=== PATIENT | male | born 1935 | race Caucasian/White ===

== ENCOUNTER 2020-02-06 17:45 | Emergency (ER) | payer MEDICARE, SELFPAY ==
--- NOTE | ~2020-02-06 | XR_ITS ---
EXAMINATION: XR chest 1V portable DATE: 02/06/2020 18:34 INDICATION: 2 days of fever, chills, cough and shortness of breath TECHNIQUE: frontal view of the chest was obtained. COMPARISON: Chest radiograph dated 01/26/2019 FINDINGS: Groundglass opacities in the right mid and lower lung zones with additional streaky opacities in the bilateral lower lung zones. No pulmonary edema, pleural effusion or pneumothorax. The cardiomediastin al silhouette is normal. Multiple old right-sided rib fractures. 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 Changes of prior distal right clavicle resection. Partially visualized bilatera l vertical carlton and multilevel pedicle screw fixation at the thoracolumbar junction. IMPRESSION: 1. Opacities in the right mid and bilateral lower lung zones which could represent pneumonia, atelect asis or combination thereof. Reviewed, dictated and finalized at [facility]. NT CLERK IMPRESSION: 1. Opacities in the right mid and bilateral lower lung zones which could repres ent pneumonia, atelectasis or combination thereof.
[2020-02-06 18:19] VITALS: PULSE 89; RESP 22; TEMP 38; O2SAT 94
[2020-02-06 19:15] VITALS: O2SAT 94
[2020-02-06 19:24] LABS: Basophils Percent Auto 0.2 % (0.2-1.2); Eosinophils Absolute Auto 0.1 K/mm3 (0-0.3); Eosinophils Percent Auto 0.6 % (0-4.4); Hematocrit 39.4 % (42.0-52.0); Immature Granulocyte Absolute 0.04 K/mm3 (0.00-0.031); Immature Granulocyte Percent A 0.4 % (0-0.5); Lymphocytes Absolute Auto 0.83 K/mm3 (0.9-3.2); Lymphocytes Percent Auto 8.2 % (18.3-44.2); Mean Corpuscular Hemoglobin 29.8 pg (26-34); Mean Corpuscular Volume 90.4 fl (80-100); Mean Platelet Volume 9.3 fl (7.4-10.4); Monocytes Absolute Auto 0.9 K/mm3 (0.1-0.6); Monocytes Percent Auto 8.7 % (2.6-8.5); Neutrophils Absolute Auto 8.3 K/mm3 (1.3-6.7); Neutrophils Percent Auto 81.9 % (45.5-73.1); Platelet Count Result 180 k/mm3 (150-375); Red Blood Count 4.36 M/mm3 (4.6-6.20); Red Cell Distribution Width 13.4 % (11.5-14.5); White Blood Count 10.2 K/mm3 (4.5-10.0)
[2020-02-06 19:33] LABS: INR 0.9; Prothrombin Time 13.1 Seconds (11.1-14.7)
[2020-02-06 19:34] LABS: Partial Thromboplastin Time 32.4 SECONDS (22.3-36.8)
[2020-02-06 19:38] LABS: Lactic Acid Reflex 1.6 mmol/L (0.7-2.1)
[2020-02-06 19:45] LABS: Alanine Aminotransferase 34 U/L (4-50); Albumin Level 3.9 g/dL (3.5-5.1); Alkaline Phosphatase 85 U/L (38-126); Anion Gap 9 mmol/L (8-16); Aspartate Amino Transferase 50 U/L (17-59); Bilirubin,Total 1.4 mg/dL (0.2-1.3); Blood Urea Nitrogen 20 mg/dL (9-20); Calcium 8.7 mg/dL (8.4-10.2); Carbon Dioxide 27 mmol/L (22-30); Chloride 103 mmol/L (98-107); Estimated CRCL calculation 36 ml/min; Estimated Glomerular Filt Rate 53; Glucose 187 mg/dL (75-110); Potassium 4.4 mmol/L (3.4-5.0); Sodium 139 mmol/L (137-145)
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
[2020-02-06 20:49] VITALS: O2SAT 95
[2020-02-06 21:15] VITALS: BP 144/74; PULSE 72; RESP 16; O2SAT 98
[2020-02-06] MEDS: AZITHROMYCIN 250 MG TABLET 500 MG PO (21:15)
[2020-02-06] MEDS: CEFDINIR 300 MG CAPSULE PO (21:15)
[2020-02-07 14:03] LABS: SARS-CoV-2 RNA PCR Negative
== END 2020-02-06 21:15 | disposition home or self-care (01) ==
PROVIDERS: Emergency Medicine; Emergency Provider Emergency Medicine; PCP Family Medicine
DX: J18.9 Pneumonia, unspecified organism (principal); Z20.828 Contact with and (suspected) exposure to other viral communicable diseases; N40.0 Benign prostatic hyperplasia without lower urinary tract symptoms; G47.419 Narcolepsy without cataplexy; R06.02 Shortness of breath
CPT/HCPCS: 36415; 71045; 80053; 83605; 85025; 85610; 85730; 87040; 87077; 87186; 87635; 99283; A9270; C9803; U0003

== ENCOUNTER → 2020-05-21 10:29 | Outpatient (CLI) | payer MEDICARE, SELFPAY ==
--- NOTE | ~2020-05-21 | CT_ITS ---
EXAMINATION: CT diagnostic chest w con DATE: 05/21/2020 11:00 INDICATION: Nodule left lower lobe TECHNIQUE: Computed tomography (CT) of the chest was performed without intravenous contrast. Addition al 3D reconstructions utilizing coronal maximum intensity projection (MIP) were performed. Automated exposure control and iterative reconstruction technique were employed. The dose-length product was 40 6.57 mGy-cm. COMPARISON: 01/26/2019 FINDINGS: Small lung volumes. There is moderate respiratory motion at the lung bases which mildly limits evalua tion of fine pulmonary parenchymal detail. Chronic reticular pattern of atelectasis/scarring at the b ilateral lung bases and along the anterior right middle lobe where there is mild emphysema. Mild depe ndent atelectasis in the bilateral lower lobes. No pneumonia, pulmonary edema or pleural effusion. Th ere are few scattered small calcified pulmonary nodules along with calcified mediastinal lymph nodes consistent with old granulomatous disease. Cardiomegaly. No pericardial effusion. Atherosclerotic cor onary artery calcific lesions. Aortic valve calcification. Thoracic aorta is normal in caliber with n o dissection. No pathologically enlarged thoracic lymphadenopathy. Diffuse hepatic steatosis. Multipl e old healed and nonunited rib fractures. 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 Severe cervical thoracic spondyl osis. Partially visualized vertical carlton and pedicle screw fixation at T11 for posterior spinal fusion which appears to extend beyond the caudal margin of the [id number]. IMPRESSION: 1. Small lung volumes with chronic bibasilar atelectasis/scarring including at the anterior right mid dle lobe and mild dependent atelectasis. No evident concerning pulmonary nodules. 2. Cardiomegaly. 3. Diffuse hepatic steatosis. Reviewed, dictated and finalized at location [facility]. R ACCOUNT REPRESENTATIVE IMPRESSION: 1. Small lung volumes with chronic bibasilar atelectasis/scarring including at the anterior right middle lobe and mild dependent atelectasis. No evident aguilar rning pulmonary nodules. 2. Cardiomegaly. 3. Diffuse hepatic steatosis.
[2020-05-21 10:49] LABS: Estimated Glomerular Filt Rate > 60
== END ==
PROVIDERS: PCP Internal Medicine; Visit Provider Physician Assistant Medical
DX: R91.8 Other nonspecific abnormal finding of lung field (principal); I51.7 Cardiomegaly; K76.0 Fatty (change of) liver, not elsewhere classified
CPT/HCPCS: 71260; Q9967

== ENCOUNTER 2020-07-02 14:16 | Outpatient (CLI) | payer MEDICARE, SELFPAY ==
--- NOTE | 2020-07-02 14:30 | ECHO_ITS ---
Patient Info Name: Devin Gonzalez Age: 85 years : 1935 Gender: Male Ht: 65 in Wt: 182 lbs BSA: 1.97 m2 HR: 67 bpm BP: 162 / 87 mmHg Technical Quality: Fair Exam Date: 07/02/2020 2:40 PM Exam Location: [facility] Patient Status: Outpatient Admit Date: 07/02/2020 Staff Ordering Physician: Mitch Kumar DO Computer Aided Design Technician: Angi Romero RDCS Attending Provider: Mitch Kumar DO Referring Physician: José JAMES; Exam Type: CA echo dop color flow w con Study Info Complete two-dimensional, color flow and Doppler transthoracic echocardiogram is performed with contrast to opacify the left ventricle and to improve the deliniation of the left ventricle endocardial borders. Contrast/Agitated Saline Contrast/Ag. Saline: Definity Amount: 1.00 ml New IV Access: Left Summary 1. Left ventricular chamber dimension is normal. 2. Definity contrast administered improved wall motion interpretation. 3. Left ventricular systolic function is normal, estimated at 60-65%. 4. There is moderately increased left ventricular wall thickness. 5. The left ventricular diastolic function is grade I diastolic dysfunction. 6. E/e' 7 is not elevated. 7. Left atrial chamber dimension is mildly enlarged. 8. There is severe aortic valve sclerosis. 9. There is moderate aortic valve stenosis with a peak velocity of 241.98 cm/s, mean gradient of 11 mmHg, and aortic valve area of 1.44 cm2. 10. Mild pulmonary hypertension, estimated pulmonary arterial systolic pressure is 43 mmHg. Left Ventricle Definity contrast administered improved wall motion interpretation. E/e' 7 is not elevated. Left ventricular chamber dimension is normal. Left ventricular systolic function is normal, estimated at 60-65%. There is moderately increased left ventricular wall thickness. The left ventricular diastolic function is grade I diastolic dysfunction. Right Ventricle Right ventricular chamber dimension is normal. Right ventricular systolic function is normal. Left Atria Left atrial chamber dimension is mildly enlarged. Right Atria Right atrial chamber dimension is normal. Aortic Valve The aortic valve is trileaflet. There is severe aortic valve sclerosis. There is moderate aortic valve stenosis with a peak velocity of 241.98 cm/s, mean gradient of 11 mmHg, and aortic valve area of 1.44 cm2. There is no aortic valve regurgitation. Pulmonic Valve There is no pulmonic regurgitation. Mitral Valve There is no mitral valve stenosis. There is no mitral valve regurgitation. Tricuspid Valve There is no tricuspid valve regurgitation. Mild pulmonary hypertension, estimated pulmonary arterial systolic pressure is 43 mmHg. Pericardium/Pleural There is no pericardial effusion. Inferior Vena Cava Normal inferior vena cava with >50% collapse upon inspiration consistent with normal right atrial pressure, 5 mmHg. Aorta The aortic root size at the sinus of Valsalva is normal. Left Ventricular Outflow Tract Name Value Normal LVOT 2D LVOT Diameter 2.05 cm LVOT Doppler LVOT Peak Gradient 4
== END 2020-07-02 14:17 | disposition home or self-care (01) ==
PROVIDERS: PCP Family Medicine; Visit Provider Internal Medicine Cardiovascular Disease
DX: R06.00 Dyspnea, unspecified (principal); I08.3 Combined rheumatic disorders of mitral, aortic and tricuspid valves
CPT/HCPCS: C8929

== ENCOUNTER 2020-07-24 19:33 | Emergency (ER) | payer MEDICARE, SELFPAY ==
[2020-07-24 19:40] VITALS: BP 153/79; PULSE 85; RESP 16; TEMP 36.2; O2SAT 94
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
[2020-07-24 20:58] VITALS: BP 147/86; PULSE 84; RESP 16; O2SAT 97
== END 2020-07-24 21:01 | disposition home or self-care (01) ==
PROVIDERS: Emergency Provider Emergency Medicine; PCP Family Medicine
DX: T83.091A Other mechanical complication of indwelling urethral catheter, initial encounter (principal); N40.0 Benign prostatic hyperplasia without lower urinary tract symptoms; M10.9 Gout, unspecified; G62.9 Polyneuropathy, unspecified; Z98.49 Cataract extraction status, unspecified eye
CPT/HCPCS: 99282

== ENCOUNTER 2020-07-25 22:30 | Emergency (ER) | payer MEDICARE, SELFPAY ==
[2020-07-25 23:20] VITALS: BP 145/88; PULSE 70; RESP 18; TEMP 36.1; O2SAT 94
[2020-07-26 00:28] VITALS: BP 145/88; PULSE 67; RESP 18; TEMP 36.6; O2SAT 94
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
[2020-07-26 03:14] LABS: Basophils Absolute Auto 0.1 K/mm3 (0.0-0.1); Basophils Percent Auto 0.6 % (0.2-1.2); Eosinophils Absolute Auto 0.3 K/mm3 (0-0.3); Eosinophils Percent Auto 3.4 % (0-4.4); Hematocrit 41.9 % (42.0-52.0); Hemoglobin 13.5 g/dL (14.0-18.0); Immature Granulocyte Absolute 0.06 K/mm3 (0.00-0.031); Immature Granulocyte Percent A 0.7 % (0-0.5); Lymphocytes Absolute Auto 1.32 K/mm3 (0.9-3.2); Lymphocytes Percent Auto 15.9 % (18.3-44.2); Mean Corpuscular HGB Conc 32.2 g/dl (32-36); Mean Corpuscular Hemoglobin 30.3 pg (26-34); Mean Corpuscular Volume 93.9 fl (80-100); Mean Platelet Volume 9.1 fl (7.4-10.4); Monocytes Absolute Auto 0.9 K/mm3 (0.1-0.6); Monocytes Percent Auto 10.3 % (2.6-8.5); Neutrophils Absolute Auto 5.7 K/mm3 (1.3-6.7); Neutrophils Percent Auto 69.1 % (45.5-73.1); Platelet Count Result 243 k/mm3 (150-375); Red Blood Count 4.46 M/mm3 (4.6-6.20); Red Cell Distribution Width 13.6 % (11.5-14.5); White Blood Count 8.3 K/mm3 (4.5-10.0)
[2020-07-26 03:24] LABS: Add Urine Microscopic? YES; Appearance Urine Cloudy (Clear); Bacteria Urine Trace /hpf; Bilirubin Urine Negative (Negative); Blood Urine 3+ (Negative); Color Urine Yellow (Yellow); Glucose Urine UA Negative (Negative); Ketones Urine Negative (Negative); Leukocyte Esterase Ur 3+ LEU/UL (Negative); Nitrate Urine Negative (Negative); Protein Urine 2+ mg/dL (Negative); RBC Urine >75 /hpf (0-2); Specific Grav Ur 1.013 (1.001-1.035); Urobilinogen Urine Negative mg/dL (<2.0); WBC Urine >75 /hpf
[2020-07-26 03:27] LABS: Alanine Aminotransferase 32 U/L (4-50); Albumin Level 3.7 g/dL (3.5-5.1); Alkaline Phosphatase 93 U/L (38-126); Anion Gap 3 mmol/L (8-16); Aspartate Amino Transferase 46 U/L (17-59); Bilirubin,Total 1.1 mg/dL (0.2-1.3); Blood Urea Nitrogen 14 mg/dL (9-20); Carbon Dioxide 30 mmol/L (22-30); Chloride 101 mmol/L (98-107); Estimated CRCL calculation 49 ml/min; Estimated Glomerular Filt Rate > 60; Glucose 105 mg/dL (75-110); Sodium 134 mmol/L (137-145)
[2020-07-26] MEDS: cefTRIAXone 1 GM VIAL IM (04:03)
[2020-07-26] MEDS: LIDOCAINE HCL 1% LOCAL INJ 20 ML VIAL (04:09)
[2020-07-26 04:41] VITALS: BP 152/93; PULSE 69; RESP 18; O2SAT 95
== END 2020-07-26 04:41 | disposition home or self-care (01) ==
PROVIDERS: Emergency Provider General Practice; PCP Family Medicine
DX: T83.511A Infection and inflammatory reaction due to indwelling urethral catheter, initial encounter (principal); T83.098A Other mechanical complication of other urinary catheter, initial encounter; N40.0 Benign prostatic hyperplasia without lower urinary tract symptoms; M10.9 Gout, unspecified; G62.9 Polyneuropathy, unspecified; G47.9 Sleep disorder, unspecified; Z87.828 Personal history of other (healed) physical injury and trauma
CPT/HCPCS: 36415; 51700; 80053; 81001; 85025; 87086; 87088; 87147; 87181; 87186; 96372; 99283; J0696

== ENCOUNTER 2020-09-05 06:46 | Inpatient (IN) | payer MEDICARE, SELFPAY ==
[2020-09-05] VITALS (12 sets, daily range): BP systolic 115–172; BP diastolic 47–82; PULSE 69–95; RESP 18–36; TEMP 36.2–36.5; O2SAT 91–100; BMI 30.1
--- NOTE | ~2020-09-05 | XR_ITS ---
EXAMINATION: XR shoulder LT min 2V DATE: 09/09/2020 17:48 INDICATION: Left shoulder pain. TECHNIQUE: 5 views of left shoulder were obtained. COMPARISON: None. FINDINGS: Bone alignment is normal. No fracture. There is severe osteoarthritis of glenohumeral joint and mild osteoarthritis of acromioclavicular joint. IMPRESSION: 1. Polyarticular osteoarthritis. Reviewed, dictated and finalized at location A.
--- NOTE | ~2020-09-05 | MR_ITS ---
EXAMINATION: MR lumbar spine wo con DATE: 09/06/2020 11:11 INDICATION: Lower extremity weakness TECHNIQUE: Magnetic resonance imaging (MRI) of the lumbar spine was performed without intravenous con trast. Sequences included sagittal T2-weighted FSE, sagittal T2-weighted FS FSE, sagittal T1-weighted FSE, and axial T2-weighted FSE. COMPARISON: CT abdomen and pelvis dated 01/26/2019 FINDINGS: 2-3 mm anterolisthesis L3 on L4, 3 mm anterolisthesis L4 on L5 and 3 mm retrolisthesis L5 on S1. Post erior spinal fusion with bilateral vertical carlton and pedicle screw fixation at T11-L2. This spans a ch ronic L1 burst fracture with 60% anterior central vertebral body height loss both relative preservati on of the anterior wall. There is 6 mm retropulsion of the posterior wall. Normal marrow signal. Mod erate to severe disc height loss at T10-T11, L4-L5 and L5-S1. Moderate disc height loss at T9-T10 and L3-L4, mild disc height loss at T9-T10, T10-T11 and L2-L3. There is ballooning of the anterior T12-L 1 disc space and central aspect of the L1-L2 disc space resulting from L1 burst fracture. There is in creased signal at the distal aspect of the conus medullaris. The tip is not clearly identified but is likely near the level of T12-L1 or L1. Postoperative changes in the subcutaneous tissues posterior t o the mid lumbar spine. Mcgrann disease with degenerative remodeling of the abutting cephalad and cau francisco margins of the spinous processes from T12-L1 through L3-L4. Paravertebral soft tissues are otherw ise unremarkable. The following disc levels are specifically discussed: T12-L1: The disc does not extend beyond the endplate margin. There is 6 mm retropulsion of the parts designer ior wall of L1 with cephalad predominance which results in severe central canal stenosis. Metallic ma gnetic field artifact associated with bilateral vertical carlton and pedicle screw fixation which limits evaluation of the neural foramina. There is mild bilateral, right greater than left neural foraminal stenosis. L1-L2: The disc does not extend beyond the endplate margin. Metallic magnetic field artifact associat ed with bilateral vertical carlton and pedicle screw fixation which limits evaluation of the neural divya gustavo. There is mild left neural foraminal stenosis. There is no central canal stenosis. L2-L3: The disc does not extend beyond the endplate margin. There is mild hypertrophy of the ligament um flavum. Metallic magnetic field artifact associated with bilateral vertical carlton and pedicle screw fixation which limits evaluation of the neural foramina. There is mild bilateral neural foraminal st enosis. There is mild central canal stenosis. L3-L4: Annular fissure and broad-based disc extrusion extending from foraminal zone to foraminal zone with disc material extending up to 4 mm cephalad to the level of the inferior endplate of L3. There is prominent hypertrophy of the ligamentum flavum. There is severe bilateral facet osteoarthritis. There is moderate bilateral neural foraminal stenosis. There is severe central canal stenosis. L4-L5: Disc is mildly bulging with superimposed small central disc extrusion with disc material exten ding couple millimeters cephalad to the level of the inferior endplate of L4. There is severe bilater al facet joint osteoarthritis. There is moderate bilateral neural foraminal stenosis. There is mild t o moderate central canal stenosis. L5-S1: Disc is bulging with annular fissure. There is moderate bilateral facet joint osteoarthritis. There is moderate bilateral neural foraminal stenosis. There is minimal central canal stenosis. IMPRESSION: 1. Chronic L1 burst fracture with 6 mm retropulsion contributing to moderate to severe central canal stenosis at this level. 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 2. Instrumented T10-L3 posterio
--- NOTE | ~2020-09-05 | XR_ITS ---
XR chest 2V 09/09/2020 13:25 Indication: Shortness of breath Procedure: AP and lateral views of the chest Comparison: Comparison to multiple prior studies sequentially, with oldest reviewed study dated 10/2018. Findings: Shallow inspiration with crowding of the pulmonary vessels. Bibasilar infiltrates are persi stent without significant change dating back to 09/05/2020. No significant effusion or pneumothorax. N o acute osseous abnormality. There is osteoarthritis of the shoulders. There are healed right rib fra ctures. Impression: 1: Stable bibasilar infiltrates which may represent atelectasis or pneumonia. Reviewed, dictated and finalized at location B. Impression: 1: Stable bibasilar infiltrates which may represent atelectasis or pneumonia.
--- NOTE | ~2020-09-05 | XR_ITS ---
XR chest 1V portable DATE: 09/05/2020 19:02 INDICATION: Cough. Diminished lung sounds. TECHNIQUE: Portable upright AP chest on 09/05/2020 at 1858 hours COMPARISON: 02/06/2020 portable AP chest 06/07/2020 CT diagnostic chest FINDINGS: There is patchy infiltrate or atelectasis in the right mid and lower lung zones, right grea ter than left. Heart size appears normal. Aortic calcification. Diffuse osteopenia. Lower thoracic and lumbar pedicle screws and rods. Osteoarthritic changes at the glenohumeral joints, left greater than right. IMPRESSION: Patchy infiltrate or atelectasis in the right mid and both lower lung zones Reviewed, dictated and finalized at location A. IMPRESSION: Patchy infiltrate or atelectasis in the right mid and both lower nedra ng zones
--- NOTE | ~2020-09-05 | MR_ITS ---
EXAMINATION: MR brain/brain stem wo con DATE: 09/06/2020 11:11 INDICATION: Weakness. Skull T standing. TECHNIQUE: Magnetic resonance imaging (MRI) of the brain and brainstem was performed without intraven ous contrast. Sequences included sagittal and axial T1-weighted SE, axial diffusion-weighted FS SE, a xial T2*-weighted GRE, axial T2-weighted FLAIR Propeller, and axial T2-weighted Propeller. Apparent d iffusion coefficient (ADC) maps were created. COMPARISON: CT dated 09/05/2020. FINDINGS: No acute intracranial hemorrhage, infarction, mass or mass effect. Generalized atrophy. The re are scattered mild periventricular and subcortical white matter changes, most likely related to sm all vessel ischemic disease (microangiopathy). Midline sagittal images are unremarkable. No ventricul omegaly or midline shift. Structures of the posterior fossa including 7/8th cranial nerve complexes a re normal. No significant abnormality of the paranasal sinuses. Orbits are symmetric without disconju gate gaze. IMPRESSION: 1. No acute intracranial abnormality. 2: Chronic age-related findings. Reviewed, dictated and finalized at location B.
--- NOTE | ~2020-09-05 | XR_ITS ---
EXAMINATION: XR chest 2V DATE: 09/07/2020 12:25 INDICATION: Shortness of breath TECHNIQUE: Frontal and lateral views of the chest are obtained COMPARISON: 09/05/2020 FINDINGS: There are stable bibasilar airspace opacities. There is no pleural effusion or pneumothorax . The cardiomediastinal silhouette is normal. There is moderate thoracic spondylosis. Healed right-si ded rib fractures are noted. There are partially imaged changes of posterior thoracolumbar fusion. Ad vanced osteoarthritis is noted in left glenohumeral joint. IMPRESSION: 1. Stable bibasilar airspace opacities, consistent with atelectasis versus pneumonia. Reviewed, dictated and finalized at location A. IMPRESSION: 1. Stable bibasilar airspace opacities, consistent with atelectasis versus pneu monia.
--- NOTE | ~2020-09-05 | CT_ITS ---
EXAMINATION: CT brain wo [facility] EXAM DATE: 09/05/2020 10:06 INDICATION: Bilateral leg weakness, symptoms 3 days. TECHNIQUE: Spiral CT of the head was performed without contrast. Axial, coronal and sagittal images were reviewed. The dose-length product (DLP) for this examination was 605.33 mGy-cm. The exposure w as tailored according to patient size, and iterative reconstruction (ASIR) was used as additional dos e reduction technique. There is no prior study for comparison. FINDINGS: There is no acute intraparenchymal hemorrhage. No evidence of intraparenchymal brain mass lesion. No evidence of acute infarction. Please note that initial head CT has limited sensitivity f or small or acute infarctions. There is mild periventricular and subcortical hypodensity, nonspecific but probably related to small vessel ischemic disease. There is mild prominence of the sulci and v entricles related to cerebral atrophy. There is intracranial carotid arteriosclerosis. There are n o extra-axial collections. There is no mass effect or midline shift. The orbits are unremarkable. Soft tissue is unremarkable. The visualized sinuses and mastoid air cells are well aerated. IMPRESSION: 1. No acute intracranial findings. 2. Chronic age related findings. Reviewed, dictated and finalized at location B.
--- NOTE | 2020-09-05 07:03 | ECG_ITS ---
Measurements Intervals [place] Rate: 83 P: AL: 0 QRS: -41 QRSD: 101 T: 44 QT: 367 QTc: 432 Interpretive Statements SINUS RHYTHM WITH SINUS ARRHYTHMIA FREQUENT ATRIAL PREMATURE COMPLEXES LEFT AXIS DEVIATION CONSIDER INFERIOR INFARCT, AGE INDETERMINATE BASELINE ARTIFACT- I, II, III, AVR, AVL, AVF, V1-V6 ABNORMAL ECG Electronically Signed On 09-05-2020 8:03:30 CDT by Mitch Kumar D.O.
[2020-09-05 07:47] LABS: Basophils Percent Auto 0.2 % (0.2-1.2); Eosinophils Percent Auto 0.1 % (0-4.4); Hematocrit 39.4 % (42.0-52.0); Hemoglobin 12.6 g/dL (14.0-18.0); Immature Granulocyte Absolute 0.13 K/mm3 (0.00-0.031); Immature Granulocyte Percent A 0.8 % (0-0.5); Lymphocytes Absolute Auto 1.15 K/mm3 (0.9-3.2); Lymphocytes Percent Auto 7.5 % (18.3-44.2); Mean Corpuscular Hemoglobin 29.6 pg (26-34); Mean Corpuscular Volume 92.5 fl (80-100); Mean Platelet Volume 9.1 fl (7.4-10.4); Monocytes Absolute Auto 1.3 K/mm3 (0.1-0.6); Monocytes Percent Auto 8.2 % (2.6-8.5); Neutrophils Absolute Auto 12.8 K/mm3 (1.3-6.7); Neutrophils Percent Auto 83.2 % (45.5-73.1); Platelet Count Result 233 k/mm3 (150-375); Red Blood Count 4.26 M/mm3 (4.6-6.20); White Blood Count 15.4 K/mm3 (4.5-10.0)
[2020-09-05 07:53] LABS: Add Urine Microscopic? YES; Appearance Urine Turbid (Clear); Bacteria Urine 2+ /hpf; Bilirubin Urine Negative (Negative); Blood Urine 2+ (Negative); Color Urine Yellow (Yellow); Glucose Urine UA Negative (Negative); Ketones Urine Negative (Negative); Leukocyte Esterase Ur 3+ LEU/UL (Negative); Mucus Urine Rare /lpf; Nitrate Urine Negative (Negative); Protein Urine 2+ mg/dL (Negative); RBC Urine >75 /hpf (0-2); Specific Grav Ur 1.011 (1.001-1.035); Squamous Epithelial Cell Urine Occasional /hpf (Few); Urobilinogen Urine Negative mg/dL (<2.0); WBC Clumps Urine Present /HPF; WBC Urine >75 /hpf
[2020-09-05 07:56] LABS: Alanine Aminotransferase 25 U/L (4-50); Albumin Level 3.4 g/dL (3.5-5.1); Alkaline Phosphatase 94 U/L (38-126); Anion Gap 7 mmol/L (8-16); Aspartate Amino Transferase 38 U/L (17-59); Bilirubin,Total 2.8 mg/dL (0.2-1.3); Blood Urea Nitrogen 18 mg/dL (9-20); Calcium 8.8 mg/dL (8.4-10.2); Carbon Dioxide 27 mmol/L (22-30); Chloride 102 mmol/L (98-107); Estimated CRCL calculation 38 ml/min; Estimated Glomerular Filt Rate 53; Glucose 136 mg/dL (75-110); Potassium 3.9 mmol/L (3.4-5.0); Sodium 136 mmol/L (137-145)
[2020-09-05 08:09] LABS: NT Pro B Type Natriuretic Pept 585 pg/mL (5-100); Troponin I 0.034 ng/mL (0.000-0.034)
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
--- NOTE | 2020-09-05 13:09 | ADMGEN ---
This patient, Devin Gonzalez, was admitted to Medical Room 341-01. Patient/family oriented to hospital policies and general routines including ID bracelet, bed and alarms, visiting hours, pain management, procedures, bathroom and other care routines, personal items, smoking policy, room service/diet, and visiting hours. Information on how to activate the Rapid Response Team has been discussed. Patient/Family are encouraged to report perceived risks to care and to ask questions if they do not understand what they are told or what they should do.
[2020-09-05] MEDS: SODIUM CHLORIDE 0.9% IV 1,000 ML 75 ML IV CONT (14:47)
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
[2020-09-05] MEDS: GABAPENTIN 300 MG CAPSULE PO (17:29)
[2020-09-05] MEDS: BENZONATATE 100 MG CAPSULE PO (18:53)
[2020-09-05] MEDS: ALBUTEROL SULFATE NEB 2.5 MG/0.5 ML INH 5 MG INHALATION (22:34)
[2020-09-06] VITALS (14 sets, daily range): BP systolic 108–147; BP diastolic 43–79; PULSE 71–104; RESP 18–26; TEMP 36.1–36.7; O2SAT 92–98
[2020-09-06 06:20] LABS: Basophils Percent Auto 0.3 % (0.2-1.2); Eosinophils Percent Auto 0.4 % (0-4.4); Hematocrit 38.7 % (42.0-52.0); Hemoglobin 12.3 g/dL (14.0-18.0); Immature Granulocyte Absolute 0.07 K/mm3 (0.00-0.031); Immature Granulocyte Percent A 0.6 % (0-0.5); Lymphocytes Absolute Auto 1.15 K/mm3 (0.9-3.2); Lymphocytes Percent Auto 10.2 % (18.3-44.2); Mean Corpuscular HGB Conc 31.8 g/dl (32-36); Mean Corpuscular Hemoglobin 29.9 pg (26-34); Mean Corpuscular Volume 93.9 fl (80-100); Mean Platelet Volume 9.5 fl (7.4-10.4); Monocytes Absolute Auto 1.1 K/mm3 (0.1-0.6); Monocytes Percent Auto 9.8 % (2.6-8.5); Neutrophils Absolute Auto 8.8 K/mm3 (1.3-6.7); Neutrophils Percent Auto 78.7 % (45.5-73.1); Platelet Count Result 212 k/mm3 (150-375); Red Blood Count 4.12 M/mm3 (4.6-6.20); Red Cell Distribution Width 13.9 % (11.5-14.5); White Blood Count 11.2 K/mm3 (4.5-10.0)
[2020-09-06 06:45] LABS: Anion Gap 7 mmol/L (8-16); Blood Urea Nitrogen 18 mg/dL (9-20); Calcium 8.6 mg/dL (8.4-10.2); Carbon Dioxide 27 mmol/L (22-30); Chloride 102 mmol/L (98-107); Estimated CRCL calculation 45 ml/min; Estimated Glomerular Filt Rate > 60; Glucose 112 mg/dL (75-110); Potassium 3.9 mmol/L (3.4-5.0); Sodium 136 mmol/L (137-145)
[2020-09-06] MEDS: SODIUM CHLORIDE 0.9% IV 1,000 ML 75 ML IV CONT (08:16)
[2020-09-06] MEDS: methylPHENIDATE HCL (*CRX) 5 MG TABLET 10 MG PO (08:17)
[2020-09-06] MEDS: OMEGA 3 POLYUNSAT FATTY ACIDS 1 GM CAP PO (08:18)
[2020-09-06] MEDS: FINASTERIDE 5 MG TABLET PO (08:18)
[2020-09-06] MEDS: GABAPENTIN 300 MG CAPSULE PO ×2 (08:18→18:02)
[2020-09-06] MEDS: LORATADINE 10 MG TABLET PO (08:18)
[2020-09-06] MEDS: BENZONATATE 100 MG CAPSULE PO ×2 (08:19→15:46)
[2020-09-06] MEDS: allopurinoL 100 MG TABLET BY MOUTH (08:19)
[2020-09-06] MEDS: PANTOPRAZOLE 40 MG TABLET BY MOUTH (08:19)
[2020-09-06] MEDS: ENOXAPARIN 40 MG/0.4 ML SYRINGE SUB-Q (08:19)
[2020-09-06] MEDS: ALBUTEROL SULFATE NEB 2.5 MG/0.5 ML INH 5 MG INHALATION ×4 (08:22→20:04)
[2020-09-06] MEDS: IPRATROPIUM BR 0.02% INH SOLN 0.5 MG/2.5 ML VIAL INHALATION ×4 (08:22→20:04)
--- NOTE | 2020-09-06 14:03 | PM.IMPN ---
Progress Note: A&P Assessment and Plan (1) Lower extremity weakness: Qualifiers: Laterality: bilateral Qualified Code(s): R29.898 - Other symptoms and signs involving the musculoskeletal system Code(s): R29.898 - Other symptoms and signs involving the musculoskeletal system Status: Acute (2) UTI (urinary tract infection) due to urinary indwelling catheter: Qualifiers: Encounter type: subsequent encounter Indwelling urinary catheter type: indwelling urethral catheter Qualified Code(s): T83.511D - Infection and inflammatory reaction due to indwelling urethral catheter, subsequent encounter; N39.0 - Urinary tract infection, site not specified Code(s): T83.511A - Infection and inflammatory reaction due to indwelling urethral catheter, initial encounter; N39.0 - Urinary tract infection, site not specified Status: Acute (3) Obesity: Code(s): E66.9 - Obesity, unspecified Status: Acute (4) Central sleep apnea: Code(s): G47.31 - Primary central sleep apnea Status: Acute (5) Chronic indwelling Zimmer catheter: Code(s): Z96.0 - Presence of urogenital implants Status: Acute (6) HLD (hyperlipidemia): Code(s): E78.5 - Hyperlipidemia, unspecified Status: Acute (7) ABDULLAHI (obstructive sleep apnea): Code(s): G47.33 - Obstructive sleep apnea (adult) (pediatric) Status: Acute (8) Primary narcolepsy without cataplexy: Code(s): G47.419 - Narcolepsy without cataplexy Status: Acute (9) Type 2 diabetes mellitus with diabetic neuropathy: Code(s): E11.40 - Type 2 diabetes mellitus with diabetic neuropathy, unspecified Status: Acute (10) Pneumonia: Code(s): J18.9 - Pneumonia, unspecified organism Status: Acute Additional Plan # bialteral lower extremity weakness acute on chronic. ct head negative. For his confusing and bilateral lower extremity weakness.likely exacerbation with underlyilng uti or medical illness. will treat uti. iv hydration. # cough: Chest x-ray with bilateral infiltrate/atelectasis with his cough and wheezing will treat as pneumonia he has been started on Rocephin and azithromycin. We will also get COVID screened. # UTI relatd to chronic zimmer: Started on rocephin . urine culture pending. zimmer was excanged 08/19. # BPH with chornic zimmer placement # narcolepsy: on ritalin # peripheral neuropathy # sleep disorder with CPAP at home will assess the setting # hx of spinal cord injury with lower extremity weakness chronic. # DVT proph: lovenox 09/06: will stop fluids. WBC count better down to 11,000 from 15,000 renal function stable Subjective Date/time seen: 09/06/20 14:03 Interval history: Patient reports he did not have a good night last night. they place for him on a CPAP machine that had a high-flow which he did tolerate. He still has cough off and on to have constant cough off and on this morning. Eating complain of any cough yesterday when he presented. He does state that his lower legs are more stronger today. Review of Systems Review of Systems: All systems reviewed & are unremarkable except as noted in HPI and below Constitutional: Constitutional: Reports fatigue and Reports weakness Neurologic: Reports weakness Endocrine: Endocrine: Reports fatigue Exam Narrative: Exam Narrative: GENERAL: The patient is well developed, not in acute distress HEENT: Nonicteric sclerae, PERRLA, EOMI. Oropharynx clear. Moist mucous membranes. Conjunctivae appear well perfused. CHEST: Chest wall is nontender. HEART: Regular rate and rhythm without murmur, rubs, or gallops LUNGS: Occasional wheezes bilaterally. no respiratory distress ABDOMEN: Soft, positive bowel sounds, non-tender, no organomegaly. protuberent SKIN: No rash, no excessive bruising, petechiae, or purpura. NEUROLOGIC: Cranial nerves II-XII intact, alert and oriented x 3, lower extremity weakenss equal and symmetrial. knee relf
[2020-09-06 18:27] LABS: EDCOVIDSCREEN Negative (Negative)
[2020-09-07] VITALS (13 sets, daily range): BP systolic 108–125; BP diastolic 65–67; PULSE 62–90; RESP 18–30; TEMP 36.1–36.7; O2SAT 90–96
[2020-09-07] MEDS: BENZONATATE 100 MG CAPSULE PO ×3 (03:02→16:15)
[2020-09-07 05:52] LABS: Basophils Percent Auto 0.3 % (0.2-1.2); Eosinophils Absolute Auto 0.2 K/mm3 (0-0.3); Eosinophils Percent Auto 2.4 % (0-4.4); Hematocrit 37.5 % (42.0-52.0); Hemoglobin 11.9 g/dL (14.0-18.0); Immature Granulocyte Absolute 0.03 K/mm3 (0.00-0.031); Immature Granulocyte Percent A 0.4 % (0-0.5); Lymphocytes Absolute Auto 1.29 K/mm3 (0.9-3.2); Lymphocytes Percent Auto 16.5 % (18.3-44.2); Mean Corpuscular HGB Conc 31.7 g/dl (32-36); Mean Corpuscular Hemoglobin 29.8 pg (26-34); Mean Corpuscular Volume 93.8 fl (80-100); Mean Platelet Volume 9.3 fl (7.4-10.4); Monocytes Percent Auto 12.4 % (2.6-8.5); Neutrophils Absolute Auto 5.3 K/mm3 (1.3-6.7); Platelet Count Result 233 k/mm3 (150-375); Red Cell Distribution Width 13.8 % (11.5-14.5); White Blood Count 7.8 K/mm3 (4.5-10.0)
[2020-09-07 06:06] LABS: Anion Gap 7 mmol/L (8-16); Blood Urea Nitrogen 15 mg/dL (9-20); Calcium 8.8 mg/dL (8.4-10.2); Carbon Dioxide 28 mmol/L (22-30); Chloride 102 mmol/L (98-107); Estimated CRCL calculation 45 ml/min; Estimated Glomerular Filt Rate > 60; Glucose 100 mg/dL (75-110); Potassium 3.6 mmol/L (3.4-5.0); Sodium 137 mmol/L (137-145)
[2020-09-07] MEDS: IPRATROPIUM BR 0.02% INH SOLN 0.5 MG/2.5 ML VIAL INHALATION ×4 (07:07→19:19)
[2020-09-07] MEDS: ALBUTEROL SULFATE NEB 2.5 MG/0.5 ML INH 5 MG INHALATION ×4 (07:07→19:19)
[2020-09-07] MEDS: GABAPENTIN 300 MG CAPSULE PO ×2 (08:24→16:15)
[2020-09-07] MEDS: allopurinoL 100 MG TABLET BY MOUTH (08:24)
[2020-09-07] MEDS: PANTOPRAZOLE 40 MG TABLET BY MOUTH (08:24)
[2020-09-07] MEDS: ENOXAPARIN 40 MG/0.4 ML SYRINGE SUB-Q (08:24)
[2020-09-07] MEDS: LORATADINE 10 MG TABLET PO (08:24)
[2020-09-07] MEDS: OMEGA 3 POLYUNSAT FATTY ACIDS 1 GM CAP PO (08:25)
[2020-09-07] MEDS: FINASTERIDE 5 MG TABLET PO (08:25)
[2020-09-07] MEDS: methylPHENIDATE HCL (*CRX) 5 MG TABLET 10 MG PO (08:25)
--- NOTE | 2020-09-07 11:11 | PM.IMPN ---
Progress Note: A&P Assessment and Plan (1) Lower extremity weakness: Qualifiers: Laterality: bilateral Qualified Code(s): R29.898 - Other symptoms and signs involving the musculoskeletal system Code(s): R29.898 - Other symptoms and signs involving the musculoskeletal system Status: Acute Assessment and Plan: MRI pending will continue with physical therapy. (2) UTI (urinary tract infection) due to urinary indwelling catheter: Qualifiers: Encounter type: subsequent encounter Indwelling urinary catheter type: indwelling urethral catheter Qualified Code(s): T83.511D - Infection and inflammatory reaction due to indwelling urethral catheter, subsequent encounter; N39.0 - Urinary tract infection, site not specified Code(s): T83.511A - Infection and inflammatory reaction due to indwelling urethral catheter, initial encounter; N39.0 - Urinary tract infection, site not specified Status: Acute Assessment and Plan: Check culture and continue antibiotics. (3) Obesity: Code(s): E66.9 - Obesity, unspecified Status: Acute Assessment and Plan: Diet instruction. (4) Central sleep apnea: Code(s): G47.31 - Primary central sleep apnea Status: Acute Assessment and Plan: Continue with CPAP (5) Chronic indwelling Zimmer catheter: Code(s): Z96.0 - Presence of urogenital implants Status: Acute Assessment and Plan: Check culture and continue antibiotics. (6) HLD (hyperlipidemia): Code(s): E78.5 - Hyperlipidemia, unspecified Status: Acute Assessment and Plan: Stable on meds. (7) ABDULLAHI (obstructive sleep apnea): Code(s): G47.33 - Obstructive sleep apnea (adult) (pediatric) Status: Acute Assessment and Plan: Continue CPAP (8) Primary narcolepsy without cataplexy: Code(s): G47.419 - Narcolepsy without cataplexy Status: Acute Assessment and Plan: Continue physical therapy and CPAP (9) Type 2 diabetes mellitus with diabetic neuropathy: Code(s): E11.40 - Type 2 diabetes mellitus with diabetic neuropathy, unspecified Status: Acute Assessment and Plan: Stable on meds. (10) Pneumonia: Code(s): J18.9 - Pneumonia, unspecified organism Status: Acute Assessment and Plan: Clinically improving will continue with antibiotics. Repeat chest x-ray. Additional Plan # bialteral lower extremity weakness acute on chronic. ct head negative. For his confusing and bilateral lower extremity weakness.likely exacerbation with underlyilng uti or medical illness. will treat uti. iv hydration. # cough: Chest x-ray with bilateral infiltrate/atelectasis with his cough and wheezing will treat as pneumonia he has been started on Rocephin and azithromycin. We will also get COVID screened. # UTI relatd to chronic zimmer: Started on rocephin . urine culture pending. zimmer was excanged 08/19. # BPH with chornic zimmer placement # narcolepsy: on ritalin # peripheral neuropathy # sleep disorder with CPAP at home will assess the setting # hx of spinal cord injury with lower extremity weakness chronic. # DVT proph: lovenox 09/06: will stop fluids. WBC count better down to 11,000 from 15,000 renal function stable Will continue current plan of care and treatment. Will check MRI report. Physical therapy. If stays okay will discharge in the morning. Subjective Date/time seen: 09/07/20 11:11 Patient was seen during the morning rounds today. Patient is feeling slightly better. Decreased shortness of breath. No chest pain. No abdominal pain, nausea, no vomiting. Mood stable. Review of Systems Review of Systems: All systems reviewed & are unremarkable except as noted in HPI and below Constitutional: Constitutional: Reports fatigue and Reports weakness Neurologic: Reports weakness Endocrine: Endocrine: Reports fatigue Exam Narrative: Exam Narrative: GENERAL: T
[2020-09-08] VITALS (10 sets, daily range): BP systolic 136–140; BP diastolic 56–87; PULSE 61–98; RESP 18–26; TEMP 35.9–36.6; O2SAT 91–96
[2020-09-08] MEDS: BENZONATATE 100 MG CAPSULE PO ×2 (00:25→07:46)
[2020-09-08] MEDS: OMEGA 3 POLYUNSAT FATTY ACIDS 1 GM CAP PO (09:01)
[2020-09-08] MEDS: LORATADINE 10 MG TABLET PO (09:01)
[2020-09-08] MEDS: allopurinoL 100 MG TABLET BY MOUTH (09:01)
[2020-09-08] MEDS: FINASTERIDE 5 MG TABLET PO (09:01)
[2020-09-08] MEDS: GABAPENTIN 300 MG CAPSULE PO ×2 (09:01→17:14)
[2020-09-08] MEDS: ENOXAPARIN 40 MG/0.4 ML SYRINGE SUB-Q (09:01)
[2020-09-08] MEDS: PANTOPRAZOLE 40 MG TABLET BY MOUTH (09:01)
[2020-09-08] MEDS: methylPHENIDATE HCL (*CRX) 5 MG TABLET 10 MG PO (09:01)
[2020-09-08] MEDS: ALBUTEROL SULFATE NEB 2.5 MG/0.5 ML INH 5 MG INHALATION ×3 (09:10→19:46)
[2020-09-08] MEDS: IPRATROPIUM BR 0.02% INH SOLN 0.5 MG/2.5 ML VIAL INHALATION ×3 (09:10→19:46)
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
[2020-09-09] VITALS (12 sets, daily range): BP systolic 123–155; BP diastolic 65–89; PULSE 50–89; RESP 18–28; TEMP 35.8–36.9; O2SAT 91–93
[2020-09-09] MEDS: IPRATROPIUM BR 0.02% INH SOLN 0.5 MG/2.5 ML VIAL INHALATION ×4 (07:21→21:20)
[2020-09-09] MEDS: ALBUTEROL SULFATE NEB 2.5 MG/0.5 ML INH 5 MG INHALATION ×4 (07:21→21:20)
[2020-09-09] MEDS: ENOXAPARIN 40 MG/0.4 ML SYRINGE SUB-Q (08:28)
[2020-09-09] MEDS: FINASTERIDE 5 MG TABLET PO (08:28)
[2020-09-09] MEDS: LORATADINE 10 MG TABLET PO (08:28)
[2020-09-09] MEDS: OMEGA 3 POLYUNSAT FATTY ACIDS 1 GM CAP PO (08:28)
[2020-09-09] MEDS: PANTOPRAZOLE 40 MG TABLET BY MOUTH (08:28)
[2020-09-09] MEDS: methylPHENIDATE HCL (*CRX) 5 MG TABLET 10 MG PO (08:28)
[2020-09-09] MEDS: allopurinoL 100 MG TABLET BY MOUTH (08:28)
[2020-09-09] MEDS: GABAPENTIN 300 MG CAPSULE PO ×2 (08:28→16:54)
[2020-09-09] MEDS: ACETAMINOPHEN 325 MG TABLET 650 MG PO ×3 (08:31→22:31)
--- NOTE | 2020-09-09 11:43 | PM.IMPN ---
Progress Note: A&P Assessment and Plan (1) Pneumonia: Code(s): J18.9 - Pneumonia, unspecified organism Status: Acute Assessment and Plan: IV antibiotics Obtain chest x-ray Check CBC (2) Lower extremity weakness: Qualifiers: Laterality: bilateral Qualified Code(s): R29.898 - Other symptoms and signs involving the musculoskeletal system Code(s): R29.898 - Other symptoms and signs involving the musculoskeletal system Status: Acute Assessment and Plan: MRI unremarkable (3) UTI (urinary tract infection) due to urinary indwelling catheter: Qualifiers: Encounter type: subsequent encounter Indwelling urinary catheter type: indwelling urethral catheter Qualified Code(s): T83.511D - Infection and inflammatory reaction due to indwelling urethral catheter, subsequent encounter; N39.0 - Urinary tract infection, site not specified Code(s): T83.511A - Infection and inflammatory reaction due to indwelling urethral catheter, initial encounter; N39.0 - Urinary tract infection, site not specified Status: Acute Assessment and Plan: IV antibiotics Subjective Date/time seen: 09/09/20 11:43 Patient complains of left shoulder pain that is worse with palpation and movement. Exam Const: General: cooperative and no acute distress HENMT: Head: normal to inspection Eyes: General: appearance normal, both eyes and all related structures Neck: Neck: normal visual inspection Chest: Chest palpation & inspection: normal inspection of the chest Resp: Effort & Inspection: normal respiratory effort Cardio: Jugular venous distension: no JVD Rate: regular rate GI: Inspection: normal to inspection and non-distended Objective Data Vital Signs Vital Signs: Vital Signs - 24 hr 09/08/20 14:00 09/08/20 14:03 09/08/20 14:13 Temperature 96.6 F L Pulse Rate 98 76 61 Respiratory Rate 18 20 20 Blood Pressure 136/87 Pulse Oximetry 93 09/08/20 19:49 09/08/20 19:58 09/08/20 20:11 Temperature 97.8 F Pulse Rate 80 90 86 Respiratory Rate 20 20 22 H Blood Pressure 139/56 L Pulse Oximetry 96 96 92 09/09/20 05:28 09/09/20 07:21 Temperature 96.4 F L Pulse Rate 50 L 82 Respiratory Rate 20 22 H Blood Pressure 155/74 H Pulse Oximetry 92 92 Intake/Output Intake/Output: Intake & Output 09/06/20 09/07/20 09/08/20 09/09/20 23:59 23:59 23:59 23:59 Intake Total 2330 2020 2140 760 Output Total 1410 1325 1700 1200 Balance 920 695 440 -440 Meds/Results Medications: Active Medications Generic Name Dose Route Start Last Admin Trade Name Freq PRN Reason Stop Dose Admin Acetaminophen 650 mg 09/05/20 11:39 09/09/20 08:31 Acetaminophen 325 Mg Tablet PO 650 mg Q4H PRN Administration Mild Pain (1-3) or Fever Albuterol 5 mg 09/05/20 22:17 09/09/20 07:21 Albuterol Sulfate Neb 2.5 Mg/0.5 Ml Inh INHALATION 5 mg QIDRT YULIANA Administration Alfuzosin HCl 10 mg 09/06/20 09:00 09/09/20 08:28 Alfuzosin 10 Mg Er Tablet PO 10 mg DAILY YULIANA Administration Allopurinol 100 mg 09/06/20 09:00 09/09/20 08:28 Allopurinol 100 Mg Tablet BY MOUTH 100 mg DAILY YULINAA Administration Benzonatate 100 mg 09/05/20 18:43 09/08/20 07:46 Benzonatate 100 Mg Capsule PO 100 mg TID PRN Administration Cough Docusate Sodium 50 mg 09/05/20 16:05 Docusate Sodium Liq 100 Mg/10 Ml Udc PO PRN PRN CONSTIPATION Enoxaparin Sodium 40 mg 09/06/20 09:00 09/09/20 08:28 Enoxaparin 40 Mg/0.4 Ml Syringe SUB-Q 40 mg DAILY YULIANA Administration Finasteride 5 mg 09/06/20 09:00 09/09/20 08:28 Finasteride 5 Mg Tablet PO 5 mg DAILY YULIANA Administration Fish Oil 1 gm 09/06/20 09:00 09/09/20 08:28 [place] 3 Polyunsat Fatty Acids 1 Gm Cap PO 1 gm DAILY YULIANA Administration Gabapentin 300 mg 09/05/20 17:00 09/09/20 08:28 Gabapentin 300 Mg Capsule PO 300 mg BID YULIANA Administration Ceftriax
[2020-09-09] MEDS: BENZONATATE 100 MG CAPSULE PO (22:31)
[2020-09-10 04:25] VITALS: PULSE 89; RESP 23; O2SAT 93
[2020-09-10 05:28] VITALS: BP 132/75; PULSE 82; RESP 24; TEMP 36; O2SAT 92
[2020-09-10] MEDS: ACETAMINOPHEN 325 MG TABLET 650 MG PO (05:34)
[2020-09-10 05:51] LABS: Basophils Percent Auto 0.3 % (0.2-1.2); Eosinophils Absolute Auto 0.4 K/mm3 (0-0.3); Eosinophils Percent Auto 3.8 % (0-4.4); Hematocrit 39.2 % (42.0-52.0); Hemoglobin 12.4 g/dL (14.0-18.0); Immature Granulocyte Absolute 0.07 K/mm3 (0.00-0.031); Immature Granulocyte Percent A 0.7 % (0-0.5); Lymphocytes Absolute Auto 1.18 K/mm3 (0.9-3.2); Lymphocytes Percent Auto 12.1 % (18.3-44.2); Mean Corpuscular HGB Conc 31.6 g/dl (32-36); Mean Corpuscular Hemoglobin 29.5 pg (26-34); Mean Corpuscular Volume 93.1 fl (80-100); Mean Platelet Volume 9.1 fl (7.4-10.4); Monocytes Percent Auto 9.8 % (2.6-8.5); Neutrophils Absolute Auto 7.2 K/mm3 (1.3-6.7); Neutrophils Percent Auto 73.3 % (45.5-73.1); Platelet Count Result 284 k/mm3 (150-375); Red Blood Count 4.21 M/mm3 (4.6-6.20); Red Cell Distribution Width 13.6 % (11.5-14.5); White Blood Count 9.8 K/mm3 (4.5-10.0)
[2020-09-10 05:59] LABS: Anion Gap 7 mmol/L (8-16); Blood Urea Nitrogen 13 mg/dL (9-20); Calcium 9.3 mg/dL (8.4-10.2); Carbon Dioxide 33 mmol/L (22-30); Chloride 94 mmol/L (98-107); Creatine Kinase 184 U/L (55-170); Estimated CRCL calculation 49 ml/min; Estimated Glomerular Filt Rate > 60; Glucose 122 mg/dL (75-110); Magnesium 1.9 mg/dL (1.6-2.3); Phosphorus 3.7 mg/dL (2.5-4.5); Sodium 134 mmol/L (137-145)
[2020-09-10 07:10] VITALS: PULSE 86; RESP 18
[2020-09-10] MEDS: ALBUTEROL SULFATE NEB 2.5 MG/0.5 ML INH 5 MG INHALATION ×2 (07:10→11:22)
[2020-09-10] MEDS: IPRATROPIUM BR 0.02% INH SOLN 0.5 MG/2.5 ML VIAL INHALATION ×2 (07:10→11:23)
[2020-09-10 07:14] VITALS: O2SAT 93
[2020-09-10] MEDS: allopurinoL 100 MG TABLET BY MOUTH (09:35)
[2020-09-10] MEDS: OMEGA 3 POLYUNSAT FATTY ACIDS 1 GM CAP PO (09:36)
[2020-09-10] MEDS: PANTOPRAZOLE 40 MG TABLET BY MOUTH (09:36)
[2020-09-10] MEDS: BENZONATATE 100 MG CAPSULE PO (09:37)
[2020-09-10] MEDS: ENOXAPARIN 40 MG/0.4 ML SYRINGE SUB-Q (09:37)
[2020-09-10] MEDS: FINASTERIDE 5 MG TABLET PO (09:38)
[2020-09-10] MEDS: LORATADINE 10 MG TABLET PO (09:38)
[2020-09-10] MEDS: GABAPENTIN 300 MG CAPSULE PO (09:38)
[2020-09-10] MEDS: methylPHENIDATE HCL (*CRX) 5 MG TABLET 10 MG PO (09:40)
--- NOTE | 2020-09-10 10:55 | PM.DS ---
DS: Admitting Diagnosis Admitting Diagnosis Admitting Diagnosis: Weakness UTI DS: Discharge Diagnosis Discharge Diagnosis (1) Pneumonia: Code(s): J18.9 - Pneumonia, unspecified organism Status: Acute Assessment and Plan: IV antibiotics Obtain chest x-ray Check CBC (2) Lower extremity weakness: Qualifiers: Laterality: bilateral Qualified Code(s): R29.898 - Other symptoms and signs involving the musculoskeletal system Code(s): R29.898 - Other symptoms and signs involving the musculoskeletal system Status: Acute Assessment and Plan: MRI unremarkable (3) UTI (urinary tract infection) due to urinary indwelling catheter: Qualifiers: Encounter type: subsequent encounter Indwelling urinary catheter type: indwelling urethral catheter Qualified Code(s): T83.511D - Infection and inflammatory reaction due to indwelling urethral catheter, subsequent encounter; N39.0 - Urinary tract infection, site not specified Code(s): T83.511A - Infection and inflammatory reaction due to indwelling urethral catheter, initial encounter; N39.0 - Urinary tract infection, site not specified Status: Acute Assessment and Plan: IV antibiotics DS: Summary Hospital Course Hospital Course: Chief Complaint: lower extremity weakness Narrative: 85-year-old with a history of peripheral neuropathy, previous back injury with chronic lower extremity weakness present with worsening lower extremity weakness. Patient was found to have pneumonia and UTI Treated with IV antibiotics Patient condition improved during this hospitalization Renal function also improved Patient complaining of left shoulder pain with movement and x-ray revealed signs of arthritis. Patient returned to his usual state of health, denies any active complaints and patient is stable for discharge today. Time Spent with Patient Time attestation: Total time spent providing and/or coordinating discharge services: Time spent: Greater than 30 minutes Exam Const: General: cooperative and no acute distress HENMT: Head: normal to inspection Eyes: General: appearance normal, both eyes and all related structures Neck: Neck: normal visual inspection Chest: Chest palpation & inspection: normal inspection of the chest Resp: Effort & Inspection: normal respiratory effort Cardio: Jugular venous distension: no JVD Rate: regular rate GI: Inspection: normal to inspection and non-distended DS: Data Data Completed and Pending Labs on day of discharge: Labs from last 24 hours 09/10/20 09/10/20 05:32 05:32 WBC 9.8 RBC 4.21 L Hgb 12.4 L Hct 39.2 L MCV 93.1 MCH 29.5 MCHC 31.6 L RDW 13.6 Plt Count 284 MPV 9.1 Immature Gran % (Auto) 0.7 H Neut % (Auto) 73.3 H Lymph % (Auto) 12.1 L [place] % (Auto) 9.8 H Eos % (Auto) 3.8 Baso % (Auto) 0.3 Lymph # (Auto) 1.18 [place] # (Auto) 1.0 H Eos # (Auto) 0.4 H Baso # (Auto) 0.0 Abs Immat Gran (auto) 0.07 H Absolute Neuts (auto) 7.2 H Absolute Nucleated RBC 0.0 Nucleated RBC % 0.0 Sodium 134 L Potassium 4.0 Chloride 94 L Carbon Dioxide 33 H Anion Gap 7 L BUN 13 Creatinine 1.00 Estim Creat Clear Calc 49 Estimated GFR > 60 Glucose 122 H Calcium 9.3 Phosphorus 3.7 Magnesium 1.9 Total Creatine Kinase 184 H Discharge Plan Discharge Discharging Clinician: Fede Araujo Patient Disposition: Home, Self-Care Activity: as tolerated Diet: regular Patient Instructions: Antibiotic Form, Azithromycin (By injection), Urinary Tract Infection in Men (DC), Pain Management (DC), Gonzalez Catheter Placement and Care (DC), Weakness (DC), Fall Prevention (DC) Stand Alone Forms: General Discharge Information Follow-up/Referrals: Gagan Mckay MD [Primary Care Provider] - 1 Week Discharge Medications: New acetaminophen [Mapap (acetaminophen)] 325 mg Tablet 650 mg PO Q4H PRN
[2020-09-10 11:24] VITALS: PULSE 84; RESP 18
== END 2020-09-10 14:10 | disposition home or self-care (01) | DRG 698 ==
LOC: ANHED 12:18 → ANH3MED 13:14
PROVIDERS: Emergency Medicine; Admitting Provider Internal Medicine; Emergency Provider Family Medicine; PCP Family Medicine; Visit Provider Family Medicine
DX: T83.511A Infection and inflammatory reaction due to indwelling urethral catheter, initial encounter (principal); J18.9 Pneumonia, unspecified organism; N39.0 Urinary tract infection, site not specified; Z20.822 Contact with and (suspected) exposure to COVID-19; N40.0 Benign prostatic hyperplasia without lower urinary tract symptoms; E11.42 Type 2 diabetes mellitus with diabetic polyneuropathy; M19.012 Primary osteoarthritis, left shoulder; M10.9 Gout, unspecified; G47.419 Narcolepsy without cataplexy; M70.21 Olecranon bursitis, right elbow; E78.5 Hyperlipidemia, unspecified; G47.33 Obstructive sleep apnea (adult) (pediatric); Z98.42 Cataract extraction status, left eye; Z98.41 Cataract extraction status, right eye; E66.9 Obesity, unspecified; Z68.30 Body mass index [BMI] 30.0-30.9, adult
CPT/HCPCS: 36415; 70450; 70551; 71045; 71046; 72148; 73030; 80048; 80053; 81001; 82550; 83735; 83880; 84100; 84484; 85025; 87077; 87086; 87088; 87186; 87426; 93005; 94640; 96361; 96365; 96367; 96372; 97110; 97116; 97161; 97165; 97530; 97535; 99285; A9270; C9803; G0378; J0456; J0696; J1650; J7030

== ENCOUNTER 2020-10-18 03:55 | Emergency (ER) | payer MEDICARE, SELFPAY ==
[2020-10-18 03:59] VITALS: BP 151/79; PULSE 78; RESP 17; TEMP 36.2; O2SAT 94
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
--- NOTE | 2020-10-18 04:34 | PC.NURSE ---
Patient's catheter was not draining, cath was irrigated, and advanced. Gonzalez drained 800ml, patient tolerated well. Patient states he feels much better. Bladder scan after drained, was 70ml.
[2020-10-18 04:52] VITALS: BP 150/80; PULSE 79; RESP 18; TEMP 36.6; O2SAT 95
== END 2020-10-18 04:55 | disposition home or self-care (01) ==
LOC: ANHED 04:42
PROVIDERS: Emergency Provider Emergency Medicine; PCP Family Medicine
DX: T83.091A Other mechanical complication of indwelling urethral catheter, initial encounter (principal); N40.0 Benign prostatic hyperplasia without lower urinary tract symptoms; M10.9 Gout, unspecified; G47.9 Sleep disorder, unspecified; G62.9 Polyneuropathy, unspecified; Z98.49 Cataract extraction status, unspecified eye
CPT/HCPCS: 99282

== ENCOUNTER 2021-02-04 10:24 | Outpatient (CLI) | payer MEDICARE, SELFPAY ==
[2021-02-04 11:19] LABS: Alanine Aminotransferase 20 U/L (4-50); Albumin Level 3.8 g/dL (3.5-5.1); Alkaline Phosphatase 94 U/L (38-126); Anion Gap 8 mmol/L (8-16); Aspartate Amino Transferase 37 U/L (17-59); Blood Urea Nitrogen 16 mg/dL (9-20); Calcium 9.3 mg/dL (8.4-10.2); Carbon Dioxide 29 mmol/L (22-30); Chloride 100 mmol/L (98-107); Estimated Glomerular Filt Rate > 60; Glucose 113 mg/dL (65-110); Potassium 4.3 mmol/L (3.4-5.0); Sodium 137 mmol/L (137-145)
== END 2021-02-04 10:25 | disposition home or self-care (01) ==
LOC: ANHLAB 10:28
PROVIDERS: PCP Family Medicine; Visit Provider Nurse Practitioner Family
DX: E11.40 Type 2 diabetes mellitus with diabetic neuropathy, unspecified (principal)
CPT/HCPCS: 36415; 80053; 83036

== ENCOUNTER 2021-04-29 07:49 | Outpatient (CLI) | payer MEDICARE, SELFPAY ==
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
[2021-05-05 13:36] VITALS: BMI 29.9
== END 2021-04-30 08:12 | disposition home or self-care (01) ==
LOC: ANHCSM 07:50
PROVIDERS: PCP Family Medicine; Visit Provider Physician Assistant Medical
DX: G47.33 Obstructive sleep apnea (adult) (pediatric) (principal); I49.9 Cardiac arrhythmia, unspecified
CPT/HCPCS: 95810

== ENCOUNTER 2021-07-14 12:34 | Inpatient (IN) | payer MEDICARE, SELFPAY ==
[2021-07-14] VITALS (11 sets, daily range): BP systolic 128–162; BP diastolic 67–82; PULSE 54–64; RESP 11–20; TEMP 36.4–36.5; O2SAT 92–97; BMI 31.5
--- NOTE | ~2021-07-14 | CT_ITS ---
EXAMINATION: CT brain wo con DATE: 07/14/2021 13:23 INDICATION: Head injury TECHNIQUE: Computed tomography (CT) of the head was performed without intravenous contrast. The mA wa s adjusted according to patient size. Iterative reconstruction technique was employed. Exam dose: 90 8.00 mGy-cm total exam DLP. COMPARISON: 09/06/2020 MRI brain/brainstem 09/05/2020 CT brain FINDINGS: Examination is somewhat limited by motion artifact. There is moderate central and cortical cerebral atrophy. No intracranial mass lesion or hemorrhage or cerebrovascular accident is evident. Bilateral carotid siphon and vertebral artery calcifications. There is nonspecific diminished attenua tion of the cerebral white matter, likely due to chronic small vessel ischemic changes. No subdural or epidural hematoma is detected. No orbital mass lesion. Bilateral nasal antral windows. There is mild mucoperiosteal thickening of the right maxillary sinus. No fracture or bone destruction of the cranial vault. IMPRESSION: Cerebral atherosclerosis and chronic small vessel ischemic changes of the cerebral white matter No acute intracranial finding Reviewed, dictated and finalized at [facility]. Reviewed, dictated and finalized at [facility].
--- NOTE | ~2021-07-14 | XR_ITS ---
XR ribs LT 2V w CXR 2V DATE: 07/14/2021 13:16 INDICATION: Left rib pain following injury from fall TECHNIQUE: 2 views of the chest. 3 views of the left rib cage. COMPARISON: 09/09/2020 AP and lateral chest FINDINGS: Pedicle screws and rods are noted in the thoracolumbar area. Degenerative spurring of the t horacic spine. Diffuse osteopenia. No displaced left rib fracture is noted. No bone destruction is detected. There is limited expansion of lungs with bibasilar atelectasis. No pleural effusion or pneumothorax is evident. IMPRESSION: No apparent recent left rib fracture Osteopenia Status post posterior surgical fusion at the thoracolumbar area Reviewed, dictated and finalized at location [facility].
--- NOTE | ~2021-07-14 | XR_ITS ---
EXAMINATION: XR hip BI 2V w AP pelvis DATE: 07/15/2021 10:48 INDICATION: Hip pain. TECHNIQUE: An anteroposterior view of the pelvis and 2 views of each hip were obtained. COMPARISON: Abdomen radiographs 10/02/2018 FINDINGS: There is levocurvature of lower lumbar spine. There is severe lumbar spondylosis. There are changes of posterior fusion procedure in upper lumbar spine. No fracture. There is mild osteoarthrit is of the hips. IMPRESSION: 1. Mild osteoarthritis of the hips. Reviewed, dictated and finalized at location [facility].
--- NOTE | 2021-07-14 12:45 | ECG_ITS ---
Measurements Intervals [place] Rate: 58 P: 25 NE: 262 QRS: -30 QRSD: 101 T: 38 QT: 414 QTc: 409 Interpretive Statements SINUS BRADYCARDIA WITH FIRST DEGREE AV BLOCK WITH OCCASIONAL SUPRAVENTRICULAR PREMATURE COMPLEXES CANNOT RULE OUT OLD INFERIOR MYOCARDIAL INFARCTION SINUS BRADYCARDIA NOW PRESENT FIRST DEGREE AV BLOCK NOW PRESENT Electronically Signed On 07-15-2021 13:32:52 CDT by Heide Harding M.D.
[2021-07-14 13:05] LABS: Basophils Percent Auto 0.4 % (0.2-1.2); Eosinophils Absolute Auto 0.1 K/mm3 (0-0.3); Eosinophils Percent Auto 1.5 % (0-4.4); Hematocrit 40.6 % (42.0-52.0); Hemoglobin 13.3 g/dL (14.0-18.0); Immature Granulocyte Absolute 0.06 K/mm3 (0.00-0.031); Immature Granulocyte Percent A 0.7 % (0-0.5); Lymphocytes Absolute Auto 1.28 K/mm3 (0.9-3.2); Lymphocytes Percent Auto 14.4 % (18.3-44.2); Mean Corpuscular HGB Conc 32.8 g/dl (32-36); Mean Corpuscular Hemoglobin 30.1 pg (26-34); Mean Corpuscular Volume 91.9 fl (80-100); Mean Platelet Volume 8.5 fl (7.4-10.4); Monocytes Absolute Auto 0.9 K/mm3 (0.1-0.6); Monocytes Percent Auto 10.1 % (2.6-8.5); Neutrophils Absolute Auto 6.5 K/mm3 (1.3-6.7); Neutrophils Percent Auto 72.9 % (45.5-73.1); Platelet Count Result 262 k/mm3 (150-375); Red Blood Count 4.42 M/mm3 (4.6-6.20); Red Cell Distribution Width 13.3 % (11.5-14.5); White Blood Count 8.9 K/mm3 (4.5-10.0)
[2021-07-14 13:14] LABS: Alanine Aminotransferase 18 U/L (4-50); Alkaline Phosphatase 90 U/L (38-126); Anion Gap 7 mmol/L (8-16); Aspartate Amino Transferase 50 U/L (17-59); Bilirubin,Total 1.2 mg/dL (0.2-1.3); Blood Urea Nitrogen 11 mg/dL (9-20); Calcium 8.8 mg/dL (8.4-10.2); Carbon Dioxide 29 mmol/L (22-30); Chloride 88 mmol/L (98-107); Estimated CRCL calculation 54 ml/min; Estimated Glomerular Filt Rate > 60; Glucose 114 mg/dL (65-110); Potassium 4.6 mmol/L (3.4-5.0); Sodium 124 mmol/L (137-145)
--- NOTE | 2021-07-14 13:41 | ED.FALL ---
HPI - Fall General Chief Complaint: Fall Stated Complaint: fall Time Seen by Provider: 07/14/21 12:41 Source: patient Mode of arrival: EMS Limitations: no limitations History of Present Illness HPI Narrative: Patient is an 86-year-old male complaining of left rib pain after a fall while walking her driveway this morning. Patient states that he has bilateral lower extremity weakness and numbness which she has had ever since his back surgery years ago, was told will never walk again . Patient able to walk with help of a cane. Patient does not recall if he hit his head or not. Denies any loss of consciousness. Patient denies any neck, chest, abdomen, back or any extremity pain/injury. Patient also wheezing on arrival, daughter states that its been ongoing for a while and that his accounting manager cpa advised him that it is because of his weight and that he needs to lose some. Patient also states that he has been having increased shortness of breath especially exertion. Related Data Home Medications Medication Instructions Recorded Confirmed finasteride 5 mg PO DAILY 01/27/19 07/03/21 omega-3 fatty acids 1,000 mg 1,200 mg PO DAILY 06/16/20 07/03/21 capsule cetirizine 10 mg capsule 10 mg PO DAILY PRN 03/17/21 07/03/21 Allergies Allergy/AdvReac Type Severity Reaction Status Date / Time niacin Allergy Unknown Unknown Verified 07/14/21 12:42 Sulfa (Sulfonamide Allergy Unknown Unknown Verified 07/14/21 12:42 Antibiotics) sulfamethoxazole Allergy Unknown Unknown Verified 07/14/21 12:42 trimethoprim Allergy Unknown Unknown Verified 07/14/21 12:42 Review of Systems Review of Systems: All systems reviewed & are unremarkable except as noted in HPI and below Constitutional: Constitutional: Denies body ache(s), Denies chills, Denies excessive sweating, Denies fatigue, Denies fever(s), Denies headache(s), Denies lethargy, Denies malaise and Denies weight loss Eyes: Eyes: Denies blurry vision, Denies change in vision and Denies loss of vision ENT: Denies dizziness, Denies ear discharge, Denies headache(s), Denies lip swelling, Denies epistaxis, Denies nasal congestion, Denies neck pain, Denies throat swelling and Denies tongue swelling Cardiovascular: Cardiovascular: Denies chest pain, Denies chest pain at rest, Denies chest pain with activity, Denies diaphoresis, Denies rapid heart rate, Denies edema, Denies irregular heart rhythm, Denies lightheadedness and Denies palpitations Respiratory: Respiratory: Denies chest congestion, Denies cough and Denies hemoptysis Gastrointestinal: Gastrointestinal: Denies abdominal pain, Denies melena, Denies hematochezia, Denies diarrhea, Denies nausea, Denies vomiting and Denies hematemesis Musculoskeletal: Musculoskeletal: Denies abnormal gait, Denies deformity, Denies joint swelling, Denies limited range of motion, Denies neck pain and Denies numbness Neurologic: Denies Abnormal speech present, Denies abnormal gait, Denies confusion, Denies dizziness, Denies headache(s), Denies focal weakness, Denies loss of vision, Denies numbness, Denies Other visual disturbances, Denies Sensory deficit (Neuro) and Denies weakness Psychiatric: Psychiatric: Denies confusion, Denies depression, Denies auditory hallucinations, Denies homicidal ideation and Denies suicidal ideation Endocrine: Endocrine: Denies cold intolerance, Denies excessive sweating, Denies fatigue, Denies heat intolerance and Denies palpitations Hematologic/Lymphatic: Hematologic/Lymphatic: Denies easy bleeding and Denies easy bruising Allergic/Immunologic: Allergic/Immunologic: Denies lip swelling, Denies throat swelling and Denies tongue swelling PMFSH Past Medical History Medical History BPH (benign prostatic hyperplasia) Gout Hearing loss Narcolepsy Narcolepsy Neuropathy Olecranon bursitis, right elbow Pyelonephritis Sleep disorder SOB (shortness of breath) Spinal cord injury lumba
[2021-07-14 14:02] LABS: NT Pro B Type Natriuretic Pept 1020 pg/mL (5-100)
[2021-07-14 14:05] LABS: Carboxyhemoglobin 0.6 % THb (0-2.0); Fractional Inspired Oxygen 32 %; HCO3 ABG 28.3 mEq/l (22.0-26.0); Methemoglobin ABG 0.3 %THb (0-1.5); Oxygen Content ABG 17.9 %vol (16.0-22.0); Oxygen Saturation ABG 97.2 % (95.0-100.0); Oxyhemoglobin 96.7 % THb (90.0-100.0); PCO2 ABG 51.2 mmHg (35.0-45.0); PO2 ABG 99.3 mmHg (80.0-100.0); Reduced Hemoglobin 2.4 %THb (0-5.0); Total Hemoglobin 13.1 g/dL (12.0-18.0)
[2021-07-14 14:07] LABS: Device NASAL CANNULA; Modified Allen's Test Pass; Site Drawn RIGHT RADIAL
[2021-07-14] MEDS: IPRATROPIUM BR 0.02% INH SOLN 0.5 MG/2.5 ML VIAL INHALATION (14:12)
[2021-07-14] MEDS: ALBUTEROL SULFATE NEB 2.5 MG/0.5 ML INH 5 MG INHALATION (14:12)
[2021-07-14] MEDS: HYDROcodone/acetaminophen (*CRX) 5-325 MG TABLET 1 TAB PO (15:55)
[2021-07-14] MEDS: FUROSEMIDE INJ 40 MG/4 ML VIAL 20 MG IV PUSH (15:56)
--- NOTE | 2021-07-14 17:25 | ADMGEN ---
This patient, Devin Gonzalez, was admitted to [address] [place] [address] Room 324-01 at 1700. Patient/family oriented to hospital policies and general routines including ID bracelet, bed and alarms, visiting hours, pain management, procedures, bathroom and other care routines, personal items, smoking policy, room service/diet, and visiting hours. Information on how to activate the Rapid Response Team has been discussed. Patient/Family are encouraged to report perceived risks to care and to ask questions if they do not understand what they are told or what they should do.
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
[2021-07-14 18:44] LABS: Sodium Urine Random 112 meq/L
[2021-07-15] VITALS (13 sets, daily range): BP systolic 108–121; BP diastolic 49–90; PULSE 53–75; RESP 18–20; TEMP 36.5–36.6; O2SAT 92–99
--- NOTE | 2021-07-15 | ECHO_ITS ---
Patient Info Name: Devin Gonzalez Age: 86 years : 1935 Gender: Male Ht: 65 in Wt: 189 lbs BSA: 2.01 m2 HR: 69 bpm BP: 128 / 67 mmHg Heart Rhythm: Sinus Rhythm Technical Quality: Fair Exam Date: 07/15/2021 8:27 AM Exam Location: [facility] Patient Status: Outpatient Admit Date: 07/14/2021 Staff Ordering Physician: Ena Allen APRN [employer] Drier: Tri Oconnell RDCS Attending Provider: Coby Lutz PA-C Referring Physician: Tiffany AMARAL; Exam Type: CA echo doppler color flow Study Info Indications - SOB Complete two-dimensional, color flow and Doppler transthoracic echocardiogram is performed with contrast to opacify the left ventricle and to improve the deliniation of the left ventricle endocardial borders. Contrast/Agitated Saline Contrast/Ag. Saline: Definity Amount: 2.00 ml Administered By: Tri Oconnell RDCS Existing IV Access: Yes IV Access Condition: patent with no signs of infiltration Summary 1. Left ventricular chamber dimension is normal. 2. Definity contrast administered improved wall motion interpretation. 3. Left ventricular systolic function is normal, estimated at 60-65%. 4. The left ventricular diastolic function is grade I diastolic dysfunction. 5. E/e' 10 is mildly elevated. 6. Right ventricular systolic function is reduced based on abnormal TAPSE 1.5 cm. 7. There is severe aortic valve sclerosis. 8. There is moderate aortic valve stenosis based on a peak velocity of 314 cm/s, mean gradient of 17 mmHg, and aortic valve area of 1.1 cm2. 9. Mild pulmonary hypertension, estimated pulmonary arterial systolic pressure is 46 mmHg. Left Ventricle E/e' 10 is mildly elevated. Definity contrast administered improved wall motion interpretation. Left ventricular chamber dimension is normal. Left ventricular systolic function is normal, estimated at 60-65%. The left ventricular diastolic function is grade I diastolic dysfunction. Right Ventricle Right ventricular systolic function is reduced based on abnormal TAPSE 1.5 cm. Right ventricular chamber dimension is not well visualized. Left Atria Left atrial chamber dimension is normal. Right Atria Right atrial chamber dimension is normal. Aortic Valve There is moderate aortic valve stenosis based on a peak velocity of 314 cm/s, mean gradient of 17 mmHg, and aortic valve area of 1.1 cm2. The aortic valve is not well visualized. There is severe aortic valve sclerosis. There is no aortic valve regurgitation. Pulmonic Valve There is no pulmonic regurgitation. Mitral Valve There is no mitral valve stenosis. There is no mitral valve regurgitation. Tricuspid Valve There is no tricuspid valve regurgitation. Mild pulmonary hypertension, estimated pulmonary arterial systolic pressure is 46 mmHg. Pericardium/Pleural There is no pericardial effusion. Inferior Vena Cava Normal inferior vena cava with >50% collapse upon inspiration consistent with normal right atrial pressure, 5 mmHg. Aorta The aortic root size at the sinus of Valsalva is not well visualized. Left Ventricular Outflow Tract Name Value Normal LVOT 2D LVOT Diameter
[2021-07-15 06:07] LABS: Basophils Percent Auto 0.4 % (0.2-1.2); Eosinophils Absolute Auto 0.2 K/mm3 (0-0.3); Eosinophils Percent Auto 3.3 % (0-4.4); Hematocrit 36.8 % (42.0-52.0); Hemoglobin 12.4 g/dL (14.0-18.0); Immature Granulocyte Absolute 0.03 K/mm3 (0.00-0.031); Immature Granulocyte Percent A 0.4 % (0-0.5); Lymphocytes Absolute Auto 1.67 K/mm3 (0.9-3.2); Lymphocytes Percent Auto 24.8 % (18.3-44.2); Mean Corpuscular HGB Conc 33.7 g/dl (32-36); Mean Corpuscular Hemoglobin 30.4 pg (26-34); Mean Corpuscular Volume 90.2 fl (80-100); Mean Platelet Volume 8.4 fl (7.4-10.4); Monocytes Absolute Auto 0.7 K/mm3 (0.1-0.6); Monocytes Percent Auto 10.4 % (2.6-8.5); Neutrophils Absolute Auto 4.1 K/mm3 (1.3-6.7); Neutrophils Percent Auto 60.7 % (45.5-73.1); Platelet Count Result 246 k/mm3 (150-375); Red Blood Count 4.08 M/mm3 (4.6-6.20); Red Cell Distribution Width 13.2 % (11.5-14.5); White Blood Count 6.7 K/mm3 (4.5-10.0)
[2021-07-15 06:19] LABS: Anion Gap 4 mmol/L (8-16); Blood Urea Nitrogen 10 mg/dL (9-20); Calcium 8.7 mg/dL (8.4-10.2); Carbon Dioxide 30 mmol/L (22-30); Chloride 90 mmol/L (98-107); Estimated CRCL calculation 49 ml/min; Estimated Glomerular Filt Rate > 60; Glucose 97 mg/dL (65-110); Magnesium 1.9 mg/dL (1.6-2.3); Sodium 124 mmol/L (137-145)
[2021-07-15] MEDS: METOPROLOL TARTRATE 25 MG TABLET BY MOUTH ×2 (08:19→21:15)
[2021-07-15] MEDS: GABAPENTIN 300 MG CAPSULE PO ×2 (08:19→16:48)
[2021-07-15] MEDS: FINASTERIDE 5 MG TABLET PO (08:20)
[2021-07-15] MEDS: APIXABAN 5 MG TABLET PO ×2 (08:20→16:48)
[2021-07-15] MEDS: methylPHENIDATE HCL (*CRX) 10 MG TABLET PO (08:25)
--- NOTE | 2021-07-15 08:36 | PCPTNOTE ---
Attempted physical therapy evaluation, patient getting an echo at this time. Will Follow.
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
[2021-07-15] MEDS: PERFLUTREN LIPID MICROSPHERES 1.5 ML VIAL DILUTED TO 10 ML TOTAL VOLUME IV PUSH (09:15)
--- NOTE | 2021-07-15 09:16 | IVDEFINITY ---
Prior to administration of IV Definity the patient was educated on the risks and benefits of the imaging enhancing agent including potential adverse side effects. The patient verbalized understanding. Allergies were verified. No exclusion criteria were identified and at least one of the following inclusion criteria were met: 1) physician request, 2) patient technically difficult to image (per the [place] [employer] guidelines of two or more segments not discernable within the apical view), or 3) questionable left ventricular function. ?
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
[2021-07-15 19:13] LABS: Sodium 122 mmol/L (137-145)
[2021-07-15 19:59] LABS: Thyroid Stimulating Hormone Reflex 0.656 uIU/mL (0.465-4.68)
[2021-07-16] VITALS (12 sets, daily range): BP systolic 118–152; BP diastolic 54–89; PULSE 54–75; RESP 18–73; TEMP 36.4–36.8; O2SAT 90–99
[2021-07-16 06:05] LABS: Basophils Percent Auto 0.3 % (0.2-1.2); Eosinophils Absolute Auto 0.3 K/mm3 (0-0.3); Eosinophils Percent Auto 4.1 % (0-4.4); Hematocrit 36.7 % (42.0-52.0); Hemoglobin 11.8 g/dL (14.0-18.0); Immature Granulocyte Absolute 0.04 K/mm3 (0.00-0.031); Immature Granulocyte Percent A 0.5 % (0-0.5); Lymphocytes Absolute Auto 1.84 K/mm3 (0.9-3.2); Lymphocytes Percent Auto 24.6 % (18.3-44.2); Mean Corpuscular HGB Conc 32.2 g/dl (32-36); Mean Corpuscular Volume 93.4 fl (80-100); Mean Platelet Volume 8.6 fl (7.4-10.4); Monocytes Absolute Auto 0.9 K/mm3 (0.1-0.6); Monocytes Percent Auto 11.9 % (2.6-8.5); Neutrophils Absolute Auto 4.4 K/mm3 (1.3-6.7); Neutrophils Percent Auto 58.6 % (45.5-73.1); Platelet Count Result 227 k/mm3 (150-375); Red Blood Count 3.93 M/mm3 (4.6-6.20); Red Cell Distribution Width 13.2 % (11.5-14.5); White Blood Count 7.5 K/mm3 (4.5-10.0)
[2021-07-16 06:21] LABS: Alanine Aminotransferase 16 U/L (4-50); Albumin Level 3.3 g/dL (3.5-5.1); Alkaline Phosphatase 77 U/L (38-126); Anion Gap 3 mmol/L (8-16); Aspartate Amino Transferase 44 U/L (17-59); Bilirubin,Total 1.8 mg/dL (0.2-1.3); Blood Urea Nitrogen 10 mg/dL (9-20); Calcium 8.5 mg/dL (8.4-10.2); Carbon Dioxide 32 mmol/L (22-30); Chloride 89 mmol/L (98-107); Estimated CRCL calculation 45 ml/min; Estimated Glomerular Filt Rate > 60; Glucose 100 mg/dL (65-110); Potassium 3.9 mmol/L (3.4-5.0); Sodium 124 mmol/L (137-145)
[2021-07-16] MEDS: GABAPENTIN 300 MG CAPSULE PO ×2 (08:05→16:07)
[2021-07-16] MEDS: METOPROLOL TARTRATE 25 MG TABLET BY MOUTH ×2 (08:05→20:48)
[2021-07-16] MEDS: APIXABAN 5 MG TABLET PO ×2 (08:05→16:07)
[2021-07-16] MEDS: FINASTERIDE 5 MG TABLET PO (08:06)
[2021-07-16] MEDS: methylPHENIDATE HCL (*CRX) 10 MG TABLET PO (08:20)
[2021-07-16] MEDS: SODIUM CHLORIDE 1 GM TABLET PO (08:20)
--- NOTE | 2021-07-16 08:27 | PM.PNCARD ---
Progress Note: A&P Assessment and Plan (1) PAT (paroxysmal atrial tachycardia): Code(s): I47.1 - Supraventricular tachycardia Status: Acute Assessment and Plan: In Sinus rhythm. On Metoprolol. 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 (3) HLD (hyperlipidemia): Code(s): E78.5 - Hyperlipidemia, unspecified Status: Acute Assessment and Plan: On Fish Oil. (4) PAF (paroxysmal atrial fibrillation): Code(s): I48.0 - Paroxysmal atrial fibrillation Status: Acute Assessment and Plan: On Eliquis. (5) Aortic stenosis: Code(s): I35.0 - Nonrheumatic aortic (valve) stenosis Status: Acute Assessment and Plan: Moderate . Echo shows EF 60-65%, grade I diastolic dysfunction (E/e' 10), mod (DORA 1.1 cm2), RVSP 46 mmHg (6) Acute dyspnea: Code(s): R06.00 - Dyspnea, unspecified Status: Acute Assessment and Plan: Related to pulm etiology with scarring of bases/atelectasis? Not congested on exam or CXR. Has very mild diastolic dysfunction only. Agree with limiting free water intake for hyponatremia. Subjective Date/time seen: 07/16/21 08:27 Has sob at rest and worse with activity. No chest pains. Exam Const: General: cooperative, healthy appearing and comfortable Resp: Auscultation: clear to auscultation bilaterally, no crackles, no rales, no rhonchi and no wheezes Cardio: Jugular venous distension: no JVD Rate: regular rate Rhythm: regular rhythm Heart sounds: Murmur heart sound present (I/ systolic murmur RICS) Peripheral pulses: dorsalis pedis present GI: GI Palp: No abdominal tenderness and Yes Soft to palpation Neuro: General: oriented to person, oriented to place and oriented to time Extrem: Right lower extremity: no edema Left lower extremity: no edema Objective Data Vital Signs Vital Signs: Vital Signs - 24 hr 07/15/21 12:00 07/15/21 14:00 07/15/21 16:00 Temperature 97.7 F Pulse Rate 57 L 53 L 59 L Respiratory Rate 18 Blood Pressure 108/49 L Pulse Oximetry 99 07/15/21 20:00 07/15/21 20:37 07/15/21 21:15 Temperature Pulse Rate 67 75 67 Respiratory Rate Blood Pressure Pulse Oximetry 95 07/16/21 00:00 07/16/21 04:00 07/16/21 08:05 Temperature Pulse Rate 54 L 75 71 Respiratory Rate Blood Pressure Pulse Oximetry Intake/Output Intake/Output: Intake & Output 07/13/21 07/14/21 07/15/21 07/16/21 23:59 23:59 23:59 23:59 Intake Total 240 1390 Output Total 1500 400 Balance 240 -110 -400 Meds/Results Medications: Active Medications Generic Name Dose Route Start Last Admin Trade Name Freq PRN Reason Stop Dose Admin Hydrocodone Bitart/Acetaminophen 1 tab 07/14/21 15:57 Hydrocodone/Acetaminophen (*Crx) 5-325 Mg Tablet PO Q4H PRN Pain Rated 4-6 Apixaban 5 mg 07/15/21 09:00 07/16/21 08:05 Apixaban 5 Mg Tablet PO 5 mg BID YULIANA Administration Finasteride 5 mg 07/15/21 09:00 07/16/21 08:06 Finasteride 5 Mg Tablet PO 5 mg DAILY YULIANA Administration Gabapentin 300 mg 07/15/21 09:00 07/16/21 08:05 Gabapentin 300 Mg Capsule PO 300 mg BID YULIANA Administration Loratadine 10 mg 07/15/21 07:34 Loratadine 10 Mg Tablet PO DAILY PRN Allergic Symptoms Methylphenidate HCl 10 mg 07/15/21 09:00 07/16/21 08:20 Methylphenidate Hcl (*Crx) 10 Mg Tablet PO 10 mg DAILY YULIANA Administration Metoprolol Tartrate 25 mg 07/15/21 09:00 07/16/21 08:05 Metoprolol Tartrate 25 Mg Tablet BY MOUTH 25 mg Q12HR YULIANA Administration Sodium Chloride 1 gm 07/16/21 09:00 07/16/21 08:20 Sodium Chloride 1 Gm Tablet PO 1 gm QAM YULIANA Administration Radiology Results: ITS Impressions Ribs w/Chest X-Ray 07/14/21 13:17 IMPRESSION: No apparent recent left rib fracture Osteopenia Status
[2021-07-16 10:11] LABS: Add Urine Microscopic? YES; Appearance Urine Cloudy (Clear); Bacteria Urine Trace /hpf; Bilirubin Urine Negative (Negative); Blood Urine 2+ (Negative); Color Urine Yellow (Yellow); Glucose Urine UA Negative (Negative); Ketones Urine Negative (Negative); Leukocyte Esterase Ur 3+ LEU/UL (Negative); Mucus Urine Rare /lpf; Nitrate Urine Positive (Negative); Protein Urine 2+ mg/dL (Negative); Specific Grav Ur 1.012 (1.001-1.035); Squamous Epithelial Cell Urine Rare /hpf (Few); WBC Urine >75 /hpf
--- NOTE | 2021-07-16 10:12 | PC.NURSE ---
ua sent to lab for analysis.
--- NOTE | 2021-07-16 11:08 | PC.NURSE ---
ortho static sitting and standing only sitting bp 145/89 hr 63, and standing bp 133/81 hr 65
--- NOTE | 2021-07-16 11:10 | PC.NURSE ---
s/t / abrasion R buttock barrier cream applied.
--- NOTE | 2021-07-16 14:15 | PC.NURSE ---
ekg shows a flutter, tachycardia with aberrant conduction or ventricular premature complexs, low qrs voltage in extemity leads <0.5 ml in limb leads, lateral myocardical infarction probably old 40 + ms q wave and or st/t abnormality in I, aVL, v5, v6 abnormal ekg vent rate 67 prn internal absent, qrs 106 ms qt/qtc 444/459 prt axes 122 0 reported to GEETA Mckay.
--- NOTE | 2021-07-16 15:33 | PCOTNOTE ---
The OT treatment was not completed 07/16/21. Will continue per plan of care.
--- NOTE | 2021-07-16 19:01 | WPDPN ---
Progress Note: A&P Additional Plan Patient seen and examined independently. S:86yo male with spinal cord injury, narcolepsy and chronic indwelling Gonzalez here for a fall. He lives alone. No family in the room. Patient complains of rib pain when he sits up. He is working with therapy. O: AF/VSS. NARD. Mild basilar rhonchi with end-expiratory wheezes anteriorly. RRR, Tele showing run of ATach. Abd soft, NT. No pedal edema. Gonzalez secured with cloudy yellow urine in bag A/P: Hyponatremia. Recent fall/ left sided trauma. ABDULLAHI. Gout. BPH. Chronic Gonzalez. PAT. pAFib. Moderate . Possible UTI. Discussed with VIRGIL. Na level unchanged. Agree with adding the NaCl tabs. UCx and BCx pending. Not of abx but WBC normal and no fevers. Follow. Appreciate Cardiology input. Continue PT/OT Subjective Date/time seen: 07/16/21 19:01 Objective Data Vital Signs Vital Signs: Vital Signs - 24 hr 07/15/21 20:00 07/15/21 20:37 07/15/21 21:15 Temperature Pulse Rate 67 75 67 Respiratory Rate Blood Pressure Pulse Oximetry 95 07/16/21 00:00 07/16/21 04:00 07/16/21 08:00 Temperature 97.6 F Pulse Rate 54 L 75 69 Respiratory Rate 73 H Blood Pressure 152/77 H Pulse Oximetry 90 07/16/21 08:05 07/16/21 12:00 07/16/21 12:16 Temperature Pulse Rate 71 57 L 65 Respiratory Rate Blood Pressure 133/81 Pulse Oximetry 98 07/16/21 14:00 07/16/21 16:00 Temperature 98.3 F Pulse Rate 63 60 Respiratory Rate 18 Blood Pressure 118/54 L Pulse Oximetry 96 Intake/Output Intake/Output: Intake & Output 07/13/21 07/14/21 07/15/21 07/16/21 23:59 23:59 23:59 23:59 Intake Total 240 1390 1000 Output Total 1500 900 Balance 240 -110 100 Meds/Results Medications: Active Medications Generic Name Dose Route Start Last Admin Trade Name Freq PRN Reason Stop Dose Admin Hydrocodone Bitart/Acetaminophen 1 tab 07/14/21 15:57 Hydrocodone/Acetaminophen (*Crx) 5-325 Mg Tablet PO Q4H PRN Pain Rated 4-6 Apixaban 5 mg 07/15/21 09:00 07/16/21 16:07 Apixaban 5 Mg Tablet PO 5 mg BID YULIANA Administration Docusate Sodium 100 mg 07/16/21 21:00 Docusate Sodium 100 Mg Capsule PO Q12HR YULIANA Finasteride 5 mg 07/15/21 09:00 07/16/21 08:06 Finasteride 5 Mg Tablet PO 5 mg DAILY YULIANA Administration Gabapentin 300 mg 07/15/21 09:00 07/16/21 16:07 Gabapentin 300 Mg Capsule PO 300 mg BID YULIANA Administration Loratadine 10 mg 07/15/21 07:34 Loratadine 10 Mg Tablet PO DAILY PRN Allergic Symptoms Methylphenidate HCl 10 mg 07/15/21 09:00 07/16/21 08:20 Methylphenidate Hcl (*Crx) 10 Mg Tablet PO 10 mg DAILY YULIANA Administration Metoprolol Tartrate 25 mg 07/15/21 09:00 07/16/21 08:05 Metoprolol Tartrate 25 Mg Tablet BY MOUTH 25 mg Q12HR YULIANA Administration Polyethylene Glycol 17 gm 07/17/21 09:00 Polyethylene Glycol 3350 17 Gm Powd.Pack PO QAM YULIANA Sodium Chloride 1 gm 07/16/21 09:00 07/16/21 08:20 Sodium Chloride 1 Gm Tablet PO 1 gm QAM YULIANA Administration Radiology Results: ITS Impressions Ribs w/Chest X-Ray 07/14/21 13:17 IMPRESSION: No apparent recent left rib fracture Osteopenia Status post posterior surgical fusion at the thoracolumbar area Head CT 07/14/21 13:24 IMPRESSION: Cerebral atherosclerosis and chronic small vessel ischemic changes of the cerebral white matter No acute intracranial finding Hip/Pelvis X-Ray 07/15/21 10:59 IMPRESSION: 1. Mild osteoarthritis of the hips. Labs Labs: Laboratory Results - last 24 hr 07/15/21 07/15/21 07/16/21 18:31 18:31 05:48 WBC 7.5 RBC 3.93 L Hgb 11.8 L Hct 36.7 L MCV 93.4 MCH 30.0 MCHC 32.2 RDW 13.2 Plt Count 227 MPV 8.6 Immature Gran % (Auto) 0.5 Neut % (Auto) 58.6 Lymph % (Auto) 24.6 [place] % (Auto) 11.9 H Eos % (Auto) 4.1 Baso % (Auto) 0.3 Lymph # (Auto) 1.84 [place] # (Auto)
[2021-07-16] MEDS: DOCUSATE SODIUM 100 MG CAPSULE PO (20:48)
[2021-07-16] MEDS: HYDROcodone/acetaminophen (*CRX) 5-325 MG TABLET 1 TAB PO (20:50)
[2021-07-17] VITALS (14 sets, daily range): BP systolic 115–153; BP diastolic 70–72; PULSE 55–70; RESP 18–20; TEMP 36.5–37.1; O2SAT 87–97
[2021-07-17 06:07] LABS: Basophils Percent Auto 0.6 % (0.2-1.2); Eosinophils Absolute Auto 0.2 K/mm3 (0-0.3); Eosinophils Percent Auto 2.8 % (0-4.4); Hematocrit 36.3 % (42.0-52.0); Hemoglobin 12.2 g/dL (14.0-18.0); Immature Granulocyte Absolute 0.02 K/mm3 (0.00-0.031); Immature Granulocyte Percent A 0.3 % (0-0.5); Lymphocytes Absolute Auto 1.59 K/mm3 (0.9-3.2); Lymphocytes Percent Auto 22.1 % (18.3-44.2); Mean Corpuscular HGB Conc 33.6 g/dl (32-36); Mean Corpuscular Hemoglobin 30.9 pg (26-34); Mean Corpuscular Volume 91.9 fl (80-100); Mean Platelet Volume 8.5 fl (7.4-10.4); Monocytes Absolute Auto 1.1 K/mm3 (0.1-0.6); Monocytes Percent Auto 14.6 % (2.6-8.5); Neutrophils Absolute Auto 4.3 K/mm3 (1.3-6.7); Neutrophils Percent Auto 59.6 % (45.5-73.1); Platelet Count Result 225 k/mm3 (150-375); Red Blood Count 3.95 M/mm3 (4.6-6.20); Red Cell Distribution Width 13.2 % (11.5-14.5); White Blood Count 7.2 K/mm3 (4.5-10.0)
[2021-07-17 06:24] LABS: Alanine Aminotransferase 15 U/L (4-50); Albumin Level 3.3 g/dL (3.5-5.1); Alkaline Phosphatase 74 U/L (38-126); Anion Gap 5 mmol/L (8-16); Aspartate Amino Transferase 38 U/L (17-59); Blood Urea Nitrogen 13 mg/dL (9-20); Calcium 8.5 mg/dL (8.4-10.2); Carbon Dioxide 33 mmol/L (22-30); Chloride 90 mmol/L (98-107); Estimated CRCL calculation 49 ml/min; Estimated Glomerular Filt Rate > 60; Glucose 101 mg/dL (65-110); Potassium 4.1 mmol/L (3.4-5.0); Sodium 128 mmol/L (137-145)
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
--- NOTE | 2021-07-17 07:49 | PM.PNCARD ---
Progress Note: A&P Assessment and Plan (1) PAT (paroxysmal atrial tachycardia): Code(s): I47.1 - Supraventricular tachycardia Status: Acute Assessment and Plan: In Sinus rhythm. On Metoprolol. 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 (3) HLD (hyperlipidemia): Code(s): E78.5 - Hyperlipidemia, unspecified Status: Acute Assessment and Plan: On Fish Oil. (4) PAF (paroxysmal atrial fibrillation): Code(s): I48.0 - Paroxysmal atrial fibrillation Status: Acute Assessment and Plan: In Sinus rhythm. On Eliquis. (5) Aortic stenosis: Code(s): I35.0 - Nonrheumatic aortic (valve) stenosis Status: Acute Assessment and Plan: Moderate . Echo shows EF 60-65%, grade I diastolic dysfunction (E/e' 10), mod (DORA 1.1 cm2), RVSP 46 mmHg (6) Acute dyspnea: Code(s): R06.00 - Dyspnea, unspecified Status: Acute Assessment and Plan: Related to pulm etiology with scarring of bases/atelectasis? Not congested on exam or CXR. Has very mild diastolic dysfunction only. Agree with limiting free water intake and sodium tab for hyponatremia. No further cardiac workup. Please call with questions. Subjective Date/time seen: 07/17/21 07:49 Denies chest pain. Has chronic mild sob. Exam Const: General: cooperative, healthy appearing and comfortable Resp: Auscultation: clear to auscultation bilaterally, no crackles, no rales, no rhonchi and no wheezes Cardio: Jugular venous distension: no JVD Rate: regular rate Rhythm: regular rhythm Heart sounds: Murmur heart sound present (I/ systolic murmur RICS) Peripheral pulses: dorsalis pedis present GI: GI Palp: No abdominal tenderness and Yes Soft to palpation Neuro: General: oriented to person, oriented to place and oriented to time Extrem: Right lower extremity: no edema Left lower extremity: no edema Objective Data Vital Signs Vital Signs: Vital Signs - 24 hr 07/16/21 08:00 07/16/21 08:05 07/16/21 12:00 Temperature 97.6 F Pulse Rate 69 71 57 L Respiratory Rate 73 H Blood Pressure 152/77 H Pulse Oximetry 90 07/16/21 12:16 07/16/21 14:00 07/16/21 16:00 Temperature 98.3 F Pulse Rate 65 63 60 Respiratory Rate 18 Blood Pressure 133/81 118/54 L Pulse Oximetry 98 96 07/16/21 20:00 07/16/21 20:48 07/16/21 22:00 Temperature 98 F Pulse Rate 68 69 71 Respiratory Rate 20 Blood Pressure 144/77 H Pulse Oximetry 96 94 07/16/21 23:00 07/17/21 00:00 07/17/21 02:50 Temperature Pulse Rate 68 63 70 Respiratory Rate Blood Pressure Pulse Oximetry 94 94 07/17/21 04:00 07/17/21 06:00 Temperature 97.7 F Pulse Rate 58 L 62 Respiratory Rate 20 Blood Pressure 148/70 H Pulse Oximetry 95 Intake/Output Intake/Output: Intake & Output 07/14/21 07/15/21 07/16/21 07/17/21 23:59 23:59 23:59 23:59 Intake Total 240 1390 1000 100 Output Total 1500 900 700 Balance 240 -110 100 -600 Meds/Results Medications: Active Medications Generic Name Dose Route Start Last Admin Trade Name Freq PRN Reason Stop Dose Admin Hydrocodone Bitart/Acetaminophen 1 tab 07/14/21 15:57 07/16/21 20:50 Hydrocodone/Acetaminophen (*Crx) 5-325 Mg Tablet PO 1 tab Q4H PRN Administration Pain Rated 4-6 Apixaban 5 mg 07/15/21 09:00 07/16/21 16:07 Apixaban 5 Mg Tablet PO 5 mg BID YULIANA Administration Docusate Sodium 100 mg 07/16/21 21:00 07/16/21 20:48 Docusate Sodium 100 Mg Capsule PO 100 mg Q12HR YULIANA Administration Finasteride 5 mg 07/15/21 09:00 07/16/21 08:06 Finasteride 5 Mg Tablet PO 5 mg DAILY YULIANA Administration Gabapentin 300 mg 07/15/21 09:00 07/16/21 16:07 Gabapentin 300 Mg Capsule PO 300 mg BID YULIANA Administration Loratadine 10 mg 07/15/21 07:34 Loratadine 10 Mg Tablet PO DAILY
[2021-07-17] MEDS: METOPROLOL TARTRATE 25 MG TABLET BY MOUTH ×2 (08:11→20:49)
[2021-07-17] MEDS: GABAPENTIN 300 MG CAPSULE PO ×2 (08:11→16:57)
[2021-07-17] MEDS: DOCUSATE SODIUM 100 MG CAPSULE PO ×2 (08:11→20:49)
[2021-07-17] MEDS: FINASTERIDE 5 MG TABLET PO (08:11)
[2021-07-17] MEDS: APIXABAN 5 MG TABLET PO ×2 (08:11→16:57)
[2021-07-17] MEDS: polyethylene glycoL 3350 17 GM POWD.PACK PO (08:11)
[2021-07-17] MEDS: SODIUM CHLORIDE 1 GM TABLET PO (08:11)
[2021-07-17] MEDS: methylPHENIDATE HCL (*CRX) 10 MG TABLET PO (08:13)
[2021-07-17] MEDS: HYDROcodone/acetaminophen (*CRX) 5-325 MG TABLET 1 TAB PO ×2 (10:17→20:57)
[2021-07-17 19:56] LABS: Osmolality, Urine 309 mOsm/kg (50-1200)
[2021-07-18] VITALS (8 sets, daily range): BP systolic 124–152; BP diastolic 64–82; PULSE 56–68; RESP 16–20; TEMP 36.1–36.5; O2SAT 94–96
[2021-07-18 06:05] LABS: Basophils Percent Auto 0.4 % (0.2-1.2); Eosinophils Absolute Auto 0.4 K/mm3 (0-0.3); Eosinophils Percent Auto 5.2 % (0-4.4); Hematocrit 38.1 % (42.0-52.0); Immature Granulocyte Absolute 0.03 K/mm3 (0.00-0.031); Immature Granulocyte Percent A 0.4 % (0-0.5); Lymphocytes Absolute Auto 1.84 K/mm3 (0.9-3.2); Lymphocytes Percent Auto 26.8 % (18.3-44.2); Mean Corpuscular HGB Conc 31.5 g/dl (32-36); Mean Corpuscular Hemoglobin 29.9 pg (26-34); Mean Platelet Volume 8.7 fl (7.4-10.4); Monocytes Absolute Auto 0.9 K/mm3 (0.1-0.6); Monocytes Percent Auto 13.2 % (2.6-8.5); Neutrophils Absolute Auto 3.7 K/mm3 (1.3-6.7); Platelet Count Result 240 k/mm3 (150-375); Red Blood Count 4.01 M/mm3 (4.6-6.20); Red Cell Distribution Width 13.4 % (11.5-14.5); White Blood Count 6.9 K/mm3 (4.5-10.0)
[2021-07-18 06:22] LABS: Alanine Aminotransferase 15 U/L (4-50); Albumin Level 3.5 g/dL (3.5-5.1); Alkaline Phosphatase 73 U/L (38-126); Anion Gap 4 mmol/L (8-16); Aspartate Amino Transferase 36 U/L (17-59); Bilirubin,Total 1.3 mg/dL (0.2-1.3); Blood Urea Nitrogen 15 mg/dL (9-20); Calcium 8.6 mg/dL (8.4-10.2); Carbon Dioxide 31 mmol/L (22-30); Chloride 94 mmol/L (98-107); Estimated CRCL calculation 54 ml/min; Estimated Glomerular Filt Rate > 60; Glucose 102 mg/dL (65-110); Potassium 4.2 mmol/L (3.4-5.0); Sodium 129 mmol/L (137-145)
[2021-07-18] MEDS: METOPROLOL TARTRATE 25 MG TABLET BY MOUTH ×2 (08:02→20:12)
[2021-07-18] MEDS: DOCUSATE SODIUM 100 MG CAPSULE PO ×2 (08:02→20:12)
[2021-07-18] MEDS: SODIUM CHLORIDE 1 GM TABLET PO (08:02)
[2021-07-18] MEDS: FINASTERIDE 5 MG TABLET PO (08:02)
[2021-07-18] MEDS: GABAPENTIN 300 MG CAPSULE PO ×2 (08:02→16:45)
[2021-07-18] MEDS: methylPHENIDATE HCL (*CRX) 10 MG TABLET PO (08:02)
[2021-07-18] MEDS: polyethylene glycoL 3350 17 GM POWD.PACK PO (08:02)
[2021-07-18] MEDS: APIXABAN 5 MG TABLET PO ×2 (08:02→16:45)
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
[2021-07-18] MEDS: HYDROcodone/acetaminophen (*CRX) 5-325 MG TABLET 1 TAB PO (15:01)
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
[2021-07-19 03:35] VITALS: PULSE 60; O2SAT 96
[2021-07-19 05:23] VITALS: BP 139/92; PULSE 60; RESP 18; TEMP 36.6; O2SAT 94
[2021-07-19 07:48] LABS: Anion Gap 6 mmol/L (8-16); Blood Urea Nitrogen 19 mg/dL (9-20); Calcium 8.9 mg/dL (8.4-10.2); Carbon Dioxide 32 mmol/L (22-30); Chloride 95 mmol/L (98-107); Estimated CRCL calculation 54 ml/min; Estimated Glomerular Filt Rate > 60; Glucose 110 mg/dL (65-110); Potassium 4.6 mmol/L (3.4-5.0); Sodium 133 mmol/L (137-145)
[2021-07-19] MEDS: FINASTERIDE 5 MG TABLET PO (07:57)
[2021-07-19] MEDS: APIXABAN 5 MG TABLET PO (07:57)
[2021-07-19] MEDS: DOCUSATE SODIUM 100 MG CAPSULE PO (07:57)
[2021-07-19] MEDS: METOPROLOL TARTRATE 25 MG TABLET BY MOUTH (07:57)
[2021-07-19] MEDS: polyethylene glycoL 3350 17 GM POWD.PACK PO (07:57)
[2021-07-19] MEDS: methylPHENIDATE HCL (*CRX) 10 MG TABLET PO (07:57)
[2021-07-19] MEDS: SODIUM CHLORIDE 1 GM TABLET PO (07:57)
[2021-07-19] MEDS: GABAPENTIN 300 MG CAPSULE PO (07:57)
[2021-07-19 08:00] VITALS: O2SAT 94
[2021-07-19 08:20] LABS: EDCOVIDSCREEN Negative (Negative)
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
== END 2021-07-19 12:35 | DRG 641 ==
LOC: ANHED 15:56 → ANH3MEDSUR 16:24
PROVIDERS: Internal Medicine; Nurse Practitioner Adult Health; Student in an Organized Health Care Education/Training Program; Admitting Provider Internal Medicine; Emergency Provider Emergency Medicine; PCP Family Medicine; Visit Provider Family Medicine
DX: E87.1 Hypo-osmolality and hyponatremia (principal); I47.1 Supraventricular tachycardia; Z20.822 Contact with and (suspected) exposure to COVID-19; R07.81 Pleurodynia; R82.90 Unspecified abnormal findings in urine; G47.33 Obstructive sleep apnea (adult) (pediatric); W18.39XA Other fall on same level, initial encounter; R29.6 Repeated falls; N40.0 Benign prostatic hyperplasia without lower urinary tract symptoms; G47.419 Narcolepsy without cataplexy; E11.42 Type 2 diabetes mellitus with diabetic polyneuropathy; I35.0 Nonrheumatic aortic (valve) stenosis; I48.0 Paroxysmal atrial fibrillation; M70.21 Olecranon bursitis, right elbow; K59.00 Constipation, unspecified; E66.9 Obesity, unspecified; Z68.31 Body mass index [BMI] 31.0-31.9, adult; Z87.828 Personal history of other (healed) physical injury and trauma; Z98.49 Cataract extraction status, unspecified eye
CPT/HCPCS: 36415; 36600; 70450; 71046; 71100; 73521; 80048; 80053; 81001; 82375; 82805; 83050; 83735; 83880; 83930; 83935; 84295; 84300; 84443; 85025; 87040; 87086; 87088; 87426; 93005; 93306; 94640; 96374; 96375; 97110; 97161; 97165; 97530; 97535; 99285; A9270; C9803; G0378; J1940; Q9957

== ENCOUNTER 2021-11-18 10:25 | Outpatient (CLI) | payer MEDICARE, SELFPAY ==
[2021-11-18 11:44] LABS: Basophils Percent Auto 0.4 % (0.2-1.2); Eosinophils Absolute Auto 0.3 K/mm3 (0-0.3); Eosinophils Percent Auto 3.9 % (0-4.4); Hematocrit 42.8 % (42.0-52.0); Hemoglobin 13.5 g/dL (14.0-18.0); Immature Granulocyte Absolute 0.01 K/mm3 (0.00-0.031); Immature Granulocyte Percent A 0.1 % (0-0.5); Lymphocytes Absolute Auto 1.99 K/mm3 (0.9-3.2); Lymphocytes Percent Auto 28.4 % (18.3-44.2); Mean Corpuscular HGB Conc 31.5 g/dl (32-36); Mean Corpuscular Hemoglobin 29.5 pg (26-34); Mean Corpuscular Volume 93.4 fl (80-100); Monocytes Absolute Auto 0.6 K/mm3 (0.1-0.6); Monocytes Percent Auto 9.1 % (2.6-8.5); Neutrophils Absolute Auto 4.1 K/mm3 (1.3-6.7); Neutrophils Percent Auto 58.1 % (45.5-73.1); Platelet Count Result 246 k/mm3 (150-375); Red Blood Count 4.58 M/mm3 (4.6-6.20)
[2021-11-18 11:54] LABS: Alanine Aminotransferase 19 U/L (6-50); Albumin Level 3.9 g/dL (3.5-5.1); Alkaline Phosphatase 86 U/L (38-126); Anion Gap 0 mmol/L (8-16); Aspartate Amino Transferase 32 U/L (17-59); Bilirubin,Total 0.8 mg/dL (0.2-1.3); Blood Urea Nitrogen 19 mg/dL (9-20); Calcium 8.9 mg/dL (8.4-10.2); Carbon Dioxide 34 mmol/L (22-30); Chloride 97 mmol/L (98-107); Cholesterol 170 mg/dL (0-200); Estimated Glomerular Filt Rate > 60; Glucose 89 mg/dL (65-110); HDL Direct 35 mg/dL; Potassium 4.3 mmol/L (3.4-5.0); Sodium 131 mmol/L (137-145); Triglycerides 102 mg/dL (<150)
[2021-11-18 11:57] LABS: Hemoglobin A1C 5.8 % (<5.7)
[2021-11-18 12:05] LABS: LDL Cholesterol Direct 112 mg/dL
[2021-11-18 12:24] LABS: Thyroid Stimulating Hormone 0.881 uIU/mL (0.465-4.680)
== END 2021-11-18 10:26 | disposition home or self-care (01) ==
PROVIDERS: PCP Family Medicine; Visit Provider Nurse Practitioner Family
DX: E03.9 Hypothyroidism, unspecified (principal); N40.1 Benign prostatic hyperplasia with lower urinary tract symptoms; N13.8 Other obstructive and reflux uropathy; E78.5 Hyperlipidemia, unspecified; E11.40 Type 2 diabetes mellitus with diabetic neuropathy, unspecified
CPT/HCPCS: 36415; 80053; 80061; 83036; 84443; 85025

== ENCOUNTER 2022-02-27 11:28 | Emergency (ER) | payer MEDICARE, SELFPAY ==
[2022-02-27] VITALS (18 sets, daily range): BP systolic 123–144; BP diastolic 78–90; PULSE 80–104; RESP 12–26; TEMP 36.2; O2SAT 90–97
--- NOTE | ~2022-02-27 | CT_ITS ---
EXAMINATION: CT abdomen pelvis w con DATE: 02/27/2022 13:43 INDICATION: Abdominal pain and vomiting TECHNIQUE: Computed tomography (CT) of the abdomen and pelvis was performed without intravenous contr ast. with 100 mL Omnipaque-350 The dose-length product was 753.31 mGy-cm. COMPARISON: 10/01/2018 FINDINGS: Multiple chronic healed and nonunited right-sided rib fractures. Again seen are changes of likely jarrell or anterior right thoracotomy across the costochondral portions of inferior anterior ribs with approx imate 5 cm gap through which herniates a small amount of pericardial fat and small portion of the rig ht middle lobe. 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 No new lung disease, pulmonary edema or pleural effusion. Cardiomegaly. Aortic valve ca lcification. Atherosclerotic coronary artery calcification. No pericardial effusion. Calcified right hilar lymph node consistent with old granulomatous disease. Liver, gallbladder, spleen, pancreas and bilateral adrenal glands are normal. There are small region of cortical scarring as well as low-attenuation cysts at both kidneys. The largest cyst is a 2.0 cm e xophytic cyst at the lower pole of the right kidney. A few nonobstructing stones at the right kidney, the largest measuring 7 mm and 6 mm in lower and upper pole calyces respectively. No ureteral stones or hydronephrosis. There is moderate colonic diverticulosis with a sigmoid predominance. There is n o adjacent inflammatory change to suggest diverticulitis. Small bowel and appendix are normal. Tip o f a Gonzalez catheter is within the bladder with the bulb inflated within the prostatic portion of the u rethra. Moderate-sized bilateral fat-containing inguinal hernias. No free intraperitoneal gas or flui d. No pathologically enlarged abdominal or pelvic lymphadenopathy. Severe lumbar spondylosis with jose e nge of prior T11-L3 instrumented posterior spinal fusion with bilateral vertical carlton and pedicle scre w fixation. IMPRESSION: 1. Gonzalez catheter bulb inflated within the prostatic portion of the urethra with the distal tip of th e catheter within the bladder. 2. Nonobstructing right nephrolithiasis. 3. Diverticulosis. 4. Moderate-sized bilateral fat-containing inguinal hernias. Reviewed, dictated and finalized at location A. BASE MANAGEMENT SYSTEM SPECIALIST IMPRESSION: 1. Gonzalez catheter bulb inflated within the prostatic portion of the urethra wit h the distal tip of the catheter within the bladder. 2. Nonobstructing right nephrolithiasis. 3. Diverticulosis. 4. Moderate-sized bilateral fat-containing inguinal hernias.
--- NOTE | ~2022-02-27 | XR_ITS ---
EXAMINATION: XR chest 1V portable DATE: 02/27/2022 13:36 INDICATION: Shortness of breath, cough, chills and vomiting TECHNIQUE: frontal view of the chest was obtained. COMPARISON: Chest radiograph dated 07/13/[address] abdomen and pelvis dated 02/27/2022 FINDINGS: Patient is rotated towards the right. Chronic peripheral reticular opacities in the right mid to lowe r lung zones and along the left lung base. No new airspace opacities, pleural effusion or pneumothora x. Cardiomegaly. A few calcified mediastinal lymph nodes consistent with old granulomatous disease. S everal old right-sided rib fractures. IMPRESSION: 1. Stable appearance of mild peripheral reticular opacities in the right mid to lower lung zones and at the left lung base consistent with chronic interstitial fibrosis. Reviewed, dictated and finalized at location A. UNT DEVELOPMENT REPRESENTATIVE IMPRESSION: 1. Stable appearance of mild peripheral reticular opacities in the right mid to lower lung zones and at the left lung base consistent with chronic interstitia l fibrosis.
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
--- NOTE | 2022-02-27 12:44 | ECG_ITS ---
Measurements Intervals [place] Rate: 87 P: [place]: 0 QRS: -53 QRSD: 100 T: 43 QT: 361 QTc: 436 Interpretive Statements REDUCED ECG QUALITY BECAUSE OF BASELINE ARTIFACT SUSPECT SINUS RHYTHM LEFT AXIS DEVIATION, PREVIOUS INFERIOR WALL MA COMPARED TO ECG 07/14/2021 12:48:34 NO OBVIOUS CHANGE THIS ECG HAS POOR BASELINE QUALITY Electronically Signed On 02-28-2022 8:26:01 [employer]ACHINIST [employer] by Papo Muñiz M.D.
[2022-02-27 12:56] LABS: Basophils Percent Auto 0.3 % (0.2-1.2); Eosinophils Percent Auto 0.3 % (0-4.4); Hematocrit 47.6 % (42.0-52.0); Hemoglobin 15.3 g/dL (14.0-18.0); Immature Granulocyte Absolute 0.06 K/mm3 (0.00-0.031); Immature Granulocyte Percent A 0.5 % (0-0.5); Lymphocytes Absolute Auto 2.43 K/mm3 (0.9-3.2); Lymphocytes Percent Auto 21.6 % (18.3-44.2); Mean Corpuscular HGB Conc 32.1 g/dl (32-36); Mean Corpuscular Hemoglobin 30.5 pg (26-34); Mean Corpuscular Volume 94.8 fl (80-100); Mean Platelet Volume 8.7 fl (7.4-10.4); Monocytes Absolute Auto 0.9 K/mm3 (0.1-0.6); Neutrophils Absolute Auto 7.8 K/mm3 (1.3-6.7); Neutrophils Percent Auto 69.3 % (45.5-73.1); Platelet Count Result 291 k/mm3 (150-375); Red Blood Count 5.02 M/mm3 (4.6-6.20); Red Cell Distribution Width 14.2 % (11.5-14.5); White Blood Count 11.3 K/mm3 (4.5-10.0)
[2022-02-27] MEDS: ONDANSETRON INJ 4 MG/2 ML VIAL IV PUSH (13:02)
[2022-02-27] MEDS: SODIUM CHLORIDE 0.9% IV 1,000 ML 999 ML IV CONT (13:02)
[2022-02-27 13:07] LABS: Prothrombin Time 12.7 Seconds (11.1-14.7)
[2022-02-27 13:08] LABS: Partial Thromboplastin Time 32.9 SECONDS (22.3-36.8)
[2022-02-27 13:16] LABS: Alanine Aminotransferase 20 U/L (6-50); Albumin Level 4.2 g/dL (3.5-5.1); Alkaline Phosphatase 106 U/L (38-126); Anion Gap 5 mmol/L (8-16); Aspartate Amino Transferase 41 U/L (17-59); Bilirubin,Total 2.1 mg/dL (0.2-1.3); Blood Urea Nitrogen 16 mg/dL (9-20); Calcium 9.5 mg/dL (8.4-10.2); Carbon Dioxide 31 mmol/L (22-30); Chloride 98 mmol/L (98-107); Estimated CRCL calculation 42 ml/min; Estimated Glomerular Filt Rate > 60; Glucose 128 mg/dL (65-110); Lipase 63 U/L (23-300); Potassium 4.4 mmol/L (3.4-5.0); Sodium 134 mmol/L (137-145)
[2022-02-27 13:28] LABS: Troponin I 0.025 ng/mL (0.000-0.034)
[2022-02-27 13:29] LABS: Troponin I 0.026 ng/mL (0.000-0.034)
[2022-02-27 13:30] LABS: Influenza A QL RT-PCR Negative (Negative); Influenza B QL RT-PCR Negative (Negative); SARS-CoV-2 RNA PCR Negative
--- NOTE | 2022-02-27 15:00 | PC.NURSE ---
Patient's existing zimmer advanced approx 2 inches and patient urine bag started draining more urine. Approx 150ml drained once advanced.
[2022-02-27 15:37] LABS: Appearance Urine Cloudy (Clear); Bilirubin Urine Negative (Negative); Blood Urine 2+ (Negative); Color Urine Yellow (Yellow); Glucose Urine UA Negative (Negative); Ketones Urine Negative (Negative); Leukocyte Esterase Ur 3+ LEU/UL (Negative); Nitrate Urine Negative (Negative); Protein Urine 2+ mg/dL (Negative); Specific Grav Ur 1.015 (1.001-1.035); pH Urine 7.5 (5.0-9.0)
[2022-02-27 16:01] LABS: Bacteria Urine Trace /hpf; Mucus Urine Rare /lpf; RBC Urine 51-75 /hpf (0-2); WBC Clumps Urine Present /HPF; WBC Urine >75 /hpf
[2022-02-27 16:02] LABS: Add Urine Microscopic? YES
== END 2022-02-27 17:10 | disposition home or self-care (01) ==
PROVIDERS: Emergency Provider Emergency Medicine; PCP Family Medicine
DX: N39.0 Urinary tract infection, site not specified (principal); R11.2 Nausea with vomiting, unspecified; I10 Essential (primary) hypertension; I48.0 Paroxysmal atrial fibrillation; Z79.01 Long term (current) use of anticoagulants; Z46.6 Encounter for fitting and adjustment of urinary device
CPT/HCPCS: 36415; 71045; 74177; 80053; 81001; 83690; 84484; 85025; 85610; 85730; 87086; 87088; 87636; 93005; 96361; 96374; 96375; 99284; J0131; J2405; J7030; Q9967

== ENCOUNTER 2022-06-21 11:48 | Outpatient (CLI) | payer MEDICARE, SELFPAY ==
--- NOTE | 2022-06-21 12:01 | ECHO_ITS ---
Patient Info Name: Devin Gonzalez Age: 87 years : 1935 Gender: Male Ht: 66 in Wt: 175 lbs BSA: 1.94 m2 HR: 63 bpm BP: 99 / 58 mmHg Technical Quality: Fair Exam Date: 06/21/2022 12:18 PM Exam Location: [facility] Patient Status: Outpatient Admit Date: 06/21/2022 Staff Ordering Physician: Mitch Kumar DO Fundraiser: Jennifer Colon RDCS Attending Provider: Mitch Kumar DO Referring Physician: José JAMES; Exam Type: CA echo doppler color flow Study Info Indications I35.0 - Nonrheumatic aortic (valve) stenosis Complete two-dimensional, color flow and Doppler transthoracic echocardiogram is performed. Summary 1. Complete two-dimensional, color flow and Doppler transthoracic echocardiogram is performed. 2. Left ventricular chamber dimension is normal. 3. Left ventricular systolic function is normal, estimated at 60-65%. 4. There is moderately increased left ventricular wall thickness. 5. The left ventricular diastolic function is grade I diastolic dysfunction. 6. E/e' 9 is minimally elevated. 7. Global longitudinal strain is normal at -17.9%. 8. Left atrial chamber dimension is mildly enlarged. 9. There is moderate aortic valve sclerosis. 10. There is moderate aortic valve stenosis with a peak velocity of 281 cm/s, mean gradient of 17 mmHg, and aortic valve area of 1.2 cm2. 11. There is mild tricuspid valve regurgitation. 12. Mild pulmonary hypertension, estimated pulmonary arterial systolic pressure is 44 mmHg. Left Ventricle E/e' 9 is minimally elevated. Global longitudinal strain is normal at -17.9%. Left ventricular chamber dimension is normal. Left ventricular systolic function is normal, estimated at 60-65%. There is moderately increased left ventricular wall thickness. The left ventricular diastolic function is grade I diastolic dysfunction. Right Ventricle Right ventricular systolic function is normal and with normal TAPSE 2.0 cm. Right ventricular chamber dimension is normal. Left Atria Left atrial chamber dimension is mildly enlarged. Right Atria Right atrial chamber dimension is normal. Aortic Valve The aortic valve is trileaflet. There is moderate aortic valve sclerosis. There is moderate aortic valve stenosis with a peak velocity of 281 cm/s, mean gradient of 17 mmHg, and aortic valve area of 1.2 cm2. There is no aortic valve regurgitation. Pulmonic Valve There is no pulmonic regurgitation. Mitral Valve There is no mitral valve stenosis. There is no mitral valve regurgitation. Tricuspid Valve There is mild tricuspid valve regurgitation. Mild pulmonary hypertension, estimated pulmonary arterial systolic pressure is 44 mmHg. Pericardium/Pleural There is no pericardial effusion. Inferior Vena Cava Normal inferior vena cava with >50% collapse upon inspiration consistent with normal right atrial pressure, 5 mmHg. Aorta The aortic root size at the sinus of Valsalva is normal. Left Ventricular Outflow Tract Name Value Normal LVOT 2D LVOT Diameter 2.0 cm LVOT Doppler LVOT Peak Gradient 4 mmHg LVOT Mean Gradient 3
== END 2022-06-21 11:49 | disposition home or self-care (01) ==
LOC: ANHCARD 11:49
PROVIDERS: PCP Family Medicine; Visit Provider Internal Medicine Cardiovascular Disease
DX: I35.0 Nonrheumatic aortic (valve) stenosis (principal); I27.20 Pulmonary hypertension, unspecified; I36.1 Nonrheumatic tricuspid (valve) insufficiency; I35.1 Nonrheumatic aortic (valve) insufficiency
CPT/HCPCS: 93306

== ENCOUNTER 2022-11-17 13:30 | Outpatient (RCR) | payer MEDICARE, SELFPAY ==
--- NOTE | 2022-10-22 16:57 | PTOPEVAL1 ---
Assessment and note entered by Monae Rodriguez, PT Evaluation Information Assessment Status Evaluation Diagnosis Unsteadiness on feet Therapy Condition weakness, gait abnormality Onset 3 months ago Subjective Information Reports feel about 3 months ago, was in the hospital a week and in inpatient rehab 3 weeks. Had home health for a time. Has been using walker and can for mobility since prior to hospital Likes to drive in the mornings. Mowed his lawn with his zero turn mower the other day. Reported Pain Level Pain Score 0: Self Report Assessment PT Clinical Summary Pt presents with diagnosis of unsteadiness on feet . Pt demo's gait abnormalities, decreased strength Reinaldo LEs, decreased endurance, and increased time/ compensatory measures for sit to stand testing. Pt will benefit from physical therapy to educate pt improving gait, balance safety, and address deficits to improve safety with functional mobility Plan of Care Interventions Gait Training,Patient/Caregiver Educati, Therapeutic Activities,Therapeutic Exercise PT Services Indicated Yes Treatment Frequency and 1-2 weekly x 8 weeks Duration These treatments will address the objective and functional deficits as defined above. The patient will be advanced safely and appropriately in order for the patient to progress towards his/her prior level of function. Additional exercises will be introduced and as well as a comprehensive home exercise program upon discharge, if needed, ?to ensure carryover of functional gains achieved in the clinic. This treatment plan has been reviewed and agreement upon by the patient.
--- NOTE | 2022-10-22 16:58 | OPREHPOC ---
Outpatient Therapy Plan of Care This is a Multidisciplinary Plan of Care that may contain components documented by all disciplines (PT, OT, and ST.) PT Problem 1 PT Problem #1 Knowledge Deficit PT Goal 1 Goal Pt will be independent in HEP Target Visit 8 PT Goal 2 Goal Pt will verbalize understanding of diagnosis and prognosis Target Visit 16 PT Problem 2 PT Problem #2 Impaired Strength PT Goal 1 Goal Pt will demo strength of 4/5 in all tested planes Target Visit 16 PT Goal 2 Goal Pt will demo ability to amb at leisurely pace for 500 ft without rest break Target Visit 16 PT Problem 3 PT Problem #3 Impaired Balance PT Goal 1 Goal Pt will demo 5x sit>stand of 30 seconds or less Target Visit 8 PT Goal 2 Goal Pt will demo 5x sit>stand test of 20 seconds with appropriate and safe form PT Problem 4 PT Problem #4 Impaired Gait PT Goal 1 Goal Pt will demo consistent use of appropriately sized AD for 3 sessions Target Visit 8 PT Goal 2 Goal Pt will demo 2 min walk of 150 ft with LRAD Target Visit 16
--- NOTE | 2022-11-17 14:02 | PTOPPROG ---
Assessment and note entered by Monae Rodriguez, PT Assessment Status Progress Diagnosis Unsteadiness on feet Therapy conditions weakness, gait abnormality Onset 3 months ago Subjective Information Pt reports fell on Tuesday. Went to step up on porch and legs gave out . Did not have dizziness or pain, legs were trembling before he fell. Reports took his salt pill after fell and felt better after that. Reports he had forgotten to take it at the right time. States is a salt pill. Feels balance an walking has improved since starting therapy. States still uses walker in the house but a cane outside. Assessment PT Clinical Summary Pt has met multiple short term goals, improved sit to stand speed, and improved strength in BLEs. However pt did have a fall this weekend which appears related to timing of medication. Pt also cont to rely on LEs pushing on chair sit sit>stand and demo's fear of letting go with hands while standing as well as gait abnormalities wiht 2 min walk, especially with fatigue. Thus pt would benefit from continued therapy in order to continue improvement, and allow for most safe and functional mobility. Plan of Care Interventions Gait Training,Patient/Caregiver Educati, Therapeutic Activities,Therapeutic Exercise PT Services Indicated Yes Treatment Frequency and 1-2x weekly x 4 weeks Duration These treatments will address the objective and functional deficits as defined above. The patient will be advanced safely and appropriately in order for the patient to progress towards his/her prior level of function. Additional exercises will be introduced and as well as a comprehensive home exercise program upon discharge, if needed, ?to ensure carryover of functional gains achieved in the clinic. This treatment plan has been reviewed and agreement upon by the patient.
--- NOTE | 2022-11-24 16:30 | PCPTNOTE ---
Patient's daughter called & cancelled scheduled appointment this date due to patient waking up in increase pain in the hip. Has scheduled an appointment tomorrow to get an injection.
--- NOTE | 2022-12-01 12:55 | PTOPDC ---
Assessment and note entered by Monae Rodriguez, PT Assessment Status Discharge - Pt Not Present Diagnosis Unsteadiness on feet Onset 3 months ago Assessment PT Clinical Summary Pt was 20 min late for appointment. front desk admin called pt contact number who stated he is in the hospital with a UTI. Advised pt contact remainder of appointments would be cancelled and pt could return to therapy with a new prescription. Pt is thus being discharged due to status change. Plan of Care PT Services Indicated no
== END 2022-12-01 13:28 | disposition short-term general hospital (02) ==
LOC: ANHHIPT 13:30
PROVIDERS: PCP Physician Assistant Medical; Visit Provider Nurse Practitioner Family
DX: R26.81 Unsteadiness on feet (principal)
CPT/HCPCS: 97110; 97112; 97116; 97162; 97750

== ENCOUNTER 2023-04-24 13:37 | Emergency (ER) | payer MEDICARE, SELFPAY ==
--- NOTE | ~2023-04-24 | XR_ITS ---
EXAM: XR hip LT 2V w AP pelvis DATE: 04/24/2023 13:49 HISTORY: pain, NO TRAUMA . COMPARISON: 07/15/2021. FINDINGS: Decreased mineralization. No fracture or dislocation. No lytic or blastic lesion. Partiall y visualized lumbar fusion hardware. Lumbar degenerative disc disease. Bilateral hip osteoarthritis. Pubic symphysis degenerative change. No erosion or periosteal change. Vascular calcification. IMPRESSION: Severe lumbar degenerative disc disease. Mild bilateral hip osteoarthritis. Osseous pubis . Reviewed, dictated and finalized at location K. ARCH AND EVALUATION ANALYST IMPRESSION: Severe lumbar degenerative disc disease. Mild bilateral hip osteoar thritis. Osseous pubis.
--- NOTE | ~2023-04-24 | CT_ITS ---
EXAMINATION: CT abdomen pelvis wo con DATE: 04/24/2023 17:37 INDICATION: hematuria TECHNIQUE: Computed tomography (CT) of the abdomen and pelvis was performed without intravenous contr ast. Automated exposure control and iterative reconstruction technique were employed. The dose-length product was 783.82 mGy-cm. COMPARISON: 02/27/2022. FINDINGS: Lower thorax: Reticular/fibrotic change in the peripheral right middle lobe and bilateral lobes. Echols ges of right anterior thoracotomy. Coronary artery and aortic valve calcification. Calcified hilar no kiah. Liver: Normal. Biliary/Gallbladder: Gallbladder is normal. No bile duct dilation. Pancreas: Fatty infiltration Spleen: Normal. Adrenals:No mass. Kidneys: Bilateral perinephric stranding and atrophy. Multiple nonobstructing right renal stones. Mil d right hydronephrosis. Simple right renal cyst. Punctate nonobstructing left renal calcifications. GI tract: No small or large bowel dilation. Normal appendix. Diverticulosis without diverticulitis. Mesentery/Peritoneum: No ascites, mass, or free air. Retroperitoneum: No mass. Atherosclerotic abdominal aortic and/or arterial calcifications. Pelvis: The urinary bladder is mostly decompressed by Gonzalez catheter. 5 mm calcification in the lumen of the right side of the urinary bladder. 3 mm dependent intraluminal calcification at the midline i n the urinary bladder. Calcific densities at the tip of the Gonzalez catheter. Soft Tissues: Bilateral fat-containing inguinal hernias. Bones: No acute osseous finding. Uncomplicated appearing thoracolumbar fusion hardware. IMPRESSION: Nonobstructing right nephrolithiasis. Mild right hydronephrosis. Intraluminal bladder calcifications may represent recently passed stones. Calcific densities at the tip of the Gonzalez catheter, may represent chronic calcification, correlate w ith tube function and time of placement. Reviewed, dictated and finalized at location K. CAR DRIVER IMPRESSION: Nonobstructing right nephrolithiasis. Mild right hydronephrosis. Intraluminal b ladder calcifications may represent recently passed stones. Calcific densities at the tip of the Gonzalez catheter, may represent chronic calc ification, correlate with tube function and time of placement.
[2023-04-24 13:40] VITALS: BP 120/58; PULSE 63; RESP 18; TEMP 36.4; O2SAT 94
--- NOTE | 2023-04-24 14:24 | PC.NURSE ---
On arrival to room daughter reports that she noticed blood in pt's indwelling catheter. Daughter states that pt pulls on his catheter frequently.
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
[2023-04-24 15:41] LABS: Basophils Percent Auto 0.5 % (0.2-1.2); Eosinophils Absolute Auto 0.3 K/mm3 (0-0.3); Eosinophils Percent Auto 3.5 % (0-4.4); Hematocrit 37.7 % (42.0-52.0); Hemoglobin 11.8 g/dL (14.0-18.0); Immature Granulocyte Absolute 0.02 K/mm3 (0.00-0.031); Immature Granulocyte Percent A 0.3 % (0-0.5); Lymphocytes Absolute Auto 2.19 K/mm3 (0.9-3.2); Lymphocytes Percent Auto 28.7 % (18.3-44.2); Mean Corpuscular HGB Conc 31.3 g/dl (32-36); Mean Corpuscular Hemoglobin 30.6 pg (26-34); Mean Corpuscular Volume 97.7 fl (80-100); Monocytes Absolute Auto 0.6 K/mm3 (0.1-0.6); Monocytes Percent Auto 7.9 % (2.6-8.5); Neutrophils Absolute Auto 4.5 K/mm3 (1.3-6.7); Neutrophils Percent Auto 59.1 % (45.5-73.1); Platelet Count Result 187 k/mm3 (150-375); Red Blood Count 3.86 M/mm3 (4.6-6.20); Red Cell Distribution Width 15.3 % (11.5-14.5); White Blood Count 7.6 K/mm3 (4.5-10.0)
[2023-04-24 15:52] LABS: Alanine Aminotransferase 16 U/L (6-50); Albumin Level 3.4 g/dL (3.5-5.1); Alkaline Phosphatase 76 U/L (38-126); Anion Gap 2 mmol/L (8-16); Aspartate Amino Transferase 29 U/L (17-59); Bilirubin,Total 0.8 mg/dL (0.2-1.3); Blood Urea Nitrogen 22 mg/dL (9-20); Calcium 8.9 mg/dL (8.4-10.2); Carbon Dioxide 32 mmol/L (22-30); Chloride 105 mmol/L (98-107); Estimated CRCL calculation 49 ml/min; Estimated Glomerular Filt Rate > 60; Glucose 128 mg/dL (65-110); Potassium 4.4 mmol/L (3.4-5.0); Sodium 139 mmol/L (137-145)
[2023-04-24 16:24] LABS: Bacteria Urine 4+ /hpf; Non Pathogenic Casts >20; RBC Urine >100 /hpf (0-2); Squamous Epithelial Cell Urine Occasional /hpf (Few); Triple Phosphate Crystal Urine Present /hpf; WBC Urine 21-50 /hpf
[2023-04-24 16:29] LABS: Appearance Urine Turbid (Clear); Bilirubin Urine Negative (Negative); Blood Urine 3+ (Negative); Glucose Urine UA Negative (Negative); Ketones Urine Negative (Negative); Leukocyte Esterase Ur 3+ LEU/UL (Negative); Nitrate Urine Negative (Negative); Protein Urine 2+ mg/dL (Negative); Specific Grav Ur 1.019 (1.001-1.035); pH Urine >=9.0 (5.0-9.0)
[2023-04-24 16:30] LABS: Color Urine Dark Brown (Yellow)
[2023-04-24 16:34] LABS: Add Urine Microscopic? YES
[2023-04-24 18:05] VITALS: BP 136/72; PULSE 58; RESP 20; TEMP 37.2; O2SAT 95
[2023-04-24] MEDS: CEFEPIME 2 GM/NS 50 ML 2 GM/50 ML BAG IVPB (18:15)
== END 2023-04-24 18:44 | disposition home or self-care (01) ==
PROVIDERS: Emergency Provider Student in an Organized Health Care Education/Training Program; PCP Physician Assistant Medical
DX: R31.9 Hematuria, unspecified (principal); N31.9 Neuromuscular dysfunction of bladder, unspecified; N39.0 Urinary tract infection, site not specified; M25.552 Pain in left hip; I10 Essential (primary) hypertension
CPT/HCPCS: 36415; 73502; 74176; 80053; 81001; 85025; 87086; 96374; 99284; J0692

== ENCOUNTER 2023-05-13 10:34 | Emergency (ER) | payer MEDICARE, SELFPAY ==
[2023-05-13 11:06] VITALS: BP 106/64; PULSE 72; RESP 18; TEMP 36.6; O2SAT 94
--- NOTE | 2023-05-13 12:15 | PC.NURSE ---
PT WITH NO URINARY OUTPUT INTO LEG BAG. ATTEMPTED TO IRRIGATE CATHETER WITH STERILE WATER WITH NO SUCCESS. BHATT CATH REPLACED WITH BRISK OUTPUT. PT FEELING MUCH BETTER.
[2023-05-13 13:00] LABS: Appearance Urine Cloudy (Clear); Bacteria Urine 4+ /hpf; Bilirubin Urine Negative (Negative); Blood Urine 3+ (Negative); Color Urine Dark Yellow (Yellow); Glucose Urine UA Negative (Negative); Ketones Urine Negative (Negative); Leukocyte Esterase Ur 3+ LEU/UL (Negative); Need Manual Microscopic Reviewed; Nitrate Urine Negative (Negative); Protein Urine 1+ mg/dL (Negative); RBC Urine >100 /hpf (0-2); Specific Grav Ur 1.018 (1.001-1.035); Squamous Epithelial Cell Urine None seen /hpf (Few); Triple Phosphate Crystal Urine Present /hpf; WBC Urine >100 /hpf; pH Urine 8.5 (5.0-9.0)
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
[2023-05-13] MEDS: CEPHALEXIN 500 MG CAPSULE PO (13:55)
[2023-05-13 14:03] VITALS: BP 127/65; PULSE 60; RESP 18; TEMP 36.4; O2SAT 96
[2023-05-13 14:15] LABS: Add Urine Microscopic? YES
== END 2023-05-13 14:04 | disposition home or self-care (01) ==
PROVIDERS: Emergency Provider Emergency Medicine; PCP Physician Assistant Medical
DX: T83.098A Other mechanical complication of other urinary catheter, initial encounter (principal); N39.0 Urinary tract infection, site not specified; I10 Essential (primary) hypertension; N40.0 Benign prostatic hyperplasia without lower urinary tract symptoms; G62.9 Polyneuropathy, unspecified; G47.9 Sleep disorder, unspecified; M10.9 Gout, unspecified; Z98.49 Cataract extraction status, unspecified eye; Z79.01 Long term (current) use of anticoagulants; Y84.6 Urinary catheterization as the cause of abnormal reaction of the patient, or of later complication, without mention of misadventure at the time of the procedure
CPT/HCPCS: 51702; 81001; 87086; 99283; A9270

== ENCOUNTER 2023-05-26 08:10 | Emergency (ER) | payer MEDICARE, SELFPAY ==
[2023-05-26 08:30] VITALS: BP 161/68; PULSE 64; RESP 18; TEMP 36.6; O2SAT 96
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
[2023-05-26 09:02] LABS: Appearance Urine Turbid (Clear); Bacteria Urine 4+ /hpf; Bilirubin Urine Negative (Negative); Blood Urine 1+ (Negative); Calcium Oxalate Crystals Urine Present /hpf; Color Urine Yellow (Yellow); Glucose Urine UA Negative (Negative); Ketones Urine Negative (Negative); Leukocyte Esterase Ur 3+ LEU/UL (Negative); Need Manual Microscopic Reviewed; Nitrate Urine Negative (Negative); Protein Urine 2+ mg/dL (Negative); RBC Urine 0-2 /hpf (0-2); Specific Grav Ur 1.015 (1.001-1.035); Squamous Epithelial Cell Urine None seen /hpf (Few); WBC Urine >100 /hpf; pH Urine 8.5 (5.0-9.0)
[2023-05-26 09:05] LABS: Add Urine Microscopic? YES
--- NOTE | 2023-05-26 09:47 | ECG_ITS ---
Measurements Intervals [place] Rate: 64 P: 87 NH: 256 QRS: -20 QRSD: 86 T: 58 QT: 391 QTc: 404 Interpretive Statements SINUS RHYTHM WITH FIRST DEGREE AV BLOCK ATRIAL PREMATURE COMPLEX BASELINE ARTIFACT- I, II, AVR, V4-V6 BORDERLINE ECG COMPARED TO ECG 02/27/2022 14:08:56 FIRST DEGREE AV BLOCK NOW PRESENT Electronically Signed On 05-27-2023 9:31:47 GAS PIT WORKER by Mitch Kumar D.O.
[2023-05-26 09:55] LABS: Basophils Percent Auto 0.1 % (0.2-1.2); Hematocrit 30.6 % (42.0-52.0); Hemoglobin 10.1 g/dL (14.0-18.0); Immature Granulocyte Absolute 0.16 K/mm3 (0.00-0.031); Immature Granulocyte Percent A 1.3 % (0-0.5); Lymphocytes Absolute Auto 1.39 K/mm3 (0.9-3.2); Lymphocytes Percent Auto 11.3 % (18.3-44.2); Mean Corpuscular Hemoglobin 32.1 pg (26-34); Mean Corpuscular Volume 97.1 fl (80-100); Monocytes Absolute Auto 0.8 K/mm3 (0.1-0.6); Monocytes Percent Auto 6.3 % (2.6-8.5); Platelet Count Result 217 k/mm3 (150-375); Red Blood Count 3.15 M/mm3 (4.6-6.20); Red Cell Distribution Width 14.6 % (11.5-14.5); White Blood Count 12.3 K/mm3 (4.5-10.0)
[2023-05-26 10:06] LABS: Alanine Aminotransferase 30 U/L (6-50); Albumin Level 3.4 g/dL (3.5-5.1); Alkaline Phosphatase 84 U/L (38-126); Anion Gap 3 mmol/L (8-16); Aspartate Amino Transferase 31 U/L (17-59); Bilirubin,Total 1.3 mg/dL (0.2-1.3); Blood Urea Nitrogen 30 mg/dL (9-20); Calcium 9.2 mg/dL (8.4-10.2); Carbon Dioxide 31 mmol/L (22-30); Chloride 102 mmol/L (98-107); Estimated CRCL calculation 50 ml/min; Estimated Glomerular Filt Rate > 60; Glucose 123 mg/dL (65-110); Potassium 4.6 mmol/L (3.4-5.0); Sodium 136 mmol/L (137-145)
[2023-05-26 10:52] VITALS: BP 133/62; PULSE 66; RESP 22; O2SAT 96
== END 2023-05-26 11:06 | disposition home or self-care (01) ==
PROVIDERS: Student in an Organized Health Care Education/Training Program; Emergency Provider Nurse Practitioner Family; PCP Nurse Practitioner Family
DX: T83.098A Other mechanical complication of other urinary catheter, initial encounter (principal); N30.01 Acute cystitis with hematuria; I10 Essential (primary) hypertension
CPT/HCPCS: 36415; 51702; 80053; 81001; 85025; 87077; 87086; 87088; 87186; 93005; 99283

== ENCOUNTER 2023-06-24 13:46 | Emergency (ER) | payer MEDICARE, SELFPAY ==
[2023-06-24 13:49] VITALS: BP 158/139; PULSE 93; RESP 18; TEMP 36.2; O2SAT 93
--- NOTE | 2023-06-24 16:17 | PC.NURSE ---
new leg bag given to pt at this time.
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
--- NOTE | 2023-06-24 16:52 | PC.NURSE ---
changed pts from large standard urinary bag to leg bag per pts request.
[2023-06-24 16:53] VITALS: RESP 20
--- NOTE | 2023-06-30 12:22 | PC.NURSE ---
LATE ENTRY This note is being entered to document information to the patient's record. The following information was omitted on [06/24/23], by [Dr. Singletary]. AUDI to replace indwelling zimmer with new urinary catheter.
== END 2023-06-24 16:53 | disposition home or self-care (01) ==
PROVIDERS: Emergency Provider Emergency Medicine; PCP Nurse Practitioner Family
DX: T83.021A Displacement of indwelling urethral catheter, initial encounter (principal); I10 Essential (primary) hypertension
CPT/HCPCS: 51702; 99283

== ENCOUNTER 2023-07-08 05:01 | Emergency (ER) | payer MEDICARE, SELFPAY ==
[2023-07-08 05:13] VITALS: BP 152/64; PULSE 66; RESP 18; O2SAT 96
[2023-07-08 05:15] VITALS: BP 152/64; PULSE 68; RESP 15; O2SAT 98
--- NOTE | 2023-07-08 05:15 | ECG_ITS ---
SEE SCANNED COPY FOR CONFIRMED REPORT MTDD
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
[2023-07-08 05:48] LABS: Appearance Urine Cloudy (Clear); Bacteria Urine 4+ /hpf; Bilirubin Urine Negative (Negative); Blood Urine 3+ (Negative); Color Urine Yellow (Yellow); Glucose Urine UA Negative (Negative); Ketones Urine Negative (Negative); Leukocyte Esterase Ur 3+ LEU/UL (Negative); Nitrate Urine Positive (Negative); Non Pathogenic Casts 0-2; Protein Urine 1+ mg/dL (Negative); RBC Urine >100 /hpf (0-2); Specific Grav Ur 1.014 (1.001-1.035); Squamous Epithelial Cell Urine None Seen /hpf (Few); WBC Urine >100 /hpf (0-3)
[2023-07-08 06:13] LABS: Add Urine Microscopic? YES
[2023-07-08 06:46] VITALS: BP 122/111; PULSE 68; RESP 18; TEMP 36.7; O2SAT 98
[2023-07-08] MEDS: AMOXICILLIN/CLAVULANATE K 875-125 MG TAB 1 TABLET PO (07:19)
[2023-07-08 07:50] VITALS: BP 156/80; PULSE 76; RESP 16; TEMP 36.6; O2SAT 97
== END 2023-07-08 07:50 | disposition home or self-care (01) ==
PROVIDERS: Emergency Provider Emergency Medicine; PCP Nurse Practitioner Family
DX: T83.098A Other mechanical complication of other urinary catheter, initial encounter (principal); N39.0 Urinary tract infection, site not specified; N40.0 Benign prostatic hyperplasia without lower urinary tract symptoms; M10.9 Gout, unspecified; I10 Essential (primary) hypertension; G62.9 Polyneuropathy, unspecified; Z98.49 Cataract extraction status, unspecified eye; I49.1 Atrial premature depolarization; Z87.828 Personal history of other (healed) physical injury and trauma; Z79.01 Long term (current) use of anticoagulants; Y84.6 Urinary catheterization as the cause of abnormal reaction of the patient, or of later complication, without mention of misadventure at the time of the procedure
CPT/HCPCS: 51702; 81001; 87077; 87086; 87088; 87186; 93005; 99283; A9270

== ENCOUNTER 2023-09-01 11:00 | Outpatient (RCR) | payer MEDICARE, SELFPAY ==
--- NOTE | 2023-06-09 11:21 | PTOPEVAL1 ---
Assessment and note entered by Monae Rodriguez, PT Evaluation Information Assessment Status Evaluation Diagnosis Pain in left hip Therapy Conditions weakness oth abnormalities of gait and mobility Subjective Information Was told arthritis and sciatic nerve. Pt reports prior to steroid shots, was hurting so bad couldn' t stand it. Had 4 shots, reports bruising on LLE was worse than it is now. The day he came to the doctor was so bad he had to get his neighbor to help him with the steps, and had to use a wheel chair in the doctor's clinic. Has added grab bars in his house, and added hand rails to his outside porch steps to get into home. Pt reports is sleeping ok. Reports uses rollator in the home and single point cane for ambulation Pt reports is still driving when he feels good. Started prednisone pack Reported Pain Level Pain Score 4: Self Report Assessment PT Clinical Summary Pt presents with complaints of left hip pain without fracture. Images show mild arthritis bilat hips, patient has hx of spinal cord injury and lumbar fusion as well. He is unsteady on his feet with significant gait abnormalities, poor safety awareness, decreased strength, decreased balance overall. Pt also demos decreased hip extension in gait but ROM WFL L hip in sitting position. Pt will greatly benefit from physical therapy to address deficits and improve pain and safe independent function. Plan of Care Interventions Electrical Stimulation,Gait Training,Hot Pack/Cold Pack,Manual Therapy,Neuro Re-education,Patient/ Caregiver Educati,Therapeutic Activities, Therapeutic Exercise,Self-Care/Home Management PT Services Indicated Yes Treatment Frequency and 1-2x weekly x 10 visits Duration These treatments will address the objective and functional deficits as defined above. The patient will be advanced safely and appropriately in order for the patient to progress towards his/her prior level of function. Additional exercises will be introduced and as well as a comprehensive home exercise program upon discharge, if needed, ?to ensure carryover of functional gains achieved in the clinic. This treatment plan has been reviewed and agreement upon by the patient.
--- NOTE | 2023-06-09 11:22 | OPREHPOC ---
Outpatient Therapy Plan of Care This is a Multidisciplinary Plan of Care that may contain components documented by all disciplines (PT, OT, and ST.) PT Problem 1 PT Problem #1 Knowledge Deficit PT Goal 1 Goal Pt will be independent in HEP Pt will verbalize understanding of diagnosis and prognosis Target Visit 10 PT Problem 2 PT Problem #2 Pain PT Goal 1 Goal Pt will report greatest pain level at 3/10 or less to improve ADLs and activities Target Visit 6 PT Goal 2 Goal Pt will report resolution of pain to return to PLOF Target Visit 10 PT Problem 3 PT Problem #3 Impaired Gait PT Goal 1 Goal Pt will demo Trendelenburg gait of mild or less bilat in 2 min walk testing with assistive device Target Visit 10 PT Goal 2 Goal Pt will demo 5 degrees of hip extension in ambulation to improve premature knee flexion and control of gait Target Visit 10 PT Problem 4 PT Problem #4 Impaired Strength PT Goal 1 Goal Pt will demo strength of 4/5 or greater in all tested planes Target Visit 10
--- NOTE | 2023-08-25 16:01 | PTOPPROG ---
Assessment and note entered by Sergio Triana SPT Evaluation Information Assessment Status Progress Diagnosis Pain in left hip Subjective Information Pt states he feels 60-70% better but still has moderate pain and feels his balance could be better. Pt states he is able to do most ADLs independently and he has family members to help with groceries, laundry and cooking. Assessment PT Clinical Summary Pt presents to physical therapy for a re- evaluation. Pt states he feels about 60% better and notes gains in LE strength which helps him get around. Pt states he still feels like his balance could be better and he still has pain, the worst pain being a cramp feeling in his groin. Upon examination pt showed improvement in hip strength in flexion and abduction but still has limited extension ROM and strength. Pt showed improvements in quality of movement in the 5 x sit to stand but the time remains the same. Additionally, pt improved 2 min walk test distance but still needed contact guard assist and had increased Trendelenburg as he fatigue that greatly effected his balance. Pt will continue to benefit from skilled physical therapy to address deficits in strength, ROM, with emphasis on gait and balance to decrease fall risk and improve function at home . Plan of Care Interventions Electrical Stimulation,Gait Training,Hot Pack/Cold Pack,Manual Therapy,Neuro Re-education,Patient/ Caregiver Educati,Therapeutic Activities, Therapeutic Exercise,Self-Care/Home Management, Other PT Services Indicated Yes Treatment Frequency and continue physical therapy 1x per week for 6 weeks Duration These treatments will address the objective and functional deficits as defined above. The patient will be advanced safely and appropriately in order for the patient to progress towards his/her prior level of function. Additional exercises will be introduced and as well as a comprehensive home exercise program upon discharge, if needed, ?to ensure carryover of functional gains achieved in the clinic. This treatment plan has been reviewed and agreement upon by the patient.
--- NOTE | 2023-09-08 15:36 | OPREHPOC ---
Outpatient Therapy Plan of Care This is a Multidisciplinary Plan of Care that may contain components documented by all disciplines (PT, OT, and ST.) PT Problem 1 PT Problem #1 Knowledge Deficit PT Goal 1 Goal Pt will be independent in HEP Pt will verbalize understanding of diagnosis and prognosis Target Visit 10 Progress Met PT Problem 2 PT Problem #2 Pain PT Goal 1 Goal Pt will report greatest pain level at 3/10 or less to improve ADLs and activities Target Visit 6 Progress Partially Met PT Goal 2 Goal Pt will report resolution of pain to return to PLOF Target Visit 10 Progress Partially Met PT Problem 3 PT Problem #3 Impaired Gait PT Goal 1 Goal Pt will demo Trendelenburg gait of mild or less bilat in 2 min walk testing with assistive device Target Visit 10 Progress Partially Met PT Goal 2 Goal Pt will demo 5 degrees of hip extension in ambulation to improve premature knee flexion and control of gait Target Visit 10 Progress Partially Met PT Problem 4 PT Problem #4 Impaired Strength PT Goal 1 Goal Pt will demo strength of 4/5 or greater in all tested planes Target Visit 10 Progress Partially Met
== END 2023-09-07 23:59 | disposition home or self-care (01) ==
LOC: ANHHIPT 11:00
PROVIDERS: PCP Nurse Practitioner Family; Visit Provider Nurse Practitioner Family
DX: M25.552 Pain in left hip (principal)
CPT/HCPCS: 97110; 97112; 97116; 97162; 97164; 97530; 97750

== ENCOUNTER 2023-09-29 13:15 | Outpatient (RCR) | payer MEDICARE, SELFPAY ==
--- NOTE | 2023-09-29 16:58 | PTOPPROG ---
Assessment and note entered by Monae Rodriguez, PT Evaluation Information Assessment Status Progress Diagnosis Pain in left hip ICD-10 Condition Codes (PT) Weakness R53.1 Other ICD-10 Condition Codes ( oth. abnormalities of gait and mobility PT) Subjective Information 09/29/2023 Pt states back hurts a little with activities and twisting wrong. Still feels like is having difficulty with balance getting around. Reports has walker for outside and also a rollator for inside. Uses the cane most of the time for walking. pain mostly with getting up and down mostly his couch because is soft and low Most difficulty with getting up and down steps also Assessment PT Clinical Summary Pt has attended therapy consistently for low back and left hip pain, balance and mobility issues. Pt has only attended once weekly despite being advised 2x weekly would be more beneficial. Pt disha's improved isolated strength testing and reports lower pain scores however his balance and mobility appears to have declined in today's visit . Pt will continued to benefit from physical therapy for continued balance training, endurance training, and education related to more appropriate DME options and modifications of his activities for safety pending his follow-up results with his PCP. Plan of Care Interventions Therapeutic Exercise,Other,Patient/Caregiver Educati,Manual Therapy,Neuro Re-education, Therapeutic Activities,Hot Pack/Cold Pack, Electrical Stimulation,Gait Training,Self-Care/ Home Management PT Services Indicated Yes Treatment Frequency and 1-2x weekly x 8 visits Duration These treatments will address the objective and functional deficits as defined above. The patient will be advanced safely and appropriately in order for the patient to progress towards his/her prior level of function. Additional exercises will be introduced and as well as a comprehensive home exercise program upon discharge, if needed, ?to ensure carryover of functional gains achieved in the clinic. This treatment plan has been reviewed and agreement upon by the patient.
--- NOTE | 2023-11-08 14:59 | PTOPDC ---
Assessment and note entered by Monae Rodriguez, PT Evaluation Information Assessment Status Discharge - Pt Not Present Diagnosis Pain in left hip ICD-10 Condition Codes (PT) Weakness R53.1 Other ICD-10 Condition Codes ( oth. abnormalities of gait and mobility PT) Subjective Information 09/29/2023 Pt states back hurts a little with activities and twisting wrong. Still feels like is having difficulty with balance getting around. Reports has walker for outside and also a rollator for inside. Uses the cane most of the time for walking. pain mostly with getting up and down mostly his couch because is soft and low Most difficulty with getting up and down steps also Assessment PT Clinical Summary Pt attended therapy consistently for pain in left hip, weakness, and abnormalities of mobility. Pt has not returned in the last 30 days. On last revaluation his pain ranged from 0-3/10 and he reported difficulty in balance. Pt had only attended once weekly despite being advised 2x weekly would be more beneficial. Pt demo's improved isolated strength testing and reports lower pain scores however his balance and mobility appears to have declined in today's visit. He was advised to discuss co-morbidities with PCP and to return to therapy however we has not returned. Thus we are discharging him due to non-attendance. Plan of Care PT Services Indicated No
== END 2023-11-10 16:11 | disposition home or self-care (01) ==
LOC: ANHHIPT 13:15
PROVIDERS: PCP Nurse Practitioner Family; Visit Provider Nurse Practitioner Family
DX: M25.552 Pain in left hip (principal)
CPT/HCPCS: 97110; 97112; 97140; 97530; 97750

== ENCOUNTER 2023-10-19 09:18 | Inpatient (IN) | payer MEDICARE, SELFPAY ==
[2023-10-19] VITALS (29 sets, daily range): BP systolic 135–184; BP diastolic 58–105; PULSE 65–83; RESP 13–22; TEMP 36.4–36.6; O2SAT 63–100; BMI 29.1
--- NOTE | ~2023-10-19 | CT_ITS ---
EXAMINATION: CTA chest PE abdomen pel DATE: 10/19/2023 10:34 INDICATION: Lower abdominal pain. Nausea and constipation. Shortness of breath. TECHNIQUE: Computed tomography angiography (CTA) of the chest was performed with 100 mL Omnipaque-350 intravenous contrast timed to evaluate the pulmonary arteries. Coronal maximum intensity projection 3D-reconstructions were created by the technologist. Computed tomography (CT) of the abdomen and pelv is was performed with intravenous contrast. Automated exposure control and iterative reconstruction t echnique were employed. The dose-length product was 1701.52 mGy-cm. COMPARISON: CT abdomen and pelvis 04/24/2023 FINDINGS: CTA chest: There is widespread septal thickening in the lungs with a peripheral predominance. Motion artifact is noted. There are peripheral groundglass opacities in all lobes. There is honeycombing in right middle lobe. No pleural effusion. Cardiomegaly is noted. There are coronary artery calcificatio ns. No pericardial effusion. There is no pulmonary embolus. Calcified right hilar lymph nodes are con sistent with old granulomatous disease. There is a small sliding hiatal hernia. There are old right r ib fractures. There is severe thoracic spondylosis. There are changes of posterior fusion procedure f rom T11 to L3. CT abdomen and pelvis: The liver is normal. The gallbladder is distended. The spleen, pancreas, adren al glands, are normal. There is cortical thinning of the kidneys. There is a 2.1 cm cyst in right kid juani. There are 4 stones in right kidney measuring up to 12 mm. The bladder is decompressed by a Gonzalez catheter. The prostate is mildly enlarged. There are bilateral inguinal hernias containing fat. Ther e is diverticulosis of the colon without evidence of diverticulitis. There are no dilated loops of dennis wel. The appendix is normal. There are no pathologically enlarged lymph nodes. There is no free intra peritoneal fluid. There is a chronic burst fracture of L1. There is severe lumbar spondylosis. IMPRESSION: 1. No pulmonary embolus. Selective is moderately decreased by motion artifact. 2. Stable chronic interstitial lung disease in a pattern of usual interstitial pneumonia (UIP). 3. Gallbladder distention, likely secondary to fasting. Correlate with physical exam to exclude acute cholecystitis. 4. Bilateral inguinal hernias containing fat. Reviewed, dictated and finalized at location A.
[2023-10-19 09:47] LABS: Basophils Percent Auto 0.4 % (0.2-1.2); Eosinophils Absolute Auto 0.2 K/mm3 (0-0.3); Eosinophils Percent Auto 2.4 % (0-4.4); Hematocrit 42.6 % (42.0-52.0); Hemoglobin 13.7 g/dL (14.0-18.0); Immature Granulocyte Absolute 0.01 K/mm3 (0.00-0.031); Immature Granulocyte Percent A 0.1 % (0-0.5); Lymphocytes Absolute Auto 2.61 K/mm3 (0.9-3.2); Mean Corpuscular HGB Conc 32.2 g/dl (32-36); Mean Corpuscular Volume 96.4 fl (80-100); Monocytes Absolute Auto 0.6 K/mm3 (0.1-0.6); Monocytes Percent Auto 8.6 % (2.6-8.5); Neutrophils Percent Auto 53.5 % (45.5-73.1); Platelet Count Result 222 k/mm3 (150-375); Red Blood Count 4.42 M/mm3 (4.6-6.20); Red Cell Distribution Width 13.6 % (11.5-14.5); White Blood Count 7.5 K/mm3 (4.5-10.0)
[2023-10-19 09:57] LABS: Lactic Acid Reflex 1.3 mmol/L (0.7-2.0)
[2023-10-19] MEDS: ACETAMINOPHEN 500 MG TABLET 1000 MG PO (09:57)
[2023-10-19 09:58] LABS: Alanine Aminotransferase 19 U/L (6-50); Albumin Level 4.3 g/dL (3.5-5.1); Alkaline Phosphatase 118 U/L (38-126); Anion Gap 10 mmol/L (4-12); Aspartate Amino Transferase 39 U/L (17-59); Bilirubin,Total 1.8 mg/dL (0.2-1.3); Blood Urea Nitrogen 16 mg/dL (9-20); Calcium 9.5 mg/dL (8.4-10.2); Carbon Dioxide 29 mmol/L (22-30); Chloride 98 mmol/L (98-107); Estimated CRCL calculation 45 ml/min; Estimated Glomerular Filt Rate > 60; Glucose 124 mg/dL (65-110); Lipase 70 U/L (23-300); Potassium 3.8 mmol/L (3.4-5.0); Sodium 137 mmol/L (137-145)
[2023-10-19] MEDS: ONDANSETRON INJ 4 MG/2 ML VIAL IV PUSH (09:58)
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
--- NOTE | 2023-10-19 10:11 | ECG_ITS ---
Test Date: 2023-10-19 10:58:22 Measurements Intervals [place] Rate: 65 P: 0 MN: 0 QRS: -33 QRSD: 90 T: 52 QT: 411 QTc: 429 Interpretive Statements SINUS RHYTHM LEFT AXIS DEVIATION BASELINE ARTIFACT- I, II, III, AVR, AVL, AVF, V1-V6 BORDERLINE ECG No previous ECG available for comparison Electronically Signed On 10-19-2023 12:10:48 CDT by Mitch Kumar D.O.
--- NOTE | 2023-10-19 10:12 | PC.NURSE ---
RN entered pt room to find pt 64% on room air. Pt placed on non-rebreather mask at 15L and repositioned to sit up in bed, oxygen increased to 100%. Vaishali Mcgowan PA-C at bedside. Per EDP, pt placed on NC 3L and pt remained at 98%.
[2023-10-19 10:31] LABS: Influenza A QL RT-PCR Negative (Negative); Influenza B QL RT-PCR Negative (Negative); RSV RNA, RT-PCR Negative (Negative); SARS-CoV-2 RNA PCR Negative (Negative)
[2023-10-19 10:44] LABS: NT Pro B Type Natriuretic Pept 456 pg/mL (19.9-100); Troponin I 0.013 ng/mL (0.000-0.034)
[2023-10-19 10:48] LABS: Alveolar/Arterial O2 Gradient 123.3 mmHg; Base Excess ABG 1.3 mEq/l (+/-2.0); Carboxyhemoglobin 1.5 % THb (0-2.0); Fractional Inspired Oxygen 32 %; HCO3 ABG 27.9 mEq/l (22.0-26.0); Methemoglobin ABG 0.2 %THb (0-1.5); Oxygen Content ABG 14.8 %vol (16.0-22.0); PCO2 ABG 52.1 mmHg (35.0-45.0); PO2 FiO2 Ratio Arterial Blood 1.37 %; Reduced Hemoglobin 20.6 %THb (0-5.0); Total Hemoglobin 13.6 g/dL (12.0-18.0); pH ABG 7.346 (7.350-7.450)
[2023-10-19 10:54] LABS: PO2 ABG 43.9 mmHg (80.0-100.0)
[2023-10-19 10:55] LABS: Oxygen Saturation ABG 76.7 % (95.0-100.0); Oxyhemoglobin 77.7 % THb (90.0-100.0)
[2023-10-19 10:56] LABS: Device NASAL CANNULA; Site Drawn RIGHT RADIAL
[2023-10-19 11:16] LABS: Alveolar/Arterial O2 Gradient 70.7 mmHg; Base Excess ABG 3.2 mEq/l (+/-2.0); Carboxyhemoglobin 1.2 % THb (0-2.0); Fractional Inspired Oxygen 32 %; Methemoglobin ABG 0.1 %THb (0-1.5); Oxygen Content ABG 18.5 %vol (16.0-22.0); Oxygen Saturation ABG 96.8 % (95.0-100.0); Oxyhemoglobin 95.7 % THb (90.0-100.0); PCO2 ABG 54.5 mmHg (35.0-45.0); PO2 ABG 93.7 mmHg (80.0-100.0); PO2 FiO2 Ratio Arterial Blood 2.93 %; Total Hemoglobin 13.7 g/dL (12.0-18.0); pH ABG 7.358 (7.350-7.450)
[2023-10-19 11:19] LABS: Device NASAL CANNULA; Site Drawn RIGHT BRACHIAL
[2023-10-19 11:32] LABS: Add Urine Microscopic? YES; Appearance Urine Cloudy (Clear); Bacteria Urine 4+ /hpf; Bilirubin Urine Negative (Negative); Blood Urine 1+ (Negative); Color Urine Yellow (Yellow); Glucose Urine UA Negative (Negative); Ketones Urine Trace mg/dL (Negative); Leukocyte Esterase Ur 3+ LEU/UL (Negative); Need Manual Microscopic Reviewed; Nitrate Urine Positive (Negative); Protein Urine 1+ mg/dL (Negative); Specific Grav Ur 1.023 (1.001-1.035); Squamous Epithelial Cell Urine None Seen /hpf (Few); WBC Urine >100 /hpf (0-3); pH Urine 8.5 (5.0-9.0)
--- NOTE | 2023-10-19 15:20 | PM.IMHP ---
H&P: HPI History of Present Illness Date/Time: 10/19/23 16:00 Chief Complaint: Abdominal pain, cough, nausea, and shortness of breath. Narrative: This is a very pleasant 88-year-old male with indwelling Gonzalez catheter, urinary tract infections (including multidrug resistant Proteus mirabilis, MRSA, ESBL Klebsiella oxytoca), asymptomatic bacteriuria, kidney stones, benign prostatic hyperplasia, chronic respiratory failure with hypoxia on oxygen at night, obstructive sleep apnea on CPAP narcolepsy, hypertension, paroxysmal atrial fibrillation on chronic anticoagulation, aortic valve stenosis, diet-controlled diabetes, ulcers, and gastroesophageal reflux disease who presented to the emergency department via private vehicle from home for evaluation of abdominal pain, nausea, cough, and mild shortness of breath. The patient provides the following history. He has been doing pretty well however over the past couple of days he has been experiencing generalized abdominal discomfort which he has difficulties describing. He has not had a bowel movement for at least 2 days and wonders if he might be constipated. He has had similar symptoms when his Gonzalez catheter was not draining appropriately but he goes on to say he has not noticed any change or decrease in output. He also reports a nonproductive cough and exertional dyspnea which has been mild over the last couple of days. He decided to come in today for evaluation and when he was walking to triage she started to feel dizzy and nauseated and he had dry heaves for period of time. He denies syncope, near-syncope, fever, chills, sweats, sinus congestion, sore throat, chest pain, pleuritic pain, vomiting, diarrhea, suprapubic pain, low back pain, hematuria, lower extremity edema, and calf pain. In the ED: He was afebrile on arrival with stable vital signs. Labs were significant for WBC count of 7.5, hemoglobin 13.7, platelet 222, sodium 137, potassium 3.8, lactic acid 1.3, BUN 16, creatinine 0.90, troponin 0.013, proBNP 456. Urine obtained from Gonzalez catheter was positive for 1+ protein, trace ketones, 1+ blood, positive nitrates, 3+ leukocyte esterase, 6 to 10 RBC, greater than 100 WBC, and 4+ bacteria. He tested negative for influenza, COVID, and RSV. CT of the chest, abdomen, and pelvis showed no evidence of pulmonary embolism but sensitivity was moderately decreased by motion artifact, stable chronic interstitial lung disease in a pattern of usual interstitial pneumonia, bilateral inguinal hernias containing fat, gallbladder distention likely secondary to fasting. While still in the ED the patients telemetry alarm went off and he was found to have an SpO2 of 64% on room air with reports of a good waveform. Staff evaluated him immediately and he was placed on non-rebreather with quick recovery and he has been weaned to 2 L. He was reportedly awake at that time and did not seem to be in distress although his lips were cyanotic. He is being admitted in this setting for closer monitoring and evaluation. Review of Systems Review of Systems: 12 systems were reviewed and are negative except for as per HPI. [facility] Past Medical History Medical History (Updated 10/19/23 @ 22:14 by Kasey White PA-C) Aortic valve stenosis Asymptomatic bacteriuria Benign prostatic hyperplasia Chronic anticoagulation Chronic interstitial lung disease Stable chronic interstitial lung disease in a pattern of usual interstitial pneumonia seen on CT scan on 10/19/2023. Chronic respiratory failure with hypoxia On oxygen at nighttime only. 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 Kidney stones Narcolepsy Neurogenic bladder Chronic indwelling Gonzalez catheter. Neuropathy Obst
--- NOTE | 2023-10-19 15:24 | ADMGEN ---
This patient, Devin Gonzalez, was admitted to Medical Room 347-. Patient/family oriented to hospital policies and general routines including ID bracelet, bed and alarms, visiting hours, pain management, procedures, bathroom and other care routines, personal items, smoking policy, room service/diet, and visiting hours. Information on how to activate the Rapid Response Team has been discussed. Patient/Family are encouraged to report perceived risks to care and to ask questions if they do not understand what they are told or what they should do.
[2023-10-19] MEDS: METOPROLOL TARTRATE 25 MG TABLET PO (16:56)
[2023-10-19] MEDS: GABAPENTIN 300 MG CAPSULE 600 MG PO (20:08)
[2023-10-19] MEDS: amLODIPine BESYLATE 5 MG TABLET BY MOUTH (20:08)
[2023-10-19] MEDS: CEPHALEXIN 250 MG CAPSULE PO (20:08)
[2023-10-19] MEDS: APIXABAN 5 MG TABLET BY MOUTH (20:08)
[2023-10-20] VITALS (15 sets, daily range): BP systolic 117–141; BP diastolic 52–62; PULSE 51–95; RESP 16–18; TEMP 36.2–36.7; O2SAT 93–97
--- NOTE | 2023-10-20 | ECHO_ITS ---
Patient Info Name: Devin Gonzalez Age: 88 years : 1935 Gender: Male Ht: 65 in Wt: 175 lbs BSA: 1.93 m2 HR: 59 bpm BP: 170 / 77 mmHg Heart Rhythm: Bradycardia Technical Quality: Fair Exam Date: 10/20/2023 10:49 AM Exam Location: Echo Lab Patient Status: Inpatient Admit Date: 10/19/2023 Staff Ordering Physician: Kasey White PA-C Campus Safety Officer: Alexus Gleason RDCS Attending Provider: Lakeshia Correa APRN Referring Physician: Cindy MAHER; Exam Type: CA echo dop color flow w con Study Info Indications - aortic valve stenosis, a fib , htn Complete two-dimensional, color flow and Doppler transthoracic echocardiogram is performed with contrast to opacify the left ventricle and to improve the deliniation of the left ventricle endocardial borders. Summary 1. Definity contrast administered improved wall motion interpretation. 2. Left ventricular chamber dimension is normal. 3. Left ventricular systolic function is normal, estimated at 60-65%. 4. The left ventricular diastolic function is grade I diastolic dysfunction. 5. E/e' 8 is minimally elevated. 6. Right ventricular systolic function is moderately reduced. 7. Right ventricular chamber dimension is moderately enlarged. 8. There is severe aortic valve sclerosis. 9. There is moderate aortic valve stenosis with a peak velocity of 256.79 cm/s, mean gradient of 15 mmHg, and aortic valve area of 1.05 cm2. 10. No pulmonary hypertension, estimated pulmonary arterial systolic pressure is 33 mmHg. Left Ventricle E/e' 8 is minimally elevated. Definity contrast administered improved wall motion interpretation. Left ventricular chamber dimension is normal. Left ventricular systolic function is normal, estimated at 60-65%. The left ventricular diastolic function is grade I diastolic dysfunction. Right Ventricle Right ventricular systolic function is moderately reduced. Right ventricular chamber dimension is moderately enlarged. Left Atria Left atrial chamber dimension is normal. Right Atria Right atrial chamber dimension is normal. Aortic Valve The aortic valve is trileaflet. There is severe aortic valve sclerosis. There is moderate aortic valve stenosis with a peak velocity of 256.79 cm/s, mean gradient of 15 mmHg, and aortic valve area of 1.05 cm2. There is no aortic valve regurgitation. Pulmonic Valve There is no pulmonic regurgitation. Mitral Valve There is no mitral valve stenosis. There is no mitral valve regurgitation. Tricuspid Valve There is no tricuspid valve regurgitation. No pulmonary hypertension, estimated pulmonary arterial systolic pressure is 33 mmHg. Pericardium/Pleural There is no pericardial effusion. Inferior Vena Cava Normal inferior vena cava with >50% collapse upon inspiration consistent with normal right atrial pressure, 5 mmHg. Aorta The aortic root size at the sinus of Valsalva is normal. Left Ventricular Outflow Tract Name Value Normal LVOT 2D LVOT Diameter 2.12 cm LVOT Doppler LVOT Peak Gradient 2 mmHg LVOT Mean Gradient 1 mmHg LVOT VTI 18.07 cm LVOT VTI/AV VTI Ratio 0.30 LVOT S
[2023-10-20 05:36] LABS: Hematocrit 42.3 % (42.0-52.0); Hemoglobin 13.1 g/dL (14.0-18.0); Mean Corpuscular Hemoglobin 30.2 pg (26-34); Mean Corpuscular Volume 97.5 fl (80-100); Mean Platelet Volume 8.9 fl (7.4-10.4); Platelet Count Result 252 k/mm3 (150-375); Red Blood Count 4.34 M/mm3 (4.6-6.20); Red Cell Distribution Width 13.6 % (11.5-14.5); White Blood Count 7.3 K/mm3 (4.5-10.0)
[2023-10-20 05:51] LABS: Alanine Aminotransferase 18 U/L (6-50); Albumin Level 3.9 g/dL (3.5-5.1); Alkaline Phosphatase 94 U/L (38-126); Anion Gap 7 mmol/L (4-12); Aspartate Amino Transferase 40 U/L (17-59); Bilirubin,Total 1.1 mg/dL (0.2-1.3); Blood Urea Nitrogen 15 mg/dL (9-20); Carbon Dioxide 33 mmol/L (22-30); Chloride 98 mmol/L (98-107); Estimated CRCL calculation 37 ml/min; Estimated Glomerular Filt Rate > 60; Glucose 107 mg/dL (65-110); Magnesium 2.1 mg/dL (1.6-2.3); Potassium 4.2 mmol/L (3.4-5.0); Sodium 138 mmol/L (137-145)
[2023-10-20 07:42] LABS: Alveolar/Arterial O2 Gradient 140.3 mmHg; Base Excess ABG 3.1 mEq/l (+/-2.0); Fractional Inspired Oxygen 36 %; HCO3 ABG 30.2 mEq/l (22.0-26.0); Oxygen Content ABG 16.4 %vol (16.0-22.0); PCO2 ABG 56.4 mmHg (35.0-45.0); PO2 FiO2 Ratio Arterial Blood 1.42 %; pH ABG 7.346 (7.350-7.450)
[2023-10-20 07:44] LABS: Device CPAP; Site Drawn RIGHT BRACHIAL
[2023-10-20] MEDS: allopurinoL 100 MG TABLET PO (08:20)
[2023-10-20] MEDS: DULoxetine HCL 30 MG CAPSULE.DR BY MOUTH (08:20)
[2023-10-20] MEDS: FINASTERIDE 5 MG TABLET PO (08:20)
[2023-10-20] MEDS: METOPROLOL TARTRATE 25 MG TABLET PO ×2 (08:20→16:24)
[2023-10-20] MEDS: OMEGA 3 POLYUNSAT FATTY ACIDS 1 GM CAP PO (08:20)
[2023-10-20] MEDS: LORATADINE 10 MG TABLET PO (08:20)
[2023-10-20] MEDS: APIXABAN 5 MG TABLET BY MOUTH ×2 (08:21→20:49)
[2023-10-20] MEDS: GABAPENTIN 300 MG CAPSULE PO (08:21)
[2023-10-20] MEDS: methylPHENIDATE HCL (*CRX) 10 MG TABLET PO (08:21)
[2023-10-20] MEDS: CHOLECALCIFEROL 1,000 UNITS TABLET 1000 UNITS PO (08:21)
[2023-10-20] MEDS: PANTOPRAZOLE 40 MG TABLET BY MOUTH (08:21)
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
[2023-10-20 09:59] LABS: Oxygen Saturation ABG 83.5 % (95.0-100.0)
[2023-10-20 10:00] LABS: Oxyhemoglobin 83.6 % THb (90.0-100.0)
[2023-10-20] MEDS: PERFLUTREN LIPID MICROSPHERES 1.5 ML VIAL DILUTED TO 10 ML TOTAL VOLUME IV PUSH (11:10)
--- NOTE | 2023-10-20 19:01 | PM.IMPN ---
Progress Note: A&P Assessment and Plan (1) Abnormal urinalysis: Code(s): R82.90 - Unspecified abnormal findings in urine Status: Acute Assessment and Plan: UA grossly abnormal on presentation, though may not be a clean urine. Urine culture is pending at this time. Given lack of acute symptoms, patient remaining afebrile, normal white blood cell count, would defer any treatment for possible UTI at this time. Will await results of culture, though suspect patient has asymptomatic bacteriuria which requires no further treatment. --Urology consulted, appreciate recommendations --Monitor off antibiotics (2) Neurogenic bladder: Code(s): N31.9 - Neuromuscular dysfunction of bladder, unspecified Status: Acute Assessment and Plan: Managed with chronic indwelling Gonzalez catheter. Last catheter exchange with 10/11/2023. (3) Hypoxia: Code(s): R09.02 - Hypoxemia Status: Acute Assessment and Plan: Hypoxic and bradycardic overnight, HR 40's, sat's 60's but didn't have a good seal on mask. Also needing oxygen at rest --Walking O2 eval --Continue to monitor on tele --Discharge tomorrow if stable, he may need oxygen at home, discussed with case coordination (4) Acute respiratory failure: Code(s): J96.00 - Acute respiratory failure, unspecified whether with hypoxia or hypercapnia Status: Acute Assessment and Plan: He reports gradually worsening shortness of breath in the last few days. No wheezing but has crackles on exam. Gallbladder distention likely incidental finding. Has no abdominal pain or nausea CT IMPRESSION: 1. No pulmonary embolus. Selective is moderately decreased by motion artifact. 2. Stable chronic interstitial lung disease in a pattern of usual interstitial pneumonia (UIP). 3. Gallbladder distention, likely secondary to fasting. Correlate with physical exam to exclude acute cholecystitis. 4. Bilateral inguinal hernias containing fat. Treatment of hypoxia as noted Time Spent With Patient Time: 58 minutes Subjective Date/time seen: 10/20/23 19:01 Interval history: Presented for urinary complaints but admitted for hypoxia. Bradycardic and hypoxic overnight but didn't have a good seal with his cpap. Also needing oxygen at rest and doesn't wear it at home, walking O2 eval. Feeling better Review of Systems Review of Systems: 12 systems were reviewed and are negative except for as per HPI. All systems reviewed & are unremarkable except as noted in HPI and below Exam Narrative: General: Awake, alert, comfortable, no acute distress HEENT: Normocephalic, atraumatic, sclerae anicteric Respiratory: Normal respiratory effort, no accessory muscle use, crackles, no wheezing Abdomen: Nondistended, obese, soft, nontender : Gonzalez catheter draining clear yellow urine Skin: Normal coloration, warm and dry Neurologic: No focal neuro deficits noted Psychiatric: Appropriate mood and affect, judgment and insight intact Objective Data Vital Signs Vital Signs: Vital Signs - 24 hr 10/19/23 20:00 10/19/23 20:00 10/19/23 21:26 Temperature 97.5 F L Pulse Rate 65 65 Respiratory Rate 18 Blood Pressure 170/77 H Pulse Oximetry 98 97 Oxygen Delivery Nasal Cannula Oxygen Flow Rate 2 10/20/23 00:00 10/20/23 04:00 10/19/23 22:00 Temperature Pulse Rate 84 59 L Respiratory Rate Blood Pressure Pulse Oximetry 96 Oxygen Delivery Room Air Oxygen Flow Rate 10/19/23 22:05 10/20/23 04:25 10/20/23 06:00 Temperature 98.0 F Pulse Rate 68 64 52 L Respiratory Rate 16 Blood Pressure 141/62 H Pulse Oximetry 96 93 94 Oxygen Delivery Oxygen Flow Rate 10/20/23 08:20 10/20/23 08:21 10/20/23 08:05 Temperature Pulse Rate 60 51 L Respiratory Rate Blood Pressure Pulse Oximetry 95 Oxygen Delivery Nasal Cannula Oxygen Flow Rate 1 10/20/23 12:05 10/20/23 14:00 10/20/23 16:24 Stacie
[2023-10-20 20:27] LABS: Anion Gap 7 mmol/L (4-12); Blood Urea Nitrogen 27 mg/dL (9-20); Carbon Dioxide 35 mmol/L (22-30); Chloride 94 mmol/L (98-107); Estimated CRCL calculation 26 ml/min; Estimated Glomerular Filt Rate 41; Glucose 127 mg/dL (65-110); Magnesium 2.1 mg/dL (1.6-2.3); Potassium 4.6 mmol/L (3.4-5.0); Sodium 136 mmol/L (137-145)
[2023-10-20] MEDS: GABAPENTIN 300 MG CAPSULE 600 MG PO (20:48)
[2023-10-20] MEDS: amLODIPine BESYLATE 5 MG TABLET BY MOUTH (20:49)
[2023-10-20] MEDS: CEPHALEXIN 250 MG CAPSULE PO (20:49)
[2023-10-21] VITALS (15 sets, daily range): BP systolic 128–164; BP diastolic 59–85; PULSE 51–62; RESP 12–19; TEMP 36.2–36.4; O2SAT 83–97
[2023-10-21 08:26] LABS: Alveolar/Arterial O2 Gradient 136.6 mmHg; Base Excess ABG 3.6 mEq/l (+/-2.0); Fractional Inspired Oxygen 36 %; HCO3 ABG 31.9 mEq/l (22.0-26.0); Oxygen Content ABG 14.7 %vol (16.0-22.0); PO2 FiO2 Ratio Arterial Blood 1.21 %; Total Hemoglobin 13.9 g/dL (12.0-18.0); pH ABG 7.302 (7.350-7.450)
--- NOTE | 2023-10-21 08:26 | IVDEFINITY ---
Prior to administration of IV Definity the patient was educated on the risks and benefits of the imaging enhancing agent including potential adverse side effects. The patient verbalized understanding. Allergies were verified. No exclusion criteria were identified and at least one of the following inclusion criteria were met: 1) physician request, 2) patient technically difficult to image (per the [place] [employer] guidelines of two or more segments not discernable within the apical view), or 3) questionable left ventricular function. ?
[2023-10-21 08:29] LABS: PCO2 ABG 66.1 mmHg (35.0-45.0)
[2023-10-21 08:30] LABS: PO2 ABG 43.4 mmHg (80.0-100.0)
[2023-10-21 08:31] LABS: Device CPAP; Modified Allen's Test Pass; Oxyhemoglobin 75.3 % THb (90.0-100.0); Site Drawn LEFT RADIAL
--- NOTE | 2023-10-21 09:03 | PM.IMPN ---
Progress Note: A&P Assessment and Plan (1) Abnormal urinalysis: Code(s): R82.90 - Unspecified abnormal findings in urine Status: Acute Assessment and Plan: UA grossly abnormal on presentation, though may not be a clean urine. Urine culture is pending at this time. Given lack of acute symptoms, patient remaining afebrile, normal white blood cell count, would defer any treatment for possible UTI at this time. --Urology signed off - Will await results of culture, though suspect patient has asymptomatic bacteriuria which requires no further treatment. (2) Neurogenic bladder: Code(s): N31.9 - Neuromuscular dysfunction of bladder, unspecified Status: Chronic Assessment and Plan: Managed with chronic indwelling Gonzalez catheter. Last catheter exchange with 10/11/2023. -changed monthly in office (3) Hypoxia: Code(s): R09.02 - Hypoxemia Status: Acute Assessment and Plan: --Walking O2 eval needed prior to d/c --Continue to monitor on tele --ABG on 10/20 showed ph 7.302, CO2 66.1. pO2 43.4, O2 SAT 73.0 oxyhemoglobin 75.3 on CPAP --start on bipap this am, will reassess ABG in 4 hours (4) Acute respiratory failure: Code(s): J96.00 - Acute respiratory failure, unspecified whether with hypoxia or hypercapnia Status: Acute Assessment and Plan: He reports gradually worsening shortness of breath in the last few days. No wheezing but has crackles on exam. Gallbladder distention likely incidental finding. Has no abdominal pain or nausea CT IMPRESSION: 1. No pulmonary embolus. Selective is moderately decreased by motion artifact. 2. Stable chronic interstitial lung disease in a pattern of usual interstitial pneumonia (UIP). 3. Gallbladder distention, likely secondary to fasting. Correlate with physical exam to exclude acute cholecystitis. 4. Bilateral inguinal hernias containing fat. Treatment of hypoxia as noted Subjective Date/time seen: 10/21/23 09:03 Interval history: Patient lying in bed slpeeing at time of exam, bipap in place since ABG this morning. Plan to recheck in 4 hours from start. He will need an O2 eval prior to d/c for adjustments needed. Urology signed off on him at this point. Plan for d/c when stable oxygenation. Review of Systems Review of Systems: All systems reviewed & are unremarkable except as noted in HPI and below Exam Narrative: General: Sleeping comfortably, no acute distress, bipap machine in place HEENT: Normocephalic, atraumatic, sclerae anicteric Respiratory: Normal respiratory effort, no accessory muscle use, crackles, no wheezing Abdomen: Nondistended, obese, soft, nontender; BS present : Gonzalez catheter draining clear, yellow urine Skin: Normal coloration, warm and dry Neurologic: unable to assess Psychiatric: unable to assess Objective Data Vital Signs Vital Signs: Vital Signs - 24 hr 10/20/23 12:05 10/20/23 14:00 10/20/23 16:24 Temperature 97.1 F L Pulse Rate 61 95 61 Respiratory Rate 16 Blood Pressure 120/60 Pulse Oximetry 95 Oxygen Delivery Oxygen Flow Rate 10/20/23 16:04 10/20/23 20:13 10/20/23 21:47 Temperature 97.8 F Pulse Rate 53 L 54 L 53 L Respiratory Rate 18 Blood Pressure 117/52 L Pulse Oximetry 97 Oxygen Delivery Oxygen Flow Rate 10/20/23 22:26 10/20/23 20:00 10/21/23 00:00 Temperature Pulse Rate 57 L 54 L Respiratory Rate Blood Pressure Pulse Oximetry 94 97 Oxygen Delivery CPAP Nasal Cannula Oxygen Flow Rate 1 10/21/23 04:00 10/21/23 02:30 10/21/23 06:00 Temperature 97.4 F L Pulse Rate 51 L 51 L 54 L Respiratory Rate 16 Blood Pressure 137/59 L Pulse Oximetry 93 93 Oxygen Delivery CPAP Oxygen Flow Rate 10/21/23 08:43 Temperature Pulse Rate 58 L Respiratory Rate 13 Blood Pressure Pulse Oximetry 97 Oxygen Delivery BiPAP Oxygen Flow Rate Intake/Output Intake/Output: Intake & Outpu
--- NOTE | 2023-10-21 09:24 | WPDUROPN2 ---
Progress Note: A&P Assessment and Plan (1) Abnormal urinalysis: Code(s): R82.90 - Unspecified abnormal findings in urine Status: Acute Assessment and Plan: UA abnormal on presentation, though unclear how this was obtained. He had no acute UTI symptoms, normal white blood cell count, and has remained afebrile. Urine culture is negative, therefore no need for further treatment (2) Neurogenic bladder: Code(s): N31.9 - Neuromuscular dysfunction of bladder, unspecified Status: Acute Assessment and Plan: Managed with chronic indwelling Gonzalez catheter. Last catheter exchange was 10/11/2023. Catheter draining freely at this time. Continue with outpatient follow-up for monthly catheter changes Plan Urology will sign off at this time. Please call with any questions or concerns Subjective Subjective Date/Time Seen: 10/21/23 09:24 Interval history: Devin is asleep during my encounter today with CPAP in place. Gonzalez catheter draining clear yellow urine Review of Systems Review of Systems: ROS unobtainable: Yes other (Patient asleep) Exam Narrative: General: Asleep, comfortable, no acute distress HEENT: Normocephalic, atraumatic Respiratory: Normal respiratory effort, no accessory muscle use, on CPAP Abdomen: Nondistended, soft : Gonzalez catheter draining clear yellow urine Skin: Normal coloration, warm and dry Objective Data Vital Signs Vital Signs: Vital Signs - 24 hr 10/20/23 12:05 10/20/23 14:00 10/20/23 16:24 Temperature 97.1 F L Pulse Rate 61 95 61 Respiratory Rate 16 Blood Pressure 120/60 Pulse Oximetry 95 Oxygen Delivery Oxygen Flow Rate 10/20/23 16:04 10/20/23 20:13 10/20/23 21:47 Temperature 97.8 F Pulse Rate 53 L 54 L 53 L Respiratory Rate 18 Blood Pressure 117/52 L Pulse Oximetry 97 Oxygen Delivery Oxygen Flow Rate 10/20/23 22:26 10/20/23 20:00 10/21/23 00:00 Temperature Pulse Rate 57 L 54 L Respiratory Rate Blood Pressure Pulse Oximetry 94 97 Oxygen Delivery CPAP Nasal Cannula Oxygen Flow Rate 1 10/21/23 04:00 10/21/23 02:30 10/21/23 06:00 Temperature 97.4 F L Pulse Rate 51 L 51 L 54 L Respiratory Rate 16 Blood Pressure 137/59 L Pulse Oximetry 93 93 Oxygen Delivery CPAP Oxygen Flow Rate 10/21/23 08:43 Temperature Pulse Rate 58 L Respiratory Rate 13 Blood Pressure Pulse Oximetry 97 Oxygen Delivery BiPAP Oxygen Flow Rate Intake/Output Intake/Output: Intake & Output 10/18/23 10/19/23 10/20/23 10/21/23 23:59 23:59 23:59 23:59 Intake Total 740 1420 300 Output Total 400 1075 600 Balance 340 345 -300 Meds/Results Medications: Active Medications Generic Name Dose Route Start Last Admin Trade Name Freq PRN Reason Stop Dose Admin Acetaminophen 650 mg 10/19/23 13:10 Acetaminophen 325 Mg Tablet PO Q4H PRN Mild Pain (1-3) or Fever Alfuzosin HCl 10 mg 10/20/23 09:00 10/20/23 08:20 Alfuzosin 10 Mg Er Tablet BY MOUTH 10 mg DAILY YULIANA Administration Allopurinol 100 mg 10/20/23 09:00 10/20/23 08:20 Allopurinol 100 Mg Tablet PO 100 mg DAILY YULIANA Administration Amlodipine Besylate 5 mg 10/19/23 21:00 10/20/23 20:49 Amlodipine Besylate 5 Mg Tablet BY MOUTH 5 mg HS YULIANA Administration Apixaban 5 mg 10/19/23 21:00 10/20/23 20:49 Apixaban 5 Mg Tablet BY MOUTH 5 mg Q12HR YULIANA Administration Cephalexin HCl 250 mg 10/19/23 21:00 10/20/23 20:49 Cephalexin 250 Mg Capsule PO 250 mg HS YULIANA Administration Duloxetine HCl 30 mg 10/20/23 09:00 10/20/23 08:20 Duloxetine Hcl 30 Mg Capsule.Dr BY MOUTH 30 mg DAILY YULIANA Administration Finasteride 5 mg 10/20/23 09:00 10/20/23 08:20 Finasteride 5 Mg Tablet PO 5 mg QAM YULIANA Administration Fish Oil 1 gm 10/20/23 09:00 10/20/23 08:20 [place] 3 Polyunsat Fatty Acids 1 Gm Cap PO 1 gm DAILY YULIANA Administration Gabapentin 3
[2023-10-21 10:52] LABS: CPAP 10 cmH2O
[2023-10-21 13:11] LABS: Alveolar/Arterial O2 Gradient 83.6 mmHg; Base Excess ABG 3.5 mEq/l (+/-2.0); Carboxyhemoglobin 0.8 % THb (0-2.0); Fractional Inspired Oxygen 30 %; HCO3 ABG 30.6 mEq/l (22.0-26.0); Methemoglobin ABG 0.2 %THb (0-1.5); Oxygen Content ABG 18.3 %vol (16.0-22.0); PCO2 ABG 56.5 mmHg (35.0-45.0); PO2 ABG 63.9 mmHg (80.0-100.0); PO2 FiO2 Ratio Arterial Blood 2.13 %; Total Hemoglobin 14.3 g/dL (12.0-18.0); pH ABG 7.351 (7.350-7.450)
[2023-10-21 13:12] LABS: Device NON-INVASIVE VENT; Site Drawn LEFT BRACHIAL
[2023-10-21 13:13] LABS: Non-Invasive Expiratory Pressure 6 CMH2O; Non-Invasive Inspiratory Pressure 12 CMH2O; Non-Invasive Vent Rate 12 /MIN
[2023-10-21] MEDS: LORATADINE 10 MG TABLET PO (13:36)
[2023-10-21] MEDS: FINASTERIDE 5 MG TABLET PO (13:36)
[2023-10-21] MEDS: APIXABAN 5 MG TABLET BY MOUTH ×2 (13:36→21:07)
[2023-10-21] MEDS: DULoxetine HCL 30 MG CAPSULE.DR BY MOUTH (13:36)
[2023-10-21] MEDS: CHOLECALCIFEROL 1,000 UNITS TABLET 1000 UNITS PO (13:36)
[2023-10-21] MEDS: GABAPENTIN 300 MG CAPSULE PO (13:36)
[2023-10-21] MEDS: methylPHENIDATE HCL (*CRX) 10 MG TABLET PO (13:36)
[2023-10-21] MEDS: PANTOPRAZOLE 40 MG TABLET BY MOUTH (13:36)
[2023-10-21] MEDS: OMEGA 3 POLYUNSAT FATTY ACIDS 1 GM CAP PO (13:37)
[2023-10-21] MEDS: METOPROLOL TARTRATE 25 MG TABLET PO ×2 (13:37→18:24)
[2023-10-21] MEDS: allopurinoL 100 MG TABLET PO (13:37)
[2023-10-21] MEDS: CEPHALEXIN 250 MG CAPSULE PO (21:07)
[2023-10-21] MEDS: amLODIPine BESYLATE 5 MG TABLET BY MOUTH (21:07)
[2023-10-21] MEDS: GABAPENTIN 300 MG CAPSULE 600 MG PO (21:07)
[2023-10-22] VITALS (12 sets, daily range): BP systolic 108–116; BP diastolic 49–70; PULSE 46–68; RESP 16–19; TEMP 36.2–36.6; O2SAT 93–96
[2023-10-22 05:13] LABS: Alveolar/Arterial O2 Gradient 100.3 mmHg; Carboxyhemoglobin 0.6 % THb (0-2.0); Fractional Inspired Oxygen 32 %; HCO3 ABG 32.5 mEq/l (22.0-26.0); Methemoglobin ABG 0.2 %THb (0-1.5); Oxygen Content ABG 16.4 %vol (16.0-22.0); PO2 FiO2 Ratio Arterial Blood 1.75 %; Reduced Hemoglobin 11.4 %THb (0-5.0); Total Hemoglobin 13.3 g/dL (12.0-18.0); pH ABG 7.342 (7.350-7.450)
[2023-10-22 05:18] LABS: Oxygen Saturation ABG 86.7 % (95.0-100.0); PCO2 ABG 61.4 mmHg (35.0-45.0)
[2023-10-22 05:19] LABS: Device CPAP; Modified Allen's Test Pass; Oxyhemoglobin 87.8 % THb (90.0-100.0); Site Drawn RIGHT RADIAL
[2023-10-22 05:20] LABS: CPAP 5 cmH2O
[2023-10-22] MEDS: CHOLECALCIFEROL 1,000 UNITS TABLET 1000 UNITS PO (09:20)
[2023-10-22] MEDS: METOPROLOL TARTRATE 25 MG TABLET PO ×2 (09:20→17:38)
[2023-10-22] MEDS: FINASTERIDE 5 MG TABLET PO (09:20)
[2023-10-22] MEDS: allopurinoL 100 MG TABLET PO (09:20)
[2023-10-22] MEDS: OMEGA 3 POLYUNSAT FATTY ACIDS 1 GM CAP PO (09:20)
[2023-10-22] MEDS: PANTOPRAZOLE 40 MG TABLET BY MOUTH (09:20)
[2023-10-22] MEDS: methylPHENIDATE HCL (*CRX) 10 MG TABLET PO (09:20)
[2023-10-22] MEDS: LORATADINE 10 MG TABLET PO (09:20)
[2023-10-22] MEDS: GABAPENTIN 300 MG CAPSULE PO (09:21)
[2023-10-22] MEDS: DULoxetine HCL 30 MG CAPSULE.DR BY MOUTH (09:21)
[2023-10-22] MEDS: APIXABAN 5 MG TABLET BY MOUTH ×2 (09:21→20:57)
--- NOTE | 2023-10-22 17:51 | WPDPN ---
Progress Note: A&P Assessment and Plan (1) Abnormal urinalysis: Code(s): R82.90 - Unspecified abnormal findings in urine Status: Acute (2) Neurogenic bladder: Code(s): N31.9 - Neuromuscular dysfunction of bladder, unspecified Status: Chronic (3) Hypoxia: Code(s): R09.02 - Hypoxemia Status: Acute Plan 10/22/2023 Interval history: Patient with abnormal UA without any urinary symptoms, urine culture without any growth and clinically stable seen by his urologist and plan was to discharge patient today however patient was saturating in 80s on RA placed on 2 L NC most likely patient is hypoventilating as patient is obese, will do home O2 evaluation before discharge, will monitor and PT/OT evaluate the patient. Subjective Date/time seen: 10/22/23 17:51 Interval history: 10/22/2023 Interval history: Patient with abnormal UA without any urinary symptoms, urine culture without any growth and clinically stable seen by his urologist and plan was to discharge patient today however patient was saturating in 80s on RA placed on 2 L NC most likely patient is hypoventilating as patient is obese, will do home O2 evaluation before discharge, will monitor and PT/OT evaluate the patient. Review of Systems Review of Systems: ROS unobtainable: Yes other (Patient asleep) Exam Narrative: Obese Patient is comfortable, NAD HEENT: eyes are clear and none icteric LUNGS:CTA HEART: RR S1S2 ABD: Obese BS+, Soft and nontender Lower extremities: no edema SKIN: nonjaundiced Neuro: grossly intact. Objective Data Vital Signs Vital Signs: Vital Signs - 24 hr 10/21/23 18:24 10/21/23 20:00 10/21/23 20:00 Temperature Pulse Rate 61 61 Respiratory Rate Blood Pressure Pulse Oximetry 92 Oxygen Delivery BiPAP Oxygen Flow Rate 3 10/21/23 20:35 10/21/23 20:35 10/21/23 22:09 Temperature 36.2 C L Pulse Rate 62 56 L Respiratory Rate 16 Blood Pressure 128/67 Pulse Oximetry 93 93 95 Oxygen Delivery CPAP BiPAP Oxygen Flow Rate 3 10/22/23 00:00 10/22/23 04:00 10/22/23 06:00 Temperature 36.2 C L Pulse Rate 47 L 46 L 64 Respiratory Rate 16 Blood Pressure 116/70 Pulse Oximetry 96 Oxygen Delivery Oxygen Flow Rate 08/03/24 09:20 10/22/23 08:00 10/22/23 12:43 Temperature Pulse Rate 64 54 L Respiratory Rate Blood Pressure Pulse Oximetry Oxygen Delivery Nasal Cannula Oxygen Flow Rate 2 10/22/23 12:00 10/22/23 13:33 10/22/23 14:00 Temperature 36.4 C Pulse Rate 63 59 L Respiratory Rate 19 Blood Pressure 108/49 L Pulse Oximetry 94 Oxygen Delivery Nasal Cannula Oxygen Flow Rate 2 10/22/23 16:00 10/22/23 17:38 Temperature Pulse Rate 59 L 68 Respiratory Rate Blood Pressure Pulse Oximetry Oxygen Delivery Oxygen Flow Rate Intake/Output Intake/Output: Intake & Output 10/19/23 10/20/23 10/21/23 10/22/23 23:59 23:59 23:59 23:59 Intake Total 740 8199 229 3781 Output Total 400 1075 950 950 Balance 340 345 -90 610 Meds/Results Medications: Active Medications Generic Name Dose Route Start Last Admin Trade Name Gianlucaq PRN Reason Stop Dose Admin Acetaminophen 650 mg 10/19/23 13:10 Acetaminophen 325 Mg Tablet PO Q4H PRN Mild Pain (1-3) or Fever Alfuzosin HCl 10 mg 10/20/23 09:00 10/22/23 09:21 Alfuzosin 10 Mg Er Tablet BY MOUTH 10 mg DAILY YULIANA Administration Allopurinol 100 mg 10/20/23 09:00 10/22/23 09:20 Allopurinol 100 Mg Tablet PO 100 mg DAILY YULIANA Administration Amlodipine Besylate 5 mg 10/19/23 21:00 10/21/23 21:07 Amlodipine Besylate 5 Mg Tablet BY MOUTH 5 mg HS YULIANA Administration Apixaban 5 mg 10/19/23 21:00 10/22/23 09:21 Apixaban 5 Mg Tablet BY MOUTH 5 mg Q12HR YULIANA Administration Cephalexin HCl 250 mg 10/19/23 21:00 10/21/23 21:07 Cephalexin 250 Mg Capsule PO 250 mg HS YULIANA Administration Duloxetine
[2023-10-22] MEDS: amLODIPine BESYLATE 5 MG TABLET BY MOUTH (20:57)
[2023-10-22] MEDS: GABAPENTIN 300 MG CAPSULE 600 MG PO (20:57)
[2023-10-22] MEDS: CEPHALEXIN 250 MG CAPSULE PO (20:57)
[2023-10-23] VITALS (15 sets, daily range): BP systolic 97–162; BP diastolic 66–83; PULSE 50–68; RESP 18; TEMP 35.7–36.6; O2SAT 94–99
[2023-10-23] MEDS: METOPROLOL TARTRATE 25 MG TABLET PO ×2 (08:56→17:17)
[2023-10-23] MEDS: OMEGA 3 POLYUNSAT FATTY ACIDS 1 GM CAP PO (08:57)
[2023-10-23] MEDS: LORATADINE 10 MG TABLET PO (08:57)
[2023-10-23] MEDS: DULoxetine HCL 30 MG CAPSULE.DR BY MOUTH (08:57)
[2023-10-23] MEDS: APIXABAN 5 MG TABLET BY MOUTH ×2 (08:57→20:41)
[2023-10-23] MEDS: FINASTERIDE 5 MG TABLET PO (08:57)
[2023-10-23] MEDS: PANTOPRAZOLE 40 MG TABLET BY MOUTH (08:57)
[2023-10-23] MEDS: methylPHENIDATE HCL (*CRX) 10 MG TABLET PO (08:57)
[2023-10-23] MEDS: allopurinoL 100 MG TABLET PO (08:57)
[2023-10-23] MEDS: GABAPENTIN 300 MG CAPSULE PO (08:57)
[2023-10-23] MEDS: CHOLECALCIFEROL 1,000 UNITS TABLET 1000 UNITS PO (08:57)
--- NOTE | 2023-10-23 14:48 | WPDPN ---
Progress Note: A&P Assessment and Plan (1) Abnormal urinalysis: Code(s): R82.90 - Unspecified abnormal findings in urine Status: Acute (2) Neurogenic bladder: Code(s): N31.9 - Neuromuscular dysfunction of bladder, unspecified Status: Chronic (3) Hypoxia: Code(s): R09.02 - Hypoxemia Status: Acute Plan 10/23/2023 Interval history: Patient with abnormal UA without any urinary symptoms, urine culture without any growth and clinically stable on 10/22/23 was seen by his urologist and plan was to discharge patient however patient was saturating in 80s on RA placed on 2 L NC most likely patient is hypoventilating as patient is obese, will do home O2 evaluation before discharge, after home O2, patient can be discharge possible on home Oxygen during day, will monitor and PT/OT evaluate the patient. Subjective Date/time seen: 10/23/23 14:48 Interval history: 10/23/2023 Interval history: Patient with abnormal UA without any urinary symptoms, urine culture without any growth and clinically stable on 10/22/23 was seen by his urologist and plan was to discharge patient however patient was saturating in 80s on RA placed on 2 L NC most likely patient is hypoventilating as patient is obese, will do home O2 evaluation before discharge, after home O2, patient can be discharge possible on home Oxygen during day, will monitor and PT/OT evaluate the patient. Review of Systems Review of Systems: All systems reviewed & are unremarkable except as noted in HPI and below Exam Narrative: Obese Patient is comfortable, NAD HEENT: eyes are clear and none icteric LUNGS:CTA HEART: RR S1S2 ABD: Obese BS+, Soft and nontender Lower extremities: no edema SKIN: nonjaundiced Neuro: grossly intact. Objective Data Vital Signs Vital Signs: Vital Signs - 24 hr 10/22/23 16:00 10/22/23 17:38 10/22/23 20:56 Temperature 36.6 C Pulse Rate 59 L 68 68 Respiratory Rate 18 Blood Pressure 110/68 Pulse Oximetry 94 Oxygen Delivery Oxygen Flow Rate 10/22/23 23:04 10/22/23 20:00 10/23/23 04:13 Temperature 36.6 C Pulse Rate 63 55 L Respiratory Rate 18 Blood Pressure 148/80 H Pulse Oximetry 93 94 94 Oxygen Delivery CPAP Nasal Cannula Oxygen Flow Rate 2 10/22/23 20:00 10/23/23 00:00 10/23/23 04:00 Temperature Pulse Rate 54 L 50 L 59 L Respiratory Rate Blood Pressure Pulse Oximetry Oxygen Delivery Oxygen Flow Rate 10/23/23 08:09 10/23/23 08:56 10/23/23 08:00 Temperature Pulse Rate 64 53 L Respiratory Rate Blood Pressure Pulse Oximetry 96 Oxygen Delivery CPAP Oxygen Flow Rate 10/23/23 12:00 Temperature Pulse Rate 53 L Respiratory Rate Blood Pressure Pulse Oximetry Oxygen Delivery Oxygen Flow Rate Intake/Output Intake/Output: Intake & Output 10/20/23 10/21/23 10/22/23 10/23/23 23:59 23:59 23:59 23:59 Intake Total 4594 414 2099 380 Output Total 1075 950 950 850 Balance 345 -02 594 -531 Meds/Results Medications: Active Medications Generic Name Dose Route Start Last Admin Trade Name Freq PRN Reason Stop Dose Admin Acetaminophen 650 mg 10/19/23 13:10 Acetaminophen 325 Mg Tablet PO Q4H PRN Mild Pain (1-3) or Fever Alfuzosin HCl 10 mg 10/20/23 09:00 10/23/23 08:57 Alfuzosin 10 Mg Er Tablet BY MOUTH 10 mg DAILY YULIANA Administration Allopurinol 100 mg 10/20/23 09:00 10/23/23 08:57 Allopurinol 100 Mg Tablet PO 100 mg DAILY YULIANA Administration Amlodipine Besylate 5 mg 10/19/23 21:00 10/22/23 20:57 Amlodipine Besylate 5 Mg Tablet BY MOUTH 5 mg HS YULIANA Administration Apixaban 5 mg 10/19/23 21:00 10/23/23 08:57 Apixaban 5 Mg Tablet BY MOUTH 5 mg Q12HR YULIANA Administration Cephalexin HCl 250 mg 10/19/23 21:00 10/22/23 20:57 Cephalexin 250 Mg Capsule PO 250 mg HS YULIANA Administration Duloxetine HCl 30 mg 10/20/23 09:00 10/23/23 08:57 Duloxe
--- NOTE | 2023-10-23 15:25 | WPDPN ---
Progress Note: A&P Assessment and Plan (1) Abnormal urinalysis: Code(s): R82.90 - Unspecified abnormal findings in urine Status: Acute (2) Neurogenic bladder: Code(s): N31.9 - Neuromuscular dysfunction of bladder, unspecified Status: Chronic (3) Hypoxia: Code(s): R09.02 - Hypoxemia Status: Acute Plan 10/23/2023 Interval history: Patient with abnormal UA without any urinary symptoms, urine culture without any growth and clinically stable on 10/22/23 was seen by his urologist and plan was to discharge patient however patient was saturating in 80s on RA placed on 2 L NC most likely patient is hypoventilating as patient is obese, will do home O2 evaluation before discharge, after home O2, patient can be discharge possible on home Oxygen during day, will monitor and PT/OT evaluate the patient. Subjective Date/time seen: 10/23/23 15:25 Interval history: opened in an error Review of Systems Review of Systems: All systems reviewed & are unremarkable except as noted in HPI and below Exam Narrative: Obese Patient is comfortable, NAD HEENT: eyes are clear and none icteric LUNGS:CTA HEART: RR S1S2 ABD: Obese BS+, Soft and nontender Lower extremities: no edema SKIN: nonjaundiced Neuro: grossly intact. Objective Data Vital Signs Vital Signs: Vital Signs - 24 hr 10/22/23 16:00 10/22/23 17:38 10/22/23 20:56 Temperature 36.6 C Pulse Rate 59 L 68 68 Respiratory Rate 18 Blood Pressure 110/68 Pulse Oximetry 94 Oxygen Delivery Oxygen Flow Rate 10/22/23 23:04 10/22/23 20:00 10/23/23 04:13 Temperature 36.6 C Pulse Rate 63 55 L Respiratory Rate 18 Blood Pressure 148/80 H Pulse Oximetry 93 94 94 Oxygen Delivery CPAP Nasal Cannula Oxygen Flow Rate 2 10/22/23 20:00 10/23/23 00:00 10/23/23 04:00 Temperature Pulse Rate 54 L 50 L 59 L Respiratory Rate Blood Pressure Pulse Oximetry Oxygen Delivery Oxygen Flow Rate 10/23/23 08:09 10/23/23 08:56 10/23/23 08:00 Temperature Pulse Rate 64 53 L Respiratory Rate Blood Pressure Pulse Oximetry 96 Oxygen Delivery CPAP Oxygen Flow Rate 10/23/23 12:00 Temperature Pulse Rate 53 L Respiratory Rate Blood Pressure Pulse Oximetry Oxygen Delivery Oxygen Flow Rate Intake/Output Intake/Output: Intake & Output 10/20/23 10/21/23 10/22/23 10/23/23 23:59 23:59 23:59 23:59 Intake Total 1837 580 0906 380 Output Total 1075 950 950 850 Balance 345 90 610 -507 Meds/Results Medications: Active Medications Generic Name Dose Route Start Last Admin Trade Name Freq PRN Reason Stop Dose Admin Acetaminophen 650 mg 10/19/23 13:10 Acetaminophen 325 Mg Tablet PO Q4H PRN Mild Pain (1-3) or Fever Alfuzosin HCl 10 mg 10/20/23 09:00 10/23/23 08:57 Alfuzosin 10 Mg Er Tablet BY MOUTH 10 mg DAILY YULIANA Administration Allopurinol 100 mg 10/20/23 09:00 10/23/23 08:57 Allopurinol 100 Mg Tablet PO 100 mg DAILY YULIANA Administration Amlodipine Besylate 5 mg 10/19/23 21:00 10/22/23 20:57 Amlodipine Besylate 5 Mg Tablet BY MOUTH 5 mg HS YULIANA Administration Apixaban 5 mg 10/19/23 21:00 10/23/23 08:57 Apixaban 5 Mg Tablet BY MOUTH 5 mg Q12HR YULIANA Administration Cephalexin HCl 250 mg 10/19/23 21:00 10/22/23 20:57 Cephalexin 250 Mg Capsule PO 250 mg HS YULIANA Administration Duloxetine HCl 30 mg 10/20/23 09:00 10/23/23 08:57 Duloxetine Hcl 30 Mg Capsule.Dr BY MOUTH 30 mg DAILY YULIANA Administration Finasteride 5 mg 10/20/23 09:00 10/23/23 08:57 Finasteride 5 Mg Tablet PO 5 mg QAM YULIANA Administration Fish Oil 1 gm 10/20/23 09:00 10/23/23 08:57 [place] 3 Polyunsat Fatty Acids 1 Gm Cap PO 1 gm DAILY YULIANA Administration Gabapentin 300 mg 10/20/23 09:00 10/23/23 08:57 Gabapentin 300 Mg Capsule PO 300 mg DAILY YLUIANA Administration Gabapentin 600 mg 10/19/23 21:00
[2023-10-23] MEDS: GABAPENTIN 300 MG CAPSULE 600 MG PO (20:40)
[2023-10-23] MEDS: amLODIPine BESYLATE 5 MG TABLET BY MOUTH (20:40)
[2023-10-23] MEDS: CEPHALEXIN 250 MG CAPSULE PO (20:41)
[2023-10-24] VITALS (16 sets, daily range): BP systolic 122–154; BP diastolic 62–67; PULSE 49–70; RESP 18–25; TEMP 36.3–36.5; O2SAT 87–96
[2023-10-24] MEDS: OMEGA 3 POLYUNSAT FATTY ACIDS 1 GM CAP PO (08:32)
[2023-10-24] MEDS: GABAPENTIN 300 MG CAPSULE PO (08:32)
[2023-10-24] MEDS: DULoxetine HCL 30 MG CAPSULE.DR BY MOUTH (08:32)
[2023-10-24] MEDS: LORATADINE 10 MG TABLET PO (08:33)
[2023-10-24] MEDS: methylPHENIDATE HCL (*CRX) 10 MG TABLET PO (08:33)
[2023-10-24] MEDS: CHOLECALCIFEROL 1,000 UNITS TABLET 1000 UNITS PO (08:33)
[2023-10-24] MEDS: METOPROLOL TARTRATE 25 MG TABLET PO ×2 (08:33→17:17)
[2023-10-24] MEDS: FINASTERIDE 5 MG TABLET PO (08:33)
[2023-10-24] MEDS: APIXABAN 5 MG TABLET BY MOUTH ×2 (08:33→20:20)
[2023-10-24] MEDS: PANTOPRAZOLE 40 MG TABLET BY MOUTH (08:33)
[2023-10-24] MEDS: allopurinoL 100 MG TABLET PO (08:33)
--- NOTE | 2023-10-24 12:17 | HOMEO2EVAL ---
Evaluation was performed at [facility] Home Oxygen Evaluation RC: Home Oxygen (O2) Evaluation Start: 10/20/23 19:25 Freq: ONCE Status: Active Protocol: RPE Activity Type Activity Date Activity User E-sign Co-sign Detail Recorded Client Recorded Date Recorded By Document 10/24/23 12:00 [email or web address] 10/24/23 12:17 ROCK Document 10/24/23 12:03 [email or web address] [email or web address] 10/24/23 12:17 ROCK Document 10/24/23 12:04 [email or web address] [email or web address] 10/24/23 12:17 ROCK Document 10/24/23 12:05 [email or web address] [email or web address] 10/24/23 12:17 ROCK Document 10/24/23 12:15 ROCK [email or web address] 10/24/23 12:17 ROCK 10/24/23 10/24/23 10/24/23 12:00 12:03 12:04 Home O2 Evaluation [Oxygen] -Test Phase Resting Exercise Exercise -Oxygen Delivery Room Air Room Air Nasal Cannula -Oxygen Flow Rate (L/min) 1 [Pulse Oximetry] -Pulse Oximetry (90-100 %) 93 86 L 87 L [Pulse Rate] -Pulse Rate (60-100 beats/min) 55 L 69 [Comments] -Home Oxygen Evaluation Comments [Charges] -Evaluation Charges O2 Evaluation by Pulmonary 10/24/23 10/24/23 12:05 12:15 Home O2 Evaluation [Oxygen] -Test Phase Exercise Resting -Oxygen Delivery Nasal Cannula Room Air -Oxygen Flow Rate (L/min) 2 [Pulse Oximetry] -Pulse Oximetry (90-100 %) 92 93 [Pulse Rate] -Pulse Rate (60-100 beats/min) 63 [Comments] -Home Oxygen Evaluation Comments PT REQUIRES 2 L WITH ACTIVITY [Charges] -Evaluation Charges
--- NOTE | 2023-10-24 12:17 | PCRCNOTE ---
pT REQUIRES 2 L WITH ACTIVITY, ROOM AIR AT REST. PT HAS PROVIDER PLUS/IV RESP CARE FOR CPAP AND O2 AT NIGHT. WILL SET UP FOR O2 WITH ACTIVITY, TRANSPORT TANK WILL BE GIVEN PRIOR TO D/C FOR TRANSPORT HOME.
--- NOTE | 2023-10-24 15:20 | HOMEO2EVAL ---
Evaluation was performed at [facility] Home Oxygen Evaluation RC: Home Oxygen (O2) Evaluation Start: 10/20/23 19:25 Freq: ONCE Status: Active Protocol: RPE Activity Type Activity Date Activity User E-sign Co-sign Detail Recorded Client Recorded Date Recorded By Document 10/24/23 12:00 [email or web address] [email or web address] 10/24/23 12:17 ROCK Document 10/24/23 12:03 [email or web address] [email or web address] 10/24/23 12:17 ROCK Document 10/24/23 12:04 [email or web address] [email or web address] 10/24/23 12:17 ROCK Document 10/24/23 12:05 [email or web address] [email or web address] 10/24/23 12:17 ROCK Document 10/24/23 12:15 ROCK [email or web address] 10/24/23 12:17 ROCK 10/24/23 10/24/23 10/24/23 12:00 12:03 12:04 Home O2 Evaluation [Oxygen] -Test Phase Resting Resting Resting -Oxygen Delivery Room Air Nasal Cannula Nasal Cannula -Oxygen Flow Rate (L/min) 1 2 [Pulse Oximetry] -Pulse Oximetry (90-100 %) 87 L 87 L 93 [Pulse Rate] -Pulse Rate (60-100 beats/min) 55 L [Comments] -Home Oxygen Evaluation Comments [Charges] -Evaluation Charges O2 Evaluation by Pulmonary 10/24/23 10/24/23 12:05 12:15 Home O2 Evaluation [Oxygen] -Test Phase Exercise Resting -Oxygen Delivery Nasal Cannula Nasal Cannula -Oxygen Flow Rate (L/min) 2 2 [Pulse Oximetry] -Pulse Oximetry (90-100 %) 92 95 [Pulse Rate] -Pulse Rate (60-100 beats/min) 63 [Comments] -Home Oxygen Evaluation Comments PT REQUIRES 2 L RESTING AND WITH ACTIVITY [Charges] -Evaluation Charges
--- NOTE | 2023-10-24 15:20 | PCRCNOTE ---
HOME O2 EVAL UPDATED, PT REQUIRES 2 L RESTING AND WITH ACTIVITY.
--- NOTE | 2023-10-24 20:12 | PM.IMPN ---
Progress Note: A&P Assessment and Plan (1) Abnormal urinalysis: Code(s): R82.90 - Unspecified abnormal findings in urine Status: Acute (2) Neurogenic bladder: Code(s): N31.9 - Neuromuscular dysfunction of bladder, unspecified Status: Chronic (3) Hypoxia: Code(s): R09.02 - Hypoxemia Status: Acute Plan UTI : UC negative.Denies any urinary symptoms. Urology agress with the discharge. Patient however patient was saturating in 80s on RA placed on 2 L NC most likely patient is hypoventilating as patient is obese, will do home O2 evaluation before discharge, we will continue to monitor the patient and we will also has the oxygen necessity tomorrow during the day. Subjective Date/time seen: 10/24/23 20:12 Interval history: Patient is resting well in the bed . reports he is doing well. Patient denies any fever or cough. Patient still requires nasal oxygen. Review of Systems Review of Systems: 12 systems were reviewed and are negative except for as per HPI. All systems reviewed & are unremarkable except as noted in HPI and below ROS unobtainable: Yes other (Patient asleep) Exam Narrative: Obese Patient is comfortable, NAD HEENT: eyes are clear and none icteric LUNGS:CTA HEART: RR S1S2 ABD: Obese BS+, Soft and nontender Lower extremities: no edema SKIN: nonjaundiced Neuro: grossly intact. Objective Data Vital Signs Vital Signs: Vital Signs - 24 hr 10/23/23 21:27 10/23/23 21:28 10/24/23 00:00 Temperature Pulse Rate 60 49 L Respiratory Rate Blood Pressure Pulse Oximetry 96 96 Oxygen Delivery CPAP CPAP Oxygen Flow Rate 3 10/24/23 04:00 10/24/23 04:57 10/24/23 08:33 Temperature 97.7 F Pulse Rate 50 L 52 L 70 Respiratory Rate 20 Blood Pressure 154/67 H Pulse Oximetry 95 Oxygen Delivery Oxygen Flow Rate 10/24/23 08:00 10/24/23 12:00 10/24/23 12:03 Temperature Pulse Rate 70 55 L Respiratory Rate 20 Blood Pressure Pulse Oximetry 95 87 L 87 L Oxygen Delivery CPAP Room Air Nasal Cannula Oxygen Flow Rate 1 10/24/23 12:04 10/24/23 12:05 10/24/23 12:15 Temperature Pulse Rate 63 Respiratory Rate Blood Pressure Pulse Oximetry 93 92 95 Oxygen Delivery Nasal Cannula Nasal Cannula Nasal Cannula Oxygen Flow Rate 2 2 2 10/24/23 14:00 10/24/23 08:00 10/24/23 12:00 Temperature 97.6 F Pulse Rate 63 56 L 56 L Respiratory Rate 18 Blood Pressure 122/63 Pulse Oximetry 91 Oxygen Delivery Oxygen Flow Rate 10/24/23 16:00 10/24/23 17:17 10/24/23 19:37 Temperature 97.3 F L Pulse Rate 53 L 60 55 L Respiratory Rate 20 Blood Pressure 150/62 H Pulse Oximetry 95 Oxygen Delivery Oxygen Flow Rate Intake/Output Intake/Output: Intake & Output 10/21/23 10/22/23 10/23/23 10/24/23 23:59 23:59 23:59 23:59 Intake Total 860 0258 280 1557 Output Total 950 303 992 0294 Balance -90 610 133 -360 Meds/Results Medications: Active Medications Generic Name Dose Route Start Last Admin Trade Name Freq PRN Reason Stop Dose Admin Acetaminophen 650 mg 10/19/23 13:10 Acetaminophen 325 Mg Tablet PO Q4H PRN Mild Pain (1-3) or Fever Alfuzosin HCl 10 mg 10/20/23 09:00 10/24/23 08:32 Alfuzosin 10 Mg Er Tablet BY MOUTH 10 mg DAILY YULIANA Administration Allopurinol 100 mg 10/20/23 09:00 10/24/23 08:33 Allopurinol 100 Mg Tablet PO 100 mg DAILY YULIANA Administration Amlodipine Besylate 5 mg 10/19/23 21:00 10/23/23 20:40 Amlodipine Besylate 5 Mg Tablet BY MOUTH 5 mg HS YULIANA Administration Apixaban 5 mg 10/19/23 21:00 10/24/23 08:33 Apixaban 5 Mg Tablet BY MOUTH 5 mg Q12HR YULIANA Administration Cephalexin HCl 250 mg 10/19/23 21:00 10/23/23 20:41 Cephalexin 250 Mg Capsule PO 250 mg HS YULIANA Administration Duloxetine HCl 30 mg 10/20/23 09:00 10/24/23 08:32 Duloxetine Hcl 30 Mg Capsule.Dr BY MOUTH 30 mg DAILY
[2023-10-24] MEDS: amLODIPine BESYLATE 5 MG TABLET BY MOUTH (20:20)
[2023-10-24] MEDS: GABAPENTIN 300 MG CAPSULE 600 MG PO (20:20)
[2023-10-24] MEDS: CEPHALEXIN 250 MG CAPSULE PO (20:20)
[2023-10-25] VITALS (8 sets, daily range): BP systolic 108–151; BP diastolic 62–82; PULSE 49–73; RESP 18–20; TEMP 36.2–37; O2SAT 96–98
--- NOTE | 2023-10-25 09:04 | PCPTNOTE ---
Attempted to see patient for PT, however patient was eating breakfast.
[2023-10-25] MEDS: GABAPENTIN 300 MG CAPSULE PO (09:45)
[2023-10-25] MEDS: CHOLECALCIFEROL 1,000 UNITS TABLET 1000 UNITS PO (09:45)
[2023-10-25] MEDS: APIXABAN 5 MG TABLET BY MOUTH (09:45)
[2023-10-25] MEDS: LORATADINE 10 MG TABLET PO (09:45)
[2023-10-25] MEDS: methylPHENIDATE HCL (*CRX) 10 MG TABLET PO (09:45)
[2023-10-25] MEDS: PANTOPRAZOLE 40 MG TABLET BY MOUTH (09:45)
[2023-10-25] MEDS: DULoxetine HCL 30 MG CAPSULE.DR BY MOUTH (09:45)
[2023-10-25] MEDS: allopurinoL 100 MG TABLET PO (09:45)
[2023-10-25] MEDS: OMEGA 3 POLYUNSAT FATTY ACIDS 1 GM CAP PO (09:45)
[2023-10-25] MEDS: FINASTERIDE 5 MG TABLET PO (09:45)
[2023-10-25] MEDS: METOPROLOL TARTRATE 25 MG TABLET PO (09:46)
[2023-10-25 10:17] LABS: Hemoglobin 12.2 g/dL (14.0-18.0); Mean Corpuscular HGB Conc 30.5 g/dl (32-36); Mean Corpuscular Hemoglobin 30.2 pg (26-34); Mean Platelet Volume 9.5 fl (7.4-10.4); Platelet Count Result 231 k/mm3 (150-375); Red Blood Count 4.04 M/mm3 (4.6-6.20); Red Cell Distribution Width 13.4 % (11.5-14.5); White Blood Count 7.2 K/mm3 (4.5-10.0)
[2023-10-25 10:29] LABS: Alanine Aminotransferase 19 U/L (6-50); Albumin Level 3.6 g/dL (3.5-5.1); Alkaline Phosphatase 85 U/L (38-126); Anion Gap 6 mmol/L (4-12); Aspartate Amino Transferase 32 U/L (17-59); Bilirubin,Total 0.8 mg/dL (0.2-1.3); Blood Urea Nitrogen 24 mg/dL (9-20); Calcium 8.9 mg/dL (8.4-10.2); Carbon Dioxide 36 mmol/L (22-30); Chloride 94 mmol/L (98-107); Estimated CRCL calculation 37 ml/min; Estimated Glomerular Filt Rate > 60; Glucose 187 mg/dL (65-110); Potassium 4.1 mmol/L (3.4-5.0); Sodium 136 mmol/L (137-145)
--- NOTE | 2023-10-25 10:51 | PM.IMPN ---
Subjective Date/time seen: 10/25/23 10:51 Objective Data Vital Signs Vital Signs: Vital Signs - 24 hr 10/24/23 12:00 10/24/23 12:03 10/24/23 12:04 Temperature Pulse Rate 55 L Respiratory Rate Blood Pressure Pulse Oximetry 87 L 87 L 93 Oxygen Delivery Room Air Nasal Cannula Nasal Cannula Oxygen Flow Rate 1 2 10/24/23 12:05 10/24/23 12:15 10/24/23 14:00 Temperature 97.6 F Pulse Rate 63 63 Respiratory Rate 18 Blood Pressure 122/63 Pulse Oximetry 92 95 91 Oxygen Delivery Nasal Cannula Nasal Cannula Oxygen Flow Rate 2 2 10/24/23 12:00 10/24/23 16:00 10/24/23 17:17 Temperature Pulse Rate 56 L 53 L 60 Respiratory Rate Blood Pressure Pulse Oximetry Oxygen Delivery Oxygen Flow Rate 10/24/23 19:37 10/24/23 20:00 10/24/23 20:00 Temperature 97.3 F L Pulse Rate 55 L 53 L Respiratory Rate 20 Blood Pressure 150/62 H Pulse Oximetry 95 95 Oxygen Delivery Nasal Cannula Oxygen Flow Rate 2 10/24/23 21:45 10/25/23 00:00 10/25/23 04:00 Temperature Pulse Rate 59 L 53 L 55 L Respiratory Rate 25 H Blood Pressure Pulse Oximetry 96 Oxygen Delivery BiPAP Oxygen Flow Rate 10/25/23 04:34 10/25/23 09:46 Temperature 97.1 F L Pulse Rate 55 L 62 Respiratory Rate 20 Blood Pressure 151/82 H Pulse Oximetry 98 Oxygen Delivery Oxygen Flow Rate Intake/Output Intake/Output: Intake & Output 10/22/23 10/23/23 10/24/23 10/25/23 23:59 23:59 23:59 23:59 Intake Total 4205 236 7274 540 Output Total 805 587 8888 650 Balance 610 133 360 -110 Meds/Results Medications: Active Medications Generic Name Dose Route Start Last Admin Trade Name Freq PRN Reason Stop Dose Admin Acetaminophen 650 mg 10/19/23 13:10 Acetaminophen 325 Mg Tablet PO Q4H PRN Mild Pain (1-3) or Fever Alfuzosin HCl 10 mg 10/20/23 09:00 10/25/23 09:45 Alfuzosin 10 Mg Er Tablet BY MOUTH 10 mg DAILY YULIANA Administration Allopurinol 100 mg 10/20/23 09:00 10/25/23 09:45 Allopurinol 100 Mg Tablet PO 100 mg DAILY YULIANA Administration Amlodipine Besylate 5 mg 10/19/23 21:00 10/24/23 20:20 Amlodipine Besylate 5 Mg Tablet BY MOUTH 5 mg HS YULIANA Administration Apixaban 5 mg 10/19/23 21:00 10/25/23 09:45 Apixaban 5 Mg Tablet BY MOUTH 5 mg Q12HR YULIANA Administration Cephalexin HCl 250 mg 10/19/23 21:00 10/24/23 20:20 Cephalexin 250 Mg Capsule PO 250 mg HS YULIANA Administration Duloxetine HCl 30 mg 10/20/23 09:00 10/25/23 09:45 Duloxetine Hcl 30 Mg Capsule.Dr BY MOUTH 30 mg DAILY YULIANA Administration Finasteride 5 mg 10/20/23 09:00 10/25/23 09:45 Finasteride 5 Mg Tablet PO 5 mg QAM YULIANA Administration Fish Oil 1 gm 10/20/23 09:00 10/25/23 09:45 [place] 3 Polyunsat Fatty Acids 1 Gm Cap PO 1 gm DAILY YULIANA Administration Gabapentin 300 mg 10/20/23 09:00 10/25/23 09:45 Gabapentin 300 Mg Capsule PO 300 mg DAILY YULIANA Administration Gabapentin 600 mg 10/19/23 21:00 10/24/23 20:20 Gabapentin 300 Mg Capsule PO 600 mg HS YULIANA Administration Loratadine 10 mg 10/20/23 09:00 10/25/23 09:45 Loratadine 10 Mg Tablet PO 10 mg DAILY YULIANA Administration Methylphenidate HCl 10 mg 10/20/23 09:00 10/25/23 09:45 Methylphenidate Hcl (*Crx) 10 Mg Tablet PO 10 mg QAM YULIANA Administration Metoprolol Tartrate 25 mg 10/19/23 17:00 10/25/23 09:46 Metoprolol Tartrate 25 Mg Tablet PO 25 mg BID YULIANA Administration Ondansetron HCl 4 mg 10/19/23 13:10 Ondansetron Inj 4 Mg/2 Ml Vial IV PUSH Q4H PRN Nausea Pantoprazole Sodium 40 mg 10/20/23 09:00 10/25/23 09:45 Pantoprazole 40 Mg Tablet BY MOUTH 40 mg DAILY YULIANA Administration Vitamin D 1,000 units 10/20/23 09:00 10/25/23 09:45 Cholecalciferol 1,000 Units Tablet PO 1,000 units DAILY YULIANA Administration Radiology Results: ITS Impressions Chest/Abdomen/Pelvis CTA
--- NOTE | 2023-10-25 16:54 | PM.DS ---
DS: Admitting Diagnosis Discharge Date 10/25/23 Admitting Diagnosis UTI DS: Discharge Diagnosis Discharge Diagnosis (1) Abnormal urinalysis: Code(s): R82.90 - Unspecified abnormal findings in urine Status: Acute (2) Neurogenic bladder: Code(s): N31.9 - Neuromuscular dysfunction of bladder, unspecified Status: Chronic (3) Hypoxia: Code(s): R09.02 - Hypoxemia Status: Acute Plan (1) Abnormal urinalysis: Code(s): R82.90 - Unspecified abnormal findings in urine Status: Acute Assessment and Plan: UC negative. Currently no acute UTI symptoms, normal white blood cell count, and has remained afebrile. Urine culture is negative, therefore no need for further treatment (2) Neurogenic bladder: Code(s): N31.9 - Neuromuscular dysfunction of bladder, unspecified Status: Acute Assessment and Plan: Managed with chronic indwelling Gonzalez catheter. Last catheter exchange was 10/11/2023. Catheter draining freely at this time. Continue with outpatient follow-up for monthly catheter changes DS: Summary Hospital Course Hospital Course: UTI : UC negative.Denies any urinary symptoms. Urology agress with the discharge. Home O2 evaluation was done before discharge, patient requires nasal oxygen at home. The patient was advised to get home health care because of the necessity of oxygen evaluation after the discharge and as well as patient has a chronic indwelling catheter which limits his ambulation. Patient was accompanied by his family and we strongly recommend by checking on him every day. Patient previously denied home healthcare. We insisted that home healthcare is going to help him a lot. Considering his age and oxygen necessity under chronic indwelling catheter the risk of fall increase. Patient does not want to go to intermediate or assisted living facility. Time Spent with Patient Time attestation: Total time spent providing and/or coordinating discharge services: Exam Narrative: Obese Patient is comfortable, NAD HEENT: eyes are clear and none icteric LUNGS:CTA HEART: RR S1S2 ABD: Obese BS+, Soft and nontender Lower extremities: no edema SKIN: nonjaundiced Neuro: grossly intact. DS: Data Data Completed and Pending Labs on day of discharge: Labs from last 24 hours 10/25/23 10:05 WBC 7.2 RBC 4.04 L Hgb 12.2 L Hct 40.0 L MCV 99.0 MCH 30.2 MCHC 30.5 L RDW 13.4 Plt Count 231 MPV 9.5 Sodium 136 L Potassium 4.1 Chloride 94 L Carbon Dioxide 36 H Anion Gap 6 BUN 24 H Creatinine 1.10 Estim Creat Clear Calc 37 Estimated GFR > 60 Glucose 187 H Calcium 8.9 Total Bilirubin 0.8 AST 32 ALT 19 Alkaline Phosphatase 85 Total Protein 7.0 Albumin 3.6 Discharge Plan Discharge Attending physician on discharge: Yo Lamas Consulting providers: Daniel Estrella Discharging Clinician: Yo Lamas Anticipated Discharge Date/Time: 10/25/23 16:51 Patient Disposition: Home Health Service Activity: no driving and as tolerated Diet: heart healthy Discharge Instructions: Per Care Coordination: [facility] will contact you prior to their first visit. [facility] will follow for RN and PT/OT eval and treat. [facility] can be contacted at [phone]. Patient Instructions: Antibiotic Form, Apixaban (By mouth) Stand Alone Forms: General Discharge Information Follow-up/Referrals: Annamarie Betancourt [facility] [Primary Care Provider] - 1 Week Daniel Estrella MD [Physician] - 2 Weeks Discharge Medications: No Action loratadine [Claritin] 10 mg tablet 10 mg PO DAILY cephalexin 250 mg capsule 250 mg PO HS gabapentin 300 mg capsule 600 mg PO HS Rx Instructions: and 2 tabs (600mg every PM). metoprolol tartrate 25 mg tablet 25 mg PO BID Qty: 180 2RF amlodipine 5 mg tablet See Rx Instructions .ROUTE [email or web address]
== END 2023-10-25 18:08 | disposition home health service (06) | DRG 189 ==
LOC: ANHED 09:34 → ANH3MED 14:17
PROVIDERS: General Practice; Nurse Practitioner; Nurse Practitioner Acute Care; Physician Assistant; Admitting Provider Internal Medicine; Emergency Provider Physician Assistant; PCP Nurse Practitioner Family; Visit Provider General Practice
DX: J96.21 Acute and chronic respiratory failure with hypoxia (principal); J84.9 Interstitial pulmonary disease, unspecified; I10 Essential (primary) hypertension; I35.0 Nonrheumatic aortic (valve) stenosis; I48.0 Paroxysmal atrial fibrillation; E11.9 Type 2 diabetes mellitus without complications; K21.9 Gastro-esophageal reflux disease without esophagitis; K25.9 Gastric ulcer, unspecified as acute or chronic, without hemorrhage or perforation; N40.0 Benign prostatic hyperplasia without lower urinary tract symptoms; N31.9 Neuromuscular dysfunction of bladder, unspecified; R82.71 Bacteriuria; R41.89 Other symptoms and signs involving cognitive functions and awareness; G62.9 Polyneuropathy, unspecified; G47.419 Narcolepsy without cataplexy; G47.33 Obstructive sleep apnea (adult) (pediatric); Z20.822 Contact with and (suspected) exposure to COVID-19; T14.8XXS Other injury of unspecified body region, sequela; V89.2XXS Person injured in unspecified motor-vehicle accident, traffic, sequela; Z80.0 Family history of malignant neoplasm of digestive organs; Z87.442 Personal history of urinary calculi; Z79.01 Long term (current) use of anticoagulants
CPT/HCPCS: 36415; 36600; 71275; 74177; 80048; 80053; 81001; 82375; 82805; 83050; 83605; 83690; 83735; 83880; 84484; 85025; 85027; 87086; 87088; 87637; 93005; 94002; 94003; 94618; 94762; 96374; 97110; 97161; 97165; 97530; 97535; 99285; A9270; C8929; G0378; J2405; Q9957; Q9967

== ENCOUNTER 2023-12-19 01:11 | Emergency (ER) | payer MEDICARE, SELFPAY ==
[2023-12-19 01:28] VITALS: BP 164/101; PULSE 62; RESP 16; O2SAT 94
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
[2023-12-19 03:43] LABS: Add Urine Microscopic? YES; Appearance Urine Turbid (Clear); Bacteria Urine 4+ /hpf; Bilirubin Urine Negative (Negative); Blood Urine 3+ (Negative); Color Urine Yellow (Yellow); Glucose Urine UA Negative (Negative); Ketones Urine Negative (Negative); Leukocyte Esterase Ur 3+ LEU/UL (Negative); Need Manual Microscopic Reviewed; Nitrate Urine Negative (Negative); Protein Urine 1+ mg/dL (Negative); RBC Urine 51-100 /hpf (0-2); Specific Grav Ur 1.011 (1.001-1.035); Squamous Epithelial Cell Urine None Seen /hpf (Few); WBC Urine >100 /hpf (0-3); pH Urine 7.5 (5.0-9.0)
[2023-12-19] MEDS: SULFAMETHOXAZOLE/TRIMETHOPRIM 800/160 MG DS TABLET 1 TAB PO (04:36)
== END 2023-12-19 05:02 | disposition home or self-care (01) ==
PROVIDERS: Emergency Provider Student in an Organized Health Care Education/Training Program; PCP Nurse Practitioner Family
DX: T83.098A Other mechanical complication of other urinary catheter, initial encounter (principal); N39.0 Urinary tract infection, site not specified; I35.0 Nonrheumatic aortic (valve) stenosis; I10 Essential (primary) hypertension; I48.0 Paroxysmal atrial fibrillation; J84.9 Interstitial pulmonary disease, unspecified; J96.11 Chronic respiratory failure with hypoxia; Z99.81 Dependence on supplemental oxygen; E11.40 Type 2 diabetes mellitus with diabetic neuropathy, unspecified; N40.0 Benign prostatic hyperplasia without lower urinary tract symptoms; N31.9 Neuromuscular dysfunction of bladder, unspecified; K21.9 Gastro-esophageal reflux disease without esophagitis; G47.33 Obstructive sleep apnea (adult) (pediatric); M10.9 Gout, unspecified; Z87.442 Personal history of urinary calculi; Z98.49 Cataract extraction status, unspecified eye; Z79.01 Long term (current) use of anticoagulants; Z79.899 Other long term (current) drug therapy; Y84.6 Urinary catheterization as the cause of abnormal reaction of the patient, or of later complication, without mention of misadventure at the time of the procedure
CPT/HCPCS: 51702; 81001; 87086; 87186; 99283; A9270

== ENCOUNTER 2024-02-12 17:37 | Inpatient (IN) | payer MEDICARE, SELFPAY ==
--- NOTE | ~2024-02-12 | XR_ITS ---
EXAMINATION: XR chest 1V portable DATE: 02/12/2024 22:34 INDICATION: Shortness of breath. TECHNIQUE: A single frontal view of the chest was obtained. COMPARISON: Chest single view 02/27/2022, chest CT 10/19/2023 FINDINGS: There are airspace opacities in the lower lung zones. No pleural effusion or pneumothorax. The heart size is normal. There are changes of posterior fusion procedure in lumbar spine. There are old healed bilateral rib fractures. IMPRESSION: 1. Stable airspace opacities in the lower lung zones, consistent with chronic interstitial lung disea se. Reviewed, dictated and finalized at location A. [employer] UNDERWRITER IMPRESSION: 1. Stable airspace opacities in the lower lung zones, consistent with chronic i nterstitial lung disease.
[2024-02-12 17:39] VITALS: BP 150/63; PULSE 77; RESP 14; TEMP 36.6; O2SAT 95
[2024-02-12 21:07] VITALS: BP 143/80; PULSE 67; PULSE 70; RESP 18; TEMP 36.9; O2SAT 96; O2SAT 97
--- NOTE | 2024-02-12 21:56 | ECG_ITS ---
Test Date: 2024-02-12 17:50:11 Measurements Intervals [place] Rate: 73 P: 0 MI: 0 QRS: -62 QRSD: 110 T: 67 QT: 405 QTc: 449 Interpretive Statements SINUS RHYTHM WITH OCCASIONAL ATRIAL PREMATURE COMPLEXES LEFT ANTERIOR FASCICULAR BLOCK BASELINE ARTIFACT- I, II, III, AVR, AVL, AVF, V1-V6 ABNORMAL ECG Compared to ECG 10/19/2023 10:58:22 Left anterior fascicular block now present Electronically Signed On 02-13-2024 06:12:06 QUALITY ANALYST by Mitch Kumar D.O.
--- NOTE | 2024-02-12 22:24 | ECG_ITS ---
Test Date: 2024-02-12 22:24:39 Measurements Intervals [place] Rate: 68 P: 0 GA: 0 QRS: -54 QRSD: 100 T: 62 QT: 414 QTc: 443 Interpretive Statements SINUS RHYTHM WITH FIRST DEGREE AV BLOCK WITH FREQUENT ATRIAL PREMATURE COMPLEXES LEFT AXIS DEVIATION BORDERLINE T WAVE ABNORMALITY- ANTEROLATERAL LEADS BASELINE ARTIFACT- I, II, III, AVR, AVL, AVF, V1-V6 ABNORMAL ECG Compared to ECG 02/12/2024 17:50:11 FIRST DEGREE AV BLOCK NOW PRESENT Electronically Signed On 02-13-2024 10:45:31 PLATE MAKER by Mitch Kumar D.O.
[2024-02-12 22:35] LABS: Basophils Percent Auto 0.5 % (0.2-1.2); Eosinophils Absolute Auto 0.1 K/mm3 (0-0.3); Eosinophils Percent Auto 1.6 % (0-4.4); Hemoglobin 13.2 g/dL (14.0-18.0); Immature Granulocyte Absolute 0.02 K/mm3 (0.00-0.031); Immature Granulocyte Percent A 0.3 % (0-0.5); Lymphocytes Absolute Auto 2.37 K/mm3 (0.9-3.2); Lymphocytes Percent Auto 30.1 % (18.3-44.2); Mean Corpuscular HGB Conc 32.2 g/dl (32-36); Mean Corpuscular Hemoglobin 30.1 pg (26-34); Mean Corpuscular Volume 93.4 fl (80-100); Mean Platelet Volume 9.1 fl (7.4-10.4); Monocytes Absolute Auto 0.7 K/mm3 (0.1-0.6); Monocytes Percent Auto 9.3 % (2.6-8.5); Neutrophils Absolute Auto 4.6 K/mm3 (1.3-6.7); Neutrophils Percent Auto 58.2 % (45.5-73.1); Platelet Count Result 250 k/mm3 (150-375); Red Blood Count 4.39 M/mm3 (4.6-6.20); Red Cell Distribution Width 14.6 % (11.5-14.5); White Blood Count 7.9 K/mm3 (4.5-10.0)
[2024-02-12 22:46] LABS: Alanine Aminotransferase 16 U/L (6-50); Albumin Level 4.1 g/dL (3.5-5.1); Alkaline Phosphatase 97 U/L (38-126); Anion Gap 5 mmol/L (4-12); Aspartate Amino Transferase 37 U/L (17-59); Bilirubin,Total 1.7 mg/dL (0.2-1.3); Blood Urea Nitrogen 18 mg/dL (9-20); Calcium 9.9 mg/dL (8.4-10.2); Carbon Dioxide 35 mmol/L (22-30); Chloride 99 mmol/L (98-107); Estimated CRCL calculation 40 ml/min; Estimated Glomerular Filt Rate > 60; Glucose 102 mg/dL (65-110); Potassium 4.4 mmol/L (3.4-5.0); Sodium 139 mmol/L (137-145)
[2024-02-12 22:52] LABS: Prothrombin Time 14.1 Seconds (11.1-14.7)
[2024-02-12 22:53] LABS: Partial Thromboplastin Time 33.4 Seconds (22.3-36.8)
[2024-02-12 22:58] LABS: NT Pro B Type Natriuretic Pept 948 pg/mL (19.9-100); Troponin I < 0.012 ng/mL (0.000-0.034)
[2024-02-12 23:01] LABS: Add Urine Microscopic? YES; Appearance Urine Turbid (Clear); Bacteria Urine 4+ /hpf; Bilirubin Urine Negative (Negative); Blood Urine 1+ (Negative); Color Urine Yellow (Yellow); Glucose Urine UA Negative (Negative); Ketones Urine Trace mg/dL (Negative); Leukocyte Esterase Ur 3+ LEU/UL (Negative); Need Manual Microscopic Reviewed; Nitrate Urine Positive (Negative); Non Pathogenic Casts >20; Protein Urine 2+ mg/dL (Negative); Specific Grav Ur 1.016 (1.001-1.035); Squamous Epithelial Cell Urine None Seen /hpf (Few); Triple Phosphate Crystal Urine Present /hpf; WBC Urine >100 /hpf (0-3); pH Urine 8.5 (5.0-9.0)
--- NOTE | 2024-02-12 23:21 | ECG_ITS ---
Test Date: 2024-02-12 23:32:43 Measurements Intervals [place] Rate: 69 P: -68 DE: 211 QRS: -55 QRSD: 95 T: 60 QT: 408 QTc: 437 Interpretive Statements SINUS RHYTHM WITH FIRST DEGREE AV BLOCK LEFT AXIS DEVIATION DELAYED PRECORDIAL R/S TRANSITION BASELINE ARTIFACT- I, II, III, AVR, AVL, AVF, V1-V6 Compared to ECG 02/12/2024 17:50:11 NO SIGNIFICANT CHANGE Electronically Signed On 02-13-2024 06:22:08 STORE MERCHANDISER by Mitch Kumar D.O.
[2024-02-13] VITALS (9 sets, daily range): BP systolic 130–154; BP diastolic 68–87; PULSE 64–77; RESP 16–20; TEMP 36.5–37; O2SAT 94–97; BMI 26.4
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
[2024-02-13] MEDS: MEROPENEM 1 GM/NS 100 ML 1 GM/100 ML BAG IVPB ×2 (01:46→21:56)
--- NOTE | 2024-02-13 01:59 | PC.NURSE ---
RN checked Micromedex to see if Lactated RINGERS and Meropenum is compatible and it states they are not. This RN started the antibiotic and is holding lactated ringers until antibiotic finishes.
[2024-02-13] MEDS: LACTATED RINGERS 1,000 ML 100 ML IV CONT (02:20)
--- NOTE | 2024-02-13 03:12 | ADMGEN ---
This patient, Devin Gonzalez, was admitted to [facility] Surg Room 316-02. Patient/family oriented to hospital policies and general routines including ID bracelet, bed and alarms, visiting hours, pain management, procedures, bathroom and other care routines, personal items, smoking policy, room service/diet, and visiting hours. Information on how to activate the Rapid Response Team has been discussed. Patient/Family are encouraged to report perceived risks to care and to ask questions if they do not understand what they are told or what they should do.
[2024-02-13] MEDS: ENOXAPARIN 40 MG/0.4 ML SYRINGE SUB-Q (09:15)
--- NOTE | 2024-02-13 10:26 | PM.IMPN ---
Progress Note: A&P Assessment and Plan (1) Acute UTI: Code(s): N39.0 - Urinary tract infection, site not specified Status: Acute Assessment and Plan: admit to regular medical floor patient is started on Merrem await urine culture identification sensitivity (2) Chronic indwelling Gonzalez catheter: Code(s): Z97.8 - Presence of other specified devices Status: Acute Assessment and Plan: status post exchange (3) Chronic interstitial lung disease: Code(s): J84.9 - Interstitial pulmonary disease, unspecified Status: Acute Assessment and Plan: on supplemental oxygen at home (4) Gastroesophageal reflux disease: Code(s): K21.9 - Gastro-esophageal reflux disease without esophagitis Status: Acute Assessment and Plan: PPI (5) Neurogenic bladder: Code(s): N31.9 - Neuromuscular dysfunction of bladder, unspecified Status: Chronic Assessment and Plan: chronic indwelling Gonzalez catheter (6) Paroxysmal atrial fibrillation: Code(s): I48.0 - Paroxysmal atrial fibrillation Status: Acute Assessment and Plan: rate controlled and anticoagulated (7) Obstructive sleep apnea on CPAP: Code(s): G47.33 - Obstructive sleep apnea (adult) (pediatric) Status: Acute Assessment and Plan: continue CPAP (8) Type 2 diabetes mellitus with diabetic neuropathy: Qualifiers: Diabetes mellitus ferry terminal agent insulin use: without ferry terminal agent use Qualified Code(s): E11.40 - Type 2 diabetes mellitus with diabetic neuropathy, unspecified Code(s): E11.40 - Type 2 diabetes mellitus with diabetic neuropathy, unspecified Status: Acute Assessment and Plan: continue to monitor insulin sliding scale as needed Subjective Date/time seen: 02/13/24 10:26 Interval history: Patient was evaluated at the bedside. Patient denies any complaints. Patient is currently receiving meropenem. As per the ED notes we believe patient was the started on meropenem according to the urine culture report that was done on 12/19/2023. Review of Systems Review of Systems: Generalized malaise, poor appetite, fevers, chills, poor per orally intake Exam Narrative: patient is laying in a stretcher Const: General: comfortable, no acute distress, well developed, alert, awake and average body habitus Nutritional Appearance: average body habitus Orientation/consciousness: patient oriented x3 HENMT: Head: normal to inspection, normocephalic and atraumatic Ears: hearing grossly normal bilaterally Face/Nose/Sinus: normal facial exam Face and sinus: normal facial exam Eyes: General: appearance normal, both eyes and all related structures Pupils: Equal, round and reactive pupils present EOM: EOMs intact bilaterally Neck: Neck: full ROM, no lymphadenopathy and no JVD Thyroid: thyroid normal Lymphatic: no lymphadenopathy noted Resp: Effort & Inspection: normal respiratory effort and able to speak in complete sentences Auscultation: clear to auscultation bilaterally Cardio: Jugular venous distension: no JVD Rate: regular rate Rhythm: regular rhythm Heart sounds: S1 normal heart sound present and S2 normal heart sound present : General: Yes deferred Skin: Rashes: no rashes Wounds: no wounds Neuro: General: patient oriented x3, CN's II-XI intact bilaterally and Unable to assess gait Cranial nerves: Yes CN's II-XII intact bilaterally and Yes Equal, round and reactive pupils present Cognition (Neuro): normal cognition Speech: normal speech Gait exam (Neuro): Unable to assess gait Motor exam (neuro): 5/5 motor strength present throughout Extrem: General: normal to inspection, full ROM, no joint enlargement and no pedal edema Objective Data Vital Signs Vital Signs: Vital Signs - 24 hr 02/12/24 17:39 02/12/24 21:07 02/12/24 21:07 Temperature 97.8 F 98.5 F Pulse Rate 77 70 67 Respiratory Rate 14 18 Blood Pressure 150/63 H 143/80 H Pulse Oximetry 95 96 Oxygen Delivery Nasal Cannula Nasal Cannula Oxygen Flow Rate 3.0 2 Fraction of Inspired Oxygen 02/12/24 21:07 02/13/24 01:38 02/13/24 03:13 Temperature Pulse Rate 73 Respiratory Rate 20 Blood Pressure 149/79 H Pulse Oximetry 97 96 96 Oxygen Delivery Nasal Cannula Nasal Cannula Oxygen Flow Rate 2 1 Fraction of Inspired Oxygen 02/13/24 04:00 02/13/24 08:53 Temperature 98.6 F Pulse Rate 77 Respiratory Rate 20 Blood Pressure 130/87 Pulse Oximetry 97 94 Oxygen Delivery Nasal Cannula Oxygen Flow Rate 1 Fraction of Inspired Oxygen 24 Intake/Output Intake/Output: Intake & Output 02/10/24 02/11/24 02/12/24 02/13/24 23:59 23:59 23:59 23:59 Intake Total 336 Output Total 125 Balance 211 Meds/Results Medications: Active Medications Generic Name Dose Route Start Last Admin Trade Name Freq PRN Reason Stop Dose Admin Enoxaparin Sodium 40 mg 02/13/24 09:00 02/13/24 09:15 Enoxaparin 40 Mg/0.4 Ml Syringe SUB-Q 40 mg DAILY YULIANA Administration Meropenem 1 gm in 100 mls @ 200 mls/hr 02/13/24 14:00 IVPB Q12H YULIANA Lactated Ringer's 1,000 mls @ 100 mls/hr 02/13/24 01:00 02/13/24 02:20 Lr - Lactated Ringers Iv IV CONT 100 mls/hr .Q10H YULIANA Administration Radiology Results: ITS Impressions Chest X-Ray 02/13/24 06:06 IMPRESSION: 1. Stable airspace opacities in the lower lung zones, consistent with chronic interstitial lung disease. Labs Labs: Laboratory Results - last 24 hr 02/12/24 02/12/24 22:25 22:25 WBC 7.9 RBC 4.39 L Hgb 13.2 L Hct 41.0 L MCV 93.4 MCH 30.1 MCHC 32.2 RDW 14.6 H Plt Count 250 MPV 9.1 Immature Gran % (Auto) 0.3 Neut % (Auto) 58.2 Lymph % (Auto) 30.1 Coffey % (Auto) 9.3 H Eos % (Auto) 1.6 Baso % (Auto) 0.5 Lymph # (Auto) 2.37 [place]offey # (Auto) 0.7 H Eos # (Auto) 0.1 Baso # (Auto) 0.0 Abs Immat Gran (auto) 0.02 Absolute Neuts (auto) 4.6 Absolute Nucleated RBC 0.000 Nucleated RBC % 0.0 PT 14.1 INR 1.0 APTT 33.4 Sodium 139 Potassium 4.4 Chloride 99 Carbon Dioxide 35 H Anion Gap 5 BUN 18 Creatinine 1.00 Estim Creat Clear Calc 40 Estimated GFR > 60 Glucose 102 Calcium 9.9 Total Bilirubin 1.7 H AST 37 ALT 16 Alkaline Phosphatase 97 Troponin I < 0.012 NT-Pro-B Natriuret Pep 948 H Cancelled Total Protein 8.0 Albumin 4.1 Urine Color Yellow Urine Appearance Turbid H Urine pH 8.5 Ur Specific [place] 1.016 Urine Protein 2+ H Urine Glucose (UA) Negative Urine Ketones Trace H Ur Blood (Man) 1+ H Urine Nitrate Positive H Urine Bilirubin Negative Urine Urobilinogen 1.0 Add Ur Microanalysis Reviewed Leukocyte Esterase Rfl 3+ H Urine RBC 6-10 H Urine WBC >100 H Ur Squamous Epith Cells None seen Triple Phos Crystals Present H Urine Bacteria 4+ H Urine Casts >20 Hospitalist MIPS Advance Care Plan I have confirmed that the patient's Advanced Care Plan is present, code status is documented, or surrogate decision maker is listed in patient medical record.: Yes Medication Reconciliation I have utilized all available resources to obtain, update and review the patients current medications (includes all prescriptions, OTC, herbals, cannabis, and nutritional supplements).: Yes
[2024-02-13] MEDS: GABAPENTIN 300 MG CAPSULE 600 MG PO (21:50)
[2024-02-13] MEDS: APIXABAN 5 MG TABLET PO (21:51)
[2024-02-13] MEDS: amLODIPine BESYLATE 5 MG TABLET PO (21:51)
[2024-02-13] MEDS: METOPROLOL TARTRATE 25 MG TABLET PO (21:51)
[2024-02-14] VITALS (7 sets, daily range): BP systolic 96–174; BP diastolic 59–114; PULSE 60–68; RESP 20–22; TEMP 36.1–36.3; O2SAT 92–98
[2024-02-14] MEDS: LACTATED RINGERS 1,000 ML 100 ML IV CONT (01:45)
[2024-02-14 07:08] LABS: Hematocrit 45.4 % (42.0-52.0); Hemoglobin 14.6 g/dL (14.0-18.0); Mean Corpuscular HGB Conc 32.2 g/dl (32-36); Mean Corpuscular Hemoglobin 30.4 pg (26-34); Mean Corpuscular Volume 94.6 fl (80-100); Mean Platelet Volume 9.3 fl (7.4-10.4); Platelet Count Result 264 k/mm3 (150-375); Red Cell Distribution Width 14.4 % (11.5-14.5)
[2024-02-14 07:17] LABS: Alanine Aminotransferase 17 U/L (6-50); Albumin Level 4.2 g/dL (3.5-5.1); Alkaline Phosphatase 90 U/L (38-126); Anion Gap 4 mmol/L (4-12); Aspartate Amino Transferase 44 U/L (17-59); Bilirubin,Total 1.6 mg/dL (0.2-1.3); Blood Urea Nitrogen 16 mg/dL (9-20); Calcium 9.9 mg/dL (8.4-10.2); Carbon Dioxide 33 mmol/L (22-30); Chloride 100 mmol/L (98-107); Estimated CRCL calculation 44 ml/min; Estimated Glomerular Filt Rate > 60; Glucose 106 mg/dL (65-110); Potassium 4.3 mmol/L (3.4-5.0); Sodium 137 mmol/L (137-145)
[2024-02-14] MEDS: METOPROLOL TARTRATE 25 MG TABLET PO ×2 (09:44→20:37)
[2024-02-14] MEDS: methylPHENIDATE HCL (*CRX) 10 MG TABLET PO (09:44)
[2024-02-14] MEDS: DULoxetine HCL 30 MG CAPSULE.DR PO (09:44)
[2024-02-14] MEDS: FINASTERIDE 5 MG TABLET PO (09:44)
[2024-02-14] MEDS: GABAPENTIN 300 MG CAPSULE PO (09:44)
[2024-02-14] MEDS: allopurinoL 100 MG TABLET PO (09:44)
[2024-02-14] MEDS: APIXABAN 5 MG TABLET PO ×2 (09:44→20:36)
[2024-02-14] MEDS: MEROPENEM 1 GM/NS 100 ML 1 GM/100 ML BAG IVPB ×2 (09:45→20:39)
--- NOTE | 2024-02-14 16:17 | PM.IMPN ---
Progress Note: A&P Assessment and Plan (1) Acute UTI: Code(s): N39.0 - Urinary tract infection, site not specified Status: Acute Assessment and Plan: admit to regular medical floor patient is started on Merrem Follow up urine culture. (2) Chronic indwelling Gonzalez catheter: Code(s): Z97.8 - Presence of other specified devices Status: Acute Assessment and Plan: status post exchange (3) Chronic interstitial lung disease: Code(s): J84.9 - Interstitial pulmonary disease, unspecified Status: Acute Assessment and Plan: on supplemental oxygen at home (4) Gastroesophageal reflux disease: Code(s): K21.9 - Gastro-esophageal reflux disease without esophagitis Status: Acute Assessment and Plan: PPI (5) Neurogenic bladder: Code(s): N31.9 - Neuromuscular dysfunction of bladder, unspecified Status: Chronic Assessment and Plan: chronic indwelling Gonzalez catheter (6) Paroxysmal atrial fibrillation: Code(s): I48.0 - Paroxysmal atrial fibrillation Status: Acute Assessment and Plan: rate controlled and anticoagulated (7) Obstructive sleep apnea on CPAP: Code(s): G47.33 - Obstructive sleep apnea (adult) (pediatric) Status: Acute Assessment and Plan: continue CPAP (8) Type 2 diabetes mellitus with diabetic neuropathy: Qualifiers: Diabetes mellitus detention insulin use: without detention use Qualified Code(s): E11.40 - Type 2 diabetes mellitus with diabetic neuropathy, unspecified Code(s): E11.40 - Type 2 diabetes mellitus with diabetic neuropathy, unspecified Status: Acute Assessment and Plan: continue to monitor insulin sliding scale as needed Plan DVT prophylaxis Eliquis. Subjective Date/time seen: 02/14/24 16:17 Interval history: Comfortable bedside, awaiting urine culture. Review of Systems Review of Systems: Generalized malaise, poor appetite, fevers, chills, poor per orally intake Exam Narrative: patient is laying in a stretcher Const: General: comfortable, no acute distress, well developed, alert, awake and average body habitus Nutritional Appearance: average body habitus Orientation/consciousness: patient oriented x3 HENMT: Head: normal to inspection, normocephalic and atraumatic Ears: hearing grossly normal bilaterally Face/Nose/Sinus: normal facial exam Face and sinus: normal facial exam Eyes: General: appearance normal, both eyes and all related structures Pupils: Equal, round and reactive pupils present EOM: EOMs intact bilaterally Neck: Neck: full ROM, no lymphadenopathy and no JVD Thyroid: thyroid normal Lymphatic: no lymphadenopathy noted Resp: Effort & Inspection: normal respiratory effort and able to speak in complete sentences Auscultation: clear to auscultation bilaterally Cardio: Jugular venous distension: no JVD Rate: regular rate Rhythm: regular rhythm Heart sounds: S1 normal heart sound present and S2 normal heart sound present : General: Yes deferred Skin: Rashes: no rashes Wounds: no wounds Neuro: General: patient oriented x3, CN's II-XI intact bilaterally and Unable to assess gait Cranial nerves: Yes CN's II-XII intact bilaterally and Yes Equal, round and reactive pupils present Cognition (Neuro): normal cognition Speech: normal speech Gait exam (Neuro): Unable to assess gait Motor exam (neuro): 5/5 motor strength present throughout Extrem: General: normal to inspection, full ROM, no joint enlargement and no pedal edema Objective Data Vital Signs Vital Signs: Vital Signs - 24 hr 02/13/24 21:08 02/13/24 21:51 02/13/24 20:00 Temperature 97.7 F Pulse Rate 64 64 Respiratory Rate 16 Blood Pressure 154/84 H Pulse Oximetry 94 97 Oxygen Delivery Autopap 02/14/24 05:10 02/14/24 06:00 02/14/24 09:44 Temperature 97.4 F L Pulse Rate 60 68 Respiratory Rate 20 Blood Pressure 174/114 H Pulse Oximetry 94 94 Oxygen Delivery Autopap 02/14/24 11:00 02/14/24 13:55 Temperature 97.0 F L Pulse Rate 61 Respiratory Rate 22 H Blood Pressure 118/59 L 96/60 L Pulse Oximetry 98 Oxygen Delivery Intake/Output Intake/Output: Intake & Output 02/11/24 02/12/24 02/13/24 02/14/24 23:59 23:59 23:59 23:59 Intake Total 2148 440 Output Total 2206 800 Balance 1123 -360 Meds/Results Medications: Active Medications Generic Name Dose Route Start Last Admin Trade Name Freq PRN Reason Stop Dose Admin Alfuzosin HCl 10 mg 02/14/24 09:00 02/14/24 09:44 Alfuzosin 10 Mg Er Tablet PO 10 mg DAILY YULIANA Administration Allopurinol 100 mg 02/14/24 09:00 02/14/24 09:44 Allopurinol 100 Mg Tablet PO 100 mg DAILY YULIANA Administration Amlodipine Besylate 5 mg 02/13/24 21:00 02/13/24 21:51 Amlodipine Besylate 5 Mg Tablet PO 5 mg QHS YULIANA Administration Apixaban 5 mg 02/13/24 21:00 02/14/24 09:44 Apixaban 5 Mg Tablet PO 5 mg Q12H YULIANA Administration Duloxetine HCl 30 mg 02/14/24 09:00 02/14/24 09:44 Duloxetine Hcl 30 Mg Capsule.Dr PO 30 mg DAILY YULIANA Administration Finasteride 5 mg 02/14/24 09:00 02/14/24 09:44 Finasteride 5 Mg Tablet PO 5 mg QAM YULIANA Administration Gabapentin 300 mg 02/14/24 09:00 Gabapentin 300 Mg Capsule PO DAILY YULIANA Gabapentin 600 mg 02/13/24 21:00 02/13/24 21:50 Gabapentin 300 Mg Capsule PO 600 mg HS YULIANA Administration Lactated Ringer's 1,000 mls @ 100 mls/hr 02/13/24 01:00 02/14/24 01:45 Lr - Lactated Ringers Iv IV CONT 100 mls/hr .Q10H YULIANA Administration Meropenem 1 gm in 100 mls @ 200 mls/hr 02/13/24 21:00 02/14/24 09:45 IVPB 02/19/24 21:29 200 mls/hr Q12HR YULIANA Administration Methylphenidate HCl 10 mg 02/14/24 09:00 02/14/24 09:44 Methylphenidate Hcl (*Crx) 10 Mg Tablet PO 10 mg QAM YULIANA Administration Metoprolol Tartrate 25 mg 02/13/24 21:00 02/14/24 09:44 Metoprolol Tartrate 25 Mg Tablet PO 25 mg Q12HR YULIANA Administration Radiology Results: ITS Impressions Chest X-Ray 02/13/24 06:06 IMPRESSION: 1. Stable airspace opacities in the lower lung zones, consistent with chronic interstitial lung disease. Labs Labs: Laboratory Results - last 24 hr 02/14/24 06:59 WBC 9.0 RBC 4.80 Hgb 14.6 Hct 45.4 MCV 94.6 MCH 30.4 MCHC 32.2 RDW 14.4 Plt Count 264 MPV 9.3 Sodium 137 Potassium 4.3 Chloride 100 Carbon Dioxide 33 H Anion Gap 4 BUN 16 Creatinine 0.90 Estim Creat Clear Calc 44 Estimated GFR > 60 Glucose 106 Calcium 9.9 Total Bilirubin 1.6 H AST 44 ALT 17 Alkaline Phosphatase 90 Total Protein 8.0 Albumin 4.2
[2024-02-14] MEDS: GABAPENTIN 300 MG CAPSULE 600 MG PO (20:37)
[2024-02-14] MEDS: amLODIPine BESYLATE 5 MG TABLET PO (20:38)
[2024-02-15] MEDS: LACTATED RINGERS 1,000 ML 100 ML IV CONT (01:37)
[2024-02-15 05:15] VITALS: BP 135/62; PULSE 58; RESP 22; TEMP 36.9; O2SAT 94
[2024-02-15 06:55] LABS: Basophils Percent Auto 0.5 % (0.2-1.2); Eosinophils Absolute Auto 0.6 K/mm3 (0-0.3); Eosinophils Percent Auto 6.8 % (0-4.4); Hematocrit 36.9 % (42.0-52.0); Hemoglobin 11.8 g/dL (14.0-18.0); Immature Granulocyte Absolute 0.02 K/mm3 (0.00-0.031); Immature Granulocyte Percent A 0.2 % (0-0.5); Lymphocytes Absolute Auto 2.98 K/mm3 (0.9-3.2); Lymphocytes Percent Auto 37.1 % (18.3-44.2); Mean Corpuscular Volume 93.9 fl (80-100); Mean Platelet Volume 9.4 fl (7.4-10.4); Monocytes Absolute Auto 0.9 K/mm3 (0.1-0.6); Monocytes Percent Auto 10.7 % (2.6-8.5); Neutrophils Absolute Auto 3.6 K/mm3 (1.3-6.7); Neutrophils Percent Auto 44.7 % (45.5-73.1); Platelet Count Result 224 k/mm3 (150-375); Red Blood Count 3.93 M/mm3 (4.6-6.20); Red Cell Distribution Width 14.5 % (11.5-14.5)
[2024-02-15 07:05] LABS: Alanine Aminotransferase 14 U/L (6-50); Albumin Level 3.4 g/dL (3.5-5.1); Alkaline Phosphatase 76 U/L (38-126); Anion Gap 5 mmol/L (4-12); Aspartate Amino Transferase 35 U/L (17-59); Bilirubin,Total 1.2 mg/dL (0.2-1.3); Blood Urea Nitrogen 23 mg/dL (9-20); Carbon Dioxide 31 mmol/L (22-30); Chloride 101 mmol/L (98-107); Estimated CRCL calculation 40 ml/min; Estimated Glomerular Filt Rate > 60; Glucose 96 mg/dL (65-110); Magnesium 1.9 mg/dL (1.6-2.3); Sodium 137 mmol/L (137-145)
[2024-02-15] MEDS: allopurinoL 100 MG TABLET PO (08:44)
[2024-02-15] MEDS: GABAPENTIN 300 MG CAPSULE PO (08:44)
[2024-02-15] MEDS: DULoxetine HCL 30 MG CAPSULE.DR PO (08:44)
[2024-02-15] MEDS: methylPHENIDATE HCL (*CRX) 10 MG TABLET PO (08:45)
[2024-02-15] MEDS: APIXABAN 5 MG TABLET PO (08:45)
[2024-02-15] MEDS: FINASTERIDE 5 MG TABLET PO (08:45)
[2024-02-15] MEDS: MEROPENEM 1 GM/NS 100 ML 1 GM/100 ML BAG IVPB (08:45)
[2024-02-15 08:47] VITALS: PULSE 68
[2024-02-15] MEDS: METOPROLOL TARTRATE 25 MG TABLET PO (08:47)
--- NOTE | 2024-02-15 12:24 | P.DS_ITS ---
DS: Admitting Diagnosis Discharge Date 02/15/2024 Admitting Diagnosis Generalized weakness DS: Discharge Diagnosis Discharge Diagnosis (1) General weakness: Code(s): R53.1 - Weakness Status: Acute DS: Summary Hospital Course Hospital Course: This is an 89-year-old male with past medical history significant for ESBL UTI, hypertension, dyslipidemia, peripheral neuropathy, gout, atrial fibrillation rate controlled and anticoagulated. Patient presented to the emergency room due to generalized weakness, poor appetite, body aches and pains, generalized malaise, chills, poor per orally intake. Preliminary workup was significant for urinalysis with numerous WBCs present. Patient has been admitted for further evaluation management and treatment. Patient was started on Meropenem for history of ESBL, however urine culture was negative. Patient was placed on IVF and he has improved markedly from admission. Since urine culture is negative, antibiotics was discontinued. Yissel intake is adequate and patient was evaluated by PT/OT who [facility]. Patient has chronic zimmer Patient discharged home to follow up with PCP in 3-5 days continue other home medications. Time Spent with Patient Time attestation: Total time spent providing and/or coordinating discharge services: DS: Data Data Completed and Pending Labs on day of discharge: Labs from last 24 hours 02/15/24 06:27 WBC 8.0 RBC 3.93 L Hgb 11.8 L Hct 36.9 L MCV 93.9 MCH 30.0 MCHC 32.0 RDW 14.5 Plt Count 224 MPV 9.4 Immature Gran % (Auto) 0.2 Neut % (Auto) 44.7 L Lymph % (Auto) 37.1 [place] % (Auto) 10.7 H Eos % (Auto) 6.8 H Baso % (Auto) 0.5 Lymph # (Auto) 2.98 [place] # (Auto) 0.9 H Eos # (Auto) 0.6 H Baso # (Auto) 0.0 Abs Immat Gran (auto) 0.02 Absolute Neuts (auto) 3.6 Absolute Nucleated RBC 0.000 Nucleated RBC % 0.0 Sodium 137 Potassium 4.0 Chloride 101 Carbon Dioxide 31 H Anion Gap 5 BUN 23 H Creatinine 1.00 Estim Creat Clear Calc 40 Estimated GFR > 60 Glucose 96 Calcium 9.0 Magnesium 1.9 Total Bilirubin 1.2 AST 35 ALT 14 Alkaline Phosphatase 76 Total Protein 7.0 Albumin 3.4 L Discharge Plan Discharge Attending physician on discharge: Carolyn Romo Discharging Clinician: Carolyn Romo Anticipated Discharge Date/Time: 02/15/24 12:22 Patient Disposition: Home, Self-Care Activity: as tolerated Diet: as tolerated Patient Instructions: Antibiotic Form, Apixaban (By mouth), Pain Management (DC) Stand Alone Forms: General Discharge Information Follow-up/Referrals: Annamarie Betancourt, FOOD INSPECTOR-C [Primary Care Provider] - (Follow PCP in 3-5 days.) Discharge Medications: Continued loratadine [Claritin] 10 mg tablet 10 mg PO HS alfuzosin 10 mg tablet extended release 24 hr 10 mg PO DAILY cephalexin 250 mg capsule 250 mg PO HS gabapentin 300 mg capsule 600 mg PO HS Rx Instructions: and 2 tabs (600mg every PM). gabapentin 300 mg capsule 300 mg PO DAILY Rx Instructions: TAKE 1 CAPSULE BY MOUTH EVERY MORNING AND 2 TABS (600MG EVERY PM). metoprolol tartrate 25 mg tablet 25 mg PO BID Qty: 180 2RF methylphenidate HCl 10 mg tablet 10 mg PO QAM Qty: 30 0RF pantoprazole 40 mg tablet,delayed release (DR/EC) 40 mg PO DAILY Qty: 90 0RF Eliquis 5 mg tablet 5 mg PO Q12H Qty: 180 0RF allopurinol 100 mg tablet 100 mg PO DAILY Qty: 90 0RF amlodipine 5 mg tablet 5 mg PO QHS Qty: 90 1RF duloxetine 30 mg capsule,delayed release(DR/EC) 30 mg PO DAILY Qty: 90 1RF finasteride [Proscar] 5 mg Tablet 5 mg PO QAM Qty: 30 0RF cholecalciferol (vitamin D3) [Vitamin D3] 25 mcg (1,000 unit) Tablet 25 mcg PO DAILY Qty: 30 0RF omega [id number]-fish oil 300-1,000 mg Capsule 1 cap PO DAILY Qty: 30 0RF Date of admission: 02/13/24 00:57 Primary Care Provider: Annamarie Betancourt Admitting Provider: Noreen Hanson V. Attending physician on admission: Noreen Hanson V. Condition: Stable
[2024-02-15 13:39] VITALS: BP 108/47; PULSE 58; RESP 21; TEMP 36.6; O2SAT 96
== END 2024-02-15 15:30 | disposition home health service (06) | DRG 699 ==
LOC: ANHED 02-13 01:02 → ANH3MEDSUR 02-13 02:24
PROVIDERS: General Practice; Admitting Provider Internal Medicine; Emergency Provider Student in an Organized Health Care Education/Training Program; PCP Nurse Practitioner Family; Visit Provider Internal Medicine
DX: T83.511A Infection and inflammatory reaction due to indwelling urethral catheter, initial encounter (principal); J84.9 Interstitial pulmonary disease, unspecified; J96.11 Chronic respiratory failure with hypoxia; I10 Essential (primary) hypertension; I48.0 Paroxysmal atrial fibrillation; I35.0 Nonrheumatic aortic (valve) stenosis; E11.40 Type 2 diabetes mellitus with diabetic neuropathy, unspecified; K21.9 Gastro-esophageal reflux disease without esophagitis; N40.0 Benign prostatic hyperplasia without lower urinary tract symptoms; N31.9 Neuromuscular dysfunction of bladder, unspecified; G47.419 Narcolepsy without cataplexy; G47.33 Obstructive sleep apnea (adult) (pediatric); G62.9 Polyneuropathy, unspecified; T14.90XS Injury, unspecified, sequela; V89.2XXS Person injured in unspecified motor-vehicle accident, traffic, sequela; Z99.81 Dependence on supplemental oxygen; Z79.01 Long term (current) use of anticoagulants; Z87.11 Personal history of peptic ulcer disease; Z87.442 Personal history of urinary calculi
CPT/HCPCS: 36415; 71045; 80053; 81001; 83735; 83880; 84484; 85025; 85027; 85610; 85730; 87086; 87088; 93005; 97161; 99285; A9270; J1650; J2185; J7120

== ENCOUNTER 2024-03-02 10:58 | Inpatient (IN) | payer MEDICARE, SELFPAY ==
[2024-03-02] VITALS (40 sets, daily range): BP systolic 102–138; BP diastolic 49–85; PULSE 65–89; RESP 14–33; TEMP 36.6; O2SAT 86–100; BMI 28.0
--- NOTE | ~2024-03-02 | CT_ITS ---
EXAMINATION: CT cervical spine wo con DATE: 03/02/2024 11:45 INDICATION: Neck pain after fall TECHNIQUE: Computed tomography (CT) of the cervical spine was performed without intravenous contrast. The dose-length product was 528 mGy-cm. COMPARISON: None FINDINGS: There is straightening of cervical lordosis. There is degenerative anterolisthesis at C7-T1 secondary to facet hypertrophy. There is retrolisthesis at C5-6. Odontoid process is normal. Craniov ertebral junction is normal. There is multilevel uncinate and facet hypertrophy. There is apical pleu ral thickening/scarring. No significant paraspinal soft tissue abnormality. There is intracranial ath erosclerosis. No acute fracture or traumatic malalignment. IMPRESSION: 1. No acute abnormality of the cervical spine. 2: Severe cervical spondylosis. Reviewed, dictated and finalized at location B. DESK AGENT
--- NOTE | ~2024-03-02 | CT_ITS ---
CT Scan of the Chest without Contrast: Clinical Indication: Cough, weakness Technique: Contiguous sections were acquired throughout the chest without intravenous contrast. Dose reduction technique was used on this scan by utilizing automated exposure control and iterative recon struction technique. The dose-length product (DLP) was 664.39 mGy-cm. COMPARISON: 10/19/2023 Findings: There is no evidence of any significant mediastinal, hilar or axillary lymphadenopathy. Coronary ayana ry calcifications are present. There is no evidence of pleural or pericardial effusion. There is stable or chronic interstitial change at the anterior right middle lobe with additional area of mild anterior herniation of right middle lobe to the chest wall (axial image 61), similar to prio r exam. Additional mild bibasilar chronic interstitial change or scarring/atelectasis is also present . No suspicious pulmonary nodule or consolidation. Images through the upper abdomen reveal multiple nonobstructing right renal stones. Multiple chronic right rib fracture deformities are present. Probable healed fracture deformity of the sternal body. T here is thoracolumbar spinal fusion hardware, with underlying compression fracture deformity of L1. Impression: No acute abnormality evident. Stable areas of chronic interstitial change and scarring/atelectasis at the lung bases and right midd le lobe. Stable focal area of anterior lung herniation at the right middle lobe. Right nephrolithiasis. Chronic osseous findings, as above. Reviewed, dictated and finalized at location . RN AGENT Impression: No acute abnormality evident. Stable areas of chronic interstitial change and scarring/atelectasis at the george g bases and right middle lobe. Stable focal area of anterior lung herniation at the right middle lobe. Right nephrolithiasis. Chronic osseous findings, as above.
--- NOTE | ~2024-03-02 | CT_ITS ---
EXAMINATION: CT brain wo con DATE: 03/02/2024 11:45 INDICATION: Status post fall. TECHNIQUE: Computed tomography (CT) of the head was performed without intravenous contrast. The dose- length product was 605.33 mGy-cm. Automated exposure control and iterative reconstruction technique w ere employed. COMPARISON: CT dated 07/14/2021 FINDINGS: There is mucosal thickening of the paranasal sinuses with mucoperiosteal reaction in the ma xillary sinuses. Mastoids are pneumatized. No depressed skull fractures. Brain parenchymal volume is normal for age. There are scattered mild periventricular and subcortical white matter changes, most l ikely related to small vessel ischemic disease (microangiopathy). No ventriculomegaly or midline shif t. Basilar cisterns are patent. There is carotid atherosclerosis. IMPRESSION: 1. No acute intracranial abnormality. Reviewed, dictated and finalized at location B. RIAL DAMAGE ADJUSTER
--- NOTE | 2024-03-02 10:59 | ECG_ITS ---
Test Date: 2024-03-02 11:09:23 Measurements Intervals [place] Rate: 69 P: -90 [place]: 194 QRS: -53 QRSD: 99 T: 28 QT: 390 QTc: 419 Interpretive Statements SINUS RHYTHM with first degree block PATTERN CONSISTENT WITH PULMONARY DISEASE LEFT ANTERIOR FASCICULAR BLOCK [QRS AXIS <= -45, QR IN I, RS IN II] Compared to ECG 02/12/2024 23:32:43 no changes Electronically Signed On 03-02-2024 18:44:[address] by Hebert Huddleston M.D.
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
[2024-03-02 12:26] LABS: Basophils Percent Auto 0.3 % (0.2-1.2); Eosinophils Absolute Auto 0.2 K/mm3 (0-0.3); Eosinophils Percent Auto 2.1 % (0-4.4); Hematocrit 37.1 % (42.0-52.0); Immature Granulocyte Absolute 0.04 K/mm3 (0.00-0.031); Immature Granulocyte Percent A 0.4 % (0-0.5); Lymphocytes Absolute Auto 2.13 K/mm3 (0.9-3.2); Lymphocytes Percent Auto 20.3 % (18.3-44.2); Mean Corpuscular HGB Conc 32.3 g/dl (32-36); Mean Corpuscular Hemoglobin 30.5 pg (26-34); Mean Corpuscular Volume 94.4 fl (80-100); Mean Platelet Volume 9.4 fl (7.4-10.4); Monocytes Absolute Auto 1.1 K/mm3 (0.1-0.6); Monocytes Percent Auto 10.1 % (2.6-8.5); Neutrophils Percent Auto 66.8 % (45.5-73.1); Platelet Count Result 209 k/mm3 (150-375); Red Blood Count 3.93 M/mm3 (4.6-6.20); White Blood Count 10.5 K/mm3 (4.5-10.0)
[2024-03-02 12:37] LABS: Alanine Aminotransferase 16 U/L (6-50); Albumin Level 3.7 g/dL (3.5-5.1); Alkaline Phosphatase 92 U/L (38-126); Anion Gap 1 mmol/L (4-12); Aspartate Amino Transferase 32 U/L (17-59); Blood Urea Nitrogen 18 mg/dL (9-20); Calcium 9.3 mg/dL (8.4-10.2); Carbon Dioxide 37 mmol/L (22-30); Chloride 98 mmol/L (98-107); Estimated CRCL calculation 34 ml/min; Estimated Glomerular Filt Rate 57; Glucose 121 mg/dL (65-110); Potassium 4.3 mmol/L (3.4-5.0); Sodium 136 mmol/L (137-145)
[2024-03-02 13:02] LABS: Influenza A QL RT-PCR Negative (Negative); Influenza B QL RT-PCR Negative (Negative); RSV RNA, RT-PCR Negative (Negative); SARS-CoV-2 RNA PCR Negative (Negative)
[2024-03-02 13:08] LABS: NT Pro B Type Natriuretic Pept 1190 pg/mL (19.9-100)
[2024-03-02 13:56] LABS: Creatine Kinase 89 U/L (55-170)
[2024-03-02 14:04] LABS: Add Urine Microscopic? YES; Appearance Urine Turbid (Clear); Bacteria Urine 4+ /hpf; Bilirubin Urine Negative (Negative); Blood Urine 3+ (Negative); Color Urine Yellow (Yellow); Glucose Urine UA Negative (Negative); Ketones Urine Negative (Negative); Leukocyte Esterase Ur 3+ LEU/UL (Negative); Need Manual Microscopic Reviewed; Nitrate Urine Positive (Negative); Protein Urine 1+ mg/dL (Negative); RBC Urine >100 /hpf (0-2); Squamous Epithelial Cell Urine None Seen /hpf (Few); WBC Urine >100 /hpf (0-3); pH Urine 6.5 (5.0-9.0)
[2024-03-02] MEDS: SODIUM CHLORIDE 0.9% IV 1,000 ML 125 ML IV CONT (16:52)
--- NOTE | 2024-03-02 18:52 | ADMGEN ---
This patient, Devin Gonzalez, was admitted to Medical Room 346-01. Patient/family oriented to hospital policies and general routines including ID bracelet, bed and alarms, visiting hours, pain management, procedures, bathroom and other care routines, personal items, smoking policy, room service/diet, and visiting hours. Information on how to activate the Rapid Response Team has been discussed. Patient/Family are encouraged to report perceived risks to care and to ask questions if they do not understand what they are told or what they should do.
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
[2024-03-02 20:38] LABS: Glucose Point of Care 148 mg/dl (65-105)
[2024-03-03] VITALS (8 sets, daily range): BP systolic 92–147; BP diastolic 54–66; PULSE 58–67; RESP 16–18; TEMP 36.1–36.6; O2SAT 95–98
[2024-03-03] MEDS: SODIUM CHLORIDE 0.9% IV 1,000 ML 125 ML IV CONT ×2 (01:35→17:55)
--- NOTE | 2024-03-03 07:30 | PM.IMPN ---
Progress Note: A&P Assessment and Plan (1) Acute UTI: Code(s): N39.0 - Urinary tract infection, site not specified Status: Acute Assessment and Plan: UA showing turbid urine appearance, 1+ urine protein, 3+ urine blood, positive nitrate, 3+ leukocytes, greater than 100 urine RBC, greater than 100 urine wbc's, 4+ urine bacteria urine culture obtained and pending on review of previous urine cultures he grew Proteus mirabilis and Klebs aerogenes, ESBL patient was given a dose of Rocephin in the ED I switched antibiotic to meropenem due to the ESBL history patient has a chronic Gonzalez was changed out this admission (2) Chronic indwelling Gonzalez catheter: Code(s): Z97.8 - Presence of other specified devices Status: Acute Assessment and Plan: Gonzalez changed in the ED (3) General weakness: Code(s): R53.1 - Weakness Status: Acute Assessment and Plan: PT and OT ordered continue fall precautions up with assistance (4) Gait instability: Code(s): R26.81 - Unsteadiness on feet Status: Acute Assessment and Plan: continue fall precautions PT and OT ordered (5) Lower extremity weakness: Qualifiers: Laterality: bilateral Qualified Code(s): R29.898 - Other symptoms and signs involving the musculoskeletal system Code(s): R29.898 - Other symptoms and signs involving the musculoskeletal system Status: Acute Assessment and Plan: see above (6) Gastroesophageal reflux disease: Code(s): K21.9 - Gastro-esophageal reflux disease without esophagitis Status: Acute Assessment and Plan: continue Protonix (7) Paroxysmal atrial fibrillation: Code(s): I48.0 - Paroxysmal atrial fibrillation Status: Acute Assessment and Plan: continue metoprolol and Eliquis (8) Hypertension: Code(s): I10 - Essential (primary) hypertension Status: Acute Assessment and Plan: blood pressure ranging 108/49 to 147/63 continue Norvasc (9) Chronic interstitial lung disease: Code(s): J84.9 - Interstitial pulmonary disease, unspecified Status: Acute Assessment and Plan: currently on 2 L nasal cannula which is his baseline oxygen requirement Time Spent With Patient Time with patient: Greater than 35 minutes Subjective Date/time seen: 03/03/24 07:30 Interval history: Interval history: This is an 89-year-old male who presented to the hospital on 03/02/2024 with generalized weakness. He was found at home by his daughter as he was unable to get up from the toilet. Workup in the hospital included a head CT which was negative. Cervical spine CT which did not show any acute abnormality of the cervical spine, severe cervical spondylosis. Chest CT was negative for any acute abnormality, stable areas of chronic interstitial changes and scarring/ atelectasis at the lung bases and right middle lobe, right nephrolithiasis. Initial labs showed a white blood cell count of 10.5, hemoglobin 12.0, sodium 136, blood sugars ranging 121-148, total bilirubin 2.0, proBNP 1190. A UA was obtained which showed turbid urine appearance, 1+ urine protein, 3+ urine blood, positive nitrate, 3+ leukocyte, greater than 100 urine RBC, greater than 100 urine WBC, 4+ urine bacteria. Respiratory panel was negative for influenza a and B, RSV, COVID. Urine culture pending. 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 Was started on Rocephin in the ED. We switched him to meropenem due to the ESBL history. Subjective: Patient denies any fever, chills, nausea, vomiting, diarrhea, abdominal pain, chest pain, shortness a breath. Labs and imaging reviewed. Review of Systems Review of Systems: All systems reviewed & are unremarkable except as noted in HPI and below Constitutional: Constitutional: Reports as per HPI and Reports no additional constitutional complaints Eyes: Eyes: Reports as per HPI and Reports no additional eye complaints ENT: Reports system reviewed and no additional complaints, except as documented and Reports as per HPI Cardiovascular: Cardiovascular: Reports as per HPI and Reports no additional cardiovascular complaints Respiratory: Respiratory: Reports as per HPI and Reports no additional respiratory complaints Gastrointestinal: Gastrointestinal: Reports as per HPI and Reports no additional gastrointestinal complaints Genitourinary: Genitourinary: Reports no additional male genitourinary complaints and Reports as per HPI Musculoskeletal: Musculoskeletal: Reports no additional musculoskeletal complaints and Reports as per HPI Integumentary/Breasts: Skin/Breast: Reports system reviewed and no additional complaints, except as docu and Reports as per HPI Neurologic: Reports system reviewed and no additional complaints, except as documented and Reports as per HPI Psychiatric: Psychiatric: Reports no additional psychiatric complaints and Reports as per HPI Exam Narrative: General: In no acute distress, well nourished Head: atraumatic, no encephalopathy Eyes:PERRLA, sclera clear ENT: moist mucous membranes, nasal passages clear Neck: supple, no JVD, no adenopathy, trachea midline Cardiac: Normal S1 and S2. No murmur, gallops or friction rubs, peripheral pulses intact. Respiratory: Lungs clear to auscultation, no adventitious lung sounds, currently on 2 L which is his baseline O2 requirement Gastrointestinal: soft, non-distended, non-tender, normoactive bowel sounds. : voiding without difficulty. Extremities: moves all extremities well, no edema Skin: clean, dry, intact. No wounds or lesions. Neuro: Alert and oriented x4, cranial nerves intact, no neuro deficits. Psych: normal mood, normal affect, interactive Objective Data Vital Signs Vital Signs: Vital Signs - 24 hr 03/02/24 11:04 03/02/24 11:10 03/02/24 11:15 Temperature 97.8 F Pulse Rate 72 71 70 Respiratory Rate 16 17 23 H Blood Pressure 129/61 Pulse Oximetry 99 99 95 Oxygen Delivery Oxygen Flow Rate 03/02/24 11:16 03/02/24 11:30 03/02/24 11:31 Temperature Pulse Rate 70 65 65 Respiratory Rate 15 22 H 21 H Blood Pressure 138/67 135/57 L Pulse Oximetry 98 100 98 Oxygen Delivery Oxygen Flow Rate 03/02/24 11:51 03/02/24 11:52 03/02/24 12:05 Temperature Pulse Rate 70 68 65 Respiratory Rate 22 H 28 H 23 H Blood Pressure 119/85 Pulse Oximetry 96 98 Oxygen Delivery Oxygen Flow Rate 03/02/24 12:15 03/02/24 12:16 03/02/24 12:30 Temperature Pulse Rate 69 67 66 Respiratory Rate 14 17 17 Blood Pressure 135/79 Pulse Oximetry 96 97 Oxygen Delivery Oxygen Flow Rate 03/02/24 12:31 03/02/24 13:25 03/02/24 13:30 Temperature Pulse Rate 65 69 86 Respiratory Rate 20 16 21 H Blood Pressure 107/51 L Pulse Oximetry 96 Oxygen Delivery Oxygen Flow Rate 03/02/24 13:48 03/02/24 14:00 03/02/24 14:01 Temperature Pulse Rate 70 77 73 Respiratory Rate 18 19 20 Blood Pressure 102/69 Pulse Oximetry Oxygen Delivery Oxygen Flow Rate 03/02/24 14:24 03/02/24 15:00 03/02/24 15:01 Temperature Pulse Rate 70 72 70 Respiratory Rate 19 19 16 Blood Pressure 122/69 Pulse Oximetry 100 100 Oxygen Delivery Oxygen Flow Rate 03/02/24 15:15 03/02/24 15:16 03/02/24 15:34 Temperature Pulse Rate 73 89 69 Respiratory Rate 20 25 H 19 Blood Pressure 134/63 Pulse Oximetry 91 86 L 98 Oxygen Delivery Oxygen Flow Rate 03/02/24 15:45 03/02/24 15:46 03/02/24 16:01 Temperature Pulse Rate 78 81 73 Respiratory Rate 22 H 25 H 18 Blood Pressure 115/61 116/67 Pulse Oximetry 96 87 L 98 Oxygen Delivery Oxygen Flow Rate 03/02/24 16:02 03/02/24 16:35 03/02/24 16:45 Temperature Pulse Rate 75 72 68 Respiratory Rate 18 27 H 20 Blood Pressure Pulse Oximetry 97 94 Oxygen Delivery Oxygen Flow Rate 03/02/24 16:46 03/02/24 17:00 03/02/24 17:01 Temperature Pulse Rate 68 69 70 Respiratory Rate 17 27 H 31 H Blood Pressure 113/64 126/61 Pulse Oximetry 98 96 95 Oxygen Delivery Oxygen Flow Rate 03/02/24 17:24 03/02/24 17:30 03/02/24 17:31 Temperature Pulse Rate 79 71 72 Respiratory Rate 33 H 23 H 29 H Blood Pressure 116/52 L Pulse Oximetry 86 L 93 91 Oxygen Delivery Oxygen Flow Rate 03/02/24 17:45 03/02/24 17:46 03/02/24 20:00 Temperature Pulse Rate 69 66 Respiratory Rate 18 17 Blood Pressure 132/55 L Pulse Oximetry 99 93 96 Oxygen Delivery Nasal Cannula Oxygen Flow Rate 2 03/02/24 22:00 03/03/24 06:00 Temperature 98 F 97.5 F L Pulse Rate 68 67 Respiratory Rate 16 16 Blood Pressure 108/49 L 147/63 H Pulse Oximetry 95 96 Oxygen Delivery Oxygen Flow Rate Intake/Output Intake/Output: Intake & Output 02/29/24 03/01/24 03/02/24 03/03/24 23:59 23:59 23:59 23:59 Intake Total 50 1100 Output Total 750 Balance 50 350 Meds/Results Medications: Active Medications Generic Name Dose Route Start Last Admin Trade Name Freq PRN Reason Stop Dose Admin Alfuzosin HCl 10 mg 03/03/24 09:00 Alfuzosin 10 Mg Er Tablet PO DAILY [facility] Allopurinol 100 mg 03/03/24 09:00 Allopurinol 100 Mg Tablet PO DAILY [facility] Amlodipine Besylate 5 mg 03/03/24 21:00 Amlodipine Besylate 5 Mg Tablet PO QHS [facility] Apixaban 5 mg 03/03/24 09:00 Apixaban 5 Mg Tablet PO Q12HR [facility] Duloxetine HCl 30 mg 03/03/24 09:00 Duloxetine Hcl 30 Mg Capsule.Dr PO DAILY [facility] Finasteride 5 mg 03/03/24 09:00 Finasteride 5 Mg Tablet PO QAM [facility] Gabapentin 600 mg 03/03/24 21:00 Gabapentin 300 Mg Capsule PO HS [facility] Gabapentin 300 mg 03/03/24 09:00 Gabapentin 300 Mg Capsule PO DAILY [facility] Sodium Chloride 1,000 mls @ 125 mls/hr 03/02/24 14:25 03/03/24 01:35 Normal Saline Iv IV CONT 125 mls/hr .Q8H [facility] Administration Meropenem 1 gm in 100 mls @ 200 mls/hr 03/03/24 08:00 IVPB Q12HR [facility] Loratadine 10 mg 03/03/24 21:00 Loratadine 10 Mg Tablet PO HS [facility] Methylphenidate HCl 10 mg 03/03/24 09:00 Methylphenidate Hcl (*Crx) 10 Mg Tablet PO QAM [facility] Metoprolol Tartrate 25 mg 03/03/24 09:00 Metoprolol Tartrate 25 Mg Tablet PO Q12HR [facility] Ondansetron HCl 4 mg 03/02/24 14:22 Ondansetron Inj 4 Mg/2 Ml Vial IV PUSH Q4H PRN Nausea Pantoprazole Sodium 40 mg 03/03/24 09:00 Pantoprazole 40 Mg Tablet PO DAILY [facility] Radiology Results: ITS Impressions Head CT 03/02/24 11:58 IMPRESSION: 1. No acute intracranial abnormality. Cervical Spine CT 03/02/24 13:04 IMPRESSION: 1. No acute abnormality of the cervical spine. 2: Severe cervical spondylosis. Chest CT 03/02/24 13:18 Impression: No acute abnormality evident. Stable areas of chronic interstitial change and scarring/atelectasis at the lung bases and right middle lobe. Stable focal area of anterior lung herniation at the right middle lobe. Right nephrolithiasis. Chronic osseous findings, as above. Labs Labs: Laboratory Results - last 24 hr 03/02/24 03/02/24 03/02/24 12:17 13:32 20:34 WBC 10.5 H RBC 3.93 L Hgb 12.0 L Hct 37.1 L MCV 94.4 MCH 30.5 MCHC 32.3 RDW 14.0 Plt Count 209 MPV 9.4 Immature Gran % (Auto) 0.4 Neut % (Auto) 66.8 Lymph % (Auto) 20.3 [place] % (Auto) 10.1 H Eos % (Auto) 2.1 Baso % (Auto) 0.3 Lymph # (Auto) 2.13 [place] # (Auto) 1.1 H Eos # (Auto) 0.2 Baso # (Auto) 0.0 Abs Immat Gran (auto) 0.04 H Absolute Neuts (auto) 7.0 H Absolute Nucleated RBC 0.000 Nucleated RBC % 0.0 Sodium 136 L Potassium 4.3 Chloride 98 Carbon Dioxide 37 H Anion Gap 1 L BUN 18 Creatinine 1.20 Estim Creat Clear Calc 34 Estimated GFR 57 L Glucose 121 H POC Capillary Glucose 148 H Calcium 9.3 Total Bilirubin 2.0 H AST 32 ALT 16 Alkaline Phosphatase 92 Total Creatine Kinase 89 NT-Pro-B Natriuret Pep 1190 H Total Protein 7.0 Albumin 3.7 Urine Color Yellow Urine Appearance Turbid H Urine pH 6.5 Ur Specific [place] 1.010 Urine Protein 1+ H Urine Glucose (UA) Negative Urine Ketones Negative Ur Blood (Man) 3+ H Urine Nitrate Positive H Urine Bilirubin Negative Urine Urobilinogen 1.0 Add Ur Microanalysis Reviewed Leukocyte Esterase Rfl 3+ H Urine RBC >100 H Urine WBC >100 H Ur Squamous Epith Cells None seen Urine Bacteria 4+ H Urine Casts 6-10 Influenza A (RT-PCR) Negative Influenza B (RT-PCR) Negative RSV (RT-PCR) Negative SARS-CoV-2 RNA (RT-PCR) Negative Quality VTE Prophylaxis VTE prophylaxis: pharmacologic ordered
[2024-03-03 08:25] LABS: Basophils Percent Auto 0.4 % (0.2-1.2); Eosinophils Absolute Auto 0.7 K/mm3 (0-0.3); Eosinophils Percent Auto 7.8 % (0-4.4); Immature Granulocyte Absolute 0.03 K/mm3 (0.00-0.031); Immature Granulocyte Percent A 0.3 % (0-0.5); Lymphocytes Absolute Auto 2.91 K/mm3 (0.9-3.2); Lymphocytes Percent Auto 32.6 % (18.3-44.2); Mean Corpuscular HGB Conc 31.4 g/dl (32-36); Mean Corpuscular Hemoglobin 30.1 pg (26-34); Mean Corpuscular Volume 95.6 fl (80-100); Mean Platelet Volume 9.6 fl (7.4-10.4); Monocytes Absolute Auto 0.9 K/mm3 (0.1-0.6); Monocytes Percent Auto 10.4 % (2.6-8.5); Neutrophils Absolute Auto 4.3 K/mm3 (1.3-6.7); Neutrophils Percent Auto 48.5 % (45.5-73.1); Platelet Count Result 215 k/mm3 (150-375); Red Blood Count 3.66 M/mm3 (4.6-6.20); Red Cell Distribution Width 13.9 % (11.5-14.5); White Blood Count 8.9 K/mm3 (4.5-10.0)
[2024-03-03 08:38] LABS: Alanine Aminotransferase 15 U/L (6-50); Albumin Level 3.5 g/dL (3.5-5.1); Alkaline Phosphatase 84 U/L (38-126); Anion Gap 2 mmol/L (4-12); Aspartate Amino Transferase 30 U/L (17-59); Bilirubin,Total 1.4 mg/dL (0.2-1.3); Blood Urea Nitrogen 17 mg/dL (9-20); Carbon Dioxide 33 mmol/L (22-30); Chloride 104 mmol/L (98-107); Estimated CRCL calculation 40 ml/min; Estimated Glomerular Filt Rate > 60; Glucose 98 mg/dL (65-110); Potassium 3.9 mmol/L (3.4-5.0); Sodium 139 mmol/L (137-145)
[2024-03-03] MEDS: MEROPENEM 1 GM/NS 100 ML 1 GM/100 ML BAG IVPB ×2 (09:14→20:30)
[2024-03-03] MEDS: PANTOPRAZOLE 40 MG TABLET PO (09:15)
[2024-03-03] MEDS: APIXABAN 5 MG TABLET PO ×2 (09:15→20:26)
[2024-03-03] MEDS: DULoxetine HCL 30 MG CAPSULE.DR PO (09:15)
[2024-03-03] MEDS: allopurinoL 100 MG TABLET PO (09:15)
[2024-03-03] MEDS: methylPHENIDATE HCL (*CRX) 10 MG TABLET PO (09:15)
[2024-03-03] MEDS: FINASTERIDE 5 MG TABLET PO (09:15)
[2024-03-03] MEDS: CHOLECALCIFEROL 1,000 UNITS TABLET 1000 UNITS PO (09:15)
[2024-03-03] MEDS: OMEGA 3 POLYUNSAT FATTY ACIDS 1 GM CAP PO (09:15)
[2024-03-03] MEDS: METOPROLOL TARTRATE 25 MG TABLET PO ×2 (09:18→20:27)
[2024-03-03] MEDS: GABAPENTIN 300 MG CAPSULE PO (09:20)
[2024-03-03] MEDS: LORATADINE 10 MG TABLET PO (20:26)
[2024-03-03] MEDS: GABAPENTIN 300 MG CAPSULE 600 MG PO (20:27)
[2024-03-03] MEDS: amLODIPine BESYLATE 5 MG TABLET PO (20:27)
[2024-03-04] VITALS (8 sets, daily range): BP systolic 107–138; BP diastolic 49–58; PULSE 62–70; RESP 18; TEMP 36.2–36.6; O2SAT 97–100
[2024-03-04 05:43] LABS: Basophils Percent Auto 0.4 % (0.2-1.2); Eosinophils Absolute Auto 0.6 K/mm3 (0-0.3); Eosinophils Percent Auto 8.5 % (0-4.4); Hematocrit 35.2 % (42.0-52.0); Immature Granulocyte Absolute 0.02 K/mm3 (0.00-0.031); Immature Granulocyte Percent A 0.3 % (0-0.5); Lymphocytes Absolute Auto 2.19 K/mm3 (0.9-3.2); Lymphocytes Percent Auto 29.2 % (18.3-44.2); Mean Corpuscular HGB Conc 31.3 g/dl (32-36); Mean Corpuscular Volume 95.9 fl (80-100); Mean Platelet Volume 9.5 fl (7.4-10.4); Monocytes Absolute Auto 0.8 K/mm3 (0.1-0.6); Monocytes Percent Auto 10.9 % (2.6-8.5); Neutrophils Absolute Auto 3.8 K/mm3 (1.3-6.7); Neutrophils Percent Auto 50.7 % (45.5-73.1); Platelet Count Result 214 k/mm3 (150-375); Red Blood Count 3.67 M/mm3 (4.6-6.20); White Blood Count 7.5 K/mm3 (4.5-10.0)
[2024-03-04 05:56] LABS: Alanine Aminotransferase 15 U/L (6-50); Albumin Level 3.4 g/dL (3.5-5.1); Alkaline Phosphatase 85 U/L (38-126); Anion Gap -1 mmol/L (4-12); Aspartate Amino Transferase 31 U/L (17-59); Bilirubin,Total 0.8 mg/dL (0.2-1.3); Blood Urea Nitrogen 16 mg/dL (9-20); Calcium 8.8 mg/dL (8.4-10.2); Carbon Dioxide 32 mmol/L (22-30); Chloride 106 mmol/L (98-107); Estimated CRCL calculation 40 ml/min; Estimated Glomerular Filt Rate > 60; Glucose 104 mg/dL (65-110); Potassium 4.1 mmol/L (3.4-5.0); Sodium 137 mmol/L (137-145)
[2024-03-04] MEDS: SODIUM CHLORIDE 0.9% IV 1,000 ML 125 ML IV CONT (09:55)
[2024-03-04] MEDS: CHOLECALCIFEROL 1,000 UNITS TABLET 1000 UNITS PO (09:56)
[2024-03-04] MEDS: DULoxetine HCL 30 MG CAPSULE.DR PO (09:56)
[2024-03-04] MEDS: APIXABAN 5 MG TABLET PO ×2 (09:56→20:07)
[2024-03-04] MEDS: OMEGA 3 POLYUNSAT FATTY ACIDS 1 GM CAP PO (09:56)
[2024-03-04] MEDS: GABAPENTIN 300 MG CAPSULE PO (09:56)
[2024-03-04] MEDS: methylPHENIDATE HCL (*CRX) 10 MG TABLET PO (09:56)
[2024-03-04] MEDS: PANTOPRAZOLE 40 MG TABLET PO (09:57)
[2024-03-04] MEDS: allopurinoL 100 MG TABLET PO (09:57)
[2024-03-04] MEDS: METOPROLOL TARTRATE 25 MG TABLET PO ×2 (09:57→20:07)
[2024-03-04] MEDS: FINASTERIDE 5 MG TABLET PO (10:00)
[2024-03-04] MEDS: MEROPENEM 1 GM/NS 100 ML 1 GM/100 ML BAG IVPB (10:05)
--- NOTE | 2024-03-04 13:28 | P.PNIM_ITS ---
Progress Note: A&P Assessment and Plan (1) Acute UTI: Code(s): N39.0 - Urinary tract infection, site not specified Status: Acute Assessment and Plan: * UA showing turbid urine appearance, 1+ urine protein, 3+ urine blood, positive nitrate, 3+ leukocytes, greater than 100 urine RBC, greater than 100 urine wbc's, 4+ urine bacteria * urine culture negative on final read * on review of previous urine cultures he grew Proteus mirabilis and Klebs aerogenes, ESBL * patient was given a dose of Rocephin in the ED * Meropenem stopped * patient has a chronic Gonzalez was changed out this admission (2) Chronic indwelling Gonzalez catheter: Code(s): Z97.8 - Presence of other specified devices Status: Acute Assessment and Plan: * Gonzalez changed in the ED (3) General weakness: Code(s): R53.1 - Weakness Status: Acute Assessment and Plan: * PT and OT recommending SNF placement * continue fall precautions * up with assistance * Case management following (4) Gait instability: Code(s): R26.81 - Unsteadiness on feet Status: Acute Assessment and Plan: * continue fall precautions * PT and OT recommending SNF placement * Case management following (5) Lower extremity weakness: Qualifiers: Laterality: bilateral Qualified Code(s): R29.898 - Other symptoms and signs involving the musculoskeletal system Code(s): R29.898 - Other symptoms and signs involving the musculoskeletal system Status: Acute Assessment and Plan: see above (6) Gastroesophageal reflux disease: Code(s): K21.9 - Gastro-esophageal reflux disease without esophagitis Status: Acute Assessment and Plan: * continue Protonix (7) Paroxysmal atrial fibrillation: Code(s): I48.0 - Paroxysmal atrial fibrillation Status: Acute Assessment and Plan: * continue metoprolol and Eliquis (8) Hypertension: Code(s): I10 - Essential (primary) hypertension Status: Acute Assessment and Plan: * blood pressure ranging 108/49 to 147/63 * continue Norvasc (9) Chronic interstitial lung disease: Code(s): J84.9 - Interstitial pulmonary disease, unspecified Status: Acute Assessment and Plan: * currently on 2 L nasal cannula which is his baseline oxygen requirement Time Spent With Patient Time with patient: 15 - 25 minutes Subjective Date/time seen: 03/04/24 13:28 Interval history: Interval history: This is an 89-year-old male who presented to the hospital on 03/02/2024 with generalized weakness. He was found at home by his daughter as he was unable to get up from the toilet. Workup in the hospital included a head CT which was negative. Cervical spine CT which did not show any acute abnormality of the cervical spine, severe cervical spondylosis. Chest CT was negative for any acute abnormality, stable areas of chronic interstitial changes and scarring/ atelectasis at the lung bases and right middle lobe, right nephrolithiasis. Initial labs showed a white blood cell count of 10.5, hemoglobin 12.0, sodium 136, blood sugars ranging 121-148, total bilirubin 2.0, proBNP 1190. A UA was obtained which showed turbid urine appearance, 1+ urine protein, 3+ urine blood, positive nitrate, 3+ leukocyte, greater than 100 urine RBC, greater than 100 urine WBC, 4+ urine bacteria. Respiratory panel was negative for influenza a and B, RSV, COVID. Urine culture pending. 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 Was started on Rocephin in the ED. We switched him to meropenem due to the ESBL history. Subjective: Patient denies any new complaints. Labs reviewed. Review of Systems Review of Systems: generalized weakness, poor appetite. All systems reviewed & are unremarkable except as noted in HPI and below Constitutional: Constitutional: Reports as per HPI and Reports no additional constitutional complaints Eyes: Eyes: Reports as per HPI and Reports no additional eye complaints ENT: Reports system reviewed and no additional complaints, except as documented and Reports as per HPI Cardiovascular: Cardiovascular: Reports as per HPI and Reports no additional cardiovascular complaints Respiratory: Respiratory: Reports as per HPI and Reports no additional respiratory complaints Gastrointestinal: Gastrointestinal: Reports as per HPI and Reports no additional gastrointestinal complaints Genitourinary: Genitourinary: Reports no additional male genitourinary complaints and Reports as per HPI Musculoskeletal: Musculoskeletal: Reports no additional musculoskeletal complaints and Reports as per HPI Integumentary/Breasts: Skin/Breast: Reports system reviewed and no additional complaints, except as docu and Reports as per HPI Neurologic: Reports system reviewed and no additional complaints, except as documented and Reports as per HPI Psychiatric: Psychiatric: Reports no additional psychiatric complaints and Reports as per HPI Exam Narrative: General: In no acute distress, well nourished ENT: [place] Neck: supple, no JVD, no adenopathy, trachea midline Cardiac: Normal S1 and S2. No murmur, gallops or friction rubs, peripheral pulses intact. Respiratory: Lungs clear to auscultation, no adventitious lung sounds, currently on 2 L which is his baseline O2 requirement Gastrointestinal: soft, non-distended, non-tender, normoactive bowel sounds. : voiding without difficulty. Neuro: Alert and oriented x4, forgetful Objective Data Vital Signs Vital Signs: Vital Signs - 24 hr 03/03/24 14:00 03/03/24 20:00 03/03/24 20:20 Temperature 97.8 F 97.0 F L Pulse Rate 59 L 58 L Respiratory Rate 16 18 Blood Pressure 92/66 L 147/54 H Pulse Oximetry 98 97 97 Oxygen Delivery Nasal Cannula Oxygen Flow Rate 2 Fraction of Inspired Oxygen 03/03/24 20:27 03/04/24 06:00 03/04/24 07:41 Temperature 97.5 F L Pulse Rate 58 L 70 Respiratory Rate 18 Blood Pressure 124/58 L Pulse Oximetry 99 97 Oxygen Delivery CPAP Oxygen Flow Rate 2 Fraction of Inspired Oxygen 28 03/04/24 09:56 03/04/24 09:57 03/04/24 11:06 Temperature Pulse Rate 67 Respiratory Rate Blood Pressure Pulse Oximetry 100 Oxygen Delivery Nasal Cannula Nasal Cannula Oxygen Flow Rate 2 2 Fraction of Inspired Oxygen Intake/Output Intake/Output: Intake & Output 03/01/24 03/02/24 03/03/24 03/04/24 23:59 23:59 23:59 23:59 Intake Total 50 3570 1615 Output Total 1325 700 Balance 50 2855 915 Meds/Results Medications: Active Medications Generic Name Dose Route Start Last Admin Trade Name Freq PRN Reason Stop Dose Admin Alfuzosin HCl 10 mg 03/03/24 09:00 03/04/24 09:56 Alfuzosin 10 Mg Er Tablet PO 10 mg DAILY [facility] Administration Allopurinol 100 mg 03/03/24 09:00 03/04/24 09:57 Allopurinol 100 Mg Tablet PO 100 mg DAILY [facility] Administration Amlodipine Besylate 5 mg 03/03/24 21:00 03/03/24 20:27 Amlodipine Besylate 5 Mg Tablet PO 5 mg QHS [facility] Administration Apixaban 5 mg 03/03/24 09:00 03/04/24 09:56 Apixaban 5 Mg Tablet PO 5 mg Q12HR [facility] Administration Duloxetine HCl 30 mg 03/03/24 09:00 03/04/24 09:56 Duloxetine Hcl 30 Mg Capsule.Dr PO 30 mg DAILY [facility] Administration Finasteride 5 mg 03/03/24 09:00 03/04/24 10:00 Finasteride 5 Mg Tablet PO 5 mg QAM [facility] Administration Fish Oil 1 gm 03/03/24 09:00 03/04/24 09:56 [place] 3 Polyunsat Fatty Acids 1 Gm Cap PO 1 gm DAILY [facility] Administration Gabapentin 600 mg 03/03/24 21:00 03/03/24 20:27 Gabapentin 300 Mg Capsule PO 600 mg HS [facility] Administration Gabapentin 300 mg 03/03/24 09:00 03/04/24 09:56 Gabapentin 300 Mg Capsule PO 300 mg DAILY [facility] Administration Loratadine 10 mg 03/03/24 21:00 03/03/24 20:26 Loratadine 10 Mg Tablet PO 10 mg HS [facility] Administration Methylphenidate HCl 10 mg 03/03/24 09:00 03/04/24 09:56 Methylphenidate Hcl (*Crx) 10 Mg Tablet PO 10 mg QAM [facility] Administration Metoprolol Tartrate 25 mg 03/03/24 09:00 03/04/24 09:57 Metoprolol Tartrate 25 Mg Tablet PO 25 mg Q12HR [facility] Administration Ondansetron HCl 4 mg 03/02/24 14:22 Ondansetron Inj 4 Mg/2 Ml Vial IV PUSH Q4H PRN Nausea Pantoprazole Sodium 40 mg 03/03/24 09:00 03/04/24 09:57 Pantoprazole 40 Mg Tablet PO 40 mg DAILY [facility] Administration Vitamin D 1,000 units 03/03/24 09:00 03/04/24 09:56 Cholecalciferol 1,000 Units Tablet PO 1,000 units DAILY [facility] Administration Radiology Results: ITS Impressions Head CT 03/02/24 11:58 IMPRESSION: 1. No acute intracranial abnormality. Cervical Spine CT 03/02/24 13:04 IMPRESSION: 1. No acute abnormality of the cervical spine. 2: Severe cervical spondylosis. Chest CT 03/02/24 13:18 Impression: No acute abnormality evident. Stable areas of chronic interstitial change and scarring/atelectasis at the lung bases and right middle lobe. Stable focal area of anterior lung herniation at the right middle lobe. Right nephrolithiasis. Chronic osseous findings, as above. Labs Labs: Laboratory Results - last 24 hr 03/04/24 05:28 WBC 7.5 RBC 3.67 L Hgb 11.0 L Hct 35.2 L MCV 95.9 MCH 30.0 MCHC 31.3 L RDW 14.0 Plt Count 214 MPV 9.5 Immature Gran % (Auto) 0.3 Neut % (Auto) 50.7 Lymph % (Auto) 29.2 [place] % (Auto) 10.9 H Eos % (Auto) 8.5 H Baso % (Auto) 0.4 Lymph # (Auto) 2.19 [place] # (Auto) 0.8 H Eos # (Auto) 0.6 H Baso # (Auto) 0.0 Abs Immat Gran (auto) 0.02 Absolute Neuts (auto) 3.8 Absolute Nucleated RBC 0.000 Nucleated RBC % 0.0 Sodium 137 Potassium 4.1 Chloride 106 Carbon Dioxide 32 H Anion Gap -1 L BUN 16 Creatinine 1.00 Estim Creat Clear Calc 40 Estimated GFR > 60 Glucose 104 Calcium 8.8 Total Bilirubin 0.8 AST 31 ALT 15 Alkaline Phosphatase 85 Total Protein 7.0 Albumin 3.4 L Quality VTE Prophylaxis VTE prophylaxis: pharmacologic ordered
[2024-03-04] MEDS: GABAPENTIN 300 MG CAPSULE 600 MG PO (20:07)
[2024-03-04] MEDS: LORATADINE 10 MG TABLET PO (20:07)
[2024-03-04] MEDS: amLODIPine BESYLATE 5 MG TABLET PO (20:07)
[2024-03-05] VITALS (8 sets, daily range): BP systolic 138–145; BP diastolic 52–73; PULSE 54–62; RESP 16–20; TEMP 36.3–36.6; O2SAT 92–99
[2024-03-05 05:58] LABS: Basophils Percent Auto 0.3 % (0.2-1.2); Eosinophils Absolute Auto 0.6 K/mm3 (0-0.3); Eosinophils Percent Auto 8.7 % (0-4.4); Hematocrit 33.6 % (42.0-52.0); Hemoglobin 10.3 g/dL (14.0-18.0); Immature Granulocyte Absolute 0.02 K/mm3 (0.00-0.031); Immature Granulocyte Percent A 0.3 % (0-0.5); Lymphocytes Absolute Auto 2.16 K/mm3 (0.9-3.2); Lymphocytes Percent Auto 32.9 % (18.3-44.2); Mean Corpuscular HGB Conc 30.7 g/dl (32-36); Mean Corpuscular Hemoglobin 29.4 pg (26-34); Mean Platelet Volume 9.5 fl (7.4-10.4); Monocytes Absolute Auto 0.7 K/mm3 (0.1-0.6); Monocytes Percent Auto 10.5 % (2.6-8.5); Neutrophils Absolute Auto 3.1 K/mm3 (1.3-6.7); Neutrophils Percent Auto 47.3 % (45.5-73.1); Platelet Count Result 224 k/mm3 (150-375); White Blood Count 6.6 K/mm3 (4.5-10.0)
[2024-03-05 06:11] LABS: Alanine Aminotransferase 18 U/L (6-50); Albumin Level 3.2 g/dL (3.5-5.1); Alkaline Phosphatase 81 U/L (38-126); Anion Gap 3 mmol/L (4-12); Aspartate Amino Transferase 36 U/L (17-59); Bilirubin,Total 0.8 mg/dL (0.2-1.3); Blood Urea Nitrogen 19 mg/dL (9-20); Calcium 8.8 mg/dL (8.4-10.2); Carbon Dioxide 33 mmol/L (22-30); Chloride 103 mmol/L (98-107); Estimated CRCL calculation 34 ml/min; Estimated Glomerular Filt Rate 57; Glucose 99 mg/dL (65-110); Potassium 4.1 mmol/L (3.4-5.0); Sodium 139 mmol/L (137-145)
[2024-03-05] MEDS: APIXABAN 5 MG TABLET PO ×2 (08:43→21:02)
[2024-03-05] MEDS: OMEGA 3 POLYUNSAT FATTY ACIDS 1 GM CAP PO (08:43)
[2024-03-05] MEDS: GABAPENTIN 300 MG CAPSULE PO (08:43)
[2024-03-05] MEDS: CHOLECALCIFEROL 1,000 UNITS TABLET 1000 UNITS PO (08:44)
[2024-03-05] MEDS: METOPROLOL TARTRATE 25 MG TABLET PO ×2 (08:44→21:02)
[2024-03-05] MEDS: methylPHENIDATE HCL (*CRX) 10 MG TABLET PO (08:44)
[2024-03-05] MEDS: DULoxetine HCL 30 MG CAPSULE.DR PO (08:44)
[2024-03-05] MEDS: allopurinoL 100 MG TABLET PO (08:44)
[2024-03-05] MEDS: FINASTERIDE 5 MG TABLET PO (08:44)
[2024-03-05] MEDS: PANTOPRAZOLE 40 MG TABLET PO (08:44)
--- NOTE | 2024-03-05 14:14 | P.PNIM_ITS ---
Progress Note: A&P Assessment and Plan (1) Acute UTI: Code(s): N39.0 - Urinary tract infection, site not specified Status: Acute Assessment and Plan: * UA showing turbid urine appearance, 1+ urine protein, 3+ urine blood, positive nitrate, 3+ leukocytes, greater than 100 urine RBC, greater than 100 urine wbc's, 4+ urine bacteria * urine culture negative on final read * patient was given a dose of Rocephin in the ED * Meropenem stopped * patient has a chronic Gonzalez was changed out this admission (2) Chronic indwelling Gonzalez catheter: Code(s): Z97.8 - Presence of other specified devices Status: Acute Assessment and Plan: * Gonzalez changed in the ED (3) General weakness: Code(s): R53.1 - Weakness Status: Acute Assessment and Plan: * PT and OT recommending SNF placement * continue fall precautions * up with assistance * Case management following and we are currently awaiting authorization and referrals have been sent (4) Gait instability: Code(s): R26.81 - Unsteadiness on feet Status: Acute Assessment and Plan: * continue fall precautions * PT and OT recommending SNF placement * Case management following and we are currently awaiting authorization and referrals have been sent (5) Lower extremity weakness: Qualifiers: Laterality: bilateral Qualified Code(s): R29.898 - Other symptoms and signs involving the musculoskeletal system Code(s): R29.898 - Other symptoms and signs involving the musculoskeletal system Status: Acute Assessment and Plan: see above (6) Gastroesophageal reflux disease: Code(s): K21.9 - Gastro-esophageal reflux disease without esophagitis Status: Acute Assessment and Plan: * continue Protonix (7) Paroxysmal atrial fibrillation: Code(s): I48.0 - Paroxysmal atrial fibrillation Status: Acute Assessment and Plan: * continue metoprolol and Eliquis (8) Hypertension: Code(s): I10 - Essential (primary) hypertension Status: Acute Assessment and Plan: * blood pressure ranging 108/49 to 147/63 * continue Norvasc (9) Chronic interstitial lung disease: Code(s): J84.9 - Interstitial pulmonary disease, unspecified Status: Acute Assessment and Plan: * currently on 2 L nasal cannula which is his baseline oxygen requirement Time Spent With Patient Time with patient: Greater than 35 minutes Subjective Date/time seen: 03/05/24 14:14 Interval history: Interval history: This is an 89-year-old male who presented to the hospital on 03/02/2024 with generalized weakness. He was found at home by his daughter as he was unable to get up from the toilet. Workup in the hospital included a head CT which was negative. Cervical spine CT which did not show any acute abnormality of the cervical spine, severe cervical spondylosis. Chest CT was negative for any acute abnormality, stable areas of chronic interstitial changes and scarring/ atelectasis at the lung bases and right middle lobe, right nephrolithiasis. Initial labs showed a white blood cell count of 10.5, hemoglobin 12.0, sodium 136, blood sugars ranging 121-148, total bilirubin 2.0, proBNP 1190. A UA was obtained which showed turbid urine appearance, 1+ urine protein, 3+ urine blood, positive nitrate, 3+ leukocyte, greater than 100 urine RBC, greater than 100 urine WBC, 4+ urine bacteria. Respiratory panel was negative for influenza a and B, RSV, COVID. Urine culture pending. 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 Was started on Rocephin in the ED. We switched him to meropenem due to the ESBL history. Subjective: Patient denies any new complaints. Awaiting placement. Labs reviewed. Review of Systems Review of Systems: generalized weakness, poor appetite. All systems reviewed & are unremarkable except as noted in HPI and below Constitutional: Constitutional: Reports as per HPI and Reports no additional constitutional complaints Eyes: Eyes: Reports as per HPI and Reports no additional eye complaints ENT: Reports system reviewed and no additional complaints, except as documented and Reports as per HPI Cardiovascular: Cardiovascular: Reports as per HPI and Reports no additional cardiovascular complaints Respiratory: Respiratory: Reports as per HPI and Reports no additional respiratory complaints Gastrointestinal: Gastrointestinal: Reports as per HPI and Reports no additional gastrointestinal complaints Genitourinary: Genitourinary: Reports no additional male genitourinary co mplaints and Reports as per HPI Musculoskeletal: Musculoskeletal: Reports no additional musculoskeletal complaints and Reports as per HPI Integumentary/Breasts: Skin/Breast: Reports system reviewed and no additional complaints, except as docu and Reports as per HPI Neurologic: Reports system reviewed and no additional complaints, except as documented and Reports as per HPI Psychiatric: Psychiatric: Reports no additional psychiatric complaints and Reports as per HPI Exam Narrative: General: In no acute distress, well nourished ENT: [place] Neck: supple, no JVD, no adenopathy, trachea midline Cardiac: Normal S1 and S2. No murmur, gallops or friction rubs, peripheral pulses intact. Respiratory: Lungs clear to auscultation, no adventitious lung sounds, currently on 2 L which is his baseline O2 requirement Gastrointestinal: soft, non-distended, non-tender, normoactive bowel sounds. : voiding without difficulty. Neuro: Alert and oriented x4, forgetful Objective Data Vital Signs Vital Signs: Vital Signs - 24 hr 03/04/24 20:00 03/04/24 20:04 03/04/24 20:07 Temperature 98 F Pulse Rate 62 67 Respiratory Rate 18 Blood Pressure 138/49 L Pulse Oximetry 97 97 Oxygen Delivery Nasal Cannula Oxygen Flow Rate 2 03/05/24 05:08 03/05/24 08:35 03/05/24 08:43 Temperature 97.4 F L Pulse Rate 54 L Respiratory Rate 20 Blood Pressure 145/73 H Pulse Oximetry 92 94 Oxygen Delivery Nasal Cannula Nasal Cannula Oxygen Flow Rate 2 2 03/05/24 08:44 03/05/24 14:00 Temperature 97.5 F L Pulse Rate 59 L 61 Respiratory Rate 16 Blood Pressure 145/61 H Pulse Oximetry 99 Oxygen Delivery Oxygen Flow Rate Intake/Output Intake/Output: Intake & Output 03/02/24 03/03/24 03/04/24 03/05/24 23:59 23:59 23:59 23:59 Intake Total 50 3570 3005 630 Output Total 1325 1500 1325 Balance 50 9945 1505 -695 Meds/Results Medications: Active Medications Generic Name Dose Route Start Last Admin Trade Name Freq PRN Reason Stop Dose Admin Alfuzosin HCl 10 mg 03/03/24 09:00 03/05/24 08:44 Alfuzosin 10 Mg Er Tablet PO 10 mg DAILY YULIANA Administration Allopurinol 100 mg 03/03/24 09:00 03/05/24 08:44 Allopurinol 100 Mg Tablet PO 100 mg DAILY YULIANA Administration Amlodipine Besylate 5 mg 03/03/24 21:00 03/04/24 20:07 Amlodipine Besylate 5 Mg Tablet PO 5 mg QHS YULIANA Administration Apixaban 5 mg 03/03/24 09:00 03/05/24 08:43 Apixaban 5 Mg Tablet PO 5 mg Q12HR YULIANA Administration Duloxetine HCl 30 mg 03/03/24 09:00 03/05/24 08:44 Duloxetine Hcl 30 Mg Capsule.Dr PO 30 mg DAILY YULIANA Administration Finasteride 5 mg 03/03/24 09:00 03/05/24 08:44 Finasteride 5 Mg Tablet PO 5 mg QAM YULIANA Administration Fish Oil 1 gm 03/03/24 09:00 03/05/24 08:43 [place] 3 Polyunsat Fatty Acids 1 Gm Cap PO 1 gm DAILY YULIANA Administration Gabapentin 600 mg 03/03/24 21:00 03/04/24 20:07 Gabapentin 300 Mg Capsule PO 600 mg HS YULIANA Administration Gabapentin 300 mg 03/03/24 09:00 03/05/24 08:43 Gabapentin 300 Mg Capsule PO 300 mg DAILY YULIANA Administration Loratadine 10 mg 03/03/24 21:00 03/04/24 20:07 Loratadine 10 Mg Tablet PO 10 mg HS YULIANA Administration Methylphenidate HCl 10 mg 03/03/24 09:00 03/05/24 08:44 Methylphenidate Hcl (*Crx) 10 Mg Tablet PO 10 mg QAM YULIANA Administration Metoprolol Tartrate 25 mg 03/03/24 09:00 03/05/24 08:44 Metoprolol Tartrate 25 Mg Tablet PO 25 mg Q12HR YULIANA Administration Ondansetron HCl 4 mg 03/02/24 14:22 Ondansetron Inj 4 Mg/2 Ml Vial IV PUSH Q4H PRN Nausea Pantoprazole Sodium 40 mg 03/03/24 09:00 03/05/24 08:44 Pantoprazole 40 Mg Tablet PO 40 mg DAILY YULIANA Administration Vitamin D 1,000 units 03/03/24 09:00 03/05/24 08:44 Cholecalciferol 1,000 Units Tablet PO 1,000 units DAILY YULIANA Administration Radiology Results: ITS Impressions Head CT 03/02/24 11:58 IMPRESSION: 1. No acute intracranial abnormality. Cervical Spine CT 03/02/24 13:04 IMPRESSION: 1. No acute abnormality of the cervical spine. 2: Severe cervical spondylosis. Chest CT 03/02/24 13:18 Impression: No acute abnormality evident. Stable areas of chronic interstitial change and scarring/atelectasis at the lung bases and right middle lobe. Stable focal area of anterior lung herniation at the right middle lobe. Right nephrolithiasis. Chronic osseous findings, as above. Labs Labs: Laboratory Results - last 24 hr 03/05/24 05:39 WBC 6.6 RBC 3.50 L Hgb 10.3 L Hct 33.6 L MCV 96.0 MCH 29.4 MCHC 30.7 L RDW 14.0 Plt Count 224 MPV 9.5 Immature Gran % (Auto) 0.3 Neut % (Auto) 47.3 Lymph % (Auto) 32.9 [place] % (Auto) 10.5 H Eos % (Auto) 8.7 H Baso % (Auto) 0.3 Lymph # (Auto) 2.16 [place] # (Auto) 0.7 H Eos # (Auto) 0.6 H Baso # (Auto) 0.0 Abs Immat Gran (auto) 0.02 Absolute Neuts (auto) 3.1 Absolute Nucleated RBC 0.000 Nucleated RBC % 0.0 Sodium 139 Potassium 4.1 Chloride 103 Carbon Dioxide 33 H Anion Gap 3 L BUN 19 Creatinine 1.20 Estim Creat Clear Calc 34 Estimated GFR 57 L Glucose 99 Calcium 8.8 Total Bilirubin 0.8 AST 36 ALT 18 Alkaline Phosphatase 81 Total Protein 6.0 L Albumin 3.2 L Quality VTE Prophylaxis VTE prophylaxis: pharmacologic ordered
[2024-03-05] MEDS: GABAPENTIN 300 MG CAPSULE 600 MG PO (21:02)
[2024-03-05] MEDS: LORATADINE 10 MG TABLET PO (21:02)
[2024-03-05] MEDS: amLODIPine BESYLATE 5 MG TABLET PO (21:02)
[2024-03-06 04:51] VITALS: BP 151/71; PULSE 54; RESP 18; TEMP 36.2; O2SAT 91
[2024-03-06 05:42] LABS: Basophils Percent Auto 0.5 % (0.2-1.2); Eosinophils Absolute Auto 0.6 K/mm3 (0-0.3); Eosinophils Percent Auto 9.4 % (0-4.4); Hematocrit 34.8 % (42.0-52.0); Hemoglobin 10.9 g/dL (14.0-18.0); Immature Granulocyte Absolute 0.02 K/mm3 (0.00-0.031); Immature Granulocyte Percent A 0.3 % (0-0.5); Lymphocytes Absolute Auto 2.43 K/mm3 (0.9-3.2); Mean Corpuscular HGB Conc 31.3 g/dl (32-36); Mean Corpuscular Hemoglobin 30.1 pg (26-34); Mean Corpuscular Volume 96.1 fl (80-100); Mean Platelet Volume 9.2 fl (7.4-10.4); Monocytes Absolute Auto 0.7 K/mm3 (0.1-0.6); Monocytes Percent Auto 10.8 % (2.6-8.5); Neutrophils Absolute Auto 2.8 K/mm3 (1.3-6.7); Platelet Count Result 243 k/mm3 (150-375); Red Blood Count 3.62 M/mm3 (4.6-6.20); Red Cell Distribution Width 13.7 % (11.5-14.5); White Blood Count 6.6 K/mm3 (4.5-10.0)
[2024-03-06 05:50] LABS: Alanine Aminotransferase 18 U/L (6-50); Albumin Level 3.4 g/dL (3.5-5.1); Alkaline Phosphatase 82 U/L (38-126); Anion Gap 2 mmol/L (4-12); Aspartate Amino Transferase 33 U/L (17-59); Bilirubin,Total 0.7 mg/dL (0.2-1.3); Blood Urea Nitrogen 21 mg/dL (9-20); Calcium 9.3 mg/dL (8.4-10.2); Carbon Dioxide 36 mmol/L (22-30); Chloride 101 mmol/L (98-107); Estimated CRCL calculation 40 ml/min; Estimated Glomerular Filt Rate > 60; Glucose 93 mg/dL (65-110); Potassium 4.3 mmol/L (3.4-5.0); Sodium 139 mmol/L (137-145)
[2024-03-06 09:14] VITALS: PULSE 64; O2SAT 100
[2024-03-06] MEDS: GABAPENTIN 300 MG CAPSULE PO (09:14)
[2024-03-06] MEDS: allopurinoL 100 MG TABLET PO (09:14)
[2024-03-06] MEDS: APIXABAN 5 MG TABLET PO (09:14)
[2024-03-06] MEDS: methylPHENIDATE HCL (*CRX) 10 MG TABLET PO (09:14)
[2024-03-06] MEDS: OMEGA 3 POLYUNSAT FATTY ACIDS 1 GM CAP PO (09:14)
[2024-03-06] MEDS: METOPROLOL TARTRATE 25 MG TABLET PO (09:14)
[2024-03-06] MEDS: CHOLECALCIFEROL 1,000 UNITS TABLET 1000 UNITS PO (09:14)
[2024-03-06] MEDS: DULoxetine HCL 30 MG CAPSULE.DR PO (09:14)
[2024-03-06] MEDS: FINASTERIDE 5 MG TABLET PO (09:14)
[2024-03-06] MEDS: PANTOPRAZOLE 40 MG TABLET PO (09:14)
[2024-03-06 14:00] VITALS: BP 111/84; PULSE 50; RESP 18; TEMP 36.4; O2SAT 97
--- NOTE | 2024-03-06 14:03 | P.DS_ITS ---
DS: Admitting Diagnosis Discharge Date 03/06/24 Admitting Diagnosis Acute UTI Falls frequently Generalized weakness Chronic indwelling Gonzalez catheter Chronic respiratory failure with hypoxia Chronic interstitial lung disease GERD Paroxysmal atrial fibrillation Obstructive sleep apnea Gait instability Lower extremity weakness DS: Discharge Diagnosis Discharge Diagnosis (1) Acute UTI: Code(s): N39.0 - Urinary tract infection, site not specified Status: Acute Assessment and Plan: * UA showing turbid urine appearance, 1+ urine protein, 3+ urine blood, positive nitrate, 3+ leukocytes, greater than 100 urine RBC, greater than 100 urine wbc's, 4+ urine bacteria * urine culture negative on final read * patient was given a dose of Rocephin in the ED * Meropenem stopped * patient has a chronic Gonzalez was changed out this admission (2) Chronic indwelling Gonzalez catheter: Code(s): Z97.8 - Presence of other specified devices Status: Acute Assessment and Plan: * Gonzalez changed in the ED (3) General weakness: Code(s): R53.1 - Weakness Status: Acute Assessment and Plan: * PT and OT recommending SNF placement * continue fall precautions * up with assistance * Case management following and we are currently awaiting authorization and referrals have been sent (4) Gait instability: Code(s): R26.81 - Unsteadiness on feet Status: Acute Assessment and Plan: * continue fall precautions * PT and OT recommending SNF placement * Case management following and we are currently awaiting authorization and referrals have been sent (5) Lower extremity weakness: Qualifiers: Laterality: bilateral Qualified Code(s): R29.898 - Other symptoms and signs involving the musculoskeletal system Code(s): R29.898 - Other symptoms and signs involving the musculoskeletal system Status: Acute Assessment and Plan: see above (6) Gastroesophageal reflux disease: Code(s): K21.9 - Gastro-esophageal reflux disease without esophagitis Status: Acute Assessment and Plan: * continue Protonix (7) Paroxysmal atrial fibrillation: Code(s): I48.0 - Paroxysmal atrial fibrillation Status: Acute Assessment and Plan: * continue metoprolol and Eliquis (8) Hypertension: Code(s): I10 - Essential (primary) hypertension Status: Acute Assessment and Plan: * blood pressure ranging 108/49 to 147/63 * continue Norvasc (9) Chronic interstitial lung disease: Code(s): J84.9 - Interstitial pulmonary disease, unspecified Status: Acute Assessment and Plan: * currently on 2 L nasal cannula which is his baseline oxygen requirement DS: Summary Hospital Course Reason for hospitalization: Acute UTI Falls frequently Generalized weakness Chronic indwelling Gonzalez catheter Chronic respiratory failure with hypoxia Chronic interstitial lung disease GERD Paroxysmal atrial fibrillation Obstructive sleep apnea Gait instability Lower extremity weakness Hospital Course: This is an 89-year-old male who presented to the hospital on 03/02/2024 with generalized weakness. He was found at home by his daughter as he was unable to get up from the toilet. Workup in the hospital included a head CT which was negative. Cervical spine CT which did not show any acute abnormality of the cervical spine, severe cervical spondylosis. Chest CT was negative for any ac brian abnormality, stable areas of chronic interstitial changes and scarring/ atelectasis at the lung bases and right middle lobe, right nephrolithiasis. Initial labs showed a white blood cell count of 10.5, hemoglobin 12.0, sodium 136, blood sugars ranging 121-148, total bilirubin 2.0, proBNP 1190. A UA was obtained which showed turbid urine appearance, 1+ urine protein, 3+ urine blood, positive nitrate, 3+ leukocyte, greater than 100 urine RBC, greater than 100 urine WBC, 4+ urine bacteria. Respiratory panel was negative for influenza a and B, RSV, COVID. Urine culture pending. 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 Was started on Rocephin in the ED. We switched him to meropenem due to the ESBL history. 03/04 Urine culture negative and meropenem was discontinued. PT and OT work with patient and is recommending SNF placement. Patient is stable for discharge at this time to SNF. He will need to follow up with his primary care doctor in 2 weeks. UTI ruled out this admission with negative urine culture Final diagnosis: Generalized deconditioning Status at Discharge Cognitive/behavioral status at discharge: Alert oriented x3 Functional status at discharge: uses cane/walker Overall status at discharge: patient is progressing back to baseline Time Spent with Patient Time attestation: Total time spent providing and/or coordinating discharge services: Time spent: Greater than 30 minutes Exam Narrative: General: In no acute distress, well nourished ENT: [place] Neck: supple, no JVD, no adenopathy, trachea midline Cardiac: Normal S1 and S2. No murmur, gallops or friction rubs, peripheral pulses intact. Respiratory: Lungs clear to auscultation, no adventitious lung sounds, currently on 2 L which is his baseline O2 requirement Gastrointestinal: soft, non-distended, non-tender, normoactive bowel sounds. : voiding without difficulty. Neuro: Alert and oriented x4, forgetful DS: Data Data Completed and Pending Completed studies during hospitalization: Head CT Cervical spine CT Chest CT Pending studies at discharge: None Labs on day of discharge: Labs from last 24 hours 03/06/24 05:22 WBC 6.6 RBC 3.62 L Hgb 10.9 L Hct 34.8 L MCV 96.1 MCH 30.1 MCHC 31.3 L RDW 13.7 Plt Count 243 MPV 9.2 Immature Gran % (Auto) 0.3 Neut % (Auto) 42.0 L Lymph % (Auto) 37.0 [place] % (Auto) 10.8 H Eos % (Auto) 9.4 H Baso % (Auto) 0.5 Lymph # (Auto) 2.43 [place] # (Auto) 0.7 H Eos # (Auto) 0.6 H Baso # (Auto) 0.0 Abs Immat Gran (auto) 0.02 Absolute Neuts (auto) 2.8 Absolute Nucleated RBC 0.000 Nucleated RBC % 0.0 Sodium 139 Potassium 4.3 Chloride 101 Carbon Dioxide 36 H Anion Gap 2 L BUN 21 H Creatinine 1.00 Estim Creat Clear Calc 40 Estimated GFR > 60 Glucose 93 Calcium 9.3 Total Bilirubin 0.7 AST 33 ALT 18 Alkaline Phosphatase 82 Total Protein 7.0 Albumin 3.4 L Procedures/Treatments: None Discharge Plan Discharge Attending physician on discharge: Robi Phipps Discharging Clinician: Carrie Garcia Anticipated Discharge Date/Time: 03/06/24 14:01 Patient Disposition: SNF Activity: as tolerated Diet: as tolerated Discharge Instructions: * Urinary tract infection was ruled out this admission with urine culture. You do not need any antibiotics at this time. * Follow-up with your primary care doctor in 2 weeks. Patient Instructions: Antibiotic Form Patient Language: Japanese Stand Alone Forms: General Discharge Information Follow-up/Referrals: Loepker,Annamarie R., BU[employer]ING WHEEL [employer]AKER-C [Primary Care Provider] - 2 Weeks Discharge Medications: Continued loratadine [Claritin] 10 mg tablet 10 mg PO HS alfuzosin 10 mg tablet extended release 24 hr 10 mg PO DAILY gabapentin 300 mg capsule 600 mg PO HS Rx Instructions: and 2 tabs (600mg every PM). gabapentin 300 mg capsule 300 mg PO DAILY Rx Instructions: TAKE 1 CAPSULE BY MOUTH EVERY MORNING AND 2 TABS (600MG EVERY PM). metoprolol tartrate 25 mg tablet 25 mg PO BID Qty: 180 2RF pantoprazole 40 mg tablet,delayed release (DR/EC) 40 mg PO DAILY Qty: 90 0RF Eliquis 5 mg tablet 5 mg PO Q12H Qty: 180 0RF allopurinol 100 mg tablet 100 mg PO DAILY Qty: 90 0RF amlodipine 5 mg tablet 5 mg PO QHS Qty: 90 1RF duloxetine 30 mg capsule,delayed release(DR/EC) 30 mg PO DAILY Qty: 90 1RF methylphenidate HCl 10 mg tablet 10 mg PO QAM Qty: 30 0RF finasteride [Proscar] 5 mg Tablet 5 mg PO QAM Qty: 30 0RF cholecalciferol (vitamin D3) [Vitamin D3] 25 mcg (1,000 unit) Tablet 25 mcg PO DAILY Qty: 30 0RF omega 2-det-cqu-fish oil 300-1,000 mg Capsule 1 cap PO DAILY Qty: 30 0RF Discontinued cephalexin 250 mg capsule 250 mg PO HS Date of admission: 03/03/24 16:18 Primary Care Provider: Annamarie Betancourt Admitting Provider: Robi Phipps Attending physician on admission: Carrie Garcia Condition: Stable Quality VTE Prophylaxis VTE prophylaxis: pharmacologic ordered
[2024-03-06 14:45] VITALS: O2SAT 95
--- NOTE | 2024-03-06 16:59 | PC.NURSE ---
RN spoke with Ofelia via telephone in regards to patient discharging. RN asked Ofelia if she had portable oxygen for patient. Ofelia stated the portable oxygen is in [place] and she will be going to get it once patient is in the vehicle. RN explained to Ofelia that it is imperative that patient wear oxygen at all times. Ofelia stated that patient goes days without his oxygen on. RN spoke with Abhinav at bedside and offered him oxygen tank to transfer patient to [facility]. Abhinav stated the drive is only 5 minutes and he does not want to have to bring tank back.
[2024-03-06 17:12] LABS: SARS-CoV-2 RNA PCR Negative (Negative)
== END 2024-03-06 17:05 | DRG 948 ==
LOC: ANHED 11:03 → ANH3MEDSUR 15:25 → ANH3MED 17:41
PROVIDERS: Emergency Medicine; Admitting Provider Internal Medicine; Emergency Provider Physician Assistant; PCP Nurse Practitioner Family; Visit Provider Nurse Practitioner Acute Care
DX: R53.1 Weakness (principal); J84.9 Interstitial pulmonary disease, unspecified; J96.11 Chronic respiratory failure with hypoxia; R26.89 Other abnormalities of gait and mobility; R29.6 Repeated falls; K21.9 Gastro-esophageal reflux disease without esophagitis; I48.0 Paroxysmal atrial fibrillation; G47.33 Obstructive sleep apnea (adult) (pediatric); Z79.01 Long term (current) use of anticoagulants; I10 Essential (primary) hypertension; Z99.81 Dependence on supplemental oxygen; N40.0 Benign prostatic hyperplasia without lower urinary tract symptoms; N31.9 Neuromuscular dysfunction of bladder, unspecified; G62.9 Polyneuropathy, unspecified; I35.0 Nonrheumatic aortic (valve) stenosis
CPT/HCPCS: 36415; 70450; 71250; 72125; 80053; 81001; 82550; 82948; 83880; 85025; 87086; 87635; 87637; 93005; 96365; 96366; 96375; 97110; 97116; 97161; 97165; 97530; 97535; 99285; A9270; G0378; J0696; J2185; J7030

== ENCOUNTER 2024-06-26 11:02 | Emergency (ER) | payer MEDICARE, SELFPAY ==
[2024-06-26] VITALS (12 sets, daily range): BP systolic 113–149; BP diastolic 63–91; PULSE 59–91; RESP 12–25; TEMP 36.3–36.6; O2SAT 91–100
--- NOTE | ~2024-06-26 | CT_ITS ---
CLINICAL INDICATION: Flank pain COMPARISON: 10/19/2023. TECHNIQUE: Multiple contiguous axial images of the abdomen and pelvis were performed without the admi nistration of intravenous contrast The dose-length product (DLP) was 1120.20 mGy-cm. Automated exposure control and iterative reconstruction technique were employed. FINDINGS/OBSERVATIONS: Visualized lower thorax: Redemonstration of a anterior medial right lung herniation, unchanged from 2023. Small bilateral pleural effusions (also unchanged) with adjacent compressive atelectasis. The heart is enlarged, without pericardial effusion. Significantly calcified aortic valve. Small hiatal hernia is present. Liver: The liver demonstrates homogeneous attenuation and is not enlarged measuring cm in longitudinal dimen lovely. Gallbladder and biliary system: The gallbladder is only minimally distended, and otherwise unremarkable. Pancreas: Limited evaluation of the pancreas secondary to the lack of intravenous contrast. Spleen: The spleen demonstrates homogeneous attenuation and is not enlarged. Kidneys: Redemonstration of multiple bulky calcifications within the atrophic right kidney. No stones are identified within the left kidney. Exophytic from the upper pole of the right kidney is a rounded focus of decreased attenuation, too sm all to characterize. Adrenal glands: Unremarkable. Gastrointestinal tract: Colonic diverticulosis without surrounding inflammatory change. Appendix: The air-filled appendix is of normal caliber (axial series, images 137 through 157). Vasculature: Densely calcified atherosclerotic disease. Lymph nodes: Limited evaluation without intravenous contrast. Pelvic structures: The bladder is decompressed with a Gonzalez catheter, limiting its evaluation. The prostate gland is not enlarged but contains multiple bulky calcifications. Body wall and musculoskeletal: Posterior fixation from the level of T11-L3. Otherwise age-appropriate degenerative disease within the lumbar spine. IMPRESSION: Redemonstration of multiple bulky calcifications within the atrophic right kidney without hydronephro sis, as detailed above. Reviewed, dictated and finalized at location A. IMPRESSION: Redemonstration of multiple bulky calcifications within the atrophic right kidn ey without hydronephrosis, as detailed above.
--- OUTSIDE RECORDS SUMMARY | 2024-06-26 12:34 | XMS_ITS | Clinical Summary ---
Author Organization [facility] [id number] [facility] Address [address] [place] [address] Care Team Providers Care Subway Train Operator Name Role Phone Gagan Mckay MD Primary Care Provider Allergies Active Allergy Reactions Criticality Noted Date Comments Niacin Other (See comments) Low 08/02/2012 Rash,flushing, decreased heart rate Medications alfuzosin ER (UROXATRAL) 10 mg 24 hr tablet Take 10 mg by mouth daily 2 Active allopurinoL (ZYLOPRIM) 100 mg tablet Take 100 mg by mouth daily 2 Active Eliquis 5 mg tablet Take 5 mg by mouth 2 (two) times a day 2 Active cetirizine (ZyrTEC) 10 mg capsule Active DULoxetine DR (CYMBALTA) 30 mg capsule Take by mouth daily 2 Active finasteride (PROSCAR) 5 mg tablet Take 5 mg by mouth daily 2 Active gabapentin (NEURONTIN) 300 mg capsule Take 300 mg by mouth 2 (two) times a day 2 Active loperamide (IMODIUM) 2 mg capsule TAKE 1 CAPSULE BY MOUTH EVERY 6 HOURS NEEDED FOR LOOSE STOOL 2 Active methylphenidate HCl (RITALIN) 10 mg tablet Take 10 mg by mouth daily 3 Active metoprolol tartrate (LOPRESSOR) 25 mg immediate release tablet Take 25 mg by mouth 2 (two) times a day 2 Active mupirocin (BACTROBAN) 2 % ointment Apply topically 2 (two) times a day 2 Active omega 8-nug-qmu-fish oil 1,000 mg (120 mg-180 mg) capsule Active pantoprazole DR (PROTONIX) 40 mg EC tablet Take 40 mg by mouth daily 2 Active Active Problems Problem Noted Date Diagnosed Date Bilateral impacted cerumen 03/30/2022 Sensorineural hearing loss (SNHL) of both ears 0 03/30/2022 Medical History Medical History Date Comments Allergic rhinitis GERD (gastroesophageal reflux disease) Sinusitis Family History Medical History Relation Name Comments No Known Problems Father No Known Problems Mother Relation Name Status Comments Father Mother Social History Tobacco Use Types Packs/Day Years Used Date Smoking Tobacco: Never Smokeless Tobacco: Never Tobacco Cessation:Counseling Given: Not Answered Personal Safety Answer Date Recorded Getting School Help Needed Not on file 06/04 Sex and Gender Information Value Date Recorded Sex Assigned at Not on file Legal Sex Male 2:38 AM [employer]IGREE [employer] Gender Identity Not on file Sexual Orientation Not on file Obstetrics History Last Filed Vital Signs Vital Sign Reading Time Taken Comments Blood Pressure 136/75 08/02/2012 3:37 PM CDT Pulse 66 08/02/2012 3:37 PM CDT Temperature 36.4 C (97.5 F) 08/02/2012 3:37 PM CDT Respiratory Rate 18 03/30/2022 11:55 AM PEDIGREE TRACER Oxygen Saturation 92% 08/02/2012 3:37 PM CDT Inhaled Oxygen Concentration - - Weight 81.6 kg (180 lb) 03/30/2022 11:55 AM PEDIGREE TRACER Height 162.6 cm (5' 4 ) 03/30/2022 11:55 AM PEDIGREE TRACER Body Mass Index 30.9 03/30/2022 11:55 AM PEDIGREE TRACER Plan of Treatment Health Maintenance Due Date Last Done Comments Depression Screening 1935 Fall Risk Assessment 1935 DTaP/Tdap/Td Vaccine (1 - Tdap) 01/28/1946 Hepatitis B Screening 1953 Zoster Vaccine (1 of 2) 1987 Well Visit 65+ 2002 Covid-19 Vaccine (4 - 2023-2 5 season) 2023 04/02/2021, 11/03/2020, 10/07/2020 Influenza Vaccine (#1) 2023 , 12/02/2020, 12/25/2018, Additional history exists Pneumococcal vaccine 65+ Completed 12/14/2021, 10/19 Insurance MEDICARE [facility] Care Teams Subway Train Operator Relationship Specialty Start Date End Date Gagan Mckay MD [address] [address] PCP - General Family Medicine 03/16/22
--- OUTSIDE RECORDS SUMMARY | 2024-06-26 12:34 | XMS_ITS | Encounter Summary ---
Author Organization [facility] Address [address] [place] [address] Care Team Providers Care Head Librarian Name Role Phone Aure Salas PA-C Primary Care Provider [phone] Reason for Visit * Reason Onset Date Comments Advise 12/07/2022 Encounter Details Date Type Department Care Team (Late st Contact Info) Description 12/07/2022 Telephone [facility] Care [address] [place] [address] [place] [address] Aure Salas PA-C [address] [place], [place] [address] [place], [place] [id number] Advise Social History Tobacco Use Types Packs/Day Years Used Date Smoking Tobacco: Never Smokeless Tobacco: Never Alcohol Use Standard Drinks/Week Comments Never 0 (1 standard drink = 0.6 oz pur e alcohol) OASIS D0700: Social Isolation Answer Da te Recorded Frequency of experiencing loneliness or isolatio n Rarely 12/10/2022 OASIS A1250: Transportation Answer Date Recorded Lack of Transportation (Medical) No 12/10/2022 Lack of Transportation (Non-Medical) No 12/10/2022 Patient Unable or Declines to Respond No 12/10/2022 OASIS B1300: Health Literacy Answer Kirt e Recorded Frequency of needing help to read materials from doctor or pharmacy Sometimes 12/10/2022 Humiliation, Afraid, Rape, and Kick questionnair e Answer Date Recorded Within the last year, have y ou been afraid of your partner or ex-partner? No 11/30/2022 Within the last year, have y ou been humiliated or emotionally abused in other ways by your partner or ex-partner? No Within the last year, have y ou been kicked, hit, slapped, or otherwise physically hurt by your partner or ex-partner? No 11/30/2022 Within the last year, have y ou been raped or forced to have any kind of sexual activity by your partner or ex-partner? No 11/30/2022 Overall Financial Resource Strain (CARDIA) Answe r Date Recorded How hard is it for you to pa y for the very basics like food, housing, medical care, and heating? Not hard at all 11/30/2022 Hunger Vital Sign Answer Date Recorded Within the past 12 months, y ou worried that your food would run out before you got the money to buy more. Never true 12/01/19 23 Within the past 12 months, t he food you bought just didn't last and you didn't have money to get more. Never true 11/30/2022 PRAPARE - Transportation Answer Date Re corded In the past 12 months, has l ack of transportation kept you from medical appointments or from getting medications? No 11/19 In the past 12 months, has l ack of transportation kept you from meetings, work, or from getting things needed for daily living? No 11/30/2022 Housing Stability Vital Sign Answer Kirt e Recorded In the last 12 months, was t here a time when you were not able to pay the mortgage or rent on time? No 11/30/2022 In the last 12 months, how many places have you lived? 1 11/30/2022 In the last 12 months, was t here a time when you did not have a steady place to sleep or slept in a long-term (including now)? No 11/30/2022 Sex and Gender Information Value Date Recorded Sex Assigned at Not on file Legal Sex Male 1:42 AM CDT Gender Identity Not on file Sexual Orientation Not on file documented as of this encounter Functional Status * Question Answer Date of Assessment Author Status Do you have serious difficulty walking or climbing stairs? Yes 12/09/2022 11:25 AM CDT Tammy Torres RN Acti ve Do you have difficulty dressing or bathing? Yes 12/09/2022 11:25 AM Tammy Cotton RN Active Because of a physical, mental, or emotional condition, do you have difficulty doing errands alone such as visiting a doctor's office or shopping? Yes 12/09/2022 11:25 AM JOHANNAT Ca Torres RN Active * Are you deaf or do you have serious difficulty hearing Answer Date of Assessment Author Status Yes 12/02/2022 1:54 PM Esmer Bernabe RN Active * Are you blind or do you have serious difficulty seeing, even when wearing glasses? Answer Date of Assessment Author Status No 12/02/2022 1:54 PM Esmer Bernabe RN Active * Do you have serious difficulty walking or climbing stairs? Answer Date of Assessment Author Status Yes 12/02/2022 1:54 PM Esmer Bernabe RN Active * Do you have difficulty dressing or bathing? Answer Date of Assessment Author Status Yes 12/02/2022 1:54 PM Esmer Bernabe RN Active * Because of a physical, mental, or emotional condition, do you have difficulty doing errands alone such as visiting a doctor's office or shopping? Answer Date of Assessment Author Status Yes 12/02/2022 1:54 PM Esmer Bernabe RN Active documented as of this encounter Mental Status * Question Answer Entry Date Author Status Because of a physical, mental, or emotional condition, do you have serious difficulty concentrating, remembering, or making decisions? Yes 12/09/2022 11:25 AM Tammy Cotton RN Active * Because of a physical, mental, or emotional condition, do you have serious difficulty concentrating, remembering, or making decisions? Answer Entry Date Author Status Yes 12/02/2022 1:54 PM Esmer Bernabe RN Active documented in this encounter Plan of Treatment Not on file documented as of this encounter Visit Diagnoses Not on filedocumented in this encounter Additional Health Concerns Infection Onset Date Last Indicated Resolved Time ESBL - Extended Spectrum Bet a-lactamase Comment:07/12/22 urine (JK) 07/27/22 urine (JK) 09/16/22 urine (JJ) 11/24/22 urine (RR) 07/12/2022 11/25/2022 documented as of this encounter Care Teams Head Librarian Relationship Specialty Start Date End Date Aure Salas PA-C [address] [place] [address] [address] [place] [address] PCP - General PHYSICIAN PRODUCE RUNNER 04/09/22 documented as of this encounter
--- OUTSIDE RECORDS SUMMARY | 2024-06-26 12:34 | XMS_ITS | Clinical Summary ---
Author Organization [facility] Address [address] [place] [address] Care Team Providers Care Waistband Setter Name Role Phone Aure Salas PA-C Primary Care Provider [phone] Allergies Active Allergy Reactions Criticality Noted Date Comments Niacin Other (see comment) Low 08/02/2012 Rash,flushing, decreased heart rate Medications gabapentin (NEURONTIN) 300 MG capsuleIndicat ions:nerve pain Take 1 capsule by mouth 2 (two) times daily. Indications: nerve pain Active alfuzosin ER (UROXATRAL) 10 MG 24 hr tabletIndicati ons:urinary retention Take 1 tablet by mouth daily. Indications: urinary retention Active pantoprazole EC (PROTONIX) 40 MG tabletIndicati ons:GERD Take 1 tablet by mouth daily. Indications: GERD Active finasteride (PROSCAR) 5 MG tabletIndicati ons:urinary retention Take 1 tablet by mouth daily. Indications: urinary retention Active apixaban (ELIQUIS) 5 MG tabletIndicati ons:Anticoagul ant Therapy Take 1 tablet by mouth 2 (two) times daily. Indications: Anticoagulant Therapy Active cephALEXin (KEFLEX) 250 MG capsuleIndicat ions:UTI prevention Take 1 capsule by mouth nightly. Indications: UTI prevention Active DULoxetine (CYMBALTA) 30 MG capsuleIndicat ions:Depressio n Take 1 capsule by mouth daily. Indications: Depression Active methylphenidat e (RITALIN) 10 MG tabletIndicati ons:adhd Take 1 tablet by mouth daily. Indications: adhd Active fish oil (OMEGA-3 FATTY ACID) 1000 MG Cap capsuleIndicat ions:Nutrition al Support Take 1 capsule by mouth daily. Indications: Nutritional Support Active loratadine (CLARITIN) 10 MG tabletIndicati ons:Seasonal Allergy Take 1 tablet by mouth daily. Indications: Seasonal Allergy Active docusate sodium (COLACE) 50 MG capsuleIndicat ions:Constipat ion Take 1 capsule by mouth nightly as needed for Constipation. Indications: Constipation Active metoprolol tartrate (LOPRESSOR) 25 MG tabletIndicati ons:Hypertensi on Take 1 tablet by mouth 2 (two) times daily. Indications: High Blood Pressure Disorder Active albuterol sulfate HFA 108 (90 Base) MCG/ACT inhalerIndicat ions:shortness of breath Inhale 2 puffs into the lungs every 6 (six) hours as needed for Wheezing (or bronchospasm). 1 g 1 3 Active amLODIPine (NORVASC) 5 MG tabletIndicati ons:Hypertensi on Take 1 tablet (5 mg total) by mouth nightly at bedtime. 30 tablet 1 3 Active Active Problems Problem Noted Date Diagnosed Date Physical deconditioning 12/03/2022 UTI (urinary tract infection) 11/29/2022 Social History Tobacco Use Types Packs/Day Years Used Date Smoking Tobacco: Never Smokeless Tobacco: Never Tobacco Cessation:Counseling Given: Not Answered Alcohol Use Standard Drinks/Week Comments Never 0 (1 standard drink = 0.6 oz pur e alcohol) OASIS D0700: Social Isolation Answer Da te Recorded Frequency of experiencing loneliness or isolatio n Never 02/07/2023 OASIS A1250: Transportation Answer Date Recorded Lack of Transportation (Medical) No 02/07/2023 Lack of Transportation (Non-Medical) No 02/07/2023 Patient Unable or Declines to Respond No 02/07/2023 OASIS B1300: Health Literacy Answer Kirt e Recorded Frequency of needing help to read materials from doctor or pharmacy Never 02/07/2023 Humiliation, Afraid, Rape, and Kick questionnair e [...] place to sleep or slept in a skilled nursing (including now)? No 11/30/2022 Sex and Gender Information Value Date Recorded Sex Assigned at Not on file Legal Sex Male 1:42 AM CDT Gender Identity Not on file Sexual Orientation Not on file Last Filed Vital Signs Vital Sign Reading Time Taken Comments Blood Pressure 124/78 02/07/2023 2:01 PM INSPECTOR FINISHING Pulse 84 02/07/2023 2:01 PM INSPECTOR FINISHING Temperature 36.8 C (98.3 F) 02/07/2023 2:01 PM INSPECTOR FINISHING Respiratory Rate 18 02/07/2023 2:01 PM INSPECTOR FINISHING Oxygen Saturation 96% 02/07/2023 2:01 PM INSPECTOR FINISHING Inhaled Oxygen Concentration - - Weight 75.5 kg (166 lb 7.2 oz) 12/08/2022 10:02 PM CDT Height 165.1 cm (5' 5 ) 12/02/2022 3:00 PM CDT Body Mass Index 27.7 12/02/2022 3:00 PM CDT Plan of Treatment Health Maintenance Due Date Last Done Comments DTaP, Tdap and Td Vaccines ( 1 - Tdap) [birth year]28/1954 Zoster Vaccines (1 of 2) 1987 Annual Medicare Wellness Visit 2002 RSV Immunization or 60+ Years (1 - 1-dose 75+ series) 01/28/2012 COVID-19 Vaccine (4 - 2023-2 5 season) 2023 04/02/2021, 11/03/2020, 10/07/2020 Pneumococcal Vaccine: 65+ Years Completed 12/14/2021, 11/03/2020 Meningococcal B Vaccine Aged Out No l onger eligible based on patient's age to complete this topic Meningococcal Vaccine Aged Out No doe paola eligible based on patient's age to complete this topic RSV Immunizations Under 20 Months Aged Out No longer eligible b ased on patient's age to complete this topic Additional Health Concerns Infection Onset Date Last Indicated ESBL - Extended Spectrum Bet a-lactamase Comment:07/12/22 urine (JK) 07/27/22 urine (JK) 09/16/22 urine (JJ) 11/24/22 urine (RR) 07/12/2022 11/25/2022 Insurance MEDICARE [facility] Advance Directives * Full Code (Latest Code Status on File) Date Activated Date Inactivated Comments 12/13/2022 6:32 AM * Full Code Date Activated Date Inactivated Comments 12/03/2022 8:44 AM 12/09/2022 3:18 PM Care Teams Waistband Setter Relationship Specialty Start Date End Date Aure Salas PA-C [address] [place] [address] [address] [place] [address] PCP - General PHYSICIAN SUPERVISOR GELATIN PLANT 04/09/22
--- OUTSIDE RECORDS SUMMARY | 2024-06-26 12:34 | XMS_ITS | Referral Summary ---
Author Organization [facility] [address] [facility] Address [address] [place] [address] Care Team Providers Care Delivery Table Feeder Name Role Phone Gagan Mckay MD Primary [...] (two) times a day 2 Active omega 5-yva-eik-fish oil 1,000 mg (120 mg-180 mg) capsule Active pantoprazole DR (PROTONIX) 40 mg EC tablet Take 40 mg by mouth daily 2 Active Active Problems Problem Noted Date Diagnosed Date Bilateral impacted cerumen 03/30/2022 Sensorineural hearing loss (SNHL) of both ears 0 03/30/2022 Social History Tobacco Use Types Packs/Day Years Used Date Smoking Tobacco: Never Smokeless Tobacco: Never Tobacco Cessation:Counseling Given: Not Answered Personal Safety Answer Date Recorded Getting School Help Needed Not on file 06/04 Sex and Gender Information Value Date Recorded Sex Assigned at Not on file Legal Sex Male 2:38 AM PRINT MACHINE OPERATOR Gender Identity Not on file Sexual Orientation Not on file Last Filed Vital Signs Vital Sign Reading Time Taken Comments Blood Pressure 136/75 08/02/2012 3:37 PM CDT Pulse 66 08/02/2012 3:37 PM CDT Temperature 36.4 C (97.5 F) 08/02/2012 3:37 PM CDT Respiratory Rate 18 03/30/2022 11:55 AM PRINT MACHINE OPERATOR Oxygen Saturation 92% 08/02/2012 3:37 PM CDT Inhaled Oxygen Concentration - - Weight 81.6 kg (180 lb) 03/30/2022 11:55 AM PRINT MACHINE OPERATOR Height 162.6 cm (5' 4 ) 03/30/2022 11:55 AM PRINT MACHINE OPERATOR Body Mass Index 30.9 03/30/2022 11:55 AM PRINT MACHINE OPERATOR Plan of Treatment Not on file Insurance MEDICARE [facility] Care Teams Delivery Table Feeder Relationship Specialty Start Date End Date Gagan Mckay MD [address] [facility] [address] [place] [address] PCP - General Family Medicine 03/16/22
--- OUTSIDE RECORDS SUMMARY | 2024-06-26 12:34 | XMS_ITS | Clinical Summary ---
Author Organization [facility] Address [address] [facility] [place] [address] Care Team Providers Care Ager Operator Name Role Phone Chencho Butler MD Primary Care Provider [phone] Source Comments [facility] Dead Inventory Management System,non-owned Affiliates and Associated Physician Practices is amultiple site organization consisting of ambulatory clinics and hospital sitesin [place], [place], [place] and [place]. This disclosure is being madepursuant to the Care Everywhere program and may not contain all information available regarding this patient. Last updated 17.[facility] Allergies No known active allergies Medications * Be aware that medications may not be up to date on this document. Alwaysverify current medications with the patient. Medication Sig Dispensed Refills Start Date End Date Status methylphenidate (Ritalin) 10 MG tablet Take 1 (one) tablet by mouth daily before breakfast Active gabapentin (Neurontin) 300 MG capsule Take 1 (one) capsule by mouth 2 times daily Active Alfuzosin HCl (UROXATRAL PO) Take 1 capsule by mouth once daily Active Ulen-3 Fatty Acids (fish oil) 500 MG capsule Take 1,200 (one thousand two hundred) mg by mouth once daily Active pantoprazole EC (Protonix) 40 MG tablet Take 1 (one) tablet by mouth once daily Active finasteride (Proscar) 5 MG tablet Take 1 (one) tablet by mouth once daily Active apixaban (Eliquis) 5 MG tablet Take 1 (one) tablet by mouth 2 times daily Active metoprolol succinate XL 24hr (Toprol XL) 25 MG tablet Take 1 (one) tablet by mouth 2 times daily Active DULoxetine (Cymbalta) 30 MG capsule Take 1 (one) capsule by mouth once daily Active acetaminophen (Tylenol) 325 MG tablet Take 2 (two) tablets by mouth every 6 hours Maximum allowable Acetaminophen amount = 4 Grams (4000 mg) / 24 hours. 09/20/2022 Active polyethylene glycol 3350 (Miralax) 17 g packet Take 17 (seventeen) g by mouth once daily as needed for Constipation 09/20/2022 Active senna (Senokot Extra Strength) 17.2 MG Take 17.2 mg by mouth once daily 09/21/2022 Active vitamin D3 (Cholecalciferol) 25 MCG (1000 UNITS) tablet Take 1 (one) tablet by mouth once daily 09/21/2022 Active Active Problems Problem Noted Date Diagnosed Date Hemothorax on left 09/18/2022 Renal cyst 09/17/2022 Fall, initial encounter 09/16/2022 Closed fracture of multiple ribs of left side, initial encounter 09/16/2022 Contusion of left lung, initial encounter 2022 Immunizations Name Administration Dates Next Due INFLUENZA VACCINE, HIGH-DOSE , QUADR. (FLUZONE HIGH-DOSE QUADRIVALENT; 65Y+), 0.7 ML (HD-IIV4) 12/14/2021,12/02/2020 PNEUMOCOCCAL PCV20 CONJ VAC IM 12/14/2021 Pneumococcal Pcv13 Conj 11/03/2020 Social History Tobacco Use Types Packs/Day Years Used Date Smoking Tobacco: Never Smokeless Tobacco: Never Tobacco Cessation:Counseling Given: No Alcohol Use Standard Drinks/Week Comments Never 0 (1 standard drink = 0.6 oz pur e alcohol) AUDIT-C Answer Date Recorded Q1: How often do you have a drink containing alcohol? Never 09/17/2022 Q2: How many drinks containi ng alcohol do you have on a typical day when you are drinking? Patient does not drink Q3: How often do you have si x or more drinks on one occasion? Never 09/17/2022 Overall Financial Resource Strain (CARDIA) Answe r Date Recorded How hard is it for you to pa y for the very basics like food, housing, medical care, and heating? Not hard at all 09/17/2022 [facility] - Occupational Stress Questionnaire Answer Date Recorded Do you feel stress - tense, restless, nervous, or anxious, or unable to sleep at night because your mind is troubled all the time - these days? Not at all 09/17/2022 Hunger Vital Sign Answer Date Recorded Within the past 12 months, y ou worried that your food would run out before you got the money to buy more. Never true 09/18/19 23 Within the past 12 months, t he food you bought just didn't last and you didn't have money to get more. Never true 09/17/2022 PRAPARE - Transportation Answer Date Re corded In the past 12 months, has l ack of transportation kept you from medical appointments or from getting medications? No 08/21 In the past 12 months, has l ack of transportation kept you from meetings, work, or from getting things needed for daily living? No 09/17/2022 Housing Stability Vital Sign Answer Kirt e Recorded In the last 12 months, was t here a time when you were not able to pay the mortgage or rent on time? No 09/17/2022 In the last 12 months, how many places have you lived? 1 09/17/2022 In the last 12 months, was t here a time when you did not have a steady place to sleep or slept in a fdc (including now)? No 09/17/2022 Sex and Gender Information Value Date Recorded Sex Assigned at Not on file Gender Identity Not on file Sexual Orientation Not on file Last Filed Vital Signs Vital Sign Reading Time Taken Comments Blood Pressure 133/71 09/20/2022 11:39 AM CDT Pulse 69 09/20/2022 11:39 AM CDT Temperature 36.7 C (98 F) 09/20/2022 11:39 AM CDT Respiratory Rate 20 09/20/2022 12:22 PM CDT Oxygen Saturation 93% 09/20/2022 12:22 PM CDT Inhaled Oxygen Concentration 36% 09/20/2022 3 :09 AM CDT Weight 82.6 kg (182 lb) 09/16/2022 4:51 PM CDT Height 175.3 cm (5' 9 ) 09/16/2022 4:51 PM CDT Body Mass Index 26.88 09/16/2022 4:51 PM CDT Plan of Treatment Health Maintenance Due Date Last Done Comments MEDICARE AWV 12 MONTHS 1935 DTAP/TDAP/TD VACCINES (1 - Tdap) 01/28/1954 ZOSTER VACCINE (1 of 2) 1987 Respiratory Syncytial Virus (RSV) Vaccine Pt: or over 60 yrs (1 - 1-dose 75+ series) 01/28/2012 COVID-19 VACCINE (4 - 2023-2 5 season) 2023 04/02/2021, 11/03/2020, 10/07/2020 DEPRESSION SCREENING 03/21/2024 INFLUENZA VACCINE (Season Ended) 2024 12/14/2021, 12/02/2020 PNEUMOCOCCAL VACCINE 50+ Completed 022, 11/03/2020 HEPATITIS B VACCINE Aged Out No longe r eligible based on patient's age to complete this topic HIB VACCINE Aged Out No longer eligi ble based on patient's age to complete this topic HPV VACCINE Aged Out No longer eligi ble based on patient's age to complete this topic MENINGOCOCCAL (Group B) VACCINE SHARED DECISION-MAKING Aged Out No longer eligible based on patient's age to complete this topic MENINGOCOCCAL GROUPS A/C/Y/W VACCINE Aged Out No longer eligible b ased on patient's age to complete this topic Advance Directives * Full Code (Latest Code Status on File) Date Activated Date Inactivated Comments 09/16/2022 7:29 PM 09/20/2022 4:40 PM * FULL RESUSCITATION Date Activated Date Inactivated Comments 01/26/2013 7:04 PM 03/03/2013 10:56 AM Care Teams Ager Operator Relationship Specialty Start Date End Date Chencho Butler MD [address] [facility] [address] [place] [id number] PCP - General 11/29/18
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
[2024-06-26 14:06] LABS: Basophils Percent Auto 0.4 % (0.2-1.2); Eosinophils Absolute Auto 0.4 K/mm3 (0-0.3); Hematocrit 36.8 % (42.0-52.0); Hemoglobin 11.2 g/dL (14.0-18.0); Immature Granulocyte Absolute 0.02 K/mm3 (0.00-0.031); Immature Granulocyte Percent A 0.3 % (0-0.5); Lymphocytes Absolute Auto 2.66 K/mm3 (0.9-3.2); Lymphocytes Percent Auto 36.5 % (18.3-44.2); Mean Corpuscular HGB Conc 30.4 g/dl (32-36); Mean Corpuscular Hemoglobin 29.4 pg (26-34); Mean Corpuscular Volume 96.6 fl (80-100); Mean Platelet Volume 9.6 fl (7.4-10.4); Monocytes Absolute Auto 0.6 K/mm3 (0.1-0.6); Monocytes Percent Auto 7.8 % (2.6-8.5); Neutrophils Absolute Auto 3.6 K/mm3 (1.3-6.7); Platelet Count Result 202 k/mm3 (150-375); Red Blood Count 3.81 M/mm3 (4.6-6.20); Red Cell Distribution Width 14.8 % (11.5-14.5); White Blood Count 7.3 K/mm3 (4.5-10.0)
[2024-06-26 14:15] LABS: Add Urine Microscopic? YES; Appearance Urine Cloudy (Clear); Bacteria Urine 1+ /hpf; Bilirubin Urine Negative (Negative); Blood Urine 3+ (Negative); Color Urine Yellow (Yellow); Glucose Urine UA Negative (Negative); Ketones Urine Negative (Negative); Leukocyte Esterase Ur 3+ LEU/UL (Negative); Need Manual Microscopic Reviewed; Nitrate Urine Negative (Negative); Protein Urine 1+ mg/dL (Negative); RBC Urine >100 /hpf (0-2); Specific Grav Ur 1.011 (1.001-1.035); Squamous Epithelial Cell Urine None Seen /hpf (Few); WBC Urine >100 /hpf (0-3)
--- OUTSIDE RECORDS SUMMARY | 2024-06-26 14:28 | XMS_ITS | Clinical Summary ---
Author Organization [facility] Address [address] [place] [address] Care Team Providers Care Editor News Name Role Phone Aure Salas PA-C Primary Care Provider [phone] Allergies Active Allergy Reactions Criticality Noted Date [...] place to sleep or slept in a long term (including now)? No 11/30/2022 Sex and Gender Information Value Date Recorded Sex Assigned at Not on file Legal Sex Male 1:42 AM CDT Gender Identity Not on file Sexual Orientation Not on file Last Filed Vital Signs Vital Sign Reading Time Taken Comments Blood Pressure 124/78 02/07/2023 2:01 PM MANAGER PATIENT Pulse 84 02/07/2023 2:01 PM MANAGER PATIENT Temperature 36.8 C (98.3 F) 02/07/2023 2:01 PM MANAGER PATIENT Respiratory Rate 18 02/07/2023 2:01 PM MANAGER PATIENT Oxygen Saturation 96% 02/07/2023 2:01 PM MANAGER PATIENT Inhaled Oxygen Concentration - - Weight 75.5 [...] 11/24/22 urine (RR) 07/12/2022 11/25/2022 Insurance MEDICARE [facility] IN[facility]MN[facility] Advance Directives * Full Code (Latest Code Status on File) Date Activated Date Inactivated Comments 12/13/2022 6:32 AM * Full Code Date Activated Date Inactivated Comments 12/03/2022 8:44 AM 12/09/2022 3:18 PM Care Teams Editor News Relationship Specialty Start Date End Date Aure Salas PA-C [address] [place] [address] [address] [place] [address] PCP - General PHYSICIAN SENIOR INDUSTRIAL ENGINEER 04/09/22
--- OUTSIDE RECORDS SUMMARY | 2024-06-26 14:28 | XMS_ITS | Clinical Summary ---
Author Organization [facility] Address [address] [place] [address] Care Team Providers Care Ux Developer Designer Name Role Phone Chencho Butler MD Primary Care Provider [phone] Source Comments [facility] [employer],non-owned Affiliates and Associated Physician Practices is amultiple site organization consisting of ambulatory clinics and hospital sitesin [place], [place], [place] and [place]. This disclosure is being madepursuant to the Care Everywhere program and may not contain all information available regarding this patient. Last updated 17.[facility] [employer] [facility] Allergies No known active allergies Medications * [...] 1 capsule by mouth once daily Active [place]-3 Fatty Acids (fish oil) 500 MG capsule [...] and heating? Not hard at all 09/17/2022 [facility] Occupat ional Health - Occupational Stress [...] place to sleep or slept in a fpc (including now)? No 09/17/2022 Sex and Gender [...] 7:04 PM 03/03/2013 10:56 AM Care Teams Ux Developer Designer Relationship Specialty Start Date End Date Chencho Butler MD [address] [facility] [address] [place] [id number] PCP - General 11/29/18
--- OUTSIDE RECORDS SUMMARY | 2024-06-26 14:28 | XMS_ITS | Encounter Summary ---
Author Organization [facility] Address [address] [place] [address] Care Team Providers Care Veneer Manufacturer Name Role Phone Aure Salas PA-C Primary Care Provider [phone] Reason for Visit * Reason Onset Date Comments Advise 12/07/2022 Encounter Details Date Type Department Care Team (Late st Contact Info) Description 12/07/2022 Telephone [facility] [address] [place] [address] [place] [address] Aure Salas PA-C [address] [place], [place] [address] [place], [place] [id number] Advise Social History Tobacco Use Types Packs/Day [...] place to sleep or slept in a custodial (including now)? No 11/30/2022 Sex and Gender [...] documented as of this encounter Care Teams Veneer Manufacturer Relationship Specialty Start Date End Date Aure Salas PA-C [address] [place] [address] [address] [place] [address] PCP - General PHYSICIAN NETWORK PROJECT MANAGER 04/09/22 documented as of this encounter
--- OUTSIDE RECORDS SUMMARY | 2024-06-26 14:28 | XMS_ITS | Referral Summary ---
Author Organization [facility] [address] [facility] Address [address] [place] [address] Care Team Providers Care Missile Technician Name Role Phone Gagan Mckay MD Primary [...] (two) times a day 2 Active omega 3-ztg-syh-fish oil 1,000 mg (120 mg-180 mg) capsule [...] on file Legal Sex Male 2:38 AM PHLEBOTOMY TECHNOLOGIST Gender Identity Not on file Sexual Orientation Not on file Last Filed Vital Signs Vital Sign Reading Time Taken Comments Blood Pressure 136/75 08/02/2012 3:37 PM CDT Pulse 66 08/02/2012 3:37 PM CDT Temperature 36.4 C (97.5 F) 08/02/2012 3:37 PM CDT Respiratory Rate 18 03/30/2022 11:55 AM PHLEBOTOMY TECHNOLOGIST Oxygen Saturation 92% 08/02/2012 3:37 PM CDT Inhaled Oxygen Concentration - - Weight 81.6 kg (180 lb) 03/30/2022 11:55 AM PHLEBOTOMY TECHNOLOGIST Height 162.6 cm (5' 4 ) 03/30/2022 11:55 AM PHLEBOTOMY TECHNOLOGIST Body Mass Index 30.9 03/30/2022 11:55 AM PHLEBOTOMY TECHNOLOGIST Plan of Treatment Not on file Insurance MEDICARE [facility] INSURANCE Care Teams Missile Technician Relationship Specialty Start Date End Date Gagan Mckay MD [address] [facility] [address] [place] [address] PCP - General Family Medicine 03/16/22
--- OUTSIDE RECORDS SUMMARY | 2024-06-26 14:28 | XMS_ITS | Clinical Summary ---
Author Organization [facility] [address] [facility] Address [address] [place] [address] Care Team Providers Care Industrial Controller Name Role Phone Gagan Mckay MD Primary [...] (two) times a day 2 Active omega 4-njr-whw-fish oil 1,000 mg (120 mg-180 mg) capsule [...] on file Legal Sex Male 2:38 AM SALES EXECUTIVE INSURANCE Gender Identity Not on file Sexual Orientation Not on file Obstetrics History Last Filed Vital Signs Vital Sign Reading Time Taken Comments Blood Pressure 136/75 08/02/2012 3:37 PM CDT Pulse 66 08/02/2012 3:37 PM CDT Temperature 36.4 C (97.5 F) 08/02/2012 3:37 PM CDT Respiratory Rate 18 03/30/2022 11:55 AM SALES EXECUTIVE INSURANCE Oxygen Saturation 92% 08/02/2012 3:37 PM CDT Inhaled Oxygen Concentration - - Weight 81.6 kg (180 lb) 03/30/2022 11:55 AM SALES EXECUTIVE INSURANCE Height 162.6 cm (5' 4 ) 03/30/2022 11:55 AM SALES EXECUTIVE INSURANCE Body Mass Index 30.9 03/30/2022 11:55 AM SALES EXECUTIVE INSURANCE Plan of Treatment Health Maintenance Due Date [...] vaccine 65+ Completed 12/14/2021, 10/19 Insurance MEDICARE [facility]UR[employer] Care Teams Industrial Controller Relationship Specialty Start Date End Date Gagan Mckay MD [address] [address] PCP - General Family Medicine 03/16/22
[2024-06-26 15:16] LABS: Alanine Aminotransferase 17 U/L (6-50); Albumin Level 3.8 g/dL (3.5-5.1); Alkaline Phosphatase 93 U/L (38-126); Anion Gap 3 mmol/L (4-12); Aspartate Amino Transferase 34 U/L (17-59); Bilirubin,Total 0.9 mg/dL (0.2-1.3); Blood Urea Nitrogen 16 mg/dL (9-20); Calcium 9.1 mg/dL (8.4-10.2); Carbon Dioxide 36 mmol/L (22-30); Chloride 99 mmol/L (98-107); Estimated CRCL calculation 45 ml/min; Estimated Glomerular Filt Rate > 60; Glucose 107 mg/dL (65-110); Lipase 49 U/L (23-300); Potassium 4.1 mmol/L (3.4-5.0); Sodium 138 mmol/L (137-145)
== END 2024-06-26 18:15 | disposition home or self-care (01) ==
PROVIDERS: Physician Assistant; Emergency Provider Emergency Medicine; PCP Nurse Practitioner Family
DX: T83.9XXA Unspecified complication of genitourinary prosthetic device, implant and graft, initial encounter (principal); R10.30 Lower abdominal pain, unspecified; Y84.6 Urinary catheterization as the cause of abnormal reaction of the patient, or of later complication, without mention of misadventure at the time of the procedure
CPT/HCPCS: 36415; 51702; 74176; 80053; 81001; 83690; 85025; 87086; 99284

== ENCOUNTER 2024-06-28 10:30 | Inpatient (IN) | payer MEDICARE, SELFPAY ==
[2024-06-28] VITALS (48 sets, daily range): BP systolic 95–201; BP diastolic 64–125; PULSE 62–136; RESP 12–36; TEMP 36.2–37; O2SAT 91–100; BMI 28.3
--- NOTE | ~2024-06-28 | CT_ITS ---
Non-contrast Head CT History: Altered mental status COMPARISON: 03/02/2024 Technique: Axial non-contrast imaging of the brain was performed. Dose reduction technique was used on this scan by utilizing automated exposure control and iterative reconstruction technique. The dose -length product (DLP) was 605.33 mGy-cm. Findings: There is no evidence of intracranial hemorrhage, mass lesion, or acute infarct. Brain par enchyma appears normal. The ventricles and subarachnoid spaces are normal in size. The calvarium ap pears normal. The visualized paranasal sinuses and mastoid air cells are clear. Impression: No significant abnormality seen. Reviewed, dictated and finalized at location . Impression: No significant abnormality seen.
--- NOTE | ~2024-06-28 | XR_ITS ---
XR chest 1V 06/28/2024 12:18 Indication: Altered mental status Procedure: AP view of the chest Comparison: Comparison to multiple prior studies sequentially, with oldest reviewed study dated 09/09. Findings: Shallow inspiration. Calcified right hilar lymph nodes, consistent with chronic granulomato us infection. There is mild interstitial edema. No significant effusion. There are healed right rib f ractures. No pneumothorax. Impression: 1: Mild interstitial edema. Pneumonia less favored. Clinically correlate. Reviewed, dictated and finalized at location A. Impression: 1: Mild interstitial edema. Pneumonia less favored. Clinically correlate.
--- NOTE | ~2024-06-28 | CT_ITS ---
EXAMINATION: CT chest abdomen pelvis w con DATE: 06/28/2024 12:17 INDICATION: Altered mental status TECHNIQUE: Computed tomography (CT) of the chest, abdomen, and pelvis was performed with 100 mL Omnip aque-350 intravenous contrast. Automated exposure control and iterative reconstruction technique were employed. The dose-length product was 1364.49 mGy-cm. COMPARISON: CT studies dated 06/26/2024 and 03/02/2024 FINDINGS: CHEST CT: Again seen are multiple old healed and nonunited posterior right rib fractures versus osteotomies for prior thoracotomy. There are multiple fractures of the cartilaginous portions of the anterior right ribs with up to 5-6 cm diastases. A portion of the anterior right middle lobe herniates into the ches t wall defect resulting from the rib fractures. Evaluation of fine pulmonary parenchymal detail is li mited by moderate respiratory motion. Again seen is irregular septal line thickening and groundglass opacities with peripheral and lower lung predominance with some associated honeycombing most prominen t at the anterior right middle lobe consistent with usual interstitial pneumonia (UIP) pattern chroni c interstitial lung disease. No noted airspace opacities to suggest pneumonia. No pulmonary edema or pleural effusion. Mild primarily. Atherosclerotic coronary artery calcification. Aortic valve calcifi cation. Thoracic aorta is normal in caliber. Calcified mediastinal lymph nodes consistent with old gr anulomatous disease. No pathologically enlarged thoracic lymphadenopathy. Small sliding-type hiatal h ernia. Severe thoracic and lower cervical spondylosis. ABDOMEN/PELVIS CT: Diffuse hepatic steatosis. Gallbladder is dilated to 4.8 cm but without evident wall thickening or pe richolecystic inflammatory stranding to suggest acute cholecystitis. No intra-axial hepatic biliary d uctal dilation. Spleen, pancreas and bilateral adrenal glands are normal. There is likely age-related cortical thinning at both kidneys. 2.2 cm exophytic right renal cyst. Multiple stones in the right r enal pelvis and calyces of the right kidney the largest stone at an inferior calyx measuring 1.6 cm. Prominent diverticulosis with sigmoid colon predominance without adjacent inflammatory stranding to s uggest diverticulitis. No bowel obstruction. Normal appendix. Portions of which are distorted by radha on artifact. Gonzalez catheter within the decompressed bladder. Prostatomegaly. To moderate-sized bilate ral fat-containing inguinal hernias. No free intraperitoneal gas or fluid. No pathologically enlarged abdominal or pelvic lymphadenopathy. There is calcified atherosclerosis of the aorta and many of the other arteries. Severe lumbar spondylosis. Chronic L1 burst fracture spanned by instrumented posteri or spinal fusion beginning at T11 and extending through L3. IMPRESSION: 1. 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 No acute cardiopulmonary disease. 2. Dilation the gallbladder to 4.8 cm but without wall thickening or pericholecystic inflammatory str anding to suggest acute cholecystitis. Correlate for Lopez sign and could consider right upper quadr ant ultrasound for further evaluation as clinically indicated. 3. Prominent sigmoid diverticulosis. 4. Age-related mild bilateral renal atrophy with nonobstructing right nephrolithiasis. 5. Moderate-sized bilateral fat-containing inguinal hernias. Reviewed, dictated and finalized at location B. IMPRESSION: 1. Stable appearance of usual interstitial pneumonia (UIP) pattern chronic inte rstitial lung disease. No acute cardiopulmonary disease. 2. Dilation the gallbladder to 4.8 cm but without wall thickening or pericholec ystic inflammatory stranding to suggest acute cholecystitis. Correlate for Murp hy sign and could consider right upper quadrant ultrasound for further evaluati on as clinically indicated. 3. Prominent sigmoid diverticulosis. 4. Age-related mild bilateral renal atrophy with nonobstructing right nephrolit hiasis. 5. Moderate-sized bilateral fat-containing inguinal hernias.
--- NOTE | ~2024-06-28 | XR_ITS ---
EXAM/PROCEDURE: XR chest 1V portable - 06/30/2024 05:25 CDT HISTORY: 89 years old Male with SOB TECHNIQUE: AP view(s) of the chest. COMPARISON: 06/28/2024 FINDINGS: LUNGS/ PLEURA: Airspace opacity in bilateral lung bases. No pleural effusion or pneumothorax. Pulmona ry vascular congestion. Interstitial edema is again seen. HEART/ MEDIASTINUM: Mild cardiomegaly. BONES: Degenerative changes. OTHER: Visualized upper abdomen is unremarkable. IMPRESSION: Airspace opacity in bilateral lung bases may represent pneumonia versus atelectasis versus scarring c linical correlation is monitored. Reviewed, dictated and finalized at location A. IMPRESSION: Airspace opacity in bilateral lung bases may represent pneumonia versus atelect asis versus scarring clinical correlation is monitored.
--- NOTE | 2024-06-28 10:50 | ECG_ITS ---
Test Date: 2024-06-28 10:46:48 Measurements Intervals [place] Rate: 83 P: -34 [place]: 213 QRS: -57 QRSD: 93 T: 41 QT: 365 QTc: 431 Interpretive Statements SINUS RHYTHM WITH FIRST DEGREE AV BLOCK INCOMPLETE RIGHT BUNDLE BRANCH BLOCK LEFT ANTERIOR FASCICULAR BLOCK CONSIDER ANTERIOR INFARCT, AGE INDETERMINATE BASELINE ARTIFACT- I, II, III, V4-V6 ABNORMAL ECG Compared to ECG 03/02/2024 11:09:23 NO SIGNIFICANT CHANGE Electronically Signed On 06-28-2024 11:08:56 CDT by Mitch Kumar D.O.
[2024-06-28 11:06] LABS: Basophils Percent Auto 0.3 % (0.2-1.2); Eosinophils Absolute Auto 0.1 K/mm3 (0-0.3); Eosinophils Percent Auto 1.1 % (0-4.4); Hematocrit 45.7 % (42.0-52.0); Hemoglobin 14.9 g/dL (14.0-18.0); Immature Granulocyte Absolute 0.03 K/mm3 (0.00-0.031); Immature Granulocyte Percent A 0.3 % (0-0.5); Lymphocytes Absolute Auto 3.01 K/mm3 (0.9-3.2); Lymphocytes Percent Auto 33.5 % (18.3-44.2); Mean Corpuscular HGB Conc 32.6 g/dl (32-36); Mean Corpuscular Hemoglobin 29.9 pg (26-34); Mean Corpuscular Volume 91.8 fl (80-100); Mean Platelet Volume 8.9 fl (7.4-10.4); Monocytes Absolute Auto 0.9 K/mm3 (0.1-0.6); Monocytes Percent Auto 9.5 % (2.6-8.5); Neutrophils Percent Auto 55.3 % (45.5-73.1); Platelet Count Result 267 k/mm3 (150-375); Red Blood Count 4.98 M/mm3 (4.6-6.20); Red Cell Distribution Width 14.9 % (11.5-14.5)
[2024-06-28 11:24] LABS: Prothrombin Time 13.4 Seconds (11.1-14.7)
[2024-06-28 11:25] LABS: Partial Thromboplastin Time 31.2 Seconds (22.3-36.8)
[2024-06-28] MEDS: SODIUM CHLORIDE 0.9% IV 1,000 ML 999 ML IV CONT (11:33)
[2024-06-28 11:37] LABS: Base Excess ABG 5.5 mEq/l (+/-2.0); Device NASAL CANNULA; Fractional Inspired Oxygen 28 %; HCO3 ABG 30.4 mEq/l (22.0-26.0); Oxygen Content ABG 20.4 %vol (16.0-22.0); Oxygen Saturation ABG 96.8 % (95.0-100.0); Oxyhemoglobin 95.7 % THb (90.0-100.0); PCO2 ABG 45.1 mmHg (35.0-45.0); PO2 ABG 86.4 mmHg (80.0-100.0); PO2 FiO2 Ratio Arterial Blood 3.09 %; Site Drawn LEFT BRACHIAL; Total Hemoglobin 15.1 g/dL (12.0-18.0); pH ABG 7.447 (7.350-7.450)
[2024-06-28 11:42] LABS: Alanine Aminotransferase 19 U/L (6-50); Albumin Level 4.4 g/dL (3.5-5.1); Alkaline Phosphatase 105 U/L (38-126); Anion Gap 11 mmol/L (4-12); Aspartate Amino Transferase 42 U/L (17-59); Bilirubin,Total 2.1 mg/dL (0.2-1.3); Blood Urea Nitrogen 14 mg/dL (9-20); Carbon Dioxide 31 mmol/L (22-30); Chloride 97 mmol/L (98-107); Estimated CRCL calculation 43 ml/min; Estimated Glomerular Filt Rate > 60; Glucose 121 mg/dL (65-110); Potassium 4.1 mmol/L (3.4-5.0); Sodium 139 mmol/L (137-145)
--- OUTSIDE RECORDS SUMMARY | 2024-06-28 11:59 | XMS_ITS | Encounter Summary ---
Author Organization [facility] Address [address] [place] [address] Care Team Providers Care Well Reactivator Operator Name Role Phone Aure Salas PA-C Primary Care Provider [phone] Reason for Visit * Reason Onset Date Comments Advise 12/07/2022 Encounter Details Date Type Department Care Team (Late st Contact Info) Description 12/07/2022 Telephone [facility] Care [address] [place] [address] [place] [address] Aure Salas PA-C [address] [place], [place] [address] [place], [place] [id number] Advise Social History Tobacco Use Types Packs/Day [...] place to sleep or slept in a care home (including now)? No 11/30/2022 Sex and Gender [...] documented as of this encounter Care Teams Well Reactivator Operator Relationship Specialty Start Date End Date Aure Salas PA-C [address] [place] [address] [address] [place] [address] PCP - General PHYSICIAN WEIGHT YARDAGE CHECKER 04/09/22 documented as of this encounter
--- OUTSIDE RECORDS SUMMARY | 2024-06-28 11:59 | XMS_ITS | Referral Summary ---
Author Organization [facility] [address] [facility] Address [address] [place] [address] Care Team Providers Care Insurance Licensing Supervisor Name Role Phone Gagan Mckay MD Primary [...] (two) times a day 2 Active omega 9-jjv-brn-fish oil 1,000 mg (120 mg-180 mg) capsule [...] on file Legal Sex Male 2:38 AM CARPENTER SHIP Gender Identity Not on file Sexual Orientation Not on file Last Filed Vital Signs Vital Sign Reading Time Taken Comments Blood Pressure 136/75 08/02/2012 3:37 PM CDT Pulse 66 08/02/2012 3:37 PM CDT Temperature 36.4 C (97.5 F) 08/02/2012 3:37 PM CDT Respiratory Rate 18 03/30/2022 11:55 AM CARPENTER SHIP Oxygen Saturation 92% 08/02/2012 3:37 PM CDT Inhaled Oxygen Concentration - - Weight 81.6 kg (180 lb) 03/30/2022 11:55 AM CARPENTER SHIP Height 162.6 cm (5' 4 ) 03/30/2022 11:55 AM CARPENTER SHIP Body Mass Index 30.9 03/30/2022 11:55 AM CARPENTER SHIP Plan of Treatment Not on file Insurance MEDICARE [facility] Address: [facility] [address] [place] [address] [facility] Care Teams Insurance Licensing Supervisor Relationship Specialty Start Date End Date Gagan Mckay MD [address] [facility] [address] [place] [address] PCP - General Family Medicine 03/16/22
--- OUTSIDE RECORDS SUMMARY | 2024-06-28 11:59 | XMS_ITS | Clinical Summary ---
Author Organization [facility] [address] [facility] Address [address] [place] [address] Care Team Providers Care Plastic Production Machine Setter Name Role Phone Gagan Mckay MD Primary [...] (two) times a day 2 Active omega 2-sjh-nbc-fish oil 1,000 mg (120 mg-180 mg) capsule [...] on file Legal Sex Male 2:38 AM RECONCILING CLERK Gender Identity Not on file Sexual Orientation Not on file Obstetrics History Last Filed Vital Signs Vital Sign Reading Time Taken Comments Blood Pressure 136/75 08/02/2012 3:37 PM CDT Pulse 66 08/02/2012 3:37 PM CDT Temperature 36.4 C (97.5 F) 08/02/2012 3:37 PM CDT Respiratory Rate 18 03/30/2022 11:55 AM RECONCILING CLERK Oxygen Saturation 92% 08/02/2012 3:37 PM CDT Inhaled Oxygen Concentration - - Weight 81.6 kg (180 lb) 03/30/2022 11:55 AM RECONCILING CLERK Height 162.6 cm (5' 4 ) 03/30/2022 11:55 AM RECONCILING CLERK Body Mass Index 30.9 03/30/2022 11:55 AM RECONCILING CLERK Plan of Treatment Health Maintenance Due Date Last Done Comments Depression Screening 1935 Fall Risk Assessment 1935 DTaP/Tdap/Td Vaccine (1 - Tdap) 01/28/1948 Hepatitis B Screening 1955 Zoster Vaccine (1 of 2) 1987 Well Visit 65+ 2002 Covid-19 Vaccine (4 - 2023-2 5 season) 2023 04/02/2021, 11/03/2020, 10/07/2020 Influenza Vaccine (Season Ended) 2024 12/14/2021, 12/02/2020, 12/25/2018, Additional history exists Pneumococcal vaccine 65+ Completed 12/14/2021, 10/19 Insurance MEDICARE [facility] INSURANCE Care Teams Plastic Production Machine Setter Relationship Specialty Start Date End Date Gagan Mckay MD [address] [address] PCP - General Family Medicine 03/16/22
--- OUTSIDE RECORDS SUMMARY | 2024-06-28 11:59 | XMS_ITS | Clinical Summary ---
Author Organization [facility] Address [address] [place] [address] Care Team Providers Care Rigging Slinger Name Role Phone Aure Salas PA-C Primary Care Provider [phone] Allergies Active Allergy Reactions Criticality Noted Date [...] place to sleep or slept in a mcfp (including now)? No 11/30/2022 Sex and Gender Information Value Date Recorded Sex Assigned at Not on file Legal Sex Male 1:42 AM CDT Gender Identity Not on file Sexual Orientation Not on file Last Filed Vital Signs Vital Sign Reading Time Taken Comments Blood Pressure 124/78 02/07/2023 2:01 PM MAINTENANCE DISPATCHER Pulse 84 02/07/2023 2:01 PM MAINTENANCE DISPATCHER Temperature 36.8 C (98.3 F) 02/07/2023 2:01 PM MAINTENANCE DISPATCHER Respiratory Rate 18 02/07/2023 2:01 PM MAINTENANCE DISPATCHER Oxygen Saturation 96% 02/07/2023 2:01 PM MAINTENANCE DISPATCHER Inhaled Oxygen Concentration - - Weight 75.5 [...] 11/24/22 urine (RR) 07/12/2022 11/25/2022 Insurance MEDICARE [facility] IN[facility] Advance Directives * Full Code (Latest Code Status on File) Date Activated Date Inactivated Comments 12/13/2022 6:32 AM * Full Code Date Activated Date Inactivated Comments 12/03/2022 8:44 AM 12/09/2022 3:18 PM Care Teams Rigging Slinger Relationship Specialty Start Date End Date Aure Salas PA-C [address] [place] [address] [address] [place] [address] PCP - General PHYSICIAN COMMUNICATIONS PROGRAMMER 04/09/22
--- OUTSIDE RECORDS SUMMARY | 2024-06-28 11:59 | XMS_ITS | Clinical Summary ---
Author Organization [facility] Address [address] [facility] [place] [address] Care Team Providers Care Salesperson [employer] Name Role Phone Chencho Butler MD Primary Care Provider [phone] Source Comments [facility] [employer],non-owned Affiliates and Associated Physician Practices is amultiple site organization consisting of ambulatory clinics and hospital sitesin [place], [place], [place] and [place]. This disclosure is being madepursuant to the Care Everywhere program and may not contain all information available regarding this patient. Last updated 17.[facility] [employer] Allergies No known active allergies Medications * [...] 1 capsule by mouth once daily Active [place]watha-3 Fatty Acids (fish oil) 500 MG capsule [...] and heating? Not hard at all 09/17/2022 [facility] [place] [facility] Occupat ional Health - Occupational Stress [...] place to sleep or slept in a correction (including now)? No 09/17/2022 Sex and Gender [...] 7:04 PM 03/03/2013 10:56 AM Care Teams Salesperson [employer] Relationship Specialty Start Date End Date Chencho Butler MD [address] [facility] [address] [place] [id number] PCP - General 11/29/18
[2024-06-28 12:05] LABS: Lactic Acid Reflex 1.3 mmol/L (0.7-2.0)
[2024-06-28 12:08] LABS: Lipase 41 U/L (23-300); Magnesium 1.6 mg/dL (1.6-2.3); Phosphorus 3.6 mg/dL (2.5-4.5)
[2024-06-28 12:38] LABS: Troponin I 0.096 ng/mL (0.000-0.034)
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
[2024-06-28 14:00] LABS: Creatine Kinase 244 U/L (55-170)
[2024-06-28 14:03] LABS: Add Urine Microscopic? YES; Appearance Urine Cloudy (Clear); Bacteria Urine 2+ /hpf; Bilirubin Urine Negative (Negative); Blood Urine 2+ (Negative); Color Urine Yellow (Yellow); Glucose Urine UA Negative (Negative); Ketones Urine 1+ mg/dL (Negative); Leukocyte Esterase Ur 1+ LEU/UL (Negative); Need Manual Microscopic Reviewed; Nitrate Urine Negative (Negative); Protein Urine 2+ mg/dL (Negative); RBC Urine 21-50 /hpf (0-2); Specific Grav Ur > 1.045 (1.001-1.035); Squamous Epithelial Cell Urine None Seen /hpf (Few); WBC Clumps Urine Present /HPF; WBC Urine >100 /hpf (0-3); pH Urine 6.5 (5.0-9.0)
[2024-06-28 14:54] LABS: Troponin I 0.101 ng/mL (0.000-0.034)
[2024-06-28] MEDS: MEROPENEM 1 GM/NS 100 ML 1 GM/100 ML BAG IVPB (16:05)
--- NOTE | 2024-06-28 16:16 | ECG_ITS ---
Test Date: 2024-06-28 16:17:57 Measurements Intervals [place] Rate: 130 P: 235 NH: 154 QRS: -71 QRSD: 121 T: 67 QT: 316 QTc: 466 Interpretive Statements ATRIAL FLUTTER/TACHYCARDIA WITH RAPID VENTRICULAR RESPONSE INCOMPLETE RIGHT BUNDLE BRANCH BLOCK LEFT ANTERIOR FASCICULAR BLOCK CONSIDER ANTERIOR INFARCT, AGE INDETERMINATE BASELINE ARTIFACT- I, II, AVR, AVL, AVF, V1-V3 ABNORMAL ECG Compared to ECG 06/28/2024 10:46:48 SINUS RHYTHM NO LONGER PRESENT Electronically Signed On 06-28-2024 16:30:36 CDT by Mitch Kumar D.O.
--- NOTE | 2024-06-28 16:33 | PC.NURSE ---
RN noticed pt was tachycardic with HR 133, pt's daughter reports history of atrial fibrillation. Rhythm appeared regular on monitor, lasting a few seconds of sinus tachycardia, then decreasing to HR in 70's/80's with P waves present, then becoming tachycardic again. MD Dowling made aware. EKG obtained. Per MD Dowling, appears he is having episodes of atrial flutter. Pt is on metoprolol at home, but daughter states they are unsure if he's taken them in the last couple days. Med list verified with pt's daughter at bedside. Will inform hospitalist as well. Repeat temp 97.3 orally.
[2024-06-28] MEDS: LACTATED RINGERS 1,000 ML 125 ML IV CONT (16:35)
[2024-06-28] MEDS: METOPROLOL TARTRATE INJ 5 MG/5 ML VIAL IV PUSH (18:23)
--- NOTE | 2024-06-28 20:42 | ADMGEN ---
This patient, Devin Gonzalez, was admitted to Medical Room 343-01. Patient/family oriented to hospital policies and general routines including ID bracelet, bed and alarms, visiting hours, pain management, procedures, bathroom and other care routines, personal items, smoking policy, room service/diet, and visiting hours. Information on how to activate the Rapid Response Team has been discussed. Patient/Family are encouraged to report perceived risks to care and to ask questions if they do not understand what they are told or what they should do.
[2024-06-28 21:32] LABS: Troponin I 0.107 ng/mL (0.000-0.034)
[2024-06-29] VITALS (11 sets, daily range): BP systolic 100–154; BP diastolic 73–84; PULSE 60–127; RESP 18–20; TEMP 36.6–37; O2SAT 94–98
[2024-06-29] MEDS: LACTATED RINGERS 1,000 ML 125 ML IV CONT (02:26)
[2024-06-29] MEDS: MEROPENEM 1 GM/NS 100 ML 1 GM/100 ML BAG IVPB ×2 (04:21→15:16)
[2024-06-29] MEDS: METOPROLOL TARTRATE 25 MG TABLET PO ×2 (04:32→20:08)
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
[2024-06-29] MEDS: SODIUM CHLORIDE 0.9% IV 1,000 ML 100 ML IV CONT ×2 (05:29→15:15)
[2024-06-29 06:02] LABS: Basophils Percent Auto 0.4 % (0.2-1.2); Eosinophils Absolute Auto 0.3 K/mm3 (0-0.3); Eosinophils Percent Auto 3.8 % (0-4.4); Hematocrit 41.1 % (42.0-52.0); Hemoglobin 12.9 g/dL (14.0-18.0); Immature Granulocyte Absolute 0.04 K/mm3 (0.00-0.031); Immature Granulocyte Percent A 0.5 % (0-0.5); Lymphocytes Absolute Auto 2.45 K/mm3 (0.9-3.2); Lymphocytes Percent Auto 29.4 % (18.3-44.2); Mean Corpuscular HGB Conc 31.4 g/dl (32-36); Mean Corpuscular Hemoglobin 29.7 pg (26-34); Mean Corpuscular Volume 94.7 fl (80-100); Monocytes Absolute Auto 0.9 K/mm3 (0.1-0.6); Monocytes Percent Auto 10.6 % (2.6-8.5); Neutrophils Absolute Auto 4.6 K/mm3 (1.3-6.7); Neutrophils Percent Auto 55.3 % (45.5-73.1); Platelet Count Result 222 k/mm3 (150-375); Red Blood Count 4.34 M/mm3 (4.6-6.20); Red Cell Distribution Width 15.1 % (11.5-14.5); White Blood Count 8.3 K/mm3 (4.5-10.0)
[2024-06-29 06:09] LABS: Alanine Aminotransferase 18 U/L (6-50); Albumin Level 3.7 g/dL (3.5-5.1); Alkaline Phosphatase 85 U/L (38-126); Anion Gap 10 mmol/L (4-12); Aspartate Amino Transferase 39 U/L (17-59); Bilirubin,Total 1.5 mg/dL (0.2-1.3); Blood Urea Nitrogen 13 mg/dL (9-20); Calcium 9.3 mg/dL (8.4-10.2); Carbon Dioxide 29 mmol/L (22-30); Chloride 98 mmol/L (98-107); Cholesterol 186 mg/dL (0-200); Estimated CRCL calculation 43 ml/min; Estimated Glomerular Filt Rate > 60; Glucose 105 mg/dL (65-110); HDL Direct 42 mg/dL; Potassium 3.8 mmol/L (3.4-5.0); Sodium 137 mmol/L (137-145); Triglycerides 97 mg/dL (<150)
[2024-06-29 06:20] LABS: LDL Cholesterol Direct 110 mg/dL
[2024-06-29 06:23] LABS: Troponin I 0.095 ng/mL (0.000-0.034)
[2024-06-29 08:21] LABS: Hemoglobin A1C 5.8 % (<5.7)
[2024-06-29] MEDS: FINASTERIDE 5 MG TABLET PO (09:24)
[2024-06-29] MEDS: APIXABAN 5 MG TABLET PO ×2 (09:25→20:09)
[2024-06-29] MEDS: PANTOPRAZOLE 40 MG TABLET PO (09:25)
[2024-06-29] MEDS: GABAPENTIN 300 MG CAPSULE PO (09:25)
[2024-06-29] MEDS: allopurinoL 100 MG TABLET PO (09:25)
[2024-06-29] MEDS: DULoxetine HCL 60 MG CAPSULE.DR PO (09:26)
[2024-06-29] MEDS: methylPHENIDATE HCL (*CRX) 10 MG TABLET PO (09:26)
--- NOTE | 2024-06-29 14:24 | PM.IMPN ---
Progress Note: A&P Assessment and Plan (1) Acute metabolic encephalopathy: Code(s): G93.41 - Metabolic encephalopathy Status: Acute Assessment and Plan: Multifactorial Head CT:No significant abnormality seen TSH : 1.660 Ammonia pending UTI : Meropenem Continue NSS (2) Type 2 diabetes mellitus with diabetic neuropathy: Qualifiers: Diabetes mellitus retirement insulin use: without intermodal owner operator truck driver use Qualified Code(s): E11.40 - Type 2 diabetes mellitus with diabetic neuropathy, unspecified Code(s): E11.40 - Type 2 diabetes mellitus with diabetic neuropathy, unspecified Status: Acute (3) HLD (hyperlipidemia): Code(s): E78.5 - Hyperlipidemia, unspecified Status: Acute (4) Atrial fibrillation: Code(s): I48.91 - Unspecified atrial fibrillation Status: Acute Assessment and Plan: Continue Metoprolol Continue Eliquis (5) Aortic valve stenosis: Code(s): I35.0 - Nonrheumatic aortic (valve) stenosis Status: Acute (6) HTN (hypertension): Qualifiers: Hypertension type: primary hypertension Qualified Code(s): I10 - Essential (primary) hypertension Code(s): I10 - Essential (primary) hypertension Status: Acute (7) Acute UTI: Code(s): N39.0 - Urinary tract infection, site not specified Status: Inactive Assessment and Plan: Cont Meropenem UC pending Chronic zimmer cath Subjective Date/time seen: 06/29/24 14:24 Interval history: Patient is admitted in the setting of acute metabolic encephalopathy. Patient is AO x3 at baseline but now AAO x1. Head CT negative. No significant finding explaining AMS in chest/abdomen/pelvic CT please refer to the full report. Chest x-ray shows mild interstitial edema pneumonia less favored. Review of Systems Review of Systems: All systems reviewed & are unremarkable except as noted in HPI and below Exam Const: General: comfortable HENMT: Ears: TM's normal bilaterally Face/Nose/Sinus: Normal nares present Mouth: Yes moist mucous membranes Eyes: General: appearance normal, both eyes and all related structures Sclera: sclerae normal Pupils: Equal, round and reactive pupils present Neck: Neck: supple Resp: Effort & Inspection: normal respiratory effort Cardio: Rate: regular rate Urinary Catheter: Urinary Catheter: patent and draining Skin: General skin exam: normal color Neuro: Cranial nerves: Yes Equal, round and reactive pupils present Speech: normal speech Motor exam (neuro): Abnormal motor strength present Extrem: General: normal to inspection Psych: Other: Confused; thinks the year is 2023 Objective Data Vital Signs Vital Signs: Vital Signs - 24 hr 06/28/24 14:30 06/28/24 14:31 06/28/24 14:45 Temperature Pulse Rate 87 84 81 Respiratory Rate 16 13 17 Blood Pressure 136/66 Pulse Oximetry 97 93 91 Oxygen Delivery Oxygen Flow Rate Fraction of Inspired Oxygen 06/28/24 15:00 06/28/24 15:01 06/28/24 15:15 Temperature Pulse Rate 89 90 88 Respiratory Rate 14 13 16 Blood Pressure 201/86 H Pulse Oximetry Oxygen Delivery Oxygen Flow Rate Fraction of Inspired Oxygen 06/28/24 15:30 06/28/24 15:31 06/28/24 15:45 Temperature Pulse Rate 74 87 86 Respiratory Rate 29 H 18 28 H Blood Pressure 143/125 H Pulse Oximetry Oxygen Delivery Oxygen Flow Rate Fraction of Inspired Oxygen 06/28/24 16:03 06/28/24 16:04 06/28/24 16:15 Temperature 97.3 F L Pulse Rate 133 H 79 101 H Respiratory Rate 20 22 H 17 Blood Pressure Pulse Oximetry 98 96 100 Oxygen Delivery Oxygen Flow Rate Fraction of Inspired Oxygen 06/28/24 16:30 06/28/24 16:31 06/28/24 16:45 Temperature Pulse Rate 136 H 85 80 Respiratory Rate 22 H 20 36 H Blood Pressure 109/73 Pulse Oximetry 96 99 98 Oxygen Delivery Oxygen Flow Rate Fraction of Inspired Oxygen 06/28/24 17:00 06/28/24 17:01 06/28/24 17:06 Temperature Pulse Rate 86 98 88 Respiratory Rate 17 19 16 Blood Pressure 95/64 L 126/104 H Pulse Oximetry 93 97 Oxygen Delivery Oxygen Flow Rate Fraction of Inspired Oxygen 06/28/24 17:15 06/28/24 17:30 06/28/24 17:31 Temperature Pulse Rate 88 86 86 Respiratory Rate 20 12 12 Blood Pressure 144/94 H Pulse Oximetry Oxygen Delivery Oxygen Flow Rate Fraction of Inspired Oxygen 06/28/24 18:23 06/28/24 18:49 06/28/24 19:28 Temperature Pulse Rate 125 H 63 65 Respiratory Rate 19 20 Blood Pressure 143/70 H Pulse Oximetry 99 Oxygen Delivery Oxygen Flow Rate Fraction of Inspired Oxygen 06/28/24 21:12 04/10/25 22:22 06/28/24 22:22 Temperature 98.6 F Pulse Rate 62 69 Respiratory Rate 16 18 Blood Pressure 155/78 H Pulse Oximetry 98 96 96 Oxygen Delivery Autopap Autopap Oxygen Flow Rate 2 Fraction of Inspired Oxygen 06/29/24 00:00 06/29/24 02:28 06/29/24 04:00 Temperature Pulse Rate 86 84 Respiratory Rate Blood Pressure Pulse Oximetry 94 Oxygen Delivery Nasal Cannula Oxygen Flow Rate 2 Fraction of Inspired Oxygen 06/29/24 04:32 06/29/24 04:32 06/29/24 08:00 Temperature 97.9 F Pulse Rate 127 H 125 H 60 Respiratory Rate 20 Blood Pressure 152/84 H Pulse Oximetry 98 Oxygen Delivery Oxygen Flow Rate Fraction of Inspired Oxygen 06/29/24 08:00 06/29/24 12:00 Temperature 98.6 F 98.1 F Pulse Rate 69 120 H Respiratory Rate 18 20 Blood Pressure 154/75 H 119/77 Pulse Oximetry 97 96 Oxygen Delivery Oxygen Flow Rate Fraction of Inspired Oxygen Intake/Output Intake/Output: Intake & Output 06/26/24 06/27/24 06/28/24 06/29/24 23:59 23:59 23:59 23:59 Intake Total 1100 2132.5 Output Total 1050 Balance 1100 1082.5 Meds/Results Medications: Active Medications Generic Name Dose Route Start Last Admin Trade Name Freq PRN Reason Stop Dose Admin Acetaminophen 650 mg 06/29/24 04:37 Acetaminophen 325 Mg Tablet PO Q4H PRN Mild Pain (1-3) or Fever Alfuzosin HCl 10 mg 06/29/24 09:00 06/29/24 09:24 Alfuzosin 10 Mg Er Tablet PO 10 mg DAILY YULIANA Administration Allopurinol 100 mg 06/29/24 09:00 06/29/24 09:25 Allopurinol 100 Mg Tablet PO 100 mg DAILY YULIANA Administration Amlodipine Besylate 5 mg 06/29/24 21:00 Amlodipine Besylate 5 Mg Tablet PO QHS YULIANA Apixaban 5 mg 06/29/24 09:00 06/29/24 09:25 Apixaban 5 Mg Tablet PO 5 mg Q12HR YULIANA Administration Duloxetine HCl 60 mg 06/29/24 09:00 06/29/24 09:26 Duloxetine Hcl 60 Mg Capsule.Dr PO 60 mg DAILY YULIANA Administration Finasteride 5 mg 06/29/24 09:00 06/29/24 09:24 Finasteride 5 Mg Tablet PO 5 mg QAM YULIANA Administration Gabapentin 600 mg 06/29/24 21:00 Gabapentin 300 Mg Capsule PO HS YULIANA Gabapentin 300 mg 06/29/24 09:00 06/29/24 09:25 Gabapentin 300 Mg Capsule PO 300 mg DAILY YULIANA Administration Lactated Ringer's 1,000 mls @ 125 mls/hr 06/28/24 14:55 06/29/24 08:04 Lr - Lactated Ringers Iv IV CONT Not Given .Q8H YULIANA Meropenem 1 gm in 100 mls @ 200 mls/hr 06/29/24 04:00 06/29/24 04:51 IVPB Infused Q12H YULIANA Infusion Sodium Chloride 1,000 mls @ 100 mls/hr 06/29/24 04:40 06/29/24 05:29 Normal Saline Iv IV CONT 100 mls/hr .Q10H YULIANA Administration Melatonin 5 mg 06/29/24 04:37 Melatonin 5 Mg Tablet PO HS PRN Insomnia Methylphenidate HCl 10 mg 06/29/24 09:00 06/29/24 09:26 Methylphenidate Hcl (*Crx) 10 Mg Tablet PO 10 mg QAM YULIANA Administration Metoprolol Tartrate 25 mg 06/29/24 09:00 06/29/24 04:32 Metoprolol Tartrate 25 Mg Tablet PO 25 mg Q12HR YULIANA Administration Pantoprazole Sodium 40 mg 06/29/24 09:00 06/29/24 09:25 Pantoprazole 40 Mg Tablet PO 40 mg DAILY YULIANA Administration Radiology Results: ITS Impressions Head CT 06/28/24 12:19 Impression: No significant abnormality seen. Chest/Abdomen/Pelvis CT 06/28/24 12:26 IMPRESSION: 1. 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 No acute cardiopulmonary disease. 2. Dilation the gallbladder to 4.8 cm but without wall thickening or pericholecystic inflammatory stranding to suggest acute cholecystitis. Correlate for Lopez sign and could consider right upper quadrant ultrasound for further evaluation as clinically indicated. 3. Prominent sigmoid diverticulosis. 4. Age-related mild bilateral renal atrophy with nonobstructing right nephrolithiasis. 5. Moderate-sized bilateral fat-containing inguinal hernias. Chest X-Ray 06/28/24 12:41 Impression: 1: Mild interstitial edema. Pneumonia less favored. Clinically correlate. Labs Labs: Laboratory Results - last 24 hr 06/28/24 06/28/24 06/28/24 10:52 14:20 21:01 WBC RBC Hgb Hct MCV MCH MCHC RDW Plt Count MPV Immature Gran % (Auto) Neut % (Auto) Lymph % (Auto) [place] % (Auto) Eos % (Auto) Baso % (Auto) Lymph # (Auto) [place] # (Auto) Eos # (Auto) Baso # (Auto) Abs Immat Gran (auto) Absolute Neuts (auto) Absolute Nucleated RBC Nucleated RBC % Sodium Potassium Chloride Carbon Dioxide Anion Gap BUN Creatinine Estim Creat Clear Calc Estimated GFR Glucose Hemoglobin A1c 5.8 H Calcium Total Bilirubin AST ALT Alkaline Phosphatase Troponin I 0.101 H* 0.107 H* Total Protein Albumin Triglycerides Cholesterol LDL Cholesterol Direct HDL Direct 06/29/24 05:40 WBC 8.3 RBC 4.34 L Hgb 12.9 L Hct 41.1 L MCV 94.7 MCH 29.7 MCHC 31.4 L RDW 15.1 H Plt Count 222 MPV 9.0 Immature Gran % (Auto) 0.5 Neut % (Auto) 55.3 Lymph % (Auto) 29.4 [place] % (Auto) 10.6 H Eos % (Auto) 3.8 Baso % (Auto) 0.4 Lymph # (Auto) 2.45 [place] # (Auto) 0.9 H Eos # (Auto) 0.3 Baso # (Auto) 0.0 Abs Immat Gran (auto) 0.04 H Absolute Neuts (auto) 4.6 Absolute Nucleated RBC 0.000 Nucleated RBC % 0.0 Sodium 137 Potassium 3.8 Chloride 98 Carbon Dioxide 29 Anion Gap 10 BUN 13 Creatinine 0.93 Estim Creat Clear Calc 43 Estimated GFR > 60 Glucose 105 Hemoglobin A1c Calcium 9.3 Total Bilirubin 1.5 H AST 39 ALT 18 Alkaline Phosphatase 85 Troponin I 0.095 H* Total Protein 7.0 Albumin 3.7 Triglycerides 97 Cholesterol 186 LDL Cholesterol Direct 110 HDL Direct 42 Hospitalist MIPS Advance Care Plan I have confirmed that the patient's Advanced Care Plan is present, code status is documented, or surrogate decision maker is listed in patient medical record.: Yes Medication Reconciliation I have utilized all available resources to obtain, update and review the patients current medications (includes all prescriptions, OTC, herbals, cannabis, and nutritional supplements).: Yes
[2024-06-29 18:14] LABS: Ammonia < 9 umol/L (9-30)
[2024-06-29] MEDS: amLODIPine BESYLATE 5 MG TABLET PO (20:08)
[2024-06-29] MEDS: GABAPENTIN 300 MG CAPSULE 600 MG PO (20:09)
[2024-06-30] VITALS (14 sets, daily range): BP systolic 101–141; BP diastolic 58–81; PULSE 55–109; RESP 18–20; TEMP 36.1–36.9; O2SAT 94–99
[2024-06-30] MEDS: MEROPENEM 1 GM/NS 100 ML 1 GM/100 ML BAG IVPB ×2 (03:28→15:10)
[2024-06-30] MEDS: SODIUM CHLORIDE 0.9% IV 1,000 ML 100 ML IV CONT (03:28)
[2024-06-30 05:44] LABS: Basophils Percent Auto 0.5 % (0.2-1.2); Eosinophils Absolute Auto 0.5 K/mm3 (0-0.3); Eosinophils Percent Auto 6.4 % (0-4.4); Hematocrit 37.2 % (42.0-52.0); Hemoglobin 11.8 g/dL (14.0-18.0); Immature Granulocyte Absolute 0.03 K/mm3 (0.00-0.031); Immature Granulocyte Percent A 0.4 % (0-0.5); Lymphocytes Absolute Auto 2.92 K/mm3 (0.9-3.2); Lymphocytes Percent Auto 35.2 % (18.3-44.2); Mean Corpuscular HGB Conc 31.7 g/dl (32-36); Mean Corpuscular Hemoglobin 29.7 pg (26-34); Mean Corpuscular Volume 93.7 fl (80-100); Monocytes Absolute Auto 0.9 K/mm3 (0.1-0.6); Monocytes Percent Auto 10.5 % (2.6-8.5); Neutrophils Absolute Auto 3.9 K/mm3 (1.3-6.7); Platelet Count Result 215 k/mm3 (150-375); Red Blood Count 3.97 M/mm3 (4.6-6.20); Red Cell Distribution Width 15.1 % (11.5-14.5); White Blood Count 8.3 K/mm3 (4.5-10.0)
[2024-06-30 05:55] LABS: Alanine Aminotransferase 18 U/L (6-50); Albumin Level 3.3 g/dL (3.5-5.1); Alkaline Phosphatase 72 U/L (38-126); Anion Gap 6 mmol/L (4-12); Aspartate Amino Transferase 38 U/L (17-59); Blood Urea Nitrogen 18 mg/dL (9-20); Calcium 8.7 mg/dL (8.4-10.2); Carbon Dioxide 29 mmol/L (22-30); Chloride 103 mmol/L (98-107); Estimated CRCL calculation 33 ml/min; Estimated Glomerular Filt Rate 56; Glucose 106 mg/dL (65-110); Potassium 3.9 mmol/L (3.4-5.0); Sodium 138 mmol/L (137-145)
[2024-06-30 06:07] LABS: NT Pro B Type Natriuretic Pept 2880 pg/mL (19.9-100); Troponin I 0.054 ng/mL (0.000-0.034)
[2024-06-30] MEDS: FUROSEMIDE INJ 40 MG/4 ML VIAL IV PUSH (06:22)
[2024-06-30] MEDS: METOPROLOL TARTRATE 25 MG TABLET PO ×2 (09:38→20:13)
[2024-06-30] MEDS: APIXABAN 5 MG TABLET PO ×2 (09:38→20:13)
[2024-06-30] MEDS: FINASTERIDE 5 MG TABLET PO (09:38)
[2024-06-30] MEDS: allopurinoL 100 MG TABLET PO (09:38)
[2024-06-30] MEDS: PANTOPRAZOLE 40 MG TABLET PO (09:38)
[2024-06-30] MEDS: methylPHENIDATE HCL (*CRX) 10 MG TABLET PO (09:38)
[2024-06-30] MEDS: GABAPENTIN 300 MG CAPSULE PO (09:38)
[2024-06-30] MEDS: DULoxetine HCL 60 MG CAPSULE.DR PO (09:38)
[2024-06-30] MEDS: SODIUM CHLORIDE 0.9% IV 1,000 ML 50 ML IV CONT (12:43)
--- NOTE | 2024-06-30 15:08 | PM.IMPN ---
Progress Note: A&P Assessment and Plan (1) Acute metabolic encephalopathy: Code(s): G93.41 - Metabolic encephalopathy Status: Acute Assessment and Plan: Multifactorial Head CT:No significant abnormality seen TSH : 1.660 Ammonia pending UTI : Meropenem Continue NSS (2) Type 2 diabetes mellitus with diabetic neuropathy: Qualifiers: Diabetes mellitus shelter insulin use: without long term care administrator use Qualified Code(s): E11.40 - Type 2 diabetes mellitus with diabetic neuropathy, unspecified Code(s): E11.40 - Type 2 diabetes mellitus with diabetic neuropathy, unspecified Status: Acute (3) HLD (hyperlipidemia): Code(s): E78.5 - Hyperlipidemia, unspecified Status: Acute (4) Atrial fibrillation: Code(s): I48.91 - Unspecified atrial fibrillation Status: Acute Assessment and Plan: Continue Metoprolol Continue Eliquis (5) Aortic valve stenosis: Code(s): I35.0 - Nonrheumatic aortic (valve) stenosis Status: Acute (6) HTN (hypertension): Qualifiers: Hypertension type: primary hypertension Qualified Code(s): I10 - Essential (primary) hypertension Code(s): I10 - Essential (primary) hypertension Status: Acute (7) Acute UTI: Code(s): N39.0 - Urinary tract infection, site not specified Status: Inactive Assessment and Plan: Cont Meropenem UC pending Chronic zimmer cath Subjective Date/time seen: 06/30/24 15:08 Interval history: Patient is feeling little tired. Cont PT/OT Review of Systems Review of Systems: All systems reviewed & are unremarkable except as noted in HPI and below Exam Const: General: comfortable HENMT: Ears: TM's normal bilaterally Face/Nose/Sinus: Normal nares present Mouth: Yes moist mucous membranes Eyes: General: appearance normal, both eyes and all related structures Sclera: sclerae normal Pupils: Equal, round and reactive pupils present Neck: Neck: supple Resp: Effort & Inspection: normal respiratory effort Cardio: Rate: regular rate Urinary Catheter: Urinary Catheter: patent and draining Skin: General skin exam: normal color Neuro: Cranial nerves: Yes Equal, round and reactive pupils present Speech: normal speech Motor exam (neuro): Abnormal motor strength present Extrem: General: normal to inspection Psych: Other: Confused; thinks the year is 2023 Objective Data Vital Signs Vital Signs: Vital Signs - 24 hr 06/29/24 15:35 06/29/24 15:50 06/29/24 16:00 Temperature 98.3 F Pulse Rate 80 Respiratory Rate 18 Blood Pressure 100/77 Pulse Oximetry 97 Oxygen Delivery Nasal Cannula Nasal Cannula Oxygen Flow Rate 2 2 06/29/24 16:00 06/29/24 20:00 06/29/24 20:00 Temperature 98.6 F Pulse Rate 79 68 120 H Respiratory Rate 18 Blood Pressure 119/73 Pulse Oximetry 95 Oxygen Delivery Oxygen Flow Rate 06/29/24 20:08 06/29/24 20:55 06/30/24 00:00 Temperature Pulse Rate 123 H 123 H 60 Respiratory Rate 20 Blood Pressure Pulse Oximetry 96 Oxygen Delivery Autopap Oxygen Flow Rate 06/30/24 00:00 06/30/24 04:00 06/30/24 04:00 Temperature 98 F 98.5 F Pulse Rate 57 L 108 H 95 Respiratory Rate 20 20 Blood Pressure 135/67 141/58 H Pulse Oximetry 98 96 Oxygen Delivery Oxygen Flow Rate 06/30/24 08:00 06/30/24 08:21 06/30/24 09:38 Temperature 97.2 F L Pulse Rate 61 63 80 Respiratory Rate 18 Blood Pressure 132/60 Pulse Oximetry 99 Oxygen Delivery Oxygen Flow Rate 06/30/24 09:40 06/30/24 12:00 06/30/24 12:38 Temperature 97.0 F L Pulse Rate 64 61 Respiratory Rate 18 Blood Pressure 101/65 Pulse Oximetry 94 98 Oxygen Delivery Nasal Cannula Oxygen Flow Rate 2 06/30/24 12:58 Temperature Pulse Rate Respiratory Rate Blood Pressure Pulse Oximetry 95 Oxygen Delivery Nasal Cannula Oxygen Flow Rate 3 Intake/Output Intake/Output: Intake & Output 06/27/24 06/28/24 06/29/24 06/30/24 23:59 23:59 23:59 23:59 Intake Total 1100 4189.2 2012.5 Output Total 1050 1150 Balance 1100 3139.2 862.5 Meds/Results Medications: Active Medications Generic Name Dose Route Start Last Admin Trade Name Freq PRN Reason Stop Dose Admin Acetaminophen 650 mg 06/29/24 04:37 Acetaminophen 325 Mg Tablet PO Q4H PRN Mild Pain (1-3) or Fever Alfuzosin HCl 10 mg 06/29/24 09:00 06/30/24 09:38 Alfuzosin 10 Mg Er Tablet PO 10 mg DAILY YULIANA Administration Allopurinol 100 mg 06/29/24 09:00 06/30/24 09:38 Allopurinol 100 Mg Tablet PO 100 mg DAILY YULIANA Administration Amlodipine Besylate 5 mg 06/29/24 21:00 06/29/24 20:08 Amlodipine Besylate 5 Mg Tablet PO 5 mg QHS YULIANA Administration Apixaban 5 mg 06/29/24 09:00 06/30/24 09:38 Apixaban 5 Mg Tablet PO 5 mg Q12HR YULIANA Administration Duloxetine HCl 60 mg 06/29/24 09:00 06/30/24 09:38 Duloxetine Hcl 60 Mg Capsule.Dr PO 60 mg DAILY YULIANA Administration Finasteride 5 mg 06/29/24 09:00 06/30/24 09:38 Finasteride 5 Mg Tablet PO 5 mg QAM YULIANA Administration Gabapentin 600 mg 06/29/24 21:00 06/29/24 20:09 Gabapentin 300 Mg Capsule PO 600 mg HS YULIANA Administration Gabapentin 300 mg 06/29/24 09:00 06/30/24 09:38 Gabapentin 300 Mg Capsule PO 300 mg DAILY YULIANA Administration Meropenem 1 gm in 100 mls @ 200 mls/hr 06/29/24 04:00 06/30/24 03:58 IVPB Infused Q12H YULIANA Infusion Sodium Chloride 1,000 mls @ 100 mls/hr 06/29/24 04:40 06/30/24 12:43 Normal Saline Iv IV CONT 50 mls/hr .Q10H YULIANA Administration Melatonin 5 mg 06/29/24 04:37 Melatonin 5 Mg Tablet PO HS PRN Insomnia Methylphenidate HCl 10 mg 06/29/24 09:00 06/30/24 09:38 Methylphenidate Hcl (*Crx) 10 Mg Tablet PO 10 mg QAM YULIANA Administration Metoprolol Tartrate 25 mg 06/29/24 09:00 06/30/24 09:38 Metoprolol Tartrate 25 Mg Tablet PO 25 mg Q12HR YULIANA Administration Pantoprazole Sodium 40 mg 06/29/24 09:00 06/30/24 09:38 Pantoprazole 40 Mg Tablet PO 40 mg DAILY YULIANA Administration Radiology Results: ITS Impressions Head CT 06/28/24 12:19 Impression: No significant abnormality seen. Chest/Abdomen/Pelvis CT 06/28/24 12:26 IMPRESSION: 1. 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 No acute cardiopulmonary disease. 2. Dilation the gallbladder to 4.8 cm but without wall thickening or pericholecystic inflammatory stranding to suggest acute cholecystitis. Correlate for Lopez sign and could consider right upper quadrant ultrasound for further evaluation as clinically indicated. 3. Prominent sigmoid diverticulosis. 4. Age-related mild bilateral renal atrophy with nonobstructing right nephrolithiasis. 5. Moderate-sized bilateral fat-containing inguinal hernias. Chest X-Ray 06/30/24 08:02 IMPRESSION: Airspace opacity in bilateral lung bases may represent pneumonia versus atelectasis versus scarring clinical correlation is monitored. Labs Labs: Laboratory Results - last 24 hr 06/29/24 06/30/24 17:53 05:26 WBC 8.3 RBC 3.97 L Hgb 11.8 L Hct 37.2 L MCV 93.7 MCH 29.7 MCHC 31.7 L RDW 15.1 H Plt Count 215 MPV 9.0 Immature Gran % (Auto) 0.4 Neut % (Auto) 47.0 Lymph % (Auto) 35.2 [place] % (Auto) 10.5 H Eos % (Auto) 6.4 H Baso % (Auto) 0.5 Lymph # (Auto) 2.92 [place] # (Auto) 0.9 H Eos # (Auto) 0.5 H Baso # (Auto) 0.0 Abs Immat Gran (auto) 0.03 Absolute Neuts (auto) 3.9 Absolute Nucleated RBC 0.000 Nucleated RBC % 0.0 Sodium 138 Potassium 3.9 Chloride 103 Carbon Dioxide 29 Anion Gap 6 BUN 18 Creatinine 1.22 Estim Creat Clear Calc 33 Estimated GFR 56 L Glucose 106 Calcium 8.7 Total Bilirubin 1.0 AST 38 ALT 18 Alkaline Phosphatase 72 Ammonia < 9 L Troponin I 0.054 H* NT-Pro-B Natriuret Pep 2880 H Total Protein 6.0 L Albumin 3.3 L TSH 1.390 Hospitalist [facility] Advance Care Plan I have confirmed that the patient's Advanced Care Plan is present, code status is documented, or surrogate decision maker is listed in patient medical record.: Yes Medication Reconciliation I have utilized all available resources to obtain, update and review the patients current medications (includes all prescriptions, OTC, herbals, cannabis, and nutritional supplements).: Yes
[2024-06-30] MEDS: GABAPENTIN 300 MG CAPSULE 600 MG PO (20:14)
[2024-06-30] MEDS: amLODIPine BESYLATE 5 MG TABLET PO (20:14)
[2024-07-01] VITALS: BP 122/73; PULSE 54; PULSE 58; RESP 18; TEMP 36.8; O2SAT 96
[2024-07-01] MEDS: MEROPENEM 1 GM/NS 100 ML 1 GM/100 ML BAG IVPB (03:43)
[2024-07-01 04:00] VITALS: BP 143/78; PULSE 52; PULSE 54; RESP 18; TEMP 36.6; O2SAT 97
[2024-07-01 05:47] LABS: Basophils Percent Auto 0.3 % (0.2-1.2); Eosinophils Absolute Auto 0.7 K/mm3 (0-0.3); Eosinophils Percent Auto 10.3 % (0-4.4); Hematocrit 36.7 % (42.0-52.0); Hemoglobin 11.3 g/dL (14.0-18.0); Immature Granulocyte Absolute 0.03 K/mm3 (0.00-0.031); Immature Granulocyte Percent A 0.4 % (0-0.5); Lymphocytes Absolute Auto 2.76 K/mm3 (0.9-3.2); Lymphocytes Percent Auto 39.4 % (18.3-44.2); Mean Corpuscular HGB Conc 30.8 g/dl (32-36); Mean Corpuscular Hemoglobin 29.7 pg (26-34); Mean Corpuscular Volume 96.3 fl (80-100); Mean Platelet Volume 9.3 fl (7.4-10.4); Monocytes Absolute Auto 0.7 K/mm3 (0.1-0.6); Monocytes Percent Auto 10.3 % (2.6-8.5); Neutrophils Absolute Auto 2.8 K/mm3 (1.3-6.7); Neutrophils Percent Auto 39.3 % (45.5-73.1); Platelet Count Result 203 k/mm3 (150-375); Red Blood Count 3.81 M/mm3 (4.6-6.20); Red Cell Distribution Width 15.4 % (11.5-14.5)
[2024-07-01 05:56] LABS: Alanine Aminotransferase 19 U/L (6-50); Albumin Level 3.5 g/dL (3.5-5.1); Alkaline Phosphatase 70 U/L (38-126); Anion Gap 8 mmol/L (4-12); Aspartate Amino Transferase 37 U/L (17-59); Bilirubin,Total 0.7 mg/dL (0.2-1.3); Blood Urea Nitrogen 25 mg/dL (9-20); Calcium 8.6 mg/dL (8.4-10.2); Carbon Dioxide 30 mmol/L (22-30); Chloride 101 mmol/L (98-107); Estimated CRCL calculation 30 ml/min; Estimated Glomerular Filt Rate 50; Glucose 97 mg/dL (65-110); Sodium 139 mmol/L (137-145)
[2024-07-01 08:00] VITALS: BP 131/58; PULSE 59; RESP 16; TEMP 36.5; O2SAT 95
[2024-07-01 09:10] VITALS: PULSE 57
[2024-07-01] MEDS: methylPHENIDATE HCL (*CRX) 10 MG TABLET PO (09:10)
[2024-07-01] MEDS: FINASTERIDE 5 MG TABLET PO (09:10)
[2024-07-01] MEDS: METOPROLOL TARTRATE 25 MG TABLET PO (09:10)
[2024-07-01] MEDS: DULoxetine HCL 60 MG CAPSULE.DR PO (09:10)
[2024-07-01] MEDS: allopurinoL 100 MG TABLET PO (09:10)
[2024-07-01] MEDS: PANTOPRAZOLE 40 MG TABLET PO (09:13)
[2024-07-01] MEDS: APIXABAN 5 MG TABLET PO (09:13)
[2024-07-01] MEDS: GABAPENTIN 300 MG CAPSULE PO (09:13)
[2024-07-01 09:15] VITALS: PULSE 52; O2SAT 95
[2024-07-01 14:11] VITALS: BP 116/73; PULSE 53; RESP 19; TEMP 36.1; O2SAT 98
--- NOTE | 2024-07-01 16:17 | PM.DS ---
DS: Admitting Diagnosis Discharge Date 07/01/2024 Admitting Diagnosis Confusion DS: Discharge Diagnosis Discharge Diagnosis (1) Acute metabolic encephalopathy: Code(s): G93.41 - Metabolic encephalopathy Status: Acute Assessment and Plan: Multifactorial Head CT:No significant abnormality seen TSH : 1.660 Ammonia pending UTI : S/P Meropenem Continue NSS (2) Type 2 diabetes mellitus with diabetic neuropathy: Qualifiers: Diabetes mellitus senior care insulin use: without senior care use Qualified Code(s): E11.40 - Type 2 diabetes mellitus with diabetic neuropathy, unspecified Code(s): E11.40 - Type 2 diabetes mellitus with diabetic neuropathy, unspecified Status: Acute (3) HLD (hyperlipidemia): Code(s): E78.5 - Hyperlipidemia, unspecified Status: Acute (4) Atrial fibrillation: Code(s): I48.91 - Unspecified atrial fibrillation Status: Acute Assessment and Plan: Continue Metoprolol Continue Eliquis (5) Aortic valve stenosis: Code(s): I35.0 - Nonrheumatic aortic (valve) stenosis Status: Acute (6) HTN (hypertension): Qualifiers: Hypertension type: primary hypertension Qualified Code(s): I10 - Essential (primary) hypertension Code(s): I10 - Essential (primary) hypertension Status: Acute (7) Acute UTI: Code(s): N39.0 - Urinary tract infection, site not specified Status: Inactive DS: Summary Hospital Course Hospital Course: 89-year-old male with past medical history significant for gout, hypertension, atrial fibrillation, rate controlled anticoagulated, peripheral neuropathy, chronic indwelling Gonzalez catheter, chronic respiratory failure with hypoxia, obstructive sleep apnea on CPAP. Patient presents to the emergency room due to confusion. Patient is brought to the ED 2 days ago and at that time had a unremarkable workup. He was discharged back home with during that time he has continued to be confused. He has not eaten anything. He has not been taking his home medications. Patient is admitted in the setting of acute metabolic encephalopathy. Patient is AO x3 at baseline . Head CT negative. No significant finding explaining AMS in chest/abdomen/pelvic CT please refer to the full report. Chest x-ray shows mild interstitial edema pneumonia less favored.Ammonia <9 and TSH negative.Patient started on Meropenem due to previous hx MDS UTI .UC came back with no significant finding . Patient is discharged with Amox/Clav for 5 days. Patient had mild elevation of Cr today and advised to hydrate well and repeat CMP in a week. Status at Discharge Cognitive/behavioral status at discharge: Stable Time Spent with Patient Time attestation: Total time spent providing and/or coordinating discharge services:45 minutes Exam Const: General: comfortable HENMT: Ears: TM's normal bilaterally Face/Nose/Sinus: Normal nares present Mouth: Yes moist mucous membranes Eyes: General: appearance normal, both eyes and all related structures Sclera: sclerae normal Pupils: Equal, round and reactive pupils present Neck: Neck: supple Resp: Effort & Inspection: normal respiratory effort Cardio: Rate: regular rate Urinary Catheter: Urinary Catheter: patent and draining Skin: General skin exam: normal color Neuro: Cranial nerves: Yes Equal, round and reactive pupils present Speech: normal speech Motor exam (neuro): Abnormal motor strength present Extrem: General: normal to inspection Psych: Other: Confused; thinks the year is 2023 DS: Data Data Completed and Pending Labs on day of discharge: Labs from last 24 hours 07/01/24 05:19 WBC 7.0 RBC 3.81 L Hgb 11.3 L Hct 36.7 L MCV 96.3 MCH 29.7 MCHC 30.8 L RDW 15.4 H Plt Count 203 MPV 9.3 Immature Gran % (Auto) 0.4 Neut % (Auto) 39.3 L Lymph % (Auto) 39.4 [place] % (Auto) 10.3 H Eos % (Auto) 10.3 H Baso % (Auto) 0.3 Lymph # (Auto) 2.76 [place] # (Auto) 0.7 H Eos # (Auto) 0.7 H Baso # (Auto) 0.0 Abs Immat Gran (auto) 0.03 Absolute Neuts (auto) 2.8 Absolute Nucleated RBC 0.000 Nucleated RBC % 0.0 Sodium 139 Potassium 4.0 Chloride 101 Carbon Dioxide 30 Anion Gap 8 BUN 25 H Creatinine 1.34 H Estim Creat Clear Calc 30 Estimated GFR 50 L Glucose 97 Calcium 8.6 Total Bilirubin 0.7 AST 37 ALT 19 Alkaline Phosphatase 70 Total Protein 7.0 Albumin 3.5 Discharge Plan Discharge Attending physician on discharge: Yo Lamas Discharging Clinician: Yo Lamas Anticipated Discharge Date/Time: 07/01/24 14:42 Patient Disposition: NH [facility]/Asst Living Activity: as tolerated Diet: heart healthy Discharge Instructions: Needs to follow-up with CMP in 1 week with PCP Please take Augmentin 2 times a day for 5 days Hydrate well and follow-up with Nephrology in a week upon discharge Check blood pressure 1 to 2 times a day. Record and bring into your doctor for review. Call your doctor if your blood pressure is greater than 180/110 or less than 90/45. Walk with cane or other assist device. Take precautions to avoid falls. Rise slowly from a lying or sitting position. Pause before standing or walking. Contact your doctor or call 911 and come to the Emergency Room if you have any type of trauma, lightheadedness with standing or other worrisome symptoms. Avoid NSAIDs (ibuprofen, naproxen, Aleve). Tylenol is safe to take. Follow-up with your primary care provider in 1-2 weeks. Please call for appointment. Follow-up with Cardiology in 2-4 weeks. Please call for an appointment. Thank you for using [facility] for your health care needs. Patient Instructions: Antibiotic Form, Apixaban (By mouth) Patient Language: Kazakh Stand Alone Forms: General Discharge Information Discharge Medications: New amoxicillin-pot clavulanate 875-125 mg tablet 1 tablet PO Q12H Qty: 10 0RF Rx Instructions: Please complete the course for 5 days Continued loratadine [Claritin] 10 mg tablet 10 mg PO HS alfuzosin 10 mg tablet extended release 24 hr 10 mg PO DAILY cholecalciferol (vitamin D3) [Vitamin D3] 25 mcg (1,000 unit) Tablet 50 mcg PO DAILY gabapentin 600 mg tablet 600 mg PO HS amlodipine 5 mg tablet 5 mg PO QHS Qty: 90 1RF allopurinol 100 mg tablet 100 mg PO DAILY Qty: 90 0RF metoprolol tartrate 25 mg tablet 25 mg PO BID Qty: 180 0RF pantoprazole 40 mg tablet,delayed release (DR/EC) 40 mg PO DAILY Qty: 90 0RF gabapentin 300 mg capsule 300 mg PO DAILY Qty: 270 0RF Rx Instructions: TAKE 1 CAPSULE BY MOUTH EVERY MORNING AND 2 TABS (600MG EVERY PM). methylphenidate HCl 10 mg tablet 10 mg PO QAM Qty: 30 0RF duloxetine 60 mg capsule,delayed release(DR/EC) 60 mg PO DAILY Qty: 90 0RF Eliquis 5 mg tablet 5 mg PO Q12H Qty: 180 0RF finasteride [Proscar] 5 mg Tablet 5 mg PO QAM Qty: 30 0RF omega 3-fjg-ksg-fish oil 300-1,000 mg Capsule 1 cap PO DAILY Qty: 30 0RF Discontinued cephalexin 250 mg capsule 250 mg PO DAILY Other Ambulatory Orders: Complete Blood Count no Diff (Routine) Timeframe: 1 Week Location: Determined by Patient Ordered By: Yo Lamas Comprehensive Metabolic Panel (Routine) Timeframe: 1 Week Location: Determined by Patient Ordered By: Yo Lamas Date of admission: 06/28/24 14:54 Primary Care Provider: Annamarie Betancourt Admitting Provider: Silas Vega Attending physician on admission: Silas Vega Condition: Stable
== END 2024-07-01 16:26 | DRG 71 ==
LOC: ANHED 15:00 → ANH3MEDSUR 16:36 → ANH3MED 18:58
PROVIDERS: Internal Medicine; Student in an Organized Health Care Education/Training Program; Admitting Provider Internal Medicine; Emergency Provider Emergency Medicine; PCP Nurse Practitioner Family; Visit Provider General Practice
DX: G93.41 Metabolic encephalopathy (principal); J96.11 Chronic respiratory failure with hypoxia; E11.42 Type 2 diabetes mellitus with diabetic polyneuropathy; E78.5 Hyperlipidemia, unspecified; I48.91 Unspecified atrial fibrillation; I35.0 Nonrheumatic aortic (valve) stenosis; I10 Essential (primary) hypertension; G47.33 Obstructive sleep apnea (adult) (pediatric); K21.9 Gastro-esophageal reflux disease without esophagitis; F03.90 Unspecified dementia, unspecified severity, without behavioral disturbance, psychotic disturbance, mood disturbance, and anxiety; G47.419 Narcolepsy without cataplexy; M10.9 Gout, unspecified; K81.9 Cholecystitis, unspecified; F32.A Depression, unspecified; N31.9 Neuromuscular dysfunction of bladder, unspecified; Z79.01 Long term (current) use of anticoagulants; N40.0 Benign prostatic hyperplasia without lower urinary tract symptoms
CPT/HCPCS: 36415; 36600; 70450; 71045; 71260; 74177; 80053; 80061; 81001; 82140; 82550; 82805; 83036; 83605; 83690; 83735; 83880; 84100; 84443; 84484; 85018; 85025; 85610; 85730; 87086; 93005; 96360; 97161; 97165; 97535; 99285; A9270; J1938; J2185; J7030; J7120; Q9967

== ENCOUNTER 2024-11-12 11:08 | Inpatient (IN) | payer MEDICARE, SELFPAY ==
[2024-11-12] VITALS (22 sets, daily range): BP systolic 120–147; BP diastolic 47–89; PULSE 55–71; RESP 15–33; TEMP 36.4–37.1; O2SAT 91–100; BMI 29.5
--- NOTE | ~2024-11-12 | CT_ITS ---
EXAMINATION: CT diagnostic chest wo con DATE: 11/12/2024 13:40 INDICATION: Dominant right hilum on chest x-ray TECHNIQUE: Computed tomography (CT) of the chest was performed without intravenous contrast. The dose-length product was 446.52 mGy-cm. Automated exposure control and iterative reconstruction technique were employed. COMPARISON: CT dated 06/28/2024 FINDINGS: Enlarged pulmonary arteries consistent with pulmonary hypertension, corresponding to prominent right hilum seen on chest x-ray. No significant pleural or pericardial effusion. No thoracic lymphadenopathy. There is atherosclerosis of the aorta and coronary arteries. Borderline heart size. The upper abdomen is unremarkable. There is focal consolidation in the lower lobes which may represent atelectasis or pneumonia. No endobronchial lesions. There are bullous changes extending into the right anterior chest wall inferiorly. There is moderate thoracic spondylosis. IMPRESSION: 1. Consolidation of the lower lobes which may represent atelectasis or pneumonia. 2: Bullous changes of the right lower lobe extending into the right chest wall inferiorly. 3: Pulmonary arterial hypertension. Reviewed, dictated and finalized at location O. IMPRESSION: 1. Consolidation of the lower lobes which may represent atelectasis or pneumoni a. 2: Bullous changes of the right lower lobe extending into the right chest wall inferiorly. 3: Pulmonary arterial hypertension.
--- NOTE | ~2024-11-12 | XR_ITS ---
EXAMINATION: XR chest 1V 11/12/2024 12:09 INDICATION: Altered mental status TECHNIQUE:A single AP supine frontal image of the chest was obtained. COMPARISON: 06/30/2024 and 01/26/2019 FINDINGS: Right hilum is more prominent than seen in prior studies. Differential includes overlapping vascular, adenopathy or mass. Lung volumes are low. No pneumothorax. No pleural effusion. No free air under the diaphragm. Cardiomediastinal silhouette is mildly enlarged, unchanged. Hardware is noted in the spine. IMPRESSION: 1: Right hilum is prominent. Differential includes overlapping vascular, adenopathy or mass. A chest CT is suggested. 2. No focal pulmonary consolidation identified. Reviewed, dictated and finalized at location Q. IMPRESSION: 1: Right hilum is prominent. Differential includes overlapping vascular, adeno jennifer or mass. A chest CT is suggested. 2. No focal pulmonary consolidation identified.
--- NOTE | ~2024-11-12 | CT_ITS ---
EXAMINATION: CT brain wo con DATE: 11/12/2024 12:04 INDICATION: Fall on blood thinners TECHNIQUE: Computed tomography (CT) of the head was performed without intravenous contrast. The dose-length product was 908.00 mGy-cm. COMPARISON: 06/28/2024 FINDINGS: This study is slightly limited due to motion artifact. No acute intracranial hemorrhage identified. No mass effect. No midline shift. No hydrocephalus. There are several low density regions scattered throughout the periventricular and deep white matter which are favored to represent chronic ischemic white matter change. Partial opacification of the paranasal sinuses and mastoid air cells. No obvious large fracture, however, a subtle fracture is not excluded due to the limitations of this study. IMPRESSION: 1. No acute intracranial hemorrhage identified. No mass effect. 2. Probable chronic ischemic white matter change. 3. Limited study due to motion artifact. If of concern, consider a repeat study Reviewed, dictated and finalized at location Q.
--- NOTE | ~2024-11-12 | CT_ITS ---
EXAMINATION: CT cervical spine wo con DATE: 11/12/2024 12:05 INDICATION: Fall. TECHNIQUE: Computed tomography (CT) of the cervical spine was performed without intravenous contrast. COMPARISON: 03/02/2024 FINDINGS: Bones appear osteopenic. Grade 1/2 anterolisthesis C7 on T1 which is grossly stable dating back to 03/02/2024. Multilevel extensive intervertebral disc space narrowing in the cervical spine similar to the study from 03/02/2024. No compression fracture in the cervical spine. Lateral dental intervals are within normal limits. Predental space is within normal limits. Evaluation of the spinal canal contents and bilateral neuroforamen is limited due to CT technique. Stable biapical scarring. Evaluation is severely limited due to motion artifact. IMPRESSION: 1. No compression fracture in the cervical spine. 2. Grade 1/2 anterolisthesis C7 on T1 which is grossly stable dating back to 03/02/2024. 3. 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 Evaluation is slightly limited due to motion artifact. If symptoms persist or worsen, consider an MRI of the cervical spine for further assessment. Reviewed, dictated and finalized at location Q. IMPRESSION: 1. No compression fracture in the cervical spine. 2. Grade 1/2 anterolisthesis C7 on T1 which is grossly stable dating back to . 3. Extensive multilevel degenerative change throughout the cervical spine simil ar to the study from 03/02/2024 4. Evaluation is slightly limited due to motion artifact. If symptoms persist or worsen, consider an MRI of the cervical spine for furthe r assessment.
--- NOTE | 2024-11-12 11:16 | ECG_ITS ---
Test Date: 2024-11-12 12:47:23 Measurements Intervals [place] Rate: 54 P: -54 MN: 275 QRS: -43 QRSD: 104 T: 34 QT: 423 QTc: 403 Interpretive Statements SINUS BRADYCARDIA WITH SINUS ARRHYTHMIA WITH FIRST DEGREE AV BLOCK LEFT AXIS DEVIATION PATTERN CONSISTENT WITH PULMONARY DISEASE BASELINE ARTIFACT- I, II, III, AVR, AVL, VF, V1-V6 BORDERLINE ECG Compared to ECG 06/28/2024 16:17:57 ATRIAL FLUTTER NO LONGER PRESENT Electronically Signed On 11-12-2024 13:03:35 CDT by Mitch Kumar D.O.
[2024-11-12 11:54] LABS: Hematocrit 38.6 % (42.0-52.0); Hemoglobin 12.0 g/dL (14.0-18.0); Immature Granulocyte Percent A 0.2 % (0-0.5); Lymphocytes Absolute Auto 2.21 K/mm3 (0.9-3.2); Mean Corpuscular HGB Conc 31.1 g/dl (32-36); Mean Corpuscular Hemoglobin 29.6 pg (26-34); Mean Corpuscular Volume 95.3 fl (80-100); Nucleated Red Blood Cells Absolute Auto 0.000 K/mm3 (0.0-0.012); Nucleated Red Blood Cells Perc 0.0 % (0.0-0.2); Platelet Count Result 221 k/mm3 (150-375); Red Blood Count 4.05 M/mm3 (4.6-6.20); White Blood Count 9.1 K/mm3 (4.5-10.0)
[2024-11-12 12:02] LABS: Ammonia 17 umol/L (9-30)
[2024-11-12 12:05] LABS: Alanine Aminotransferase 22 U/L (6-50); Albumin Level 4.2 g/dL (3.5-5.1); Alkaline Phosphatase 97 U/L (38-126); Anion Gap 6 mmol/L (4-12); Aspartate Amino Transferase 45 U/L (17-59); Bilirubin,Total 1.2 mg/dL (0.2-1.3); Blood Urea Nitrogen 24 mg/dL (9-20); Calcium 9.9 mg/dL (8.4-10.2); Carbon Dioxide 34 mmol/L (22-30); Chloride 97 mmol/L (98-107); Estimated CRCL calculation 41 ml/min; Estimated Glomerular Filt Rate > 60; Glucose 118 mg/dL (65-110); Potassium 4.5 mmol/L (3.4-5.0); Sodium 137 mmol/L (137-145); Total Protein 7.9 g/dL (6.3-8.2)
--- OUTSIDE RECORDS SUMMARY | 2024-11-12 12:11 | XMS_ITS | Clinical Summary ---
Author Organization [facility] Address [address] [place] [address] Care Team Providers Care Hardware Engineer Name Role Phone Aure Salas PA-C Primary Care Provider [phone] Allergies Active Allergy Reactions Criticality Noted Date [...] place to sleep or slept in a prison (including now)? No 11/30/2022 Sex and Gender Information Value Date Recorded Sex Assigned at Not on file Legal Sex Male 1:42 AM CDT Gender Identity Not on file Sexual Orientation Not on file Last Filed Vital Signs Vital Sign Reading Time Taken Comments Blood Pressure 124/78 02/07/2023 2:01 PM HULLER OPERATOR Pulse 84 02/07/2023 2:01 PM HULLER OPERATOR Temperature 36.8 C (98.3 F) 02/07/2023 2:01 PM HULLER OPERATOR Respiratory Rate 18 02/07/2023 2:01 PM HULLER OPERATOR Oxygen Saturation 96% 02/07/2023 2:01 PM HULLER OPERATOR Inhaled Oxygen Concentration - - Weight 75.5 kg (166 lb 7.2 oz) 12/08/2022 10:02 PM CDT Height 165.1 cm (5' 5) 12/02/2022 3:00 PM CDT Body Mass Index [...] season) 2023 04/02/2021, 11/03/2020, 10/07/2020 Pneumococcal Vaccine: 50+ Years Completed 12/14/2021, 11/03/2020 Meningococcal B Vaccine [...] 11/24/22 urine (RR) 07/12/2022 11/25/2022 Insurance MEDICARE [facility] Advance Directives * Full Code (Latest Code Status on File) Date Activated Date Inactivated Comments 12/13/2022 6:32 AM * Full Code Date Activated Date Inactivated Comments 12/03/2022 8:44 AM 12/09/2022 3:18 PM Care Teams Hardware Engineer Relationship Specialty Start Date End Date Aure Salas PA-C [address] [place] [address] [address] [place] [address] PCP - General PHYSICIAN PUNCH PRESS OPERATOR HELPER 04/09/22
--- OUTSIDE RECORDS SUMMARY | 2024-11-12 12:11 | XMS_ITS | Clinical Summary ---
Author Organization [facility] [id number] [place] [address] [address] [address] [place] [address] Care Team Providers Care Potato Inspector Name Role Phone Gagan Mckay MD Primary [...] (two) times a day 2 Active omega 7-epd-qcc-fish oil 1,000 mg (120 mg-180 mg) capsule [...] on file Legal Sex Male 2:38 AM PROSTHETIC AIDES TEACHER Gender Identity Not on file Sexual Orientation Not on file Obstetrics History Last Filed Vital Signs Vital Sign Reading Time Taken Comments Blood Pressure 136/75 08/02/2012 3:37 PM CDT Pulse 66 08/02/2012 3:37 PM CDT Temperature 36.4 C (97.5 F) 08/02/2012 3:37 PM CDT Respiratory Rate 18 03/30/2022 11:55 AM PROSTHETIC AIDES TEACHER Oxygen Saturation 92% 08/02/2012 3:37 PM CDT Inhaled Oxygen Concentration - - Weight 81.6 kg (180 lb) 03/30/2022 11:55 AM PROSTHETIC AIDES TEACHER Height 162.6 cm (5' 4) 03/30/2022 11:55 AM PROSTHETIC AIDES TEACHER Body Mass Index 30.9 03/30/2022 11:55 AM PROSTHETIC AIDES TEACHER Plan of Treatment Health Maintenance Due Date Last Done Comments Depression Screening 1935 Fall Risk Assessment 1935 DTaP/Tdap/Td Vaccine (1 - Tdap) 01/28/1948 Hepatitis B Screening 1955 Zoster Vaccine (1 of 2) 1987 Well Visit 65+ 2002 Covid-19 Vaccine (4 - 2023-2 5 season) 2023 04/02/2021, 11/03/2020, 10/07/2020 Influenza Vaccine (#1) 2024 , 12/02/2020, 12/25/2018, Additional history exists Pneumococcal vaccine 65+ Completed 12/14/2021, 10/19 Insurance MEDICARE [facility] Care Teams Potato Inspector Relationship Specialty Start Date End Date Gagan Mckay MD [address] [address] PCP - General Family Medicine 03/16/22
--- OUTSIDE RECORDS SUMMARY | 2024-11-12 12:11 | XMS_ITS | Clinical Summary ---
Author Organization [facility] Address [address] [place] [address] Care Team Providers Care Malted Milk Masher Name Role Phone Chencho Butler MD Primary Care Provider [phone] Source Comments [facility] [employer],non-owned Affiliates and Associated Physician Practices is amultiple site organization consisting of ambulatory clinics and hospital sitesin [place], [place], [place] and [place]. This disclosure is being madepursuant to the Care Everywhere program and may not contain all information available regarding this patient. Last updated 17.[facility] Allergies No known active allergies Medications * Be aware that medications may not be up to date on this document. Alwaysverify current medications with the patient. methylphenidat e (Ritalin) 10 MG tablet Take 1 (one) tablet by mouth daily before breakfast Active gabapentin (Neurontin) 300 MG capsule Take 1 (one) capsule by mouth 2 times daily Active Alfuzosin HCl (UROXATRAL PO) Take 1 capsule by mouth once daily Active Mesa-3 Fatty Acids (fish oil) 500 MG capsule [...] 4 Grams (4000 mg) / 24 hours. 3 Active polyethylene glycol 3350 (Miralax) 17 g packet Take 17 (seventeen) g by mouth once daily as needed for Constipation 3 Active senna (Senokot Extra Strength) 17.2 MG Take 17.2 mg by mouth once daily 3 Active vitamin D3 (Cholecalcifer ol) 25 MCG (1000 UNITS) tablet Take 1 (one) tablet by mouth once daily 3 Active Active Problems Problem Noted Date Diagnosed Date Hemothorax on left 09/18/2022 Renal cyst 09/17/2022 Fall, initial encounter 09/16/2022 Closed fracture of multiple ribs of left side, initial encounter 09/16/2022 Contusion of left lung, initial encounter 2022 Immunizations Immunization Administration Dates Next Due INFLUENZA VACCINE, HIGH-DOSE [...] you are drinking? Patient does not drink 3 Q3: How often do you have si x or more drinks on one occasion? Never 09/17/2022 Overall Financial Resource Strain (CARDIA) Answe r Date Recorded How hard is it for you to pa y for the very basics like food, housing, medical care, and heating? Not hard at all 09/17/2022 [facility] [place] [facility] Occupat ional [facility] - Occupational Stress [...] place to sleep or slept in a nursing home (including now)? No 09/17/2022 Sex and Gender Information Value Date Recorded Sex Assigned at Not on file Legal Sex Male 6:18 PM CAREGIVER ASSISTED LIVING Gender Identity Not on file Sexual Orientation [...] 4:51 PM CDT Height 175.3 cm (5' 9) 09/16/2022 4:51 PM CDT Body Mass Index [...] 11/03/2020, 10/07/2020 DEPRESSION SCREENING 03/21/2024 INFLUENZA VACCINE (#1) 2024 , 12/02/2020 PNEUMOCOCCAL VACCINE 50+ Completed 022, 11/03/2020 [...] on patient's age to complete this topic Insurance MEDICARE COMMERCIAL GENERIC MEDICARE SUPPLEMENT [place] [address] MEDICARE Advance Directives * Full Code (Latest Code Status on File) Date Activated Date Inactivated Comments 09/16/2022 7:29 PM 09/20/2022 4:40 PM * FULL RESUSCITATION Date Activated Date Inactivated Comments 01/26/2013 7:04 PM 03/03/2013 10:56 AM Care Teams Malted Milk Masher Relationship Specialty Start Date End Date Chencho Butler MD [address] [facility] [address] [place] [address] PCP - General 11/29/18
--- OUTSIDE RECORDS SUMMARY | 2024-11-12 12:11 | XMS_ITS | Encounter Summary ---
Author Organization [facility] Address [address] [place] [address] Care Team Providers Care Law Enforcement Director Name Role Phone Aure Salas PA-C Primary Care Provider [phone] Reason for Visit * Reason Onset Date Comments Advise 12/07/2022 Encounter Details Date Type Department Care Team (Late st Contact Info) Description 12/07/2022 Telephone [facility] [address] [place] [address] [place] [address] Aure Salas PA-C [address] [place], [place] [address] [place], [place] [id number] Advise Social History Tobacco Use Types Packs/Day [...] place to sleep or slept in a alf (including now)? No 11/30/2022 Sex and Gender [...] documented as of this encounter Care Teams Law Enforcement Director Relationship Specialty Start Date End Date Aure Salas PA-C [address] [place] [address] [address] [place] [address] PCP - General PHYSICIAN CRIMINAL INTELLIGENCE SPECIALIST 04/09/22 documented as of this encounter
[2024-11-12 12:18] LABS: Troponin I 0.998 ng/mL (0.000-0.034)
[2024-11-12 12:36] LABS: Thyroid Stimulating Hormone 1.310 uIU/mL (0.465-4.680)
[2024-11-12] MEDS: IPRATROPIUM 0.5 MG/ALBUTEROL SULFATE 2.5 MG AMPUL.NEB 3 ML INHALATION (12:40)
[2024-11-12] MEDS: ASPIRIN 81 MG CHEWABLE TABLET 324 MG PO (14:20)
[2024-11-12 14:52] LABS: Add Urine Microscopic? YES; Appearance Urine Cloudy (Clear); Glucose Urine UA Negative (Negative); Leukocyte Esterase Ur 3+ LEU/UL (Negative); Need Manual Microscopic Reviewed; Nitrate Urine Positive (Negative); Specific Grav Ur 1.017 (1.001-1.035)
[2024-11-12] MEDS: cefTRIAXone 2 GM in SODIUM CHLORIDE 0.9% IV 100 ML 200 ML IVPB (14:57)
[2024-11-12] MEDS: AZITHROMYCIN 500 MG TABLET PO (14:57)
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
--- NOTE | 2024-11-12 15:57 | ECG_ITS ---
Test Date: 2024-11-12 16:03:48 Measurements Intervals [place] Rate: 55 P: -24 AK: 259 QRS: -44 QRSD: 107 T: 53 QT: 422 QTc: 405 Interpretive Statements SINUS BRADYCARDIA WITH FIRST DEGREE AV BLOCK LEFT AXIS DEVIATION INCOMPLETE RIGHT BUNDLE BRANCH BLOCK BASELINE ARTIFACT- II, III, AVR, AVL, AVF, V3-V6 BORDERLINE ECG Compared to ECG 11/12/2024 12:47:23 Sinus arrhythmia no longer present Electronically Signed On 11-12-2024 19:51:40 CDT by Mitch Kumar D.O.
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
--- NOTE | 2024-11-12 16:46 | ADMGEN ---
This patient, Devin Gonzalez, was admitted to IMU Room 207-01 at 1634. Patient/family oriented to hospital policies and general routines including ID bracelet, bed and alarms, visiting hours, pain management, procedures, bathroom and other care routines, personal items, smoking policy, room service/diet, and visiting hours. Information on how to activate the Rapid Response Team has been discussed. Patient/Family are encouraged to report perceived risks to care and to ask questions if they do not understand what they are told or what they should do.
[2024-11-12 17:04] LABS: Troponin I 1.080 ng/mL (0.000-0.034)
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
[2024-11-12 19:25] LABS: Troponin I 1.060 ng/mL (0.000-0.034)
[2024-11-12] MEDS: LORATADINE 10 MG TABLET PO (20:22)
[2024-11-12] MEDS: GABAPENTIN 300 MG CAPSULE 600 MG PO (20:22)
[2024-11-12] MEDS: guaiFENesin 12 HR 600 MG TABCR PO (20:22)
[2024-11-13] VITALS (19 sets, daily range): BP systolic 109–159; BP diastolic 39–75; PULSE 59–88; RESP 11–29; TEMP 36.7–37.2; O2SAT 89–99
--- NOTE | 2024-11-13 | ECHO_ITS ---
Patient Info Name: Devin Gonzalez Age: 89 years : 1935 Gender: Male Ht: 64 in Wt: 185 lbs BSA: 1.98 m2 HR: 62 bpm BP: 159 / 61 mmHg Technical Quality: Fair Exam Date: 11/13/2024 9:55 AM Patient Status: I Admit Date: 11/12/2024 Exam Type: CA echo dop color flow w con Complete two-dimensional, color flow and Doppler transthoracic echocardiogram is performed with contrast to opacify the left ventricle and to improve the deliniation of the left ventricle endocardial borders. Staff Referring Physician: Kaylah Mcdowell Analyst Competitive Intelligence: Laura Arauz Attending Provider: Robi Phipps Contrast/Agitated Saline Contrast/Ag. Saline: Definity Amount: 2.00 ml Existing IV Access: Yes IV Access Condition: patent with no signs of infiltration Summary 1. Definity contrast administered improved wall motion interpretation. 2. Left ventricular chamber dimension is normal. 3. Left ventricular systolic function is normal, estimated at 65-70. 4. There is mild concentric increased left ventricular wall thickness. 5. The left ventricular diastolic function is grade I diastolic dysfunction. 6. E/e' 6 is not elevated. 7. Left atrial chamber dimension is mildly enlarged. 8. Right atrial chamber dimension is moderately enlarged. 9. The aortic valve is not well visualized. Cannot determine number of aortic valve leaflets. 10. There is severe aortic valve sclerosis. 11. There is moderate aortic valve stenosis with a peak velocity of 369 cm/s, mean gradient of 31 mmHg, and aortic valve area of 1.2 cm2. 12. There is mild aortic valve regurgitation. 13. There is trace tricuspid valve regurgitation. 14. Mild pulmonary hypertension, estimated pulmonary arterial systolic pressure is 48 mmHg. Left Ventricle Definity contrast administered improved wall motion interpretation. Left ventricular chamber dimension is normal. Left ventricular systolic function is normal, estimated at 65-70. There is mild concentric increased left ventricular wall thickness. The left ventricular diastolic function is grade I diastolic dysfunction. E/e' 6 is not elevated. Right Ventricle Right ventricular chamber dimension is normal. Right ventricular systolic function is normal. Left Atria Left atrial chamber dimension is mildly enlarged. Right Atria Right atrial chamber dimension is moderately enlarged. Aortic Valve The aortic valve is not well visualized. Cannot determine number of aortic valve leaflets. There is severe aortic valve sclerosis. There is moderate aortic valve stenosis with a peak velocity of 369 cm/s, mean gradient of 31 mmHg, and aortic valve area of 1.2 cm2. There is mild aortic valve regurgitation. Pulmonic Valve There is no pulmonic regurgitation. Mitral Valve There is no mitral valve stenosis. There is no mitral valve regurgitation. Tricuspid Valve There is trace tricuspid valve regurgitation. Mild pulmonary hypertension, estimated pulmonary arterial systolic pressure is 48 mmHg. Pericardium/Pleural There is no pericardial effusion. Inferior Vena Cava Normal inferior vena cava with >50% collapse upon inspiration consistent with normal right atrial pressure, 5 mmHg. Aorta The aortic root size at the sinus of Valsalva is normal. Left Ventricular Outflow Tract Name Value Normal LVOT 2D LVOT Diameter 2.0 cm LVOT Doppler LVOT Peak Velocity 117 cm/s LVOT Peak Gradient 6 mmHg LVOT Mean Gradient 3 mmHg LVOT VTI 29 cm LVOT VTI/AV VTI Ratio 0.4 LVOT Stroke Volume 94 ml LVOT CO 16.9 l/min LVOT CI 8.6 l/min/m2 Pulmonic Valve Name Value Normal PV Doppler PV Peak Velocity 150 cm/s PV Peak Gradient 9 mmHg Mitral Valve Name Value Normal MV Diastolic Function MV E Peak Velocity 66 cm/s MV A Peak Velocity 73 cm/s MV E/A 0.9 MV Decel Time (PW) 288 ms MV Annular TDI MV E/e' (Septal) 8.2 MV E/e' (Lateral) 5.7 MV E/e' (Average) 6.9 Tricuspid Valve Name Value Normal TV Regurgitation Doppler TR Peak Velocity 330 cm/s TR Peak Gradient 43 mmHg Estimated PAP/RSVP RA Pressure 5 mmHg <=5 PA Systolic Pressure 48 mmHg <36 RV Systolic Pressure 48 mmHg <36 TV Annular TDI TV Lateral Veronika s' Velocity 14.7 cm/s >=9.5 Aorta Name Value Normal Ascending Aorta Ao Root Diameter (MM) 3.3 cm Ao Root Diam Index (MM) 1.7 cm/m2 Aortic Valve Name Value Normal AV Doppler AV Peak Velocity 369 cm/s AV Peak Gradient 55 mmHg AV Mean Gradient 31 mmHg AV VTI 77 cm AV Area (Cont Eq VTI) 1.2 cm2 >=3.0 AV Area (Cont Eq Mike) 1.0 cm2 AV DI (Mike) 0.32 AV Regurgitation 2D LVOT Area 3.2 cm2 Ventricles Name Value Normal LV Dimensions 2D/MM IVS Diastolic Thickness (2D) 1.2 cm 0.6-1.0 LVID Diastole (2D) 4.7 cm 4.2-5.8 LVIW Diastolic Thickness (2D) 1.3 cm 0.6-1.0 LVID Systole (2D) 2.9 cm 2.5-4.0 LVOT Diameter 2.0 cm LV Mass (2D Cubed) 226.23 g 88.00-224.00 LV Mass Index (2D Cubed) 114 g/m2 49-115 Relative Wall Thickness (2D) 0.57 <=0.42 LV Fractional Shortening/Ejection Fraction 2D/MM LV Fractional Shortening (2D) 38 % 25-43 LV EF (2D Teichholz) 69 % LV Diastolic Volume (4C MOD) 137 ml LV EF (4C MOD) 71 % LV Diastolic Volume (2C MOD) 93 ml LV EF (2C MOD) 75 % LV Diastolic Volume (BP MOD) 121 ml 62-150 LV Diastolic Volume Index (BP MOD) 61 ml/m2 34-74 LV Systolic Volume (BP MOD) 32 ml 21-61 LV Systolic Volume Index (BP MOD) 16 ml/m2 11-31 LV EF (BP MOD) 74 % 52-72 LV Diastolic Length (4C) 9.6 cm LV Systolic Length (4C) 7.7 cm LV Stroke Volume (4C MOD) 97 ml RV Dimensions 2D/MM RVID Diastole (2D) 3.7 cm 2.1-3.5 Atria Name Value Normal LA Dimensions LA Volume (4C A-L) 86 ml LA Volume (BP A-L) 70 ml RA Dimensions RA Systolic [place] Length (4C) 5.2 cm 2.1-2.7 RA Area (4C) 26.5 cm2 <=18.0 Report Signatures
[2024-11-13 06:27] LABS: Hematocrit 32.8 % (42.0-52.0); Hemoglobin 10.3 g/dL (14.0-18.0); Immature Granulocyte Percent A 0.1 % (0-0.5); Lymphocytes Absolute Auto 2.32 K/mm3 (0.9-3.2); Mean Corpuscular HGB Conc 31.4 g/dl (32-36); Mean Corpuscular Hemoglobin 30.0 pg (26-34); Mean Corpuscular Volume 95.6 fl (80-100); Nucleated Red Blood Cells Absolute Auto 0.000 K/mm3 (0.0-0.012); Nucleated Red Blood Cells Perc 0.0 % (0.0-0.2); Platelet Count Result 200 k/mm3 (150-375); Red Blood Count 3.43 M/mm3 (4.6-6.20); White Blood Count 7.2 K/mm3 (4.5-10.0)
[2024-11-13 06:54] LABS: Alanine Aminotransferase 18 U/L (6-50); Albumin Level 3.4 g/dL (3.5-5.1); Alkaline Phosphatase 78 U/L (38-126); Anion Gap 5 mmol/L (4-12); Aspartate Amino Transferase 42 U/L (17-59); Bilirubin,Total 0.6 mg/dL (0.2-1.3); Blood Urea Nitrogen 24 mg/dL (9-20); Calcium 9.1 mg/dL (8.4-10.2); Carbon Dioxide 33 mmol/L (22-30); Chloride 98 mmol/L (98-107); Estimated CRCL calculation 42 ml/min; Estimated Glomerular Filt Rate > 60; Glucose 123 mg/dL (65-110); Magnesium 1.9 mg/dL (1.6-2.3); Potassium 4.5 mmol/L (3.4-5.0); Sodium 136 mmol/L (137-145); Total Protein 6.4 g/dL (6.3-8.2)
--- NOTE | 2024-11-13 07:45 | P.PNCA_ITS ---
Progress Note: A&P Assessment and Plan (1) Elevated troponin: Code(s): R79.89 - Other specified abnormal findings of blood chemistry Status: Acute Assessment and Plan: Troponin peaked at 1.08. Doubt ACS without chest pain and EKG changes. Obtain echo today. (2) Shortness of Breath: Code(s): R06.02 - Shortness of breath Status: Acute Assessment and Plan: Probably due to COPD or possible pneumonia. (3) PAF (paroxysmal atrial fibrillation): Code(s): I48.0 - Paroxysmal atrial fibrillation Status: Acute Assessment and Plan: [id number] 3. In sinus rhythm. On Eliquis and Metoprolol. (4) HTN (hypertension): Qualifiers: Hypertension type: primary hypertension Qualified Code(s): I10 - Essential (primary) hypertension Code(s): I10 - Essential (primary) hypertension Status: Acute Assessment and Plan: Stable. (5) Aortic valve stenosis: Code(s): I35.0 - Nonrheumatic aortic (valve) stenosis Status: Inactive Assessment and Plan: Obtain echo. Subjective Date/time seen: 11/13/24 07:45 Interval history: He is sound asleep with CPAP on. Exam Const: General: healthy appearing Other: Asleep with CPAP Resp: Auscultation: clear to auscultation bilaterally, no crackles, no rales, no rhonchi and no wheezes Cardio: Rate: regular rate Rhythm: regular rhythm Heart sounds: Murmur heart sound present (III/ systolic murmur RICS) Peripheral pulses: dorsalis pedis present Neuro: General: oriented to person, oriented to place and oriented to time Extrem: Right lower extremity: edema Left lower extremity: no edema Other: Mild left leg edema Objective Data Vital Signs Vital Signs: Vital Signs - 24 hr 11/12/24 11:22 11/12/24 11:30 11/12/24 11:32 Temperature 97.9 F Pulse Rate 58 L 55 L Respiratory Rate 18 15 Blood Pressure 125/53 L 125/53 L Pulse Oximetry 99 98 98 Oxygen Delivery Nasal Cannula Nasal Cannula Oxygen Flow Rate 2 2 11/12/24 11:40 11/12/24 11:47 11/12/24 12:45 Temperature Pulse Rate 55 L 57 L 59 L Respiratory Rate 22 H 19 20 Blood Pressure 135/62 134/66 Pulse Oximetry 100 98 Oxygen Delivery Oxygen Flow Rate 11/12/24 13:42 11/12/24 14:36 11/12/24 15:02 Temperature Pulse Rate 57 L 57 L 58 L Respiratory Rate 18 20 20 Blood Pressure 133/82 132/89 140/50 L Pulse Oximetry 98 97 98 Oxygen Delivery Oxygen Flow Rate 11/12/24 15:18 11/12/24 15:47 11/12/24 16:20 Temperature Pulse Rate 61 56 L 58 L Respiratory Rate 20 16 16 Blood Pressure 133/50 L 141/47 H 130/50 L Pulse Oximetry 97 98 98 Oxygen Delivery Oxygen Flow Rate 11/12/24 16:50 11/12/24 17:22 11/12/24 17:29 Temperature 97.5 F L Pulse Rate 64 57 L Respiratory Rate 22 H Blood Pressure 147/54 H Pulse Oximetry 91 97 Oxygen Delivery Nasal Cannula Oxygen Flow Rate 2 11/12/24 18:00 11/12/24 19:47 11/12/24 20:00 Temperature 98.8 F Pulse Rate 66 61 Respiratory Rate 22 H Blood Pressure 142/82 H Pulse Oximetry 98 98 Oxygen Delivery Nasal Cannula Oxygen Flow Rate 2 11/12/24 20:00 11/12/24 20:30 11/12/24 22:00 Temperature Pulse Rate 62 65 63 Respiratory Rate Blood Pressure Pulse Oximetry 98 Oxygen Delivery Nasal Cannula Oxygen Flow Rate 2 11/12/24 22:40 11/12/24 22:40 11/12/24 23:52 Temperature 97.9 F Pulse Rate 71 71 69 Respiratory Rate 33 H 22 H Blood Pressure 120/54 L Pulse Oximetry 94 94 95 Oxygen Delivery Autopap Autopap Oxygen Flow Rate 2 11/13/24 00:00 11/13/24 00:00 11/13/24 02:00 Temperature Pulse Rate 70 66 Respiratory Rate Blood Pressure Pulse Oximetry 95 Oxygen Delivery CPAP Oxygen Flow Rate 2 11/13/24 02:46 11/13/24 02:46 11/13/24 03:59 Temperature 98.9 F Pulse Rate 74 71 70 Respiratory Rate 11 L 22 H Blood Pressure 159/61 H Pulse Oximetry 96 89 L 97 Oxygen Delivery Autopap Autopap Oxygen Flow Rate 2 11/13/24 04:00 11/13/24 04:00 11/13/24 06:00 Temperature Pulse Rate 72 71 Respiratory Rate Blood Pressure Pulse Oximetry 97 Oxygen Delivery CPAP Oxygen Flow Rate 3 11/13/24 07:35 Temperature 98.5 F Pulse Rate 70 Respiratory Rate 12 Blood Pressure 137/65 Pulse Oximetry 97 Oxygen Delivery Oxygen Flow Rate Intake/Output Intake/Output: Intake & Output 11/10/24 11/11/24 11/12/24 11/13/24 23:59 23:59 23:59 23:59 Intake Total 550 Output Total 700 Balance 550 -700 Meds/Results Medications: Active Medications Generic Name Dose Route Start Last Admin Trade Name Freq PRN Reason Stop Dose Admin Acetaminophen 650 mg 11/12/24 17:56 Acetaminophen 325 Mg Tablet PO Q4H PRN Mild Pain (1-3) or Fever Alfuzosin HCl 10 mg 11/13/24 09:00 Alfuzosin 10 Mg Er Tablet PO DAILY [facility] Allopurinol 100 mg 11/13/24 09:00 Allopurinol 100 Mg Tablet PO DAILY [facility] Amlodipine Besylate 5 mg 11/12/24 21:00 11/12/24 20:22 Amlodipine Besylate 5 Mg Tablet PO 5 mg QHS [facility] Administration Apixaban 5 mg 11/13/24 09:00 Apixaban 5 Mg Tablet PO Q12HR [facility] Aspirin 81 mg 11/13/24 09:00 Aspirin 81 Mg Enteric Tablet PO QAM [facility] Benzonatate 100 mg 11/12/24 17:56 Benzonatate 100 Mg Capsule PO TID PRN Cough Dextrose 12.5 gm 11/12/24 18:01 Dextrose 50% 25 Gm/50 Ml Syringe IV PUSH PRN PRN Hypoglycemia Protocol Duloxetine HCl 60 mg 11/13/24 09:00 Duloxetine Hcl 60 Mg Capsule.Dr PO DAILY [facility] Finasteride 5 mg 11/13/24 09:00 Finasteride 5 Mg Tablet PO QAM [facility] Fish Oil 1 gm 11/13/24 09:00 [place] 3 Polyunsat Fatty Acids 1 Gm Cap PO DAILY [facility] Gabapentin 600 mg 11/12/24 21:00 11/12/24 20:22 Gabapentin 300 Mg Capsule PO 600 mg HS [facility] Administration Gabapentin 300 mg 11/13/24 09:00 Gabapentin 300 Mg Capsule PO DAILY [facility] Glucagon 1 mg 11/12/24 18:01 Glucagon For Inj 1 Mg Vial IM PRN PRN Hypoglycemia Protocol Glucose 15 gm 11/12/24 18:01 Glucose Oral Gel 15 Gm Of Glucse In 37.5 Gm Tube PO PRN PRN Hypoglycemia Protocol Guaifenesin 600 mg 11/12/24 21:00 11/12/24 20:22 Guaifenesin 12 Hr 600 Mg Tabcr PO 600 mg Q12HR [facility] Administration Azithromycin 500 mg/ Sodium 250 mls @ 250 mls/hr 11/13/24 14:00 Chloride IVPB 11/17/24 14:59 Q24H [facility] Dextrose 1,000 mls @ 100 mls/hr 11/12/24 18:13 Dextrose 5% 1,000 Ml IVPB PRN PRN Hypoglycemia Protocol Loratadine 10 mg 11/12/24 21:00 11/12/24 20:22 Loratadine 10 Mg Tablet PO 10 mg HS [facility] Administration Metoprolol Tartrate 25 mg 11/13/24 09:00 Metoprolol Tartrate 25 Mg Tablet PO Q12HR [facility] Miscellaneous Information 0 each 11/12/24 00:01 Gabapentin Clarify Dosing 300mg Qam 600mg In The After Noon And Evening??? XX 12/12/24 00:00 CLARIFY [facility] Nitroglycerin 0.4 mg 11/12/24 18:01 Nitroglycerin Sl 0.4 Mg Tablet SUBLINGUAL Q5MIN PRN Chest Pain Pantoprazole Sodium 40 mg 11/13/24 09:00 Pantoprazole 40 Mg Tablet PO DAILY [facility] Perflutren Lipid Microsphere 0 ml 11/12/24 16:33 Perflutren Lipid Microspheres 1.5 Ml Vial Diluted To 10 Ml Total Volume IV PUSH 11/15/24 16:33 ONCE PRN adequate visualization Protocol Vitamin D 50 mcg 11/13/24 09:00 Cholecalciferol (Vitamin D3) 25 Mcg (1,000 Units) Tablet PO DAILY [facility] Radiology Results: ITS Impressions Head CT 11/12/24 12:05 IMPRESSION: 1. No acute intracranial hemorrhage identified. No mass effect. 2. Probable chronic ischemic white matter change. 3. Limited study due to motion artifact. If of concern, consider a repeat study Chest X-Ray 11/12/24 12:21 IMPRESSION: 1: Right hilum is prominent. Differential includes overlapping vascular, adenopathy or mass. A chest CT is suggested. 2. No focal pulmonary consolidation identified. Cervical Spine CT 11/12/24 12:23 IMPRESSION: 1. No compression fracture in the cervical spine. 2. Grade 1/2 anterolisthesis C7 on T1 which is grossly stable dating back to 03/02/2024. 3. 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 Evaluation is slightly limited due to motion artifact. If symptoms persist or worsen, consider an MRI of the cervical spine for further assessment. Chest CT 11/12/24 13:50 IMPRESSION: 1. Consolidation of the lower lobes which may represent atelectasis or pneumonia. 2: Bullous changes of the right lower lobe extending into the right chest wall inferiorly. 3: Pulmonary arterial hypertension. Labs Labs: Laboratory Results - last 24 hr 11/12/24 11/12/24 11/12/24 11:47 14:19 14:31 WBC 9.1 RBC 4.05 L Hgb 12.0 L Hct 38.6 L MCV 95.3 MCH 29.6 MCHC 31.1 L RDW 14.4 Plt Count 221 MPV 9.2 Immature Gran % (Auto) 0.2 Neut % (Auto) 66.1 Lymph % (Auto) 24.4 [place] % (Auto) 7.1 Eos % (Auto) 1.9 Baso % (Auto) 0.3 Lymph # (Auto) 2.21 [place] # (Auto) 0.6 Eos # (Auto) 0.2 Baso # (Auto) 0.0 Abs Immat Gran (auto) 0.02 Absolute Neuts (auto) 6.0 Absolute Nucleated RBC 0.000 Nucleated RBC % 0.0 Sodium 137 Potassium 4.5 Chloride 97 L Carbon Dioxide 34 H Anion Gap 6 BUN 24 H D Creatinine 1.10 Estim Creat Clear Calc 41 Estimated GFR > 60 Glucose 118 H POC Capillary Glucose Lactic Acid 1.2 1.1 Calcium 9.9 Magnesium Total Bilirubin 1.2 AST 45 ALT 22 Alkaline Phosphatase 97 Ammonia 17 Troponin I 0.998 H* Total Protein 7.9 Albumin 4.2 TSH 1.310 Urine Color Yellow Urine Appearance Cloudy H Urine pH 7.0 Ur Specific [place] 1.017 Urine Protein 2+ H Urine Glucose (UA) Negative Urine Ketones Negative Ur Blood (Man) 3+ H Urine Nitrate Positive H Urine Bilirubin Negative Urine Urobilinogen 1.0 Add Ur Microanalysis Reviewed Leukocyte Esterase Rfl 3+ H Urine RBC >100 H Urine WBC >100 H Ur Squamous Epith Cells None seen Urine Bacteria 3+ H Urine Casts 11-20 Ethyl Alcohol < 10 0811/12/24 11/12/24 15:53 18:40 23:44 WBC RBC Hgb Hct MCV MCH MCHC RDW Plt Count MPV Immature Gran % (Auto) Neut % (Auto) Lymph % (Auto) [place] % (Auto) Eos % (Auto) Baso % (Auto) Lymph # (Auto) [place] # (Auto) Eos # (Auto) Baso # (Auto) Abs Immat Gran (auto) Absolute Neuts (auto) Absolute Nucleated RBC Nucleated RBC % Sodium Potassium Chloride Carbon Dioxide Anion Gap BUN Creatinine Estim Creat Clear Calc Estimated GFR Glucose POC Capillary Glucose 118 H Lactic Acid Calcium Magnesium Total Bilirubin AST ALT Alkaline Phosphatase Ammonia Troponin I 1.080 H* 1.060 H* Total Protein Albumin TSH Urine Color Urine Appearance Urine pH Ur Specific [place] Urine Protein Urine Glucose (UA) Urine Ketones Ur Blood (Man) Urine Nitrate Urine Bilirubin Urine Urobilinogen Add Ur Microanalysis Leukocyte Esterase Rfl Urine RBC Urine WBC Ur Squamous Epith Cells Urine Bacteria Urine Casts Ethyl Alcohol 11/13/24 06:19 WBC 7.2 RBC 3.43 L Hgb 10.3 L Hct 32.8 L MCV 95.6 MCH 30.0 MCHC 31.4 L RDW 14.3 Plt Count 200 MPV 9.3 Immature Gran % (Auto) 0.1 Neut % (Auto) 51.9 Lymph % (Auto) 32.0 [place] % (Auto) 9.1 H Eos % (Auto) 6.6 H Baso % (Auto) 0.3 Lymph # (Auto) 2.32 [place] # (Auto) 0.7 H Eos # (Auto) 0.5 H Baso # (Auto) 0.0 Abs Immat Gran (auto) 0.01 Absolute Neuts (auto) 3.8 Absolute Nucleated RBC 0.000 Nucleated RBC % 0.0 Sodium 136 L Potassium 4.5 Chloride 98 Carbon Dioxide 33 H Anion Gap 5 BUN 24 H Creatinine 1.03 Estim Creat Clear Calc 42 Estimated GFR > 60 Glucose 123 H POC Capillary Glucose Lactic Acid Calcium 9.1 Magnesium 1.9 Total Bilirubin 0.6 AST 42 ALT 18 Alkaline Phosphatase 78 Ammonia Troponin I Total Protein 6.4 Albumin 3.4 L TSH Urine Color Urine Appearance Urine pH Ur Specific [place] Urine Protein Urine Glucose (UA) Urine Ketones Ur Blood (Man) Urine Nitrate Urine Bilirubin Urine Urobilinogen Add Ur Microanalysis Leukocyte Esterase Rfl Urine RBC Urine WBC Ur Squamous Epith Cells Urine Bacteria Urine Casts Ethyl Alcohol
[2024-11-13] MEDS: PERFLUTREN LIPID MICROSPHERES 1.5 ML VIAL DILUTED TO 10 ML TOTAL VOLUME IV PUSH (10:15)
[2024-11-13] MEDS: DULoxetine HCL 60 MG CAPSULE.DR PO (10:36)
[2024-11-13] MEDS: FINASTERIDE 5 MG TABLET PO (10:36)
[2024-11-13] MEDS: guaiFENesin 12 HR 600 MG TABCR PO ×2 (10:36→21:13)
[2024-11-13] MEDS: PANTOPRAZOLE 40 MG TABLET PO (10:36)
[2024-11-13] MEDS: APIXABAN 5 MG TABLET PO ×2 (10:37→21:13)
[2024-11-13] MEDS: ASPIRIN 81 MG ENTERIC TABLET PO (10:37)
[2024-11-13] MEDS: METOPROLOL TARTRATE 25 MG TABLET PO ×2 (10:37→21:13)
[2024-11-13] MEDS: OMEGA 3 POLYUNSAT FATTY ACIDS 1 GM CAP PO (10:37)
[2024-11-13] MEDS: CHOLECALCIFEROL (VITAMIN D3) 25 MCG (1,000 UNITS) TABLET 50 MCG PO (10:38)
--- NOTE | 2024-11-13 11:06 | IVDEFINITY ---
Prior to administration of IV Definity the patient was educated on the risks and benefits of the imaging enhancing agent including potential adverse side effects. The patient verbalized understanding. Allergies were verified. No exclusion criteria were identified and at least one of the following inclusion criteria were met: 1) physician request, 2) patient technically difficult to image (per the [place] [employer] guidelines of two or more segments not discernable within the apical view), or 3) questionable left ventricular function. ?
--- NOTE | 2024-11-13 12:05 | P.CDI_ITS ---
CDI Query Clarification Request Clarification request - UTI has been documented, chronic indwelling zimmer catheter documented. Please clarify if UTI is: * due to/associated with chronic indwelling zimmer catheter * not due to/associated with chronic indwelling zimmer catheter * unable to determine (3) Acute UTI: Code(s): N39.0 - Urinary tract infection, site not specified Status: Acute Assessment and Plan: - UA: Cloudy, 2+ protein, 3+ blood, positive nitrates, 3+ leuk esterase, greater than 100 RBC/WBC, no epithelial cells, 3+ bacteria - UC pending - previous micro reviewed: Proteus mirabilis and Enterobacter in November of 2023 with multiple resistances, most significantly for Ceftriaxone/Levaquin - started on meropenem on 11/12 (4) Chronic indwelling Zimmer catheter: Code(s): Z97.8 - Presence of other specified devices Status: Chronic Assessment and Plan: - Zimmer exchanged on 11/12 due to concerns for UTI - continue finasteride and alfuzosin <Isabella Zimmerman RN - Last Filed: 11/13/24 12:05> Provider Comments UTI related to chronic indwelling Zimmer catheterization <Robi Phipps MD - Last Filed: 11/25/24 15:23>
[2024-11-13] MEDS: GABAPENTIN 300 MG CAPSULE PO (12:40)
--- NOTE | 2024-11-13 14:09 | PM.IMPN ---
Progress Note: A&P Assessment and Plan (1) AMS (altered mental status): Qualifiers: Altered mental status type: transient alteration of awareness Qualified Code(s): R40.4 - Transient alteration of awareness Code(s): R41.82 - Altered mental status, unspecified Status: Acute Assessment and Plan: 11/12 - Head CT: 1. No acute intracranial hemorrhage identified. No mass effect. 2. Probable chronic ischemic white matter change. 3. Limited study due to motion artifact. If of concern, consider a repeat study - CXR: 1: Right hilum is prominent. Differential includes overlapping vascular, adenopathy or mass. A chest CT is suggested. 2. No focal pulmonary consolidation identified. - C-Spine CT: 1. No compression fracture in the cervical spine. 2. Grade 1/2 anterolisthesis C7 on T1 which is grossly stable dating back to 03/02/2024. 3. 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 Evaluation is slightly limited due to motion artifact. - Chest CT: 1. Consolidation of the lower lobes which may represent atelectasis or pneumonia. 2: Bullous changes of the right lower lobe extending into the right chest wall inferiorly. 3: Pulmonary arterial hypertension. Transient altered mental status, described as lethargic and slow to respond by his home health provider. Episode lasted for approximately 10-15 minutes. Patient is currently back to baseline. UTI/pneumonia versus TIA. In favor of UTI as the patient did not have focal weakness, slurred speech, or facial droop during episode. Started on IV antibiotics. Monitor neuro status Q4H which has remained stable. (2) Elevated troponin: Code(s): R79.89 - Other specified abnormal findings of blood chemistry Status: Acute Assessment and Plan: - EKG, initial: Sinus bradycardia with sinus arrhythmia with first-degree AV block, left axis deviation, pattern consistent with pulmonary disease. - Troponin: 0.998 -> 1.080-> 1.060 - ASA 324 given in the ED -> 81 daily - SL nitro PRN - cardiology consulted - José ADAMS Trend troponin, doubt ACS without chest pain and EKG changes ECHO: EF 65-70% grade 1 diastolic dysfunction moderate aortic valve stenosis mild aortic valve regurgitation trace tricuspid regurgitation mild pulmonary hypertension - telemetry monitoring (3) Acute UTI: Code(s): N39.0 - Urinary tract infection, site not specified Status: Acute Assessment and Plan: - UA: Cloudy, 2+ protein, 3+ blood, positive nitrates, 3+ leuk esterase, greater than 100 RBC/WBC, no epithelial cells, 3+ bacteria - UC pending - previous micro reviewed: Proteus mirabilis and Enterobacter in November of 2023 with multiple resistances, most significantly for Ceftriaxone/Levaquin - started on meropenem on 11/12 (4) Chronic indwelling Gonzalez catheter: Code(s): Z97.8 - Presence of other specified devices Status: Chronic Assessment and Plan: - Gonzalez exchanged on 11/12 due to concerns for UTI - continue finasteride and alfuzosin (5) Pneumonia: Qualifiers: Laterality: unspecified laterality Lung location: unspecified part of lung Pneumonia type: due to unspecified organism Qualified Code(s): J18.9 - Pneumonia, unspecified organism Code(s): J18.9 - Pneumonia, unspecified organism Status: Acute Assessment and Plan: - CXR/CT concerning for pneumonia - started on meropenem and due to MDR UTI history/concurrent UTI and azithromycin on 11/12 - supportive care: Mucinex, Tessalon Perles, Tylenol - at baseline O2 requirement: 2L nasal cannula (6) Type 2 diabetes mellitus with diabetic neuropathy: Qualifiers: Diabetes mellitus terminal gauger supervisor insulin use: without terminal gauger supervisor use Qualified Code(s): E11.40 - Type 2 diabetes mellitus with diabetic neuropathy, unspecified Code(s): E11.40 - Type 2 diabetes mellitus with diabetic neuropathy, unspecified Status: Acute Assessment and Plan: - hypoglycemia protocol - diet controlled - A1C 5.8% on 06/28/2024 (7) PAF (paroxysmal atrial fibrillation): Code(s): I48.0 - Paroxysmal atrial fibrillation Status: Acute Assessment and Plan: - continue home medication: Eliquis and metoprolol - chads Vasc 3 (8) HTN (hypertension): Qualifiers: Hypertension type: primary hypertension Qualified Code(s): I10 - Essential (primary) hypertension Code(s): I10 - Essential (primary) hypertension Status: Acute Assessment and Plan: - continue home medications: Amlodipine - monitor (9) Chronic respiratory failure with hypoxia: Code(s): J96.11 - Chronic respiratory failure with hypoxia Status: Acute Assessment and Plan: - on 2 L nasal cannula baseline, continue to maintain O2 sat greater than 92%. (10) Obstructive sleep apnea on CPAP: Code(s): G47.33 - Obstructive sleep apnea (adult) (pediatric) Status: Acute Assessment and Plan: - continue home CPAP Plan Diet: Diabetic GI Prophylaxis: Pantoprazole p.o. DVT Prophylaxis: Eliquis IV fluids: None Lines/Tubes: Peripheral IV, Gonzalez Code Status: Full code Subjective Date/time seen: 11/13/24 14:09 Interval history: No overnight events. Feeling better. Has some cough. No chest pain. Review of Systems Review of Systems: All systems reviewed & are unremarkable except as noted in HPI and below Exam Narrative: GENERAL:[No acute distress, non-toxic appearing.] HEAD: Normal with no signs of head trauma. EYES: EOMI, conjunctiva normal ENT: Hearing grossly intact LUNGS: Nonlabored breathing. Diminished breath sounds bilaterally, Mild end expiratory wheezes HEART: [Regular rate and rhythm] ABD: [Soft], [nontender to palpation] EXT: Normal range of motion SKIN: [No rashes or lesions.] NEURO: [Alert and oriented x 3. No gross focal sensory or strength deficits; no drift upper lower extremities.] PSYCH: Normal affect Objective Data Vital Signs Vital Signs: Vital Signs - 24 hr 11/12/24 14:36 11/12/24 15:02 11/12/24 15:18 Temperature Pulse Rate 57 L 58 L 61 Respiratory Rate 20 20 20 Blood Pressure 132/89 140/50 L 133/50 L Pulse Oximetry 97 98 97 Oxygen Delivery Oxygen Flow Rate 11/12/24 15:47 11/12/24 16:20 11/12/24 16:50 Temperature 97.5 F L Pulse Rate 56 L 58 L 64 Respiratory Rate 16 16 22 H Blood Pressure 141/47 H 130/50 L 147/54 H Pulse Oximetry 98 98 91 Oxygen Delivery Oxygen Flow Rate 11/12/24 17:22 11/12/24 17:29 11/12/24 18:00 Temperature Pulse Rate 57 L 66 Respiratory Rate Blood Pressure Pulse Oximetry 97 Oxygen Delivery Nasal Cannula Oxygen Flow Rate 2 11/12/24 19:47 11/12/24 20:00 11/12/24 20:00 Temperature 98.8 F Pulse Rate 61 62 Respiratory Rate 22 H Blood Pressure 142/82 H Pulse Oximetry 98 98 Oxygen Delivery Nasal Cannula Oxygen Flow Rate 2 11/12/24 20:30 11/12/24 22:00 11/12/24 22:40 Temperature Pulse Rate 65 63 71 Respiratory Rate 33 H Blood Pressure Pulse Oximetry 98 94 Oxygen Delivery Nasal Cannula Autopap Oxygen Flow Rate 2 11/12/24 22:40 11/12/24 23:52 11/13/24 00:00 Temperature 97.9 F Pulse Rate 71 69 70 Respiratory Rate 22 H Blood Pressure 120/54 L Pulse Oximetry 94 95 Oxygen Delivery Autopap Oxygen Flow Rate 2 11/13/24 00:00 11/13/24 02:00 11/13/24 02:46 Temperature Pulse Rate 66 74 Respiratory Rate 11 L Blood Pressure Pulse Oximetry 95 96 Oxygen Delivery CPAP Autopap Oxygen Flow Rate 2 11/13/24 02:46 11/13/24 03:59 11/13/24 04:00 Temperature 98.9 F Pulse Rate 71 70 72 Respiratory Rate 22 H Blood Pressure 159/61 H Pulse Oximetry 89 L 97 Oxygen Delivery Autopap Oxygen Flow Rate 2 11/13/24 04:00 11/13/24 06:00 11/13/24 07:35 Temperature 98.5 F Pulse Rate 71 70 Respiratory Rate 12 Blood Pressure 137/65 Pulse Oximetry 97 97 Oxygen Delivery CPAP Oxygen Flow Rate 3 11/13/24 08:00 11/13/24 10:00 11/13/24 10:37 Temperature Pulse Rate 65 67 63 Respiratory Rate Blood Pressure Pulse Oximetry Oxygen Delivery Oxygen Flow Rate 11/13/24 11:52 11/13/24 12:00 Temperature 98.1 F Pulse Rate 60 59 L Respiratory Rate 12 Blood Pressure 127/75 Pulse Oximetry 98 Oxygen Delivery Oxygen Flow Rate Intake/Output Intake/Output: Intake & Output 11/10/24 11/11/24 11/12/24 11/13/24 23:59 23:59 23:59 23:59 Intake Total 550 240 Output Total 700 Balance 550 -460 Meds/Results Medications: Active Medications Generic Name Dose Route Start Last Admin Trade Name Freq PRN Reason Stop Dose Admin Acetaminophen 650 mg 11/12/24 17:56 Acetaminophen 325 Mg Tablet PO Q4H PRN Mild Pain (1-3) or Fever Alfuzosin HCl 10 mg 11/13/24 09:00 08/26/25 10:37 Alfuzosin 10 Mg Er Tablet PO 10 mg DAILY YULIANA Administration Allopurinol 100 mg 11/13/24 09:00 11/13/24 10:38 Allopurinol 100 Mg Tablet PO 100 mg DAILY YULIANA Administration Amlodipine Besylate 5 mg 11/12/24 21:00 11/12/24 20:22 Amlodipine Besylate 5 Mg Tablet PO 5 mg QHS YULIANA Administration Apixaban 5 mg 11/13/24 09:00 11/13/24 10:37 Apixaban 5 Mg Tablet PO 5 mg Q12HR YULIANA Administration Aspirin 81 mg 11/13/24 09:00 11/13/24 10:37 Aspirin 81 Mg Enteric Tablet PO 81 mg QAM YULIANA Administration Benzonatate 100 mg 11/12/24 17:56 Benzonatate 100 Mg Capsule PO TID PRN Cough Dextrose 12.5 gm 11/12/24 18:01 Dextrose 50% 25 Gm/50 Ml Syringe IV PUSH PRN PRN Hypoglycemia Protocol Duloxetine HCl 60 mg 11/13/24 09:00 11/13/24 10:36 Duloxetine Hcl 60 Mg Capsule.Dr PO 60 mg DAILY YULIANA Administration Finasteride 5 mg 11/13/24 09:00 11/13/24 10:36 Finasteride 5 Mg Tablet PO 5 mg QAM YULIANA Administration Fish Oil 1 gm 11/13/24 09:00 11/13/24 10:37 [place] 3 Polyunsat Fatty Acids 1 Gm Cap PO 1 gm DAILY YULIANA Administration Gabapentin 300 mg 11/13/24 09:00 11/13/24 12:40 Gabapentin 300 Mg Capsule PO 300 mg DAILY YULIANA Administration Gabapentin 600 mg 11/13/24 16:00 Gabapentin 300 Mg Capsule PO Q24H YULIANA Glucagon 1 mg 11/12/24 18:01 Glucagon For Inj 1 Mg Vial IM PRN PRN Hypoglycemia Protocol Glucose 15 gm 11/12/24 18:01 Glucose Oral Gel 15 Gm Of Glucse In 37.5 Gm Tube PO PRN PRN Hypoglycemia Protocol Guaifenesin 600 mg 11/12/24 21:00 11/13/24 10:36 Guaifenesin 12 Hr 600 Mg Tabcr PO 600 mg Q12HR YULIANA Administration Azithromycin 500 mg/ Sodium 250 mls @ 250 mls/hr 11/13/24 14:00 Chloride IVPB 11/17/24 14:59 Q24H YULIANA Dextrose 1,000 mls @ 100 mls/hr 11/12/24 18:13 Dextrose 5% 1,000 Ml IVPB PRN PRN Hypoglycemia Protocol Loratadine 10 mg 11/12/24 21:00 11/12/24 20:22 Loratadine 10 Mg Tablet PO 10 mg HS YULIANA Administration Metoprolol Tartrate 25 mg 11/13/24 09:00 11/13/24 10:37 Metoprolol Tartrate 25 Mg Tablet PO 25 mg Q12HR YULIANA Administration Nitroglycerin 0.4 mg 11/12/24 18:01 Nitroglycerin Sl 0.4 Mg Tablet SUBLINGUAL Q5MIN PRN Chest Pain Pantoprazole Sodium 40 mg 11/13/24 09:00 11/13/24 10:36 Pantoprazole 40 Mg Tablet PO 40 mg DAILY YULIANA Administration Vitamin D 50 mcg 11/13/24 09:00 11/13/24 10:38 Cholecalciferol (Vitamin D3) 25 Mcg (1,000 Units) Tablet PO 50 mcg DAILY YULIANA Administration Radiology Results: ITS Impressions Head CT 11/12/24 12:05 IMPRESSION: 1. No acute intracranial hemorrhage identified. No mass effect. 2. Probable chronic ischemic white matter change. 3. Limited study due to motion artifact. If of concern, consider a repeat study Chest X-Ray 11/12/24 12:21 IMPRESSION: 1: Right hilum is prominent. Differential includes overlapping vascular, adenopathy or mass. A chest CT is suggested. 2. No focal pulmonary consolidation identified. Cervical Spine CT 11/12/24 12:23 IMPRESSION: 1. No compression fracture in the cervical spine. 2. Grade 1/2 anterolisthesis C7 on T1 which is grossly stable dating back to 03/02/2024. 3. 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 Evaluation is slightly limited due to motion artifact. If symptoms persist or worsen, consider an MRI of the cervical spine for further assessment. Chest CT 11/12/24 13:50 IMPRESSION: 1. Consolidation of the lower lobes which may represent atelectasis or pneumonia. 2: Bullous changes of the right lower lobe extending into the right chest wall inferiorly. 3: Pulmonary arterial hypertension. Labs Labs: Laboratory Results - last 24 hr 11/12/24 11/12/24 11/12/24 14:19 14:31 15:53 WBC RBC Hgb Hct MCV MCH MCHC RDW Plt Count MPV Immature Gran % (Auto) Neut % (Auto) Lymph % (Auto) [place] % (Auto) Eos % (Auto) Baso % (Auto) Lymph # (Auto) [place] # (Auto) Eos # (Auto) Baso # (Auto) Abs Immat Gran (auto) Absolute Neuts (auto) Absolute Nucleated RBC Nucleated RBC % Sodium Potassium Chloride Carbon Dioxide Anion Gap BUN Creatinine Estim Creat Clear Calc Estimated GFR Glucose POC Capillary Glucose Lactic Acid 1.1 Calcium Magnesium Total Bilirubin AST ALT Alkaline Phosphatase Troponin I 1.080 H* Total Protein Albumin Urine Color Yellow Urine Appearance Cloudy H Urine pH 7.0 Ur Specific [place] 1.017 Urine Protein 2+ H Urine Glucose (UA) Negative Urine Ketones Negative Ur Blood (Man) 3+ H Urine Nitrate Positive H Urine Bilirubin Negative Urine Urobilinogen 1.0 Add Ur Microanalysis Reviewed Leukocyte Esterase Rfl 3+ H Urine RBC >100 H Urine WBC >100 H Ur Squamous Epith Cells None seen Urine Bacteria 3+ H Urine Casts 11-20 11/12/24 11/12/24 11/13/24 18:40 23:44 06:19 WBC 7.2 RBC 3.43 L Hgb 10.3 L Hct 32.8 L MCV 95.6 MCH 30.0 MCHC 31.4 L RDW 14.3 Plt Count 200 MPV 9.3 Immature Gran % (Auto) 0.1 Neut % (Auto) 51.9 Lymph % (Auto) 32.0 [place] % (Auto) 9.1 H Eos % (Auto) 6.6 H Baso % (Auto) 0.3 Lymph # (Auto) 2.32 [place] # (Auto) 0.7 H Eos # (Auto) 0.5 H Baso # (Auto) 0.0 Abs Immat Gran (auto) 0.01 Absolute Neuts (auto) 3.8 Absolute Nucleated RBC 0.000 Nucleated RBC % 0.0 Sodium 136 L Potassium 4.5 Chloride 98 Carbon Dioxide 33 H Anion Gap 5 BUN 24 H Creatinine 1.03 Estim Creat Clear Calc 42 Estimated GFR > 60 Glucose 123 H POC Capillary Glucose 118 H Lactic Acid Calcium 9.1 Magnesium 1.9 Total Bilirubin 0.6 AST 42 ALT 18 Alkaline Phosphatase 78 Troponin I 1.060 H* Total Protein 6.4 Albumin 3.4 L Urine Color Urine Appearance Urine pH Ur Specific [place] Urine Protein Urine Glucose (UA) Urine Ketones Ur Blood (Man) Urine Nitrate Urine Bilirubin Urine Urobilinogen Add Ur Microanalysis Leukocyte Esterase Rfl Urine RBC Urine WBC Ur Squamous Epith Cells Urine Bacteria Urine Casts
[2024-11-13] MEDS: AZITHROMYCIN IV 500 MG in SODIUM CHLORIDE 0.9% IV 250 ML IVPB (14:39)
[2024-11-13] MEDS: MEROPENEM 1 GM in SODIUM CHLORIDE 0.9% IV 100 ML 200 ML IVPB ×2 (15:47→21:59)
[2024-11-13] MEDS: GABAPENTIN 300 MG CAPSULE 600 MG PO (15:53)
[2024-11-13] MEDS: LORATADINE 10 MG TABLET PO (21:13)
--- NOTE | 2024-11-13 22:30 | PC.NURSE ---
pt arrived from room 207 to room 241 at 2220hrs. Pt orientated to new environment. No signs of distress at this time, RN will continue to monitor for rest of shift.
[2024-11-14] VITALS (16 sets, daily range): BP systolic 98–149; BP diastolic 37–69; PULSE 52–71; RESP 16–34; TEMP 36.4–37; O2SAT 93–100
[2024-11-14] MEDS: ACETAMINOPHEN 325 MG TABLET 650 MG PO (01:46)
[2024-11-14 05:01] LABS: Hematocrit 32.7 % (42.0-52.0); Hemoglobin 10.1 g/dL (14.0-18.0); Immature Granulocyte Percent A 0.4 % (0-0.5); Lymphocytes Absolute Auto 2.68 K/mm3 (0.9-3.2); Mean Corpuscular HGB Conc 30.9 g/dl (32-36); Mean Corpuscular Hemoglobin 29.8 pg (26-34); Mean Corpuscular Volume 96.5 fl (80-100); Nucleated Red Blood Cells Absolute Auto 0.000 K/mm3 (0.0-0.012); Nucleated Red Blood Cells Perc 0.0 % (0.0-0.2); Platelet Count Result 197 k/mm3 (150-375); Red Blood Count 3.39 M/mm3 (4.6-6.20); White Blood Count 7.4 K/mm3 (4.5-10.0)
[2024-11-14 05:28] LABS: Alanine Aminotransferase 15 U/L (6-50); Albumin Level 3.2 g/dL (3.5-5.1); Alkaline Phosphatase 80 U/L (38-126); Anion Gap 4 mmol/L (4-12); Aspartate Amino Transferase 34 U/L (17-59); Bilirubin,Total 0.4 mg/dL (0.2-1.3); Blood Urea Nitrogen 22 mg/dL (9-20); Calcium 8.8 mg/dL (8.4-10.2); Carbon Dioxide 34 mmol/L (22-30); Chloride 99 mmol/L (98-107); Estimated CRCL calculation 40 ml/min; Estimated Glomerular Filt Rate > 60; Glucose 107 mg/dL (65-110); Magnesium 1.9 mg/dL (1.6-2.3); Potassium 4.2 mmol/L (3.4-5.0); Sodium 137 mmol/L (137-145); Total Protein 6.1 g/dL (6.3-8.2)
--- NOTE | 2024-11-14 07:52 | PM.PNCARD ---
Progress Note: A&P Assessment and Plan (1) Elevated troponin: Code(s): R79.89 - Other specified abnormal findings of blood chemistry Status: Acute Assessment and Plan: Troponin peaked at 1.08. Probably due to COPD/pneumonia. Doubt ACS without chest pain and EKG changes. No further cardiac workup is needed. Will sign off, please call with any questions. (2) Shortness of Breath: Code(s): R06.02 - Shortness of breath Status: Acute Assessment and Plan: Probably due to COPD or possible pneumonia. (3) PAF (paroxysmal atrial fibrillation): Code(s): I48.0 - Paroxysmal atrial fibrillation Status: Acute Assessment and Plan: [id number] 3. In sinus rhythm. On Eliquis and Metoprolol. (4) HTN (hypertension): Qualifiers: Hypertension type: primary hypertension Qualified Code(s): I10 - Essential (primary) hypertension Code(s): I10 - Essential (primary) hypertension Status: Acute Assessment and Plan: Stable. (5) Aortic valve stenosis: Code(s): I35.0 - Nonrheumatic aortic (valve) stenosis Status: Inactive Assessment and Plan: Moderate. Subjective Date/time seen: 11/14/24 07:52 Interval history: Denies chest pain or sob. Exam Const: General: cooperative, healthy appearing and comfortable Orientation/consciousness: oriented to person, oriented to place and oriented to time Resp: Auscultation: clear to auscultation bilaterally, no crackles, no rales, no rhonchi and no wheezes Cardio: Rate: regular rate Rhythm: regular rhythm Heart sounds: Murmur heart sound present (III/ systolic murmur RICS) Peripheral pulses: dorsalis pedis present Neuro: General: oriented to person, oriented to place and oriented to time Extrem: Right lower extremity: edema Left lower extremity: no edema Other: Mild left leg edema Objective Data Vital Signs Vital Signs: Vital Signs - 24 hr 11/13/24 08:00 11/13/24 10:00 11/13/24 10:37 Temperature Pulse Rate 65 67 63 Respiratory Rate Blood Pressure Pulse Oximetry Oxygen Delivery Oxygen Flow Rate 11/13/24 11:52 11/13/24 12:00 11/13/24 15:50 Temperature 98.1 F 98.9 F Pulse Rate 60 59 L 62 Respiratory Rate 12 28 H Blood Pressure 127/75 109/39 L Pulse Oximetry 98 99 Oxygen Delivery Oxygen Flow Rate 11/13/24 16:00 11/13/24 18:00 11/13/24 20:00 Temperature Pulse Rate 60 62 64 Respiratory Rate Blood Pressure Pulse Oximetry Oxygen Delivery Oxygen Flow Rate 11/13/24 21:13 11/13/24 23:30 11/13/24 23:45 Temperature Pulse Rate 68 88 88 Respiratory Rate 26 H 29 H Blood Pressure Pulse Oximetry 98 98 Oxygen Delivery Nasal Cannula Autopap Oxygen Flow Rate 2 11/14/24 00:00 11/14/24 00:03 11/14/24 00:04 Temperature 98.4 F Pulse Rate 60 58 L Respiratory Rate 18 Blood Pressure 98/47 L Pulse Oximetry 96 96 Oxygen Delivery Autopap Oxygen Flow Rate 2 11/14/24 02:20 11/14/24 04:00 11/14/24 06:02 Temperature 97.6 F Pulse Rate 58 L 60 Respiratory Rate 18 Blood Pressure 139/37 L Pulse Oximetry 93 Oxygen Delivery Autopap Oxygen Flow Rate Intake/Output Intake/Output: Intake & Output 11/11/24 11/12/24 11/13/24 11/14/24 23:59 23:59 23:59 23:59 Intake Total 550 790 Output Total 1500 550 Balance 550 -710 -550 Meds/Results Medications: Active Medications Generic Name Dose Route Start Last Admin Trade Name Gianlucaq PRN Reason Stop Dose Admin Acetaminophen 650 mg 11/12/24 17:56 11/14/24 01:46 Acetaminophen 325 Mg Tablet PO 650 mg Q4H PRN Administration Mild Pain (1-3) or Fever Alfuzosin HCl 10 mg 11/13/24 09:00 11/13/24 10:37 Alfuzosin 10 Mg Er Tablet PO 10 mg DAILY YULIANA Administration Allopurinol 100 mg 11/13/24 09:00 11/13/24 10:38 Allopurinol 100 Mg Tablet PO 100 mg DAILY YULIANA Administration Amlodipine Besylate 5 mg 11/12/24 21:00 11/13/24 21:13 Amlodipine Besylate 5 Mg Tablet PO 5 mg QHS YULIANA Administration Apixaban 5 mg 11/13/24 09:00 11/13/24 21:13 Apixaban 5 Mg Tablet PO 5 mg Q12HR YULIANA Administration Aspirin 81 mg 11/13/24 09:00 11/13/24 10:37 Aspirin 81 Mg Enteric Tablet PO 81 mg QAM YULIANA Administration Azithromycin 250 mg 11/14/24 09:00 Azithromycin 250 Mg Tablet PO 11/16/24 09:01 DAILY YULIANA Benzonatate 100 mg 11/12/24 17:56 Benzonatate 100 Mg Capsule PO TID PRN Cough Dextrose 12.5 gm 11/12/24 18:01 Dextrose 50% 25 Gm/50 Ml Syringe IV PUSH PRN PRN Hypoglycemia Protocol Duloxetine HCl 60 mg 11/13/24 09:00 11/13/24 10:36 Duloxetine Hcl 60 Mg Capsule.Dr PO 60 mg DAILY YULIANA Administration Finasteride 5 mg 11/13/24 09:00 11/13/24 10:36 Finasteride 5 Mg Tablet PO 5 mg QAM YULIANA Administration Fish Oil 1 gm 11/13/24 09:00 11/13/24 10:37 [place] 3 Polyunsat Fatty Acids 1 Gm Cap PO 1 gm DAILY YULIANA Administration Gabapentin 300 mg 11/13/24 09:00 11/13/24 12:40 Gabapentin 300 Mg Capsule PO 300 mg DAILY YULIANA Administration Gabapentin 600 mg 11/13/24 16:00 11/13/24 15:53 Gabapentin 300 Mg Capsule PO 600 mg Q24H YULIANA Administration Glucagon 1 mg 11/12/24 18:01 Glucagon For Inj 1 Mg Vial IM PRN PRN Hypoglycemia Protocol Glucose 15 gm 11/12/24 18:01 Glucose Oral Gel 15 Gm Of Glucse In 37.5 Gm Tube PO PRN PRN Hypoglycemia Protocol Guaifenesin 600 mg 11/12/24 21:00 11/13/24 21:13 Guaifenesin 12 Hr 600 Mg Tabcr PO 600 mg Q12HR YULIANA Administration Dextrose 1,000 mls @ 100 mls/hr 11/12/24 18:13 Dextrose 5% 1,000 Ml IVPB PRN PRN Hypoglycemia Protocol Meropenem 1 gm/ Sodium 100 mls @ 200 mls/hr 11/13/24 14:30 11/13/24 22:29 Chloride IVPB Infused Q12HR YULIANA Infusion Loratadine 10 mg 11/12/24 21:00 11/13/24 21:13 Loratadine 10 Mg Tablet PO 10 mg HS YULIANA Administration Metoprolol Tartrate 25 mg 11/13/24 09:00 11/13/24 21:13 Metoprolol Tartrate 25 Mg Tablet PO 25 mg Q12HR YULIANA Administration Nitroglycerin 0.4 mg 11/12/24 18:01 Nitroglycerin Sl 0.4 Mg Tablet SUBLINGUAL Q5MIN PRN Chest Pain Pantoprazole Sodium 40 mg 11/13/24 09:00 11/13/24 10:36 Pantoprazole 40 Mg Tablet PO 40 mg DAILY YULIANA Administration Vitamin D 50 mcg 11/13/24 09:00 11/13/24 10:38 Cholecalciferol (Vitamin D3) 25 Mcg (1,000 Units) Tablet PO 50 mcg DAILY YULIANA Administration Radiology Results: ITS Impressions Head CT 11/12/24 12:05 IMPRESSION: 1. No acute intracranial hemorrhage identified. No mass effect. 2. Probable chronic ischemic white matter change. 3. Limited study due to motion artifact. If of concern, consider a repeat study Chest X-Ray 11/12/24 12:21 IMPRESSION: 1: Right hilum is prominent. Differential includes overlapping vascular, adenopathy or mass. A chest CT is suggested. 2. No focal pulmonary consolidation identified. Cervical Spine CT 11/12/24 12:23 IMPRESSION: 1. No compression fracture in the cervical spine. 2. Grade 1/2 anterolisthesis C7 on T1 which is grossly stable dating back to 03/02/2024. 3. 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 Evaluation is slightly limited due to motion artifact. If symptoms persist or worsen, consider an MRI of the cervical spine for further assessment. Chest CT 11/12/24 13:50 IMPRESSION: 1. Consolidation of the lower lobes which may represent atelectasis or pneumonia. 2: Bullous changes of the right lower lobe extending into the right chest wall inferiorly. 3: Pulmonary arterial hypertension. Labs Labs: Laboratory Results - last 24 hr 11/14/24 04:08 WBC 7.4 RBC 3.39 L Hgb 10.1 L Hct 32.7 L MCV 96.5 MCH 29.8 MCHC 30.9 L RDW 14.6 H Plt Count 197 MPV 9.3 Immature Gran % (Auto) 0.4 Neut % (Auto) 44.0 L Lymph % (Auto) 36.4 [place] % (Auto) 10.9 H Eos % (Auto) 7.9 H Baso % (Auto) 0.4 Lymph # (Auto) 2.68 [place] # (Auto) 0.8 H Eos # (Auto) 0.6 H Baso # (Auto) 0.0 Abs Immat Gran (auto) 0.03 Absolute Neuts (auto) 3.3 Absolute Nucleated RBC 0.000 Nucleated RBC % 0.0 Sodium 137 Potassium 4.2 Chloride 99 Carbon Dioxide 34 H Anion Gap 4 BUN 22 H Creatinine 1.12 Estim Creat Clear Calc 40 Estimated GFR > 60 Glucose 107 Calcium 8.8 Magnesium 1.9 Total Bilirubin 0.4 AST 34 ALT 15 Alkaline Phosphatase 80 Total Protein 6.1 L Albumin 3.2 L
[2024-11-14] MEDS: CHOLECALCIFEROL (VITAMIN D3) 25 MCG (1,000 UNITS) TABLET 50 MCG PO (08:51)
[2024-11-14] MEDS: PANTOPRAZOLE 40 MG TABLET PO (08:51)
[2024-11-14] MEDS: AZITHROMYCIN 250 MG TABLET PO (08:51)
[2024-11-14] MEDS: DULoxetine HCL 60 MG CAPSULE.DR PO (08:51)
[2024-11-14] MEDS: APIXABAN 5 MG TABLET PO ×2 (08:51→20:20)
[2024-11-14] MEDS: ASPIRIN 81 MG ENTERIC TABLET PO (08:52)
[2024-11-14] MEDS: FINASTERIDE 5 MG TABLET PO (08:52)
[2024-11-14] MEDS: METOPROLOL TARTRATE 25 MG TABLET PO ×2 (08:52→20:20)
[2024-11-14] MEDS: GABAPENTIN 300 MG CAPSULE PO (08:52)
[2024-11-14] MEDS: guaiFENesin 12 HR 600 MG TABCR PO ×2 (08:53→20:19)
[2024-11-14] MEDS: OMEGA 3 POLYUNSAT FATTY ACIDS 1 GM CAP PO (08:53)
[2024-11-14] MEDS: MEROPENEM 1 GM in SODIUM CHLORIDE 0.9% IV 100 ML 200 ML IVPB ×2 (08:53→20:20)
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
[2024-11-14] MEDS: GABAPENTIN 300 MG CAPSULE 600 MG PO (17:14)
[2024-11-14] MEDS: LORATADINE 10 MG TABLET PO (20:20)
[2024-11-15] VITALS (15 sets, daily range): BP systolic 101–151; BP diastolic 53–86; PULSE 55–64; RESP 16–20; TEMP 36.1–36.4; O2SAT 90–99
[2024-11-15] MEDS: ERTAPENEM SODIUM 1 GM in SODIUM CHLORIDE 0.9% IV 50 ML 100 ML IVPB (08:23)
[2024-11-15] MEDS: ASPIRIN 81 MG ENTERIC TABLET PO (08:23)
[2024-11-15] MEDS: CHOLECALCIFEROL (VITAMIN D3) 25 MCG (1,000 UNITS) TABLET 50 MCG PO (08:24)
[2024-11-15] MEDS: METOPROLOL TARTRATE 25 MG TABLET PO ×2 (08:24→20:39)
[2024-11-15] MEDS: guaiFENesin 12 HR 600 MG TABCR PO ×2 (08:24→20:40)
[2024-11-15] MEDS: OMEGA 3 POLYUNSAT FATTY ACIDS 1 GM CAP PO (08:24)
[2024-11-15] MEDS: AZITHROMYCIN 250 MG TABLET PO (08:24)
[2024-11-15] MEDS: PANTOPRAZOLE 40 MG TABLET PO (08:24)
[2024-11-15] MEDS: DULoxetine HCL 60 MG CAPSULE.DR PO (08:25)
[2024-11-15] MEDS: APIXABAN 5 MG TABLET PO ×2 (08:25→20:40)
[2024-11-15] MEDS: FINASTERIDE 5 MG TABLET PO (08:25)
[2024-11-15] MEDS: GABAPENTIN 300 MG CAPSULE PO (08:25)
[2024-11-15] MEDS: GABAPENTIN 300 MG CAPSULE 600 MG PO (16:18)
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
[2024-11-15] MEDS: LORATADINE 10 MG TABLET PO (20:39)
[2024-11-16] VITALS (11 sets, daily range): BP systolic 115–151; BP diastolic 47–71; PULSE 58–67; RESP 17–20; TEMP 36.4–36.6; O2SAT 94–96
[2024-11-16] MEDS: ERTAPENEM SODIUM 1 GM in SODIUM CHLORIDE 0.9% IV 50 ML 100 ML IVPB (07:50)
[2024-11-16] MEDS: OMEGA 3 POLYUNSAT FATTY ACIDS 1 GM CAP PO (09:25)
[2024-11-16] MEDS: APIXABAN 5 MG TABLET PO (09:25)
[2024-11-16] MEDS: DULoxetine HCL 60 MG CAPSULE.DR PO (09:25)
[2024-11-16] MEDS: AZITHROMYCIN 250 MG TABLET PO (09:25)
[2024-11-16] MEDS: CHOLECALCIFEROL (VITAMIN D3) 25 MCG (1,000 UNITS) TABLET 50 MCG PO (09:25)
[2024-11-16] MEDS: GABAPENTIN 300 MG CAPSULE PO (09:26)
[2024-11-16] MEDS: PANTOPRAZOLE 40 MG TABLET PO (09:26)
[2024-11-16] MEDS: FINASTERIDE 5 MG TABLET PO (09:26)
[2024-11-16] MEDS: guaiFENesin 12 HR 600 MG TABCR PO (09:26)
[2024-11-16] MEDS: METOPROLOL TARTRATE 25 MG TABLET PO (09:26)
[2024-11-16] MEDS: ASPIRIN 81 MG ENTERIC TABLET PO (09:27)
[2024-11-16] MEDS: LIDOCAINE 1% LOCAL INJ 2 ML AMPUL 5 ML INFILTRATE (11:20)
[2024-11-16] MEDS: SALINE LOCK FLUSH 10 ML IV PUSH (13:17)
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
[2024-11-16] MEDS: GABAPENTIN 300 MG CAPSULE 600 MG PO (15:27)
== END 2024-11-16 19:50 | DRG 698 ==
LOC: ANHED 15:43 → ANHIMU 11-13 16:18 → ANH2MED 11-14 11:29 → ANHIMU 11-20 10:59
PROVIDERS: Nurse Practitioner; Admitting Provider Internal Medicine; Emergency Provider Emergency Medicine; PCP Nurse Practitioner Family; Visit Provider Internal Medicine
DX: T83.511A Infection and inflammatory reaction due to indwelling urethral catheter, initial encounter (principal); J18.9 Pneumonia, unspecified organism; J96.11 Chronic respiratory failure with hypoxia; N39.0 Urinary tract infection, site not specified; I35.0 Nonrheumatic aortic (valve) stenosis; I48.0 Paroxysmal atrial fibrillation; E11.40 Type 2 diabetes mellitus with diabetic neuropathy, unspecified; K21.9 Gastro-esophageal reflux disease without esophagitis; N31.9 Neuromuscular dysfunction of bladder, unspecified; R79.89 Other specified abnormal findings of blood chemistry; G47.419 Narcolepsy without cataplexy; G47.33 Obstructive sleep apnea (adult) (pediatric); Z87.442 Personal history of urinary calculi; S34.109S Unspecified injury to unspecified level of lumbar spinal cord, sequela; V89.2XXS Person injured in unspecified motor-vehicle accident, traffic, sequela; Z99.81 Dependence on supplemental oxygen; Z79.01 Long term (current) use of anticoagulants
CPT/HCPCS: 36410; 36415; 70450; 71045; 71250; 72125; 80053; 81001; 82077; 82140; 82948; 83605; 83735; 84443; 84484; 85025; 87040; 87086; 93005; 94640; 96365; 97110; 97162; 97166; 97530; 99285; A9270; C1751; C8929; J0456; J0696; J1335; J2003; J2185; J7050; Q9957